=== PATIENT | female | born 1950 | race Caucasian/White ===

== ENCOUNTER 2019-12-17 08:08 | Outpatient (REF) | payer MEDICARE, SELFPAY ==
[2019-12-17 11:26] LABS: Hematocrit 41.6 % (37-47); Hemoglobin 14.3 g/dl (12.0-16.0); Mean Corpuscular HGB Conc 34.4 g/dl (31.0-35.0); Mean Corpuscular Hemoglobin 30.9 pg (27.0-33.0); Mean Corpuscular Volume 89.8 fL (80-98); Mean Platelet Volume 11.1 fL (9.4-12.3); Platelet Count 225 X10*3/uL (160-400); Red Blood Count 4.63 X10*6/uL (4.20-5.50); Red Cell Distribution Width 11.7 % (11.0-16.0); White Blood Count 6.9 X10*3/uL (4.8-10.8)
[2019-12-17 11:31] LABS: Estimated Average Glucose 146 mg/dL; Hemoglobin A1c % 6.7 %
[2019-12-17 11:37] LABS: Alanine Aminotransferase 16 U/L (0-31); Albumin Level 4.2 g/dL (3.5-5.0); Alkaline Phosphatase 83 U/L (39-117); Anion Gap 13 (12-20); Aspartate Amino Transferase 19 U/L (5-31); Bilirubin Total 0.6 mg/dL (0.0-1.0); Blood Urea Nitrogen 9 mg/dL (9-16); Carbon Dioxide 31 mmol/L (22-29); Chloride 94 mmol/L (96-108); Cholesterol 140 mg/dL; Estimated Glomerular Filt Rate > 60; Glucose Fasting 155 mg/dL (60-99); HDL Cholesterol 47 mg/dL; LDL Cholesterol Calculated 70 mg/dl; Potassium 4.4 mmol/l (3.3-5.1); Sodium 134 mmol/L (135-145); Total Protein 6.3 g/dL (6.5-8.0); Triglycerides 115 mg/dL
[2019-12-17 12:06] LABS: Creatinine Urine 57.94 mg/dL; Microalbumin Urine < 5.0 mg/L
== END 2019-12-17 08:09 | disposition home or self-care (01) ==
LOC: HO.HMGCLDS 08:08
PROVIDERS: PCP Internal Medicine; Visit Provider Internal Medicine
DX: E11.9 Type 2 diabetes mellitus without complications (principal); I10 Essential (primary) hypertension; E78.5 Hyperlipidemia, unspecified; F32.9 Major depressive disorder, single episode, unspecified
CPT/HCPCS: 36415; 80053; 80061; 82043; 83036; 85027

== ENCOUNTER 2020-03-02 11:45 | Outpatient (REF) | payer MEDICARE, SELFPAY ==
[2020-03-02 14:33] LABS: Anion Gap 21 (12-20); Blood Urea Nitrogen 7 mg/dL (9-16); Calcium 9.9 mg/dL (8.4-10.2); Carbon Dioxide 25 mmol/L (22-29); Chloride 92 mmol/L (96-108); Estimated Glomerular Filt Rate > 60; Glucose Random 145 mg/dL (60-115); Iron 164 mcg/dL (30-160); Percent Iron Saturation 41 % (15-50); Potassium 4.7 mmol/l (3.3-5.1); Sodium 133 mmol/L (135-145); Total Iron Binding Capacity 399 mcg/dL (228-428); Unsaturated Iron Binding 235 ug/dL
[2020-03-02 14:42] LABS: TSH reflex Free T4 1.02 mIU/mL (0.32-4.0)
[2020-03-02 14:57] LABS: Folate 8.5 ng/mL (> or = 4.0); Vitamin B12 270 pg/mL (200-900)
[2020-03-06 12:42] LABS: Vitamin B1 6 nmol/L (8-30)
== END 2020-03-02 11:46 | disposition home or self-care (01) ==
LOC: HO.HMGCLDS 11:45
PROVIDERS: PCP Internal Medicine; Visit Provider Internal Medicine
DX: E11.9 Type 2 diabetes mellitus without complications (principal); L65.9 Nonscarring hair loss, unspecified; F41.9 Anxiety disorder, unspecified; F32.9 Major depressive disorder, single episode, unspecified; I10 Essential (primary) hypertension
CPT/HCPCS: 36415; 80048; 82607; 82746; 83540; 84425; 84443

== ENCOUNTER 2020-07-20 08:06 | Outpatient (REF) | payer MEDICARE, SELFPAY ==
[2020-07-20 11:33] LABS: Hemoglobin 13.8 g/dl (12.0-16.0); Mean Corpuscular HGB Conc 35.4 g/dl (31.0-35.0); Mean Corpuscular Hemoglobin 31.1 pg (27.0-33.0); Mean Corpuscular Volume 87.8 fL (80-98); Mean Platelet Volume 11.3 fL (9.4-12.3); Platelet Count 202 X10*3/uL (160-400); Red Blood Count 4.44 X10*6/uL (4.20-5.50); Red Cell Distribution Width 11.6 % (11.0-16.0); White Blood Count 7.5 X10*3/uL (4.8-10.8)
[2020-07-20 11:56] LABS: Alanine Aminotransferase 21 U/L (0-31); Albumin Level 4.1 g/dL (3.5-5.0); Alkaline Phosphatase 86 U/L (39-117); Anion Gap 15 (12-20); Aspartate Amino Transferase 23 U/L (5-31); Bilirubin Total 0.5 mg/dL (0.0-1.0); Blood Urea Nitrogen 8 mg/dL (9-16); Calcium 8.8 mg/dL (8.4-10.2); Carbon Dioxide 24 mmol/L (22-29); Chloride 95 mmol/L (96-108); Cholesterol 131 mg/dL; Estimated Glomerular Filt Rate > 60; Glucose Fasting 182 mg/dL (60-99); HDL Cholesterol 46 mg/dL; LDL Cholesterol Calculated 41 mg/dl; Potassium 3.5 mmol/L (3.3-5.1); Sodium 130 mmol/L (135-145); Total Protein 6.2 g/dL (6.5-8.0); Triglycerides 222 mg/dL
[2020-07-20 12:01] LABS: Estimated Average Glucose 189 mg/dL; Hemoglobin A1c % 8.2 %
[2020-07-20 12:10] LABS: Creatinine Urine 55.94 mg/dL; Microalbum/Creatinine Ratio Ur 10.7 ug/mg cr
== END 2020-07-20 08:07 | disposition home or self-care (01) ==
LOC: HO.HMGCLDS 08:06
PROVIDERS: PCP Internal Medicine; Visit Provider Internal Medicine
DX: E11.9 Type 2 diabetes mellitus without complications (principal); I10 Essential (primary) hypertension; E78.5 Hyperlipidemia, unspecified; F32.9 Major depressive disorder, single episode, unspecified
CPT/HCPCS: 36415; 80053; 80061; 82043; 83036; 85027

== ENCOUNTER 2020-10-28 07:37 | Outpatient (REF) | payer MEDICARE, SELFPAY ==
[2020-10-28 11:26] LABS: Hemoglobin 13.8 g/dl (12.0-16.0); Mean Corpuscular HGB Conc 35.4 g/dl (31.0-35.0); Mean Corpuscular Hemoglobin 30.5 pg (27.0-33.0); Mean Corpuscular Volume 86.1 fL (80-98); Mean Platelet Volume 10.9 fL (9.4-12.3); Platelet Count 218 X10*3/uL (160-400); Red Blood Count 4.53 X10*6/uL (4.20-5.50); Red Cell Distribution Width 11.3 % (11.0-16.0)
[2020-10-28 11:46] LABS: Alanine Aminotransferase 13 U/L (0-31); Albumin Level 4.2 g/dL (3.5-5.0); Alkaline Phosphatase 76 U/L (39-117); Anion Gap 11 (12-20); Aspartate Amino Transferase 19 U/L (5-31); Bilirubin Total 0.5 mg/dL (0.0-1.0); Blood Urea Nitrogen 7 mg/dL (9-16); Calcium 9.3 mg/dL (8.4-10.2); Carbon Dioxide 30 mmol/L (22-29); Chloride 92 mmol/L (96-108); Estimated Glomerular Filt Rate > 60; Glucose Fasting 154 mg/dL (60-99); Potassium 4.2 mmol/L (3.3-5.1); Sodium 129 mmol/L (135-145)
[2020-10-28 11:53] LABS: Creatinine Urine 46.17 mg/dL; Microalbumin Urine < 5.0 mg/L
[2020-10-28 12:02] LABS: Estimated Average Glucose 171 mg/dL; Hemoglobin A1c % 7.6 %
== END 2020-10-28 07:38 | disposition home or self-care (01) ==
LOC: HO.HMGCLDS 07:37
PROVIDERS: PCP Internal Medicine; Visit Provider Internal Medicine
DX: E11.9 Type 2 diabetes mellitus without complications (principal); F32.9 Major depressive disorder, single episode, unspecified; F41.9 Anxiety disorder, unspecified; I10 Essential (primary) hypertension
CPT/HCPCS: 36415; 80053; 82043; 83036; 85027

== ENCOUNTER 2021-01-27 06:52 | Outpatient (REF) | payer MEDICARE, SELFPAY ==
[2021-01-27 12:01] LABS: Hematocrit 41.1 % (37.0-47.0); Hemoglobin 13.7 g/dl (12.0-16.0); Mean Corpuscular HGB Conc 33.3 g/dl (31.0-35.0); Mean Corpuscular Hemoglobin 30.2 pg (27.0-33.0); Mean Corpuscular Volume 90.5 fL (80.0-98.0); Mean Platelet Volume 11.2 fL (9.4-12.3); Platelet Count 204 X10*3/uL (160-400); Red Blood Count 4.54 X10*6/uL (4.20-5.50); Red Cell Distribution Width 11.9 % (11.0-16.0); White Blood Count 6.5 X10*3/uL (4.8-10.8)
[2021-01-27 12:07] LABS: Estimated Average Glucose 171 mg/dL; Hemoglobin A1c % 7.6 %
[2021-01-27 12:20] LABS: Alanine Aminotransferase 15 U/L (0-31); Albumin Level 4.1 g/dL (3.5-5.0); Alkaline Phosphatase 77 U/L (39-117); Anion Gap 14 (12-20); Aspartate Amino Transferase 18 U/L (5-31); Bilirubin Total 0.6 mg/dL (0.0-1.0); Blood Urea Nitrogen 9 mg/dL (9-16); Calcium 9.4 mg/dL (8.4-10.2); Carbon Dioxide 28 mmol/L (22-29); Chloride 97 mmol/L (96-108); Cholesterol 141 mg/dL; Estimated Glomerular Filt Rate > 60; Glucose Fasting 182 mg/dL (60-99); HDL Cholesterol 49 mg/dL; LDL Cholesterol Calculated 71 mg/dl; Potassium 4.6 mmol/L (3.3-5.1); Sodium 134 mmol/L (135-145); Total Protein 6.1 g/dL (6.5-8.0); Triglycerides 109 mg/dL
[2021-01-27 12:31] LABS: Creatinine Urine 89.37 mg/dL
== END 2021-01-27 06:53 | disposition home or self-care (01) ==
LOC: HO.HMGCLDS 06:52
PROVIDERS: PCP Internal Medicine; Visit Provider Internal Medicine
DX: E11.9 Type 2 diabetes mellitus without complications (principal); E87.1 Hypo-osmolality and hyponatremia; I10 Essential (primary) hypertension; F32.A Depression, unspecified
CPT/HCPCS: 36415; 80048; 80053; 80061; 82043; 83036; 85027

== ENCOUNTER 2021-03-30 12:20 | Outpatient (REF) | payer MEDICARE, SELFPAY ==
[2021-03-30 14:12] LABS: Appearance Urine HAZY; Color Urine YELLOW; Glucose Urine UA NEG (NEG); Leukocyte Esterase Urine NEG (NEG); Nitrite Urine NEG (NEG); PH 7.5 (5.0-8.0); Specific Gravity - Urine 1.015 (1.005-1.025); Urine Blood NEG (NEG); Urine Ketones NEG (NEG); Urine Protein NEG (NEG-TRACE)
== END 2021-03-30 12:21 | disposition home or self-care (01) ==
LOC: HO.HMGCLDS 12:20
PROVIDERS: Visit Provider Internal Medicine
DX: R39.9 Unspecified symptoms and signs involving the genitourinary system (principal)
CPT/HCPCS: 81003

== ENCOUNTER 2021-10-10 07:10 | Outpatient (REF) | payer MEDICARE, SELFPAY ==
[2021-10-10 11:40] LABS: Hematocrit 39.6 % (37.0-47.0); Hemoglobin 13.8 g/dl (12.0-16.0); Mean Corpuscular HGB Conc 34.8 g/dl (31.0-35.0); Mean Platelet Volume 11.3 fL (9.4-12.3); Platelet Count 216 X10*3/uL (160-400); Red Blood Count 4.45 X10*6/uL (4.20-5.50); Red Cell Distribution Width 11.3 % (11.0-16.0); White Blood Count 6.2 X10*3/uL (4.8-10.8)
[2021-10-10 11:52] LABS: Estimated Average Glucose 157 mg/dL; Hemoglobin A1c % 7.1 %
[2021-10-10 11:54] LABS: Creatinine Urine 88.26 mg/dL
[2021-10-10 11:58] LABS: Alanine Aminotransferase 15 U/L (0-31); Albumin Level 4.2 g/dL (3.5-5.0); Alkaline Phosphatase 73 U/L (39-117); Anion Gap 14 (12-20); Aspartate Amino Transferase 20 U/L (5-31); Bilirubin Total 0.6 mg/dL (0.0-1.0); Blood Urea Nitrogen 8 mg/dL (9-16); Calcium 9.7 mg/dL (8.4-10.2); Carbon Dioxide 32 mmol/L (22-29); Chloride 89 mmol/L (96-108); Cholesterol 127 mg/dL; Estimated Glomerular Filt Rate > 60; Glucose Fasting 136 mg/dL (60-99); HDL Cholesterol 55 mg/dL; LDL Cholesterol Calculated 53 mg/dl; Sodium 131 mmol/L (135-145); Total Protein 6.3 g/dL (6.5-8.0); Triglycerides 98 mg/dL
== END 2021-10-10 07:11 | disposition home or self-care (01) ==
LOC: HO.HMGCLDS 07:10
PROVIDERS: PCP Internal Medicine; Visit Provider Internal Medicine
DX: I10 Essential (primary) hypertension (principal); E11.9 Type 2 diabetes mellitus without complications; J44.9 Chronic obstructive pulmonary disease, unspecified
CPT/HCPCS: 36415; 80053; 80061; 82043; 83036; 85027

== ENCOUNTER 2021-11-13 14:40 | Outpatient (REF) | payer MEDICARE, SELFPAY ==
[2021-11-13 16:54] LABS: Anion Gap 15 (12-20); Blood Urea Nitrogen 7 mg/dL (9-16); Calcium 10.4 mg/dL (8.4-10.2); Carbon Dioxide 32 mmol/L (22-29); Chloride 90 mmol/L (96-108); Estimated Glomerular Filt Rate > 60; Glucose Random 174 mg/dL (60-115); Potassium 4.6 mmol/L (3.3-5.1); Sodium 132 mmol/L (135-145)
[2021-11-13 17:15] LABS: TSH reflex Free T4 1.14 uIU/mL (0.32-4.0)
== END 2021-11-13 14:41 | disposition home or self-care (01) ==
LOC: HO.HMGCLDS 14:40
PROVIDERS: PCP Internal Medicine; Visit Provider Internal Medicine
DX: F32.9 Major depressive disorder, single episode, unspecified (principal); F41.9 Anxiety disorder, unspecified; E11.9 Type 2 diabetes mellitus without complications; E87.1 Hypo-osmolality and hyponatremia
CPT/HCPCS: 36415; 80048; 84443

== ENCOUNTER 2022-01-26 07:11 | Outpatient (REF) | payer MEDICARE, SELFPAY ==
[2022-01-26 12:41] LABS: Alanine Aminotransferase 14 U/L (0-31); Albumin Level 4.4 g/dL (3.5-5.0); Alkaline Phosphatase 74 U/L (39-117); Anion Gap 15 (12-20); Aspartate Amino Transferase 19 U/L (5-31); Bilirubin Total 0.7 mg/dL (0.0-1.0); Blood Urea Nitrogen 7 mg/dL (9-16); Carbon Dioxide 32 mmol/L (22-29); Chloride 88 mmol/L (96-108); Cholesterol 120 mg/dL; Estimated Glomerular Filt Rate > 60; Glucose Fasting 134 mg/dL (60-99); HDL Cholesterol 57 mg/dL; LDL Cholesterol Calculated 48 mg/dl; TSH reflex Free T4 1.89 uIU/mL (0.32-4.0); Total Protein 6.4 g/dL (6.5-8.0); Triglycerides 77 mg/dL
[2022-01-26 12:46] LABS: Sodium 131 mmol/L (135-145)
[2022-01-26 13:35] LABS: Estimated Average Glucose 146 mg/dL; Hemoglobin A1c % 6.7 %
== END 2022-01-26 07:12 | disposition home or self-care (01) ==
LOC: HO.HMGCLDS 07:11
PROVIDERS: PCP Internal Medicine; Visit Provider Internal Medicine
DX: F32.9 Major depressive disorder, single episode, unspecified (principal); F41.9 Anxiety disorder, unspecified; I10 Essential (primary) hypertension; E11.9 Type 2 diabetes mellitus without complications
CPT/HCPCS: 36415; 80053; 80061; 83036; 84443

== ENCOUNTER → 2022-02-12 08:18 | Outpatient (REF) | payer MEDICARE, SELFPAY ==
--- NOTE | ~2022-02-12 | CT_ITS ---
EXAMINATION: CT CHEST WITHOUT CONTRAST CLINICAL INFORMATION: Solitary pulmonary nodule COMPARISON: Radiograph 04/30/2017 TECHNIQUE: Multidetector volumetric CT imaging of the chest was done. Axial MIP volume rendering provided. Sagittal and coronal reformatted images were obtained. This CT examination was performed using dose optimization techniques as appropriate, variously including the following: *Automated exposure control *Adjustment of mA and/or kV according to patient size (this includes techniques or standardized protocols for targeted exams where dose is matched to indication/reason for exam; i.e. extremities or head) *Use of iterative reconstruction technique DLP: 107 mGy-cm FINDINGS: LUNGS: There are secretions noted in the trachea. The central airways are otherwise patent. Mild bronchial wall thickening seen. Mild centrilobular emphysema in the upper lungs. Right apical pleural thickening/scarring with areas of calcification. There is additional mild pleural thickening seen anteromedially along the right upper lobe. Multiple pulmonary nodules are seen. 1. 0.3 cm anterior right upper lobe pulmonary nodule on series 5 image 126. 2. Right middle lobe 0.4 cm nodule on series 5 image 203. 3. Anterior left upper lobe 0.4 cm nodule on series 5 image 156. 4. Lateral left upper lobe 0.5 cm nodule on series 5 image 190. 5. 0.4 cm right lower lobe nodule on series 5 image 345. 6. Posterior left lower lobe 0.4 cm nodule on series 5 image 279. There are a few calcified nodules also present. MEDIASTINUM: Normal heart size. No pericardial effusion. No mediastinal lymphadenopathy. Coarse calcifications in the thyroid gland. CORONARY ARTERY CALCIFICATION: Mild. PLEURA: There is no pleural effusion. No pneumothorax. AXILLA: No lymphadenopathy. UPPER ABDOMEN: Cholelithiasis. No acute abnormalities are seen. Dense aortic calcifications. OSSEOUS STRUCTURES: No acute or suspicious osseous abnormality. Chronic appearing compression deformity of the L1 vertebral body. CT/CT chest wo IV con IMPRESSION: 1. Mild emphysema. Multiple pulmonary nodules are seen measuring up to 0.5 cm. Consider 12 month follow-up chest CT. 2. Bronchial wall thickening can be seen with a small airways process such as asthma or atypical/viral infection. This can also be seen with chronic bronchitis. According to the UPDATED 2017 Fleischner Society recommendations, the advised follow-up imaging for solid nodules < 6 mm is: LOW RISK PATIENT: No routine follow-up. HIGH RISK PATIENT: Optional CT at 12 months.
--- NOTE | 2022-02-12 08:21 | CA_ITS ---
Transthoracic Echocardiogram Patient (Last, First, Middle): Lisa Dangelo, Gender: Female Date of : 1950 Age: 71 Procedure Date: 02/12/2022 Procedure Type: Transthoracic Echocardiogram Location: OP Height: 157.48 cm Weight: 44.45 kg BSA: 1.41 m2 Heart Rate: 108 bpm BP: 120 / 74 mmHg [employer]: SB Referring MD: Enriqueta Estrada MD Symptoms: F17.200 - Nicotine dependence, unspecified, uncomplicated Study Quality: TDS/narrow ribs/pt term exam, unable to tolerate ECG Rhythm: Tachycardia Conclusions: - The left ventricular systolic function is hyperdynamic. The visually estimated ejection fraction is >70%. - There is moderate septal and moderate basal asymmetric hypertrophy. - Rheumatic mitral valve stenosis. No more than mild-to moderate. Findings Procedure Information The study quality is limited by the patients inability to tolerate the test. Left Ventricle Normal left ventricular cavity size. The left ventricular systolic function is hyperdynamic. The visually estimated ejection fraction is >70%. There is no evidence of regional wall motion abnormalities. There is moderate septal and moderate basal asymmetric hypertrophy. Gradients noted in LV mid cavity as well as LVOT, but no clear evidence of obstruction. Some increase in LVOT gradient with valsalva. Right Ventricle Normal right ventricular cavity size. Right ventricular systolic function possibly reduced, but not well seen. Atria Both atria are normal in size. Aortic Valve There is a normal trileaflet aortic valve. There is mild calcification of the aortic valve. There is no aortic valve stenosis. There is no aortic valve regurgitation. Mitral Valve There is trace mitral valve regurgitation. There is no mitral valve stenosis. There is annular as well as chordal calcification. Cannot exclude rheumatic etiology. Mean gradient across the mitral valve 6 mm Hg. Could indicate mild to moderate mitral stenosis. Hyperdynamic state can also contribute to increased gradients. Pulmonic Valve The pulmonic valve is likely normal. Tricuspid Valve There is mild tricuspid valve regurgitation. Mild pulmonary hypertension is present. Great Vessels The aorta was not well visualized. The aortic annulus is normal in size. Venous The inferior vena cava is normal in size and collapses greater than 50% with inspiration. Pericardium/Pleural There is no evidence of pericardial effusion. Prior Study Comparison Changes noted compared to prior study dated: 07/04/2002. LV now hyperdynamic. See comments on mitral valve. Measurements 2D Linear Measurements IVSd: 1.21 0.6-0.9/0.6-1.0 cm LVIDd: 3.02 3.9-5.3/4.2-5.9 cm LVIDd Index: 2.14 2.4-3.2/2.2-3.1 cm/m2 LVIDs: 2.05 2.0-3.6 cm LVPWd: 0.88 0.7-1.1 cm LA Diam: 2.60 2.7-3.8/3.0-4.0 cm LAIDs Index: 1.84 1.5-2.3 cm/m2 LV Mass: 110.04 67-162/88-224 g LV Mass Index: 78.04 43-95/49-115 g/m2 LVOT Diam: 1.90 3.0+(-)1.3 cm 2D Systolic Function EF 4C: 73.90 >55% EF 2C: 64.90 >55% EF BiP: 70.00 >55% Mitral Valve MV VTI: 0.25 MV Pk George: 1.89 MV Mn George: 1.15 MV Pk Grad: 14.00 MV Mn Grad: 6.00 MV Pk E: 0.83 MV PK A: 1.46 MV Decel Time: 169.00 E/A: 0.60 E'Lateral: 6.53 E'Medial: 6.09 E/E' Med: 13.60 E/E' Lat: 12.70 PHT: 50.00 MVA PHT: 4.40 MVA Continuity: 4.86 Decel Loíza: 4.91 Aortic Valve AoV Pk George: 2.51 AoV Pk Grad: 25.00 HEYDI: 2.86 LVOT LVOT Pk George: 2.53 LVOT Mn George: 1.62 LVOT VTI: 0.42 LVOT Pk Grad: 26.00 LVOT Mn Grad: 13.00 LVOT Diam: 1.90 LVOT Area: 2.84 Diastolic Function MV Pk E: 0.83 MV Pk A: 1.46 E/A: 0.60 E'Medial: 6.09 E/E' Med: 13.60 E' Laterial: 6.53 E/E' Lat: 12.70 Right Ventricle TAPSE (mm): 12.90 Tricuspid Valve TR Pk George: 3.19 TR Pk Grad: 41.00 RA Press: 8.00 RVSP: 49.00 Great Vessels Aorta Sinus of Valsalva: 2.80 2.0-3.5 cm Pulmonary Valve PV Pk George: 0.94 Peak PV Grad: 4.00 Updated in Other Vendor System with Status of Final Herber Medina MD electronically signed on 02/12/2022 12:35:12 PM with status of Final
== END ==
LOC: HO.CARD 08:18
PROVIDERS: PCP Internal Medicine; Visit Provider Internal Medicine
DX: R91.1 Solitary pulmonary nodule (principal); J44.9 Chronic obstructive pulmonary disease, unspecified; F17.200 Nicotine dependence, unspecified, uncomplicated
CPT/HCPCS: 71250; 93306

== ENCOUNTER 2022-04-09 11:03 | Outpatient (REF) | payer MEDICARE, SELFPAY ==
[2022-04-09 13:52] LABS: MANUAL DIFF FLAG NO
[2022-04-09 14:03] LABS: Hematocrit 35.5 % (37.0-47.0); Imm Gran Abs Auto 0.01 X10*3/uL (0.00-0.03); Imm Gran Pct Auto 0.2 % (0.0-0.4); Lymphocytes Absolute Auto 1.5 X10*3/uL (1.2-4.9); Lymphocytes Percent Auto 27.7 % (20-40); Mean Corpuscular HGB Conc 36.6 g/dl (31.0-35.0); Mean Corpuscular Hemoglobin 31.3 pg (27.0-33.0); Mean Corpuscular Volume 85.5 fL (80.0-98.0); Mean Platelet Volume 10.3 fL (9.4-12.3); Monocytes Absolute Auto 0.5 X10*3/uL (0.1-1.2); Monocytes Percent Auto 9.6 % (2-11); Neutrophils Absolute Auto 3.3 x10*3/uL (2.0-8.3); Neutrophils Percent Auto 62.5 % (45-73); Platelet Count 264 X10*3/uL (160-400); Red Blood Count 4.15 X10*6/uL (4.20-5.50); Red Cell Distribution Width 10.9 % (11.0-16.0); White Blood Count 5.3 X10*3/uL (4.8-10.8)
[2022-04-09 14:40] LABS: Alanine Aminotransferase 20 U/L (0-31); Albumin Level 4.6 g/dL (3.5-5.0); Alkaline Phosphatase 79 U/L (39-117); Anion Gap 19 (12-20); Aspartate Amino Transferase 26 U/L (5-31); Bilirubin Total 0.8 mg/dL (0.0-1.0); Blood Urea Nitrogen 8 mg/dL (9-16); Calcium 9.6 mg/dL (8.4-10.2); Carbon Dioxide 26 mmol/L (22-29); Chloride 89 mmol/L (96-108); Estimated Glomerular Filt Rate > 60; Glucose Random 140 mg/dL (60-115); Potassium 3.8 mmol/L (3.3-5.1); Sodium 130 mmol/L (135-145); Total Protein 6.7 g/dL (6.5-8.0)
[2022-04-09 15:07] LABS: T4 Thyroxine 10.8 ug/dL (4.5-12.0); Thyroid Stimulating Hormone 1.11 uIU/mL (0.32-4.0); Vitamin B12 901 pg/mL (200-900); Vitamin D 25-OH Total 72.8 ng/mL (>30)
[2022-04-09 15:08] LABS: C Reactive Protein 0.13 mg/dL (< or = 0.50)
[2022-04-09 16:30] LABS: Magnesium 1.2 mg/dL (1.6-2.6)
[2022-04-10 07:52] LABS: Triiodothyronine T3 Free 3.9 pg/mL (2.3-4.2); Triiodothyronine T3 Total 117 ng/dL (76-181)
[2022-04-12 05:49] LABS: Zinc 74 mcg/dL (60-130)
== END 2022-04-09 11:04 | disposition home or self-care (01) ==
LOC: HO.HMGCLDS 11:03
PROVIDERS: Absent Provider Nurse Practitioner; PCP Internal Medicine; Visit Provider Internal Medicine
DX: F33.1 Major depressive disorder, recurrent, moderate (principal); F41.1 Generalized anxiety disorder; E56.9 Vitamin deficiency, unspecified; I10 Essential (primary) hypertension
CPT/HCPCS: 36415; 80053; 82306; 82607; 83735; 84436; 84443; 84480; 84481; 84630; 85025; 86140

== ENCOUNTER 2022-04-13 09:20 | Outpatient (REF) | payer MEDICARE, SELFPAY ==
[2022-04-13 12:39] LABS: Magnesium 1.6 mg/dL (1.6-2.6); Phosphorus 1.9 mg/dL (2.7-4.5)
== END 2022-04-13 09:21 | disposition home or self-care (01) ==
LOC: HO.HMGCLDS 09:20
PROVIDERS: PCP Internal Medicine; Visit Provider Internal Medicine
DX: E83.42 Hypomagnesemia (principal)
CPT/HCPCS: 36415; 83735; 84100

== ENCOUNTER 2022-04-20 13:23 | Outpatient (REF) | payer MEDICARE, SELFPAY ==
[2022-04-20 17:46] LABS: Anion Gap 20 (12-20); Blood Urea Nitrogen 6 mg/dL (9-16); Calcium 9.8 mg/dL (8.4-10.2); Carbon Dioxide 24 mmol/L (22-29); Chloride 92 mmol/L (96-108); Estimated Glomerular Filt Rate > 60; Glucose Random 81 mg/dL (60-115); Magnesium 1.4 mg/dL (1.6-2.6); Phosphorus 4.5 mg/dL (2.7-4.5); Sodium 132 mmol/L (135-145)
== END 2022-04-20 13:24 | disposition home or self-care (01) ==
LOC: HO.HMGCLDS 13:23
PROVIDERS: PCP Internal Medicine; Visit Provider Internal Medicine
DX: E83.42 Hypomagnesemia (principal); E87.1 Hypo-osmolality and hyponatremia
CPT/HCPCS: 36415; 80048; 83735; 84100

== ENCOUNTER 2022-04-30 12:20 | Outpatient (REF) | payer MEDICARE, SELFPAY ==
[2022-04-30 14:19] LABS: Magnesium 1.6 mg/dL (1.6-2.6); Phosphorus 3.4 mg/dL (2.7-4.5)
== END 2022-04-30 12:21 | disposition home or self-care (01) ==
LOC: HO.HMGCLDS 12:20
PROVIDERS: PCP Internal Medicine; Visit Provider Internal Medicine
DX: E83.39 Other disorders of phosphorus metabolism (principal); E83.42 Hypomagnesemia
CPT/HCPCS: 36415; 83735; 84100

== ENCOUNTER 2022-05-07 14:22 | Outpatient (REF) | payer MEDICARE, SELFPAY ==
[2022-05-07 16:43] LABS: Appearance Urine Clear; Color Urine Yellow; Glucose Urine UA Negative (Negative); Leukocyte Esterase Urine Negative (Negative); Nitrite Urine Negative (Negative); PH 7.5 (5.0-9.0); Urine Blood Negative (Negative); Urine Ketones Trace mg/dL (Negative); Urine Protein Negative (Neg-Trace)
[2022-05-07 16:51] LABS: Bacteria Urine Trace (None Seen); Hyaline Casts Urine 0-2 /LPF (0-2); RBC Urine 0-2 /HPF (0-2); WBC Urine 0-5 /HPF (0-5)
== END 2022-05-07 14:23 | disposition home or self-care (01) ==
LOC: HO.HMGCLDS 14:22
PROVIDERS: PCP Internal Medicine; Visit Provider Internal Medicine
DX: R30.0 Dysuria (principal)
CPT/HCPCS: 81001; 87086

== ENCOUNTER 2022-05-18 11:18 | Outpatient (REF) | payer MEDICARE, SELFPAY ==
[2022-05-18 14:33] LABS: Anion Gap 15 (12-20); Blood Urea Nitrogen 6 mg/dL (9-16); Calcium 9.7 mg/dL (8.4-10.2); Carbon Dioxide 31 mmol/L (22-29); Chloride 93 mmol/L (96-108); Estimated Glomerular Filt Rate > 60; Glucose Random 286 mg/dL (60-115); Magnesium 1.5 mg/dL (1.6-2.6); Phosphorus 3.2 mg/dL (2.7-4.5); Potassium 4.4 mmol/L (3.3-5.1); Sodium 135 mmol/L (135-145)
[2022-05-18 15:25] LABS: Estimated Average Glucose 146 mg/dL; Hemoglobin A1c % 6.7 %
== END 2022-05-18 11:19 | disposition home or self-care (01) ==
LOC: HO.HMGCLDS 11:18
PROVIDERS: PCP Internal Medicine; Visit Provider Internal Medicine
DX: E83.39 Other disorders of phosphorus metabolism (principal); E83.42 Hypomagnesemia; E11.9 Type 2 diabetes mellitus without complications
CPT/HCPCS: 36415; 80048; 83036; 83735; 84100

== ENCOUNTER 2022-06-08 08:02 | Outpatient (REF) | payer MEDICARE, SELFPAY ==
[2022-06-08 11:32] LABS: MANUAL DIFF FLAG NO
[2022-06-08 11:57] LABS: Basophils Percent Auto 0.4 % (0-2); Hematocrit 42.1 % (37.0-47.0); Imm Gran Abs Auto 0.03 X10*3/uL (0.00-0.03); Imm Gran Pct Auto 0.4 % (0.0-0.4); Lymphocytes Absolute Auto 2.3 X10*3/uL (1.2-4.9); Mean Corpuscular HGB Conc 33.3 g/dl (31.0-35.0); Mean Corpuscular Hemoglobin 30.8 pg (27.0-33.0); Mean Corpuscular Volume 92.5 fL (80.0-98.0); Mean Platelet Volume 11.3 fL (9.4-12.3); Monocytes Absolute Auto 0.5 X10*3/uL (0.1-1.2); Monocytes Percent Auto 6.7 % (2-11); Neutrophils Absolute Auto 4.4 x10*3/uL (2.0-8.3); Neutrophils Percent Auto 60.5 % (45-73); Platelet Count 234 X10*3/uL (160-400); Red Blood Count 4.55 X10*6/uL (4.20-5.50); Red Cell Distribution Width 11.3 % (11.0-16.0); White Blood Count 7.2 X10*3/uL (4.8-10.8)
[2022-06-08 12:24] LABS: Alanine Aminotransferase 14 U/L (0-31); Albumin Level 4.1 g/dL (3.5-5.0); Alkaline Phosphatase 75 U/L (39-117); Anion Gap 16 (12-20); Aspartate Amino Transferase 21 U/L (5-31); Bilirubin Total 0.6 mg/dL (0.0-1.0); Blood Urea Nitrogen 10 mg/dL (9-16); Calcium 9.7 mg/dL (8.4-10.2); Carbon Dioxide 32 mmol/L (22-29); Chloride 96 mmol/L (96-108); Cholesterol 157 mg/dL; Estimated Glomerular Filt Rate > 60; Glucose Fasting 196 mg/dL (60-99); HDL Cholesterol 64 mg/dL; LDL Cholesterol Calculated 76 mg/dl; Magnesium 1.6 mg/dL (1.6-2.6); Phosphorus 3.9 mg/dL (2.7-4.5); Potassium 4.6 mmol/L (3.3-5.1); Sodium 139 mmol/L (135-145); Triglycerides 87 mg/dL
[2022-06-08 12:31] LABS: Estimated Average Glucose 143 mg/dL; Hemoglobin A1c % 6.6 %
[2022-06-08 12:41] LABS: Creatinine Urine 59.64 mg/dL; Microalbum/Creatinine Ratio Ur 11.7 ug/mg cr
== END 2022-06-08 08:03 | disposition home or self-care (01) ==
LOC: HO.HMGCLDS 08:02
PROVIDERS: PCP Internal Medicine; Visit Provider Internal Medicine
DX: E83.42 Hypomagnesemia (principal); E83.39 Other disorders of phosphorus metabolism; J44.9 Chronic obstructive pulmonary disease, unspecified; F41.9 Anxiety disorder, unspecified; F32.9 Major depressive disorder, single episode, unspecified; I10 Essential (primary) hypertension; E11.9 Type 2 diabetes mellitus without complications
CPT/HCPCS: 36415; 80053; 80061; 82043; 83036; 83735; 84100; 85025

== ENCOUNTER 2022-07-20 07:31 | Outpatient (REF) | payer MEDICARE, SELFPAY ==
[2022-07-20 11:45] LABS: Magnesium 1.6 mg/dL (1.6-2.6)
== END 2022-07-20 07:32 | disposition home or self-care (01) ==
LOC: HO.HMGCLDS 07:31
PROVIDERS: PCP Internal Medicine; Visit Provider Internal Medicine
DX: E83.42 Hypomagnesemia (principal)
CPT/HCPCS: 36415; 83735

== ENCOUNTER 2022-08-13 12:46 | Outpatient (REF) | payer MEDICARE, SELFPAY ==
[2022-08-13 15:10] LABS: Magnesium 1.5 mg/dL (1.6-2.6)
== END 2022-08-13 12:47 | disposition home or self-care (01) ==
LOC: HO.HMGCLDS 12:46
PROVIDERS: PCP Internal Medicine; Visit Provider Internal Medicine
DX: E83.42 Hypomagnesemia (principal)
CPT/HCPCS: 36415; 83735

== ENCOUNTER 2022-10-22 16:49 | Emergency (ER) | payer MEDICARE, SELFPAY ==
--- NOTE | ~2022-10-22 | CT_ITS ---
CT head/brain wo IV con CLINICAL INFORMATION: Reason for Exam fall head strike COMPARISON: No prior CT scan available for comparison. TECHNIQUE: Department standard protocol. This CT examination was performed using dose optimization techniques as appropriate, variously including the following: *Automated exposure control *Adjustment of mA and/or kV according to patient size (this includes techniques or standardized protocols for targeted exams where dose is matched to indication/reason for exam; i.e. extremities or head) *Use of iterative reconstruction technique DLP: 571 mGy-cm FINDINGS: CEREBRAL HEMISPHERES: There is no evidence of intra-axial or extra-axial mass, hemorrhage or acute infarct. BRAIN PARENCHYMA: Normal lance-white matter differentiation. SUBDURAL SPACE: No bleed. BASAL GANGLIA AND PINEAL GLAND: Unremarkable VENTRICLES: Symmetric and normal in size. CEREBELLUM AND BRAINSTEM: No space-occupying mass, hemorrhage or acute infarct. CEREBELLOPONTINE ANGLES: No lesion found. ORBITS: No intraorbital mass. VESSELS: Unremarkable SKULL BASE: Unremarkable INCLUDED SINUSES AT SKULL BASE: Clear SKULL AND SKIN: No fracture or bone lesion found. CT/CT head/brain wo IV con IMPRESSION: No CT evidence of intracranial space-occupying mass, bleed or infarct.
--- NOTE | ~2022-10-22 | XR_ITS ---
EXAMINATION: XR ELBOW, LEFT CLINICAL INFORMATION: Fall COMPARISON: None available. TECHNIQUE: AP, lateral, and oblique views of the left elbow. FINDINGS: The bones and soft tissues are normal. No fracture or joint effusion. Alignment is anatomic. Joint spaces are maintained. XR/XR elbow LT min 3V IMPRESSION: No fracture or dislocation.
--- NOTE | ~2022-10-22 | CT_ITS ---
EXAMINATION: CT CERVICAL SPINE CLINICAL INFORMATION: Reason for Exam fall neck pain COMPARISON: No prior CT available, TECHNIQUE: Computed axial sagittal and coronal images acquired using department's standard protocol. This CT examination was performed using dose optimization techniques as appropriate, variously including the following: *Automated exposure control *Adjustment of mA and/or kV according to patient size (this includes techniques or standardized protocols for targeted exams where dose is matched to indication/reason for exam; i.e. extremities or head) *Use of iterative reconstruction technique CONTRAST: None DLP: 211 mGy-cm FINDINGS: SKULL BASE: Visualized structures at skull base are normal, Included facial sinuses are clear, CERVICAL VERTEBRAE: Seven cervical vertebrae identified maintaining proper height and alignment, DISCS: Loss of disc height and developed osteophyte from the edges of endplates suggest degenerative disc disease seen especially at C4-C5 and C5-C6. C1-C2: There is no CT evidence of significant osseous narrowing of the central canal or neural foramen. C2-C3: There is no CT evidence of significant osseous narrowing of the central canal or neural foramen. C3-C4: There is no CT evidence of significant osseous narrowing of the central canal or neural foramen. C4-C5: Developed osteophyte from the edges of endplates encroaching on the right foramen at this level, cannot rule out foraminal stenosis. There is no fracture. C5-C6: Circumferential osteophyte ridge developed from the endplates of the vertebra encroaching especially on the right foramen, cannot rule out right foraminal stenosis. There is mild narrowing of central canal. No fracture. C6-C7: There is no CT evidence of significant osseous narrowing of the central canal or neural foramen. C7-T1: There is no CT evidence of significant osseous narrowing of the central canal or neural foramen. PARAVERTEBRAL SOFT TISSUE: Paravertebral soft tissues unremarkable. CT/CT cervical spine wo IV con IMPRESSION: - No CT evidence of cervical spine fracture. - Loss of disc height and developed osteophyte from the edges of endplates suggest degenerative disc disease especially at C4-C5 and C5-C6. - Developed osteophyte from the edges of endplates encroaching on the right foramen at C4-C5 and C5-C6, cannot rule out foraminal stenosis. MRI could be utilized for further assessment if clinically indicated or patient has neurological symptoms. - Mild narrowing of central canal at C5-C6.
[2022-10-22 16:57] VITALS: BP 193/99; PULSE 108; RESP 16; TEMP 37.1; O2SAT 95; BMI 18.3
--- NOTE | 2022-10-22 16:59 | ED.GENADULT ---
HPI - General Adult General Chief complaint: Extremity Injury, Upper Stated complaint: L elbow pain, fall today Time Seen by Provider: 10/22/22 17:07 Source: patient and family Mode of arrival: ambulatory Limitations: no limitations History of Present Illness HPI narrative: 72 yo female with history of COPD, active smoker, anxiety/depression, DM, HTN who presents to the ER for evaluation of left elbow pain and swelling s/p mechanical fall today at a restaurant. She tripped while going down a stair and fell backward, hitting her head on the wall and her elbow on the ground. No LOC. Not on anticoagulation. No headache or neck pain. Patient developed significant swelling of the left elbow shortly after the fall. she is able to extend and flex the elbow. no numbness or tingling. no shoulder or wrist pain. no abdominal pain or chest pain MD complaint: left elbow pain s/p fall Onset (ago): hour(s) Location: head, left and upper extremity Radiation: non-radiation Severity: moderate Quality: aching Pain Consistency: intermittent Relieving factors: cold therapy, immobilization and rest Exacerbating factors: movement and other (palpation) Associated symptoms: denies other symptoms Treatments prior to arrival: none Related Data Home Medications Medication Instructions Recorded Confirmed buspirone 5 mg tablet 15 mg PO BID 08/01/22 08/01/22 lorazepam 1 mg tablet 1 mg PO DAILY PRN 08/01/22 08/01/22 Previous Rx's Medication Instructions Recorded tiotropium bromide 2.5 2 inh inhalation QAM #4 grams 02/01/21 mcg/actuation mist for inhalation (Spiriva Respimat) metformin 1,000 mg tablet 1,000 mg PO DAILY #90 tabs 01/30/22 trazodone 50 mg tablet 25 - 50 mg PO BEDTIME PRN for 02/06/22 insomnia #30 tabs lisinopril 20 1 tab PO BID #180 tabs 02/09/22 mg-hydrochlorothiazide 12.5 mg tablet albuterol sulfate 90 mcg/actuation 2 puff inhalation Q6H PRN 04/05/22 aerosol inhaler shortness of breath or wheezing #8.5 grams mirtazapine 45 mg tablet 45 mg PO BEDTIME #90 tabs 07/17/22 sodium di- and 1 tab PO DAILY #90 tabs 08/16/22 monophosphate-potassium phos monobasic 250 mg tablet (Phospha Neutral) magnesium oxide 400 mg (241.3 mg 400 mg PO BID #60 tabs 09/28/22 magnesium) tablet atorvastatin 40 mg tablet 40 mg PO DAILY #90 tabs 10/16/22 Allergies Allergy/AdvReac Type Severity Reaction Status Date / Time nortriptyline Allergy Severe hives Verified 08/01/22 08:25 bupropion Allergy Intermediate hives Verified 08/01/22 08:25 nitrofurantoin Allergy Intermediate heartburn; Verified 08/01/22 08:25 N/V buspirone [From BuSpar] Allergy Unknown Diarrhea Verified 08/01/22 08:25 high anxiety penicillin V Allergy Unknown Hives Verified 08/01/22 08:25 Sulfa (Sulfonamide Allergy Unknown Hives Verified 08/01/22 08:25 Antibiotics) cefdinir Allergy diarrhea Verified 08/01/22 08:25 and yeast ingection phenazopyridine AdvReac Mild Diarrhea Verified 08/01/22 08:28 [From Pyridium] Myacin Allergy Mild Hives Uncoded 04/05/22 10:21 Review of Systems Review of Systems: Yes all other systems are reviewed and are negative [facility] Past Medical History Medical History (Updated 10/22/22 @ 18:35 by LANETTE Mccauley) Alopecia Annual physical exam Anxiety and depression CAD (coronary artery disease) Colon polyp COPD (chronic obstructive pulmonary disease) Depression Diabetes Diabetic eye exam Dysuria HTN (hypertension) Hyperlipidemia Hyponatremia Tobacco abuse Surgical History H/O colonoscopy History of appendectomy History of oophorectomy Family History Family History (Updated 08/01/22 @ 08:49 by Staci Puentes Chioma) Father Diabetes mellitus Mother No problems noted. Son Myocardial infarction Social History Social History Housing: House Alcohol intake: current Alcohol intake frequency: does not drink Patient Tobacco Use Status: Current everyday Tobacco user Tobacco use type: Cigarette Cigarettes Per Day: 10 Years Smoked: 45 years e-Cigarette/Vaping Use: Never Used Second Hand Smoke Exposure: No Advance Directives: No Advance Directives Information Provided: Yes service: No Current occupational status: retired Current occupational exposures/hazards: No Cognitive needs: No Hearing needs: No Vision needs: No Physical Exam ED Vital Signs: Vital Signs - 24 hr 10/22/22 16:57 10/22/22 18:25 Temperature 98.7 F Pulse Rate 108 H 105 H Respiratory Rate 16 18 Blood Pressure 193/99 H 205/88 H Pulse Oximetry 95 95 Oxygen Delivery Method Room Air Room Air BMI result Body Mass Index 18.3 Appearance: Alert. Oriented X3. No acute distress. Head: normocephalic, atraumatic. Eyes: Pupils equal, round and reactive to light. ENT: Pharynx normal. No tonsillar swelling or exudate. Neck: Normal inspection. Neck supple. No midline tenderness. normal ROM CVS: Normal heart rate and rhythm. Pulses normal. Respiratory: No respiratory distress. Breath sounds diminished at the bases bilaterally. Abdomen: Soft and nontender. +BS x4 Skin: Skin warm and dry. Normal skin color. Normal skin turgor. No rashes. Extremities: No lower extremity edema. No joint swelling. left elbow with moderate generalized swelling and tenderness, ecchymosis present. no point tenderness of either epicondyle. FROM of the left elbow with discomfort upon full flexion. equal dairy management specialist strength bilaterally. no forearm tenderness, wrist tenderness. Neuro/psych: Oriented X 3. No motor deficit. No sensory deficit. CN II-XII intact. Normal speech and cognition. steady gait Course Course Course Narrative: This is an RME: Additional HPI, ROS, PE not included below will be deferred to primary provider. 72-year-old female presents status post slip and fall at 13:00, patient reports she fell onto her left side, hitting her left shoulder and left side of head, reporting slight head/neck pain, left elbow pain and swelling to left elbow. Neuro appears intact Plan- x-ray and CT scan Medical Decision Making Medical Decision Making MDM Narrative: 72 yo female presenting with COPD, HTN, DM, anxiety/depression presenting with left elbow pain s/p mechanical fall. +headstrike without LOC. no evidence of head trauma on exam. no midline cervical tenderness. her left elbow is c/w traumatic bursitis vs hematoma. XR reviewed - no acute fracture. she has full ROM. placed in ELLIOTT wrap for compression, sling for comfort and elevation. we discussed expected course for recovery along with return precautions. will refer to ortho if no improvement with conservative measures BP noted to be significantly elevated on arrival. no chest pain, headache or vision changes. reports baseline HTN and is on lisinopril, did not take yet today. she admits to anxiety and stress while being in the ER. she wants to leave and have a cigarette. patient will take her BP meds and trend her BP tonight. discussed strict return precautions. son who she is with will ensure compliance and bring her back if issues. comfortable w/ d/c home w/ family. Differential Diagnosis Differential Diagnoses: The differential diagnosis associated with the presentation includes traumatic bursitis, hematoma, elbow fracture, HTN urgency, HTN emergency Admission/Observation Consideration of admission/observation: Escalation of care including admission/observation considered Independent Interpretation I performed an independent interpretation of an: Plain X-Ray and CT Scan Interpretation: xray elbow reviewed - no fx or dislocation CT head without bleed or edema, agree w/ radiology read Radiology Impression Discussion of test interpretation with radiology: I have reviewed the radiologist's reading. Radiologist Impression: EXAMINATION: XR ELBOW, LEFT CLINICAL INFORMATION: Fall? COMPARISON: None available.? TECHNIQUE: AP, lateral, and oblique views of the left elbow. FINDINGS: The bones and soft tissues are normal. No fracture or joint effusion. Alignment is anatomic. Joint spaces are maintained.? XR/XR elbow LT min 3V IMPRESSION: No fracture or dislocation. EXAMINATION: CT CERVICAL SPINE CLINICAL INFORMATION: Reason for Exam fall neck pain COMPARISON: No prior CT available, TECHNIQUE: Computed axial sagittal and coronal images acquired using department's standard protocol. This CT examination was performed using dose optimization techniques as appropriate, variously including the following: *Automated exposure control *Adjustment of mA and/or kV according to patient size (this includes techniques or standardized protocols for targeted exams where dose is matched to indication/reason for exam; i.e. extremities or head) *Use of iterative reconstruction technique CONTRAST: None DLP: 211 mGy-cm FINDINGS:? SKULL BASE: Visualized structures at skull base are normal,? Included facial sinuses are clear,? CERVICAL VERTEBRAE: Seven cervical vertebrae identified maintaining proper height and alignment,? DISCS: Loss of disc height and developed osteophyte from the edges of endplates suggest degenerative disc disease seen especially at C4-C5 and C5-C6. C1-C2: There is no CT evidence of significant osseous narrowing of the central canal or neural foramen. C2-C3: There is no CT evidence of significant osseous narrowing of the central canal or neural foramen. C3-C4: There is no CT evidence of significant osseous narrowing of the central canal or neural foramen. C4-C5: Developed osteophyte from the edges of endplates encroaching on the right foramen at this level, cannot rule out foraminal stenosis. There is no fracture. C5-C6: Circumferential osteophyte ridge developed from the endplates of the vertebra encroaching especially on the right foramen, cannot rule out right foraminal stenosis. There is mild narrowing of central canal. No fracture. C6-C7: There is no CT evidence of significant osseous narrowing of the central canal or neural foramen. C7-T1: There is no CT evidence of significant osseous narrowing of the central canal or neural foramen. PARAVERTEBRAL SOFT TISSUE: Paravertebral soft tissues unremarkable. ? CT/CT cervical spine wo IV con IMPRESSION: ? - No CT evidence of cervical spine fracture. ? - Loss of disc height and developed osteophyte from the edges of endplates suggest degenerative disc disease especially at C4-C5 and C5-C6. ? - Developed osteophyte from the edges of endplates encroaching on the right foramen at C4-C5 and C5-C6, cannot rule out foraminal stenosis. MRI could be utilized for further assessment if clinically indicated or patient has neurological symptoms. ? -Mild narrowing of central canal at C5-C6. CT/CT head/brain wo IV con IMPRESSION: No CT evidence of intracranial space-occupying mass, bleed or infarct. ? Independent Historian Clinical information obtained from an independent historian. History obtained from or confirmed by: Other (adult son) Prescription Management I considered prescription management with: Pain Medication Chronic Conditions Patient?s care impacted by: Diabetes, Hypertension and Other (COPD) Critical Care Time Critical Care Time Critical Care Time: No Discharge Plan Discharge Clinical Impression: Bursitis, traumatic Patient Disposition: Home, Self-Care Instructions: Elbow Bursitis (ED), Swollen Joint (ED) Additional Instructions: Your elbow x-ray was normal. Where the provided Elliott bandage for compression and support. Elevate your elbow when possible. Use ice several times per day. Take anti-inflammatory medications such as Aleve, Motrin, ibuprofen. If you have no improvement in the pain and swelling, recommend following up with orthopedics for further evaluation. Prescriptions: No Action metformin 1,000 mg tablet 1,000 mg PO DAILY Qty: 90 3RF trazodone 50 mg tablet 25 - 50 mg PO BEDTIME PRN (Reason: for insomnia) Qty: 30 5RF lisinopril-hydrochlorothiazide 20-12.5 mg tablet 1 tab PO BID Qty: 180 3RF mirtazapine 45 mg tablet 45 mg PO BEDTIME Qty: 90 2RF Phospha 250 Neutral 250 mg tablet 1 tab PO DAILY Qty: 90 1RF magnesium oxide 400 mg (241.3 mg magnesium) tablet 400 mg PO BID Qty: 60 1RF atorvastatin 40 mg tablet 40 mg PO DAILY Qty: 90 3RF Spiriva Respimat 2.5 mcg/actuation mist 2 inh inhalation QAM Qty: 4 4RF buspirone 5 mg tablet 15 mg PO BID lorazepam 1 mg tablet 1 mg PO DAILY PRN albuterol sulfate 90 mcg/actuation HFA aerosol inhaler 2 puff inhalation Q6H PRN (Reason: shortness of breath or wheezing) Qty: 8.5 2RF Ref[place]: [facility] [place]Provider Group] Enriqueta Estrada MD [Primary Care Provider] - Interventions: ED Discharge Assessment Last Done: 10/22/22 18:45 Discharge Date/Time: 10/22/22 18:45
[2022-10-22 18:25] VITALS: BP 205/88; PULSE 105; RESP 18; O2SAT 95
== END 2022-10-22 18:45 | disposition home or self-care (01) ==
PROVIDERS: Emergency Provider Student in an Organized Health Care Education/Training Program; PCP Internal Medicine
DX: S09.90XA Unspecified injury of head, initial encounter (principal); R51.9 Headache, unspecified; M54.2 Cervicalgia; M70.32 Other bursitis of elbow, left elbow; I10 Essential (primary) hypertension; E11.9 Type 2 diabetes mellitus without complications; F41.9 Anxiety disorder, unspecified; I25.10 Atherosclerotic heart disease of native coronary artery without angina pectoris; W01.10XA Fall on same level from slipping, tripping and stumbling with subsequent striking against unspecified object, initial encounter; Y93.9 Activity, unspecified; Y92.9 Unspecified place or not applicable; Y99.9 Unspecified external cause status; Z79.899 Other long term (current) drug therapy
CPT/HCPCS: 70450; 72125; 73080; 99283; 99284

== ENCOUNTER 2022-10-25 07:27 | Outpatient (REF) | payer MEDICARE, SELFPAY ==
[2022-10-25 12:24] LABS: Anion Gap 12 (12-20); Blood Urea Nitrogen 10 mg/dL (9-16); Calcium 9.6 mg/dL (8.4-10.2); Carbon Dioxide 33 mmol/L (22-29); Chloride 89 mmol/L (96-108); Estimated Glomerular Filt Rate > 60; Glucose Random 212 mg/dL (60-115); Magnesium 1.6 mg/dL (1.6-2.6); Potassium 3.8 mmol/L (3.3-5.1); Sodium 130 mmol/L (135-145)
== END 2022-10-25 07:28 | disposition home or self-care (01) ==
LOC: HO.HMGCLDS 07:27
PROVIDERS: PCP Internal Medicine; Visit Provider Internal Medicine
DX: E83.39 Other disorders of phosphorus metabolism (principal); E83.42 Hypomagnesemia; E87.1 Hypo-osmolality and hyponatremia
CPT/HCPCS: 36415; 80048; 83735

== ENCOUNTER 2022-10-31 10:27 | Outpatient (AMB) | payer MEDICARE, SELFPAY ==
--- NOTE | 2022-10-31 10:52 | MHC.PC.OV ---
Vital Signs 10/31/22 10:53 Height 5 ft 2 in Weight 101 lb BMI 18.5 BP 125/78 Blood Pressure Location Rt brachial Position Sitting Pulse 97 Pulse Source Pulse Oximeter Pulse Oximetry (%) 95 Oxygen Delivery Method Room Air Intake Visit Reasons: annual physical Intake Note: Pt is here today for PE. Pt states that she fell a week and a hlaf ago and her L arm is all bruised and has a huge lump on her elbow. Allergies nortriptyline Allergy (Severe, Verified 10/31/22 10:55) hives bupropion Allergy (Intermediate, Verified 10/31/22 10:55) hives nitrofurantoin Allergy (Intermediate, Verified 10/31/22 10:55) heartburn; N/V buspirone [From BuSpar] Allergy (Unknown, Verified 10/31/22 10:55) Diarrhea high anxiety penicillin V Allergy (Unknown, Verified 10/31/22 10:55) Hives Sulfa (Sulfonamide Antibiotics) Allergy (Unknown, Verified 10/31/22 10:55) Hives cefdinir Allergy (Verified 10/31/22 10:55) diarrhea and yeast ingection phenazopyridine [From Pyridium] Adverse Reaction (Mild, Verified 10/31/22 10:55) Diarrhea Myacin Allergy (Mild, Uncoded 10/31/22 10:55) Hives Medication List - Last Reconciled 10/31/22 by Enriqueta Estrada MD atorvastatin 40 mg PO DAILY buspirone 15 mg PO BID duloxetine (Cymbalta) 30 mg PO BEDTIME lisinopril-hydrochlorothiazide 20-12.5 mg 1 tab PO BID lorazepam 1 mg PO DAILY PRN magnesium oxide 400 mg PO DAILY metformin 1,000 mg PO DAILY mirtazapine 45 mg PO BEDTIME sod phos di, mono-K phos mono 250 mg (Phospha Neutral) 1 tab PO DAILY trazodone 25 - 50 mg (0.5 - 1 x 50 mg) PO BEDTIME PRN Tobacco use date assessed: 10/31/22 Fall risk assessment: 1 Fall in past year Last assessed Fall Risk: 10/31/22 Dental Screening Dental Screen Date: 10/31/22 Did you have a dental visit in the last 12 months?: Yes Did you have a dental problem in the last 6 months where you did not have access to dental care?: No Was dental information given to patient?: Patient has dentist HPI annual physical HPI Details Patient presents for physical. Patient is going to [place] next week to visit her friend. [facility] Medical History Alopecia Annual physical exam Anxiety and depression CAD (coronary artery disease) Colon polyp COPD (chronic obstructive pulmonary disease) Depression Diabetes Diabetic eye exam Dysuria HTN (hypertension) Hyperlipidemia Hyponatremia Tobacco abuse Surgical History H/O colonoscopy History of appendectomy History of oophorectomy Family History Father Diabetes mellitus Mother No problems noted. Son Myocardial infarction Social History Housing: House Alcohol intake: current Alcohol intake frequency: does not drink Patient Tobacco Use Status: Current everyday Tobacco user Tobacco use type: Cigarette Cigarettes Per Day: 10 Years Smoked: 45 years e-Cigarette/Vaping Use: Never Used Second Hand Smoke Exposure: No service: No Current occupational status: retired Current occupational exposures/hazards: No Cognitive needs: No Hearing needs: No Vision needs: No Questionnaire Thrive Questionnaire Date Thrive assessed: 03/02/22 AUDIT C Alcohol Use Questionnaire (AUDIT-C) 1. How often do you have a drink containing alcohol?: Monthly or less 2. How many drinks containing alcohol do you have on a typical day when you are drinking?: 1 or 2 3. How often do you have six or more drinks on one occasion?: Never Total Score: 1 AMERICA-7 AMB Questionnaire AMERICA-7 Date AMERICA - 7 assessed: 03/02/22 Source: Developed by Drs. Kendell Chaney, Mary Curtis, Jordan Brandt and colleagues, with an educational collin from [employer]. Review of Systems Const All systems reviewed & are unremarkable except as noted in HPI and below Reports no additional complaints Eyes Reports no additional complaints ENT Reports no additional complaints Card Reports no additional complaints Resp Reports no additional complaints GI Reports no additional complaints Reports no additional complaints Physical exam (Primary Care) Vital Signs: Last Vital Signs Pulse 97 10/31/22 10:53 BP 138/78 10/31/22 10:53 Pulse Ox 95 09/06/23 10:53 Oxygen Delivery Method Room Air 10/31/22 10:53 BMI result Body Mass Index 18.5 Tobacco/Smoking Status: Tobacco use Status Tobacco use date assessed 10/31/22 10/31/22 11:03 Patient Tobacco Use Status Current everyday Tobacco 10/31/22 11:03 Tobacco use type Cigarette 10/31/22 11:03 e-Cigarette/Vaping Use Never Used 10/31/22 11:03 Thrive Assessment: Date of Thrive Assessment Date Thrive assessed 03/02/22 10/31/22 11:03 Const General: no acute distress HENMT Head: Yes normal to inspection Ears: hearing grossly normal bilaterally Face and sinus: Yes normal facial exam Throat: Yes posterior oropharynx normal Neck Neck: Yes supple Resp Effort & Inspection: normal respiratory effort Auscultation: wheezes and diminished lung sounds Cardio Rhythm: regular rhythm Heart sounds: S1 normal heart sound present and S2 normal heart sound present GI Inspection: Yes normal to inspection Palpation (GI): Soft to palpation Percussion: Yes normal to percussion Auscultation: normal bowel sounds Results AMB Hemoglobin A1c AMB Hemoglobin A1c 7.3 % Last Edit by EBER Chang on 10/31/22 11:27 Assessment and Plan Assessment & Plan (1) Hyponatremia: Code(s): E87.1 - Hypo-osmolality and hyponatremia Plan: Follow fluid restriction and repeat sodium level in 2 weeks. If sodium level is still low lisinopril with hydrochlorothiazide will be changed to Lotrel (2) COPD (chronic obstructive pulmonary disease): Comment: Tobacco quitting discussed with the patient. Due for CT scan in February 16 Code(s): J44.9 - Chronic obstructive pulmonary disease, unspecified Plan: Start Anoro Ellipta and tobacco quitting discussed with the patient (3) HTN (hypertension): Code(s): I10 - Essential (primary) hypertension Plan: Continue medications (4) Anxiety and depression: Comment: PTSD , f/u with therapist and psychiatrist EP[employer] PROFESSIONAL Code(s): F41.9 - Anxiety disorder, unspecified; F32.9 - Major depressive disorder, single episode, unspecified Plan: Continue medications follow-up with Psychiatry (5) Diabetes: Code(s): E11.9 - Type 2 diabetes mellitus without complications Plan: A1c is 7.3 continue ADA diet regular physical activity and current medications. Return in 4 months with a fasting labs before (6) Hypomagnesemia: Code(s): E83.42 - Hypomagnesemia (7) Annual physical exam: Code(s): Z00.00 - Encounter for general adult medical examination without abnormal findings Orders: Orders Basic Metabolic Panel 11/19/22 E87.1 - Hypo-osmolality and hyponatremia Magnesium 11/19/22 E83.42 - Hypomagnesemia Comprehensive [place]. Panel Fast 4 Months E11.9 - Type 2 diabetes mellitus without complications, I10 - Essential (primary) hypertension, Z00.00 - Encounter for general adult medical examination without abnormal findings Lipid Panel 4 Months E11.9 - Type 2 diabetes mellitus without complications, I10 - Essential (primary) hypertension, Z00.00 - Encounter for general adult medical examination without abnormal findings Hemoglobin A1c 4 Months E11.9 - Type 2 diabetes mellitus without complications, I10 - Essential (primary) hypertension, Z00.00 - Encounter for general adult medical examination without abnormal findings Complete Blood Count Auto Diff 4 Months E11.9 - Type 2 diabetes mellitus without complications, I10 - Essential (primary) hypertension, Z00.00 - Encounter for general adult medical examination without abnormal findings Microalbumin, Random (w Creat) 4 Months E11.9 - Type 2 diabetes mellitus without complications, I10 - Essential (primary) hypertension, Z00.00 - Encounter for general adult medical examination without abnormal findings TSH reflex Free T4 4 Months E11.9 - Type 2 diabetes mellitus without complications, I10 - Essential (primary) hypertension, Z00.00 - Encounter for general adult medical examination without abnormal findings AMB Hemoglobin A1c Today Z13.9 - Encounter for screening, unspecified Medications: New Anoro Ellipta 62.5-25 mcg/actuation (umeclidinium-vilanterol) 1 inh inhalation DAILY 60 ea 4RF NS Changed From magnesium oxide 400 mg PO BID 60 tabs 1RF To magnesium oxide 400 mg PO DAILY Coding Level of Care Code Est Pt Prev Care >65y(57195) Diagnoses Hyponatremia E87.1 COPD (chronic obstructive pulmonary disease) J44.9 HTN (hypertension) I10 Anxiety and depression F41.9; F32.9 Diabetes E11.9 Hypomagnesemia E83.42 Annual physical exam Z00.00
[2022-10-31 10:53] VITALS: BP 125/78; PULSE 97; O2SAT 95; BMI 18.5
== END 2022-10-31 11:38 | disposition home or self-care (01) ==
PROVIDERS: Visit Provider Internal Medicine
DX: Z00.00 Encounter for general adult medical examination without abnormal findings (principal); J44.9 Chronic obstructive pulmonary disease, unspecified; E11.9 Type 2 diabetes mellitus without complications; I10 Essential (primary) hypertension; F41.9 Anxiety disorder, unspecified; F32.9 Major depressive disorder, single episode, unspecified; E87.1 Hypo-osmolality and hyponatremia; E83.42 Hypomagnesemia
CPT/HCPCS: 83036; 99397

== ENCOUNTER 2023-05-17 07:05 | Outpatient (REF) | payer MEDICARE, SELFPAY ==
[2023-05-17 10:30] LABS: MANUAL DIFF FLAG NO
[2023-05-17 10:35] LABS: Basophils Percent Auto 0.6 % (0-2); Eosinophils Absolute Auto 0.1 X10*3/uL (0.0-0.4); Eosinophils Percent Auto 1.4 % (0-4); Hematocrit 41.4 % (37.0-47.0); Hemoglobin 14.6 g/dl (12.0-16.0); Imm Gran Abs Auto 0.02 X10*3/uL (0.00-0.03); Imm Gran Pct Auto 0.3 % (0.0-0.4); Lymphocytes Absolute Auto 2.6 X10*3/uL (1.2-4.9); Lymphocytes Percent Auto 40.6 % (20-40); Mean Corpuscular HGB Conc 35.3 g/dl (31.0-35.0); Mean Corpuscular Hemoglobin 32.6 pg (27.0-33.0); Mean Corpuscular Volume 92.4 fL (80.0-98.0); Mean Platelet Volume 10.5 fL (9.4-12.3); Monocytes Absolute Auto 0.6 X10*3/uL (0.1-1.2); Monocytes Percent Auto 8.7 % (2-11); Neutrophils Absolute Auto 3.1 x10*3/uL (2.0-8.3); Neutrophils Percent Auto 48.4 % (45-73); Platelet Count 251 X10*3/uL (160-400); Red Blood Count 4.48 X10*6/uL (4.20-5.50); Red Cell Distribution Width 11.4 % (11.0-16.0); White Blood Count 6.3 X10*3/uL (4.8-10.8)
[2023-05-17 10:53] LABS: Estimated Average Glucose 166 mg/dL; Hemoglobin A1c % 7.4 % (<6.0)
[2023-05-17 11:07] LABS: Creatinine Urine 54.65 mg/dL; Microalbum/Creatinine Ratio Ur 18.2 ug/mg cr (<30)
[2023-05-17 11:15] LABS: Alanine Aminotransferase 20 U/L (0-31); Albumin Level 4.5 g/dL (3.5-5.0); Alkaline Phosphatase 97 U/L (39-117); Anion Gap 14 (12-20); Aspartate Amino Transferase 24 U/L (5-31); Bilirubin Total 0.6 mg/dL (0.0-1.0); Blood Urea Nitrogen 11 mg/dL (9-16); Calcium 10.4 mg/dL (8.4-10.2); Carbon Dioxide 34 mmol/L (22-29); Chloride 89 mmol/L (96-108); Cholesterol 174 mg/dL (<200); Estimated Glomerular Filt Rate > 60; Glucose Fasting 240 mg/dL (60-99); Glucose Random 242 mg/dL (60-115); HDL Cholesterol 79 mg/dL (>40); LDL Cholesterol Calculated 71 mg/dL (<100); Magnesium 1.4 mg/dL (1.6-2.6); Potassium 4.8 mmol/L (3.3-5.1); Sodium 132 mmol/L (135-145); Total Protein 7.1 g/dL (6.5-8.0); Triglycerides 123 mg/dL (<150)
[2023-05-17 11:21] LABS: TSH reflex Free T4 1.31 uIU/mL (0.32-4.0)
== END 2023-05-17 07:06 | disposition home or self-care (01) ==
LOC: HO.HMGCLDS 07:05
PROVIDERS: PCP Internal Medicine; Visit Provider Internal Medicine
DX: Z00.00 Encounter for general adult medical examination without abnormal findings (principal); E87.1 Hypo-osmolality and hyponatremia; I10 Essential (primary) hypertension; E11.9 Type 2 diabetes mellitus without complications; E83.42 Hypomagnesemia
CPT/HCPCS: 36415; 80048; 80053; 80061; 82043; 82570; 83036; 83735; 84443; 85025

== ENCOUNTER 2023-05-22 11:06 | Outpatient (AMB) | payer MEDICARE, SELFPAY ==
[2023-05-22 11:19] VITALS: BP 124/76; PULSE 103; O2SAT 95; BMI 19.9
--- NOTE | 2023-05-22 11:19 | A.OFFPC_ITS ---
Vital Signs 05/22/23 11:19 Height 5 ft 2 in Weight 109 lb BMI 19.9 BP 124/76 Blood Pressure Location Lt brachial Position Sitting Pulse 103 H Pulse Source Pulse Oximeter Pulse Oximetry (%) 95 Oxygen Delivery Method Room Air Intake Visit Reasons: 4 month follow up DM Intake Note: Pt is here today for 4 months follow up visit on DM and labs. Allergies nortriptyline Allergy (Severe, Verified 05/22/23 11:21) hives bupropion Allergy (Intermediate, Verified 05/22/23 11:21) hives nitrofurantoin Allergy (Intermediate, Verified 05/22/23 11:21) heartburn; N/V buspirone [From BuSpar] Allergy (Unknown, Verified 05/22/23 11:21) Diarrhea high anxiety penicillin V Allergy (Unknown, Verified 05/22/23 11:21) Hives Sulfa (Sulfonamide Antibiotics) Allergy (Unknown, Verified 05/22/23 11:21) Hives cefdinir Allergy (Verified 05/22/23 11:21) diarrhea and yeast ingection phenazopyridine [From Pyridium] Adverse Reaction (Mild, Verified 05/22/23 11:21) Diarrhea Myacin Allergy (Mild, Uncoded 05/22/23 11:21) Hives Tobacco use date assessed: 05/22/23 Fall risk assessment: No Falls in past year Last assessed Fall Risk: 05/22/23 Dental Screening Dental Screen Date: 05/22/23 Did you have a dental visit in the last 12 months?: Yes Did you have a dental problem in the last 6 months where you did not have access to dental care?: No Was dental information given to patient?: Patient has dentist HPI 4 month follow up DM HPI Details Pt presents for f/u HTN, hypercholest, DM 2, stable on meds. Patient reports having more episodes of depression and insomnia the last few weeks. She follows up with a psychiatrist and denies suicidal ideation. COUNTS INCLUDE 234 BEDS AT THE [facility] Medical History Dysuria Hyponatremia Annual physical exam COPD (chronic obstructive pulmonary disease) Depression Diabetes Alopecia Tobacco abuse CAD (coronary artery disease) Colon polyp Hyperlipidemia HTN (hypertension) Diabetic eye exam Anxiety and depression Surgical History H/O colonoscopy History of appendectomy History of oophorectomy Family History Father Diabetes mellitus Mother No problems noted. Son Myocardial infarction Social History Housing: House Alcohol intake: current Alcohol intake frequency: does not drink Patient Tobacco Use Status: Current everyday Tobacco user Tobacco use type: Cigarette Cigarettes Per Day: 10 Years Smoked: 45 years e-Cigarette/Vaping Use: Never Used Second Hand Smoke Exposure: No service: No Current occupational status: retired Current occupational exposures/hazards: No Cognitive needs: No Hearing needs: No Vision needs: No Questionnaire PHQ-9 Over the last 2 weeks, how often have you been bothered by any of the following problems? 81511 - PHQ-9 Billing: Patient declined-do not bill Source: Developed by Drs. eKndell Chaney, Mary Curtis, Jordan Brandt and colleagues, with an educational collin from [employer]. Thrive Questionnaire Date Thrive assessed: 05/22/23 What is your living situation today?: I choose not to answer this question Within the past 12 months, did the food you bought not last and you didn't have the money to get more?: I choose not to answer this question Within the past 12 months, did you worry whether your food would run out before you got money to buy more?: I choose not to answer this question Do you have trouble paying for medicines?: I choose not to answer this question Do you have trouble getting transportation to medical appointments?: I choose not to answer this question Do you have trouble paying your heating and electricity bill?: I choose not to answer this question Do you have trouble taking care of your child, family member or friend?: I choose not to answer this question Do you have trouble with day-to-day activities such as bathing, preparing meals, shopping, managing finances, etc.?: I choose not to answer this question Are you currently unemployed and looking for a job?: I choose not to answer this question Are you interested in more education?: I choose not to answer this question Currently or been in a relationship where the following occur: I choose not to answer this question THRIVE Score: 0 AUDIT C Alcohol Use Questionnaire (AUDIT-C) 1. How often do you have a drink containing alcohol?: Monthly or less 2. How many drinks containing alcohol do you have on a typical day when you are drinking?: 1 or 2 3. How often do you have six or more drinks on one occasion?: Never Total Score: 1 AMERICA-7 AMB Questionnaire AMERICA-7 Date AMERICA - 7 assessed: 05/22/23 Source: Developed by Drs. Kendell Chaney, Mary Curtis, Jordan Brandt and colleagues, with an educational collin from [employer]. AMERICA-7 Assessment Billing AMERICA-7 Assessment Tool: pt declined-do not bill Review of Systems Const All systems reviewed & are unremarkable except as noted in HPI and below Reports no additional complaints Eyes Reports no additional complaints ENT Reports no additional complaints Card Reports no additional complaints Resp Reports no additional complaints GI Reports no additional complaints Reports no additional complaints Physical exam (Primary Care) Vital Signs: Last Vital Signs Pulse 103 H 05/22/23 11:19 BP 124/76 05/22/23 11:19 Pulse Ox 95 05/22/23 11:19 Oxygen Delivery Method Room Air 05/22/23 11:19 BMI result Body Mass Index 19.9 Tobacco/Smoking Status: Tobacco use Status Tobacco use date assessed 05/22/23 05/22/23 11:26 Patient Tobacco Use Status Current everyday Tobacco 05/22/23 11:21 Tobacco use type Cigarette 05/22/23 11:21 e-Cigarette/Vaping Use Never Used 05/22/23 11:21 Thrive Assessment: Date of Thrive Assessment Date Thrive assessed 05/22/23 05/22/23 11:27 Currently or been in a relationship where the following occur: I choose not to answer this question Const General: no acute distress HENMT Throat: Yes posterior oropharynx normal Eyes General: appearance normal, both eyes and all related structures Neck Neck: Yes no lymphadenopathy and Yes supple Resp Effort & Inspection: normal respiratory effort Auscultation: clear to auscultation bilaterally Cardio Rhythm: regular rhythm Heart sounds: S1 normal heart sound present and S2 normal heart sound present GI Inspection: Yes normal to inspection Palpation (GI): Soft to palpation Percussion: Yes normal to percussion Auscultation: normal bowel sounds Extrem General: Yes no clubbing, cyanosis or edema Assessment and Plan Assessment & Plan (1) COPD (chronic obstructive pulmonary disease): Comment: Tobacco quitting discussed with the patient. Due for CT scan in February 16 Code(s): J44.9 - Chronic obstructive pulmonary disease, unspecified Plan: Continue inhalers as needed (2) HTN (hypertension): Code(s): I10 - Essential (primary) hypertension Plan: Continue current medications (3) Anxiety and depression: Comment: PTSD , f/u with therapist and psychiatrist [facility] Code(s): F41.9 - Anxiety disorder, unspecified; F32.9 - Major depressive disorder, single episode, unspecified Plan: Continue current medications and follow-up with therapist and prescriber (4) Diabetes: Code(s): E11.9 - Type 2 diabetes mellitus without complications Plan: A1c is 7.4, ADA diet increase physical activity discussed with the patient. She refused to add 2nd medication, patient will follow-up in 3 months Coding Level of Care Code Est Pt Level 4 (08212) Diagnoses COPD (chronic obstructive pulmonary disease) J44.9 HTN (hypertension) I10 Anxiety and depression F41.9; F32.9 Diabetes E11.9
== END 2023-05-22 15:53 | disposition home or self-care (01) ==
PROVIDERS: PCP Internal Medicine; Visit Provider Internal Medicine
DX: J44.9 Chronic obstructive pulmonary disease, unspecified (principal); E11.9 Type 2 diabetes mellitus without complications; I10 Essential (primary) hypertension; F41.9 Anxiety disorder, unspecified; F32.9 Major depressive disorder, single episode, unspecified
CPT/HCPCS: 99214

== ENCOUNTER 2023-07-24 08:07 | Outpatient (AMB) | payer MEDICARE, SELFPAY ==
[2023-07-24 08:18] VITALS: BP 130/80; PULSE 121; O2SAT 95; BMI 20.1
--- NOTE | 2023-07-24 08:18 | MHC.PC.OV ---
Vital Signs 07/24/23 08:18 Height 5 ft 2 in Weight 110 lb BMI 20.1 BP 130/80 Blood Pressure Location Rt brachial Position Sitting Pulse 121 H Pulse Source Pulse Oximeter Pulse Oximetry (%) 95 Oxygen Delivery Method Room Air Intake Visit Reasons: Chest/rib pain x 5 days Intake Note: Pt is here today for a sick visit. Pt c/o lung pain since Saturday. Allergies nortriptyline Allergy (Severe, Verified 05/22/23 11:21) hives bupropion Allergy (Intermediate, Verified 05/22/23 11:21) hives nitrofurantoin Allergy (Intermediate, Verified 05/22/23 11:21) heartburn; N/V buspirone [From BuSpar] Allergy (Unknown, Verified 05/22/23 11:21) Diarrhea high anxiety penicillin V Allergy (Unknown, Verified 05/22/23 11:21) Hives Sulfa (Sulfonamide Antibiotics) Allergy (Unknown, Verified 05/22/23 11:21) Hives cefdinir Allergy (Verified 05/22/23 11:21) diarrhea and yeast ingection phenazopyridine [From Pyridium] Adverse Reaction (Mild, Verified 05/22/23 11:21) Diarrhea Myacin Allergy (Mild, Uncoded 05/22/23 11:21) Hives Medication List - Last Reconciled 07/24/23 by Enriqueta Estrada MD atorvastatin 40 mg PO DAILY buspirone 15 mg PO BID duloxetine (Cymbalta) 30 mg PO BEDTIME lisinopril-hydrochlorothiazide 20-12.5 mg 1 tab PO BID lorazepam 1 mg PO DAILY PRN metformin 1,000 mg PO DAILY mirtazapine 45 mg PO BEDTIME trazodone 50 mg PO BEDTIME Tobacco use date assessed: 07/24/23 Dental Screening Dental Screen Date: 05/22/23 HPI Chest/rib pain x 5 days HPI Details Pt c/o mid chest pain, pleuritic, positional, worse with deep breathing and shortness of breath for 4 days. Patient denies cough fever chills PND orthopnea. Hypertension chronic depression are stable on current medications. [facility] Medical History Dysuria Hyponatremia Annual physical exam COPD (chronic obstructive pulmonary disease) Depression Diabetes Alopecia Tobacco abuse CAD (coronary artery disease) Colon polyp Hyperlipidemia HTN (hypertension) Diabetic eye exam Anxiety and depression Surgical History H/O colonoscopy History of appendectomy History of oophorectomy Family History Father Diabetes mellitus Mother No problems noted. Son Myocardial infarction Social History Housing: House Alcohol intake: current Alcohol intake frequency: does not drink Patient Tobacco Use Status: Current everyday Tobacco user Tobacco use type: Cigarette Cigarettes Per Day: 10 Years Smoked: 45 years e-Cigarette/Vaping Use: Never Used Second Hand Smoke Exposure: No service: No Current occupational status: retired Current occupational exposures/hazards: No Cognitive needs: No Hearing needs: No Vision needs: No Questionnaire PHQ-9 Over the last 2 weeks, how often have you been bothered by any of the following problems? 1. Little interest or pleasure in doing things: more than half the days 2. Feeling down, depressed, or hopeless: more than half the days 3. Trouble falling or staying asleep, or sleeping too much: more than half the days 4. Feeling tired or having little energy: more than half the days 5. Poor appetite or overeating: nearly every day 6. Feeling bad about yourself - or that you are a failure or have let yourself or your family down: several days 7. Trouble concentrating on things, such as reading the newspaper or watching television: several days 8. Moving or speaking so slowly that other people could have noticed. Or the opposite - being so fidgety or restless that you have been moving around a lot more than usual: several days 9. Thoughts that you would be better off or of hurting yourself in some way: not at all Total score: 14 Depression Screening Interpretation: Positive (Patient is established with a psychiatrist and a therapist) Depression Screening Follow-up: Existing condition and In treatment Depression Screening Done: Yes Source: Developed by Drs. Kendell Chaney, Mary Curtis, Jordan Brandt and colleagues, with an educational collin from [employer]. Thrive Questionnaire Date Thrive assessed: 05/29/24 I am a: Patient What is your living situation today?: I have a steady place to live Within the past 12 months, did the food you bought not last and you didn't have the money to get more?: Never true Within the past 12 months, did you worry whether your food would run out before you got money to buy more?: Never true Do you have trouble paying for medicines?: No Do you have trouble getting transportation to medical appointments?: No Do you have trouble paying your heating and electricity bill?: No Do you have trouble taking care of your child, family member or friend?: No Do you have trouble with day-to-day activities such as bathing, preparing meals, shopping, managing finances, etc.?: No Are you currently unemployed and looking for a job?: No Are you interested in more education?: No Please select the resources that you would like help with: None THRIVE Score: 0 AMERICA-7 AMB Questionnaire AMERICA-7 Date AMERICA - 7 assessed: 07/24/23 Feeling nervous, anxious, or on edge: 2 = More than half the days Not being able to stop or control worryin = Several days Worrying too much about different things: 2 = More than half the days Trouble relaxin = More than half the days Being so restless that it is hard to sit still: 2 = More than half the days Becoming easily annoyed or irritable: 2 = More than half the days Feeling afraid as if something awful might happen: 1 = Several days Total AMERICA-7 score (0-4 normal; 5-9 mild; 10-14 moderate; 15-21 severe): 12 Source: Developed by Drs. Kendell Chaney, Mary Curtis, Jordan Brandt and colleagues, with an educational collin from [employer]. Review of Systems Const All systems reviewed & are unremarkable except as noted in HPI and below Eyes Reports no additional complaints ENT Reports no additional complaints Card Reports no additional complaints Resp Reports no additional complaints GI Reports no additional complaints Reports no additional complaints Physical exam (Primary Care) Vital Signs: Last Vital Signs Pulse 121 H 07/24/23 08:18 Pulse Ox 95 07/24/23 08:18 Oxygen Delivery Method Room Air 07/24/23 08:18 BMI result Body Mass Index 20.1 Tobacco/Smoking Status: Tobacco use Status Tobacco use date assessed 07/24/23 07/24/23 08:28 Patient Tobacco Use Status Current everyday Tobacco 07/24/23 08:18 Tobacco use type Cigarette 07/24/23 08:18 e-Cigarette/Vaping Use Never Used 07/24/23 08:18 PHQ-9: PHQ-9 Score PHQ-9: Total score 14 07/24/23 08:47 Depression Screening Interpretation: Positive (Patient is established with a psychiatrist and a therapist) Depression Screening Follow-up: Existing condition and In treatment Thrive Assessment: Date of Thrive Assessment Date Thrive assessed 07/24/23 07/24/23 08:47 Const General: anxious HENMT Head: Yes normal to inspection Neck Neck: Yes supple Chest Chest palpation & inspection: no localized rib tenderness Resp Effort & Inspection: normal respiratory effort Auscultation: diminished lung sounds Cardio Rate: tachycardic Heart sounds: S1 normal heart sound present and S2 normal heart sound present GI Inspection: Yes normal to inspection Percussion: Yes normal to percussion Auscultation: normal bowel sounds Assessment and Plan Assessment & Plan (1) Anxiety and depression: Comment: PTSD , f/u with therapist and psychiatrist [employer] Code(s): F41.9 - Anxiety disorder, unspecified; F32.9 - Major depressive disorder, single episode, unspecified Plan: Continue current medications follow-up with a psychiatrist and a counselor (2) HTN (hypertension): Code(s): I10 - Essential (primary) hypertension Plan: Continue current medications (3) Diabetes: Code(s): E11.9 - Type 2 diabetes mellitus without complications Plan: Check A1c continue metformin (4) COPD (chronic obstructive pulmonary disease): Comment: Tobacco quitting discussed with the patient. Due for CT scan in February 16 Code(s): J44.9 - Chronic obstructive pulmonary disease, unspecified (5) Chest pain at rest: Code(s): R07.9 - Chest pain, unspecified Plan: EKG shows sinus tachycardia tall P waves in 2 3 AVF, and no significant ST-T changes, obtain CT angiogram to rule out PE Orders: Orders Comprehensive Met. Panel Today E11.9 - Type 2 diabetes mellitus without complications, F32.9 - Major depressive disorder, single episode, unspecified, F41.9 - Anxiety disorder, unspecified, I10 - Essential (primary) hypertension, J44.9 - Chronic obstructive pulmonary disease, unspecified Hemoglobin A1c Today E11.9 - Type 2 diabetes mellitus without complications, F32.9 - Major depressive disorder, single episode, unspecified, F41.9 - Anxiety disorder, unspecified, I10 - Essential (primary) hypertension, J44.9 - Chronic obstructive pulmonary disease, unspecified Magnesium Today E11.9 - Type 2 diabetes mellitus without complications, F32.9 - Major depressive disorder, single episode, unspecified, F41.9 - Anxiety disorder, unspecified, I10 - Essential (primary) hypertension, J44.9 - Chronic obstructive pulmonary disease, unspecified D Dimer High Sensitivity Today E11.9 - Type 2 diabetes mellitus without complications, F32.9 - Major depressive disorder, single episode, unspecified, F41.9 - Anxiety disorder, unspecified, I10 - Essential (primary) hypertension, J44.9 - Chronic obstructive pulmonary disease, unspecified Complete Blood Count Auto Diff Today E11.9 - Type 2 diabetes mellitus without complications, F32.9 - Major depressive disorder, single episode, unspecified, F41.9 - Anxiety disorder, unspecified, I10 - Essential (primary) hypertension, J44.9 - Chronic obstructive pulmonary disease, unspecified TSH reflex Free T4 Today E11.9 - Type 2 diabetes mellitus without complications, F32.9 - Major depressive disorder, single episode, unspecified, F41.9 - Anxiety disorder, unspecified, I10 - Essential (primary) hypertension, J44.9 - Chronic obstructive pulmonary disease, unspecified AMB EKG-In Office Today I10 - Essential (primary) hypertension, R01.1 - Cardiac murmur, unspecified CT angio chest PE protocol Today R07.9 - Chest pain, unspecified Coding Level of Care Code Est Pt Level 4 (15516) Diagnoses Anxiety and depression F41.9; F32.9 HTN (hypertension) I10 Diabetes E11.9 COPD (chronic obstructive pulmonary disease) J44.9 Chest pain at rest R07.9
== END 2023-07-24 09:30 | disposition home or self-care (01) ==
PROVIDERS: PCP Internal Medicine; Visit Provider Internal Medicine
DX: E11.9 Type 2 diabetes mellitus without complications (principal); J44.9 Chronic obstructive pulmonary disease, unspecified; F41.9 Anxiety disorder, unspecified; F32.9 Major depressive disorder, single episode, unspecified; I10 Essential (primary) hypertension; R07.9 Chest pain, unspecified
CPT/HCPCS: 99214

== ENCOUNTER 2023-07-24 09:18 | Outpatient (REF) | payer MEDICARE, SELFPAY ==
[2023-07-24 10:47] LABS: MANUAL DIFF FLAG NO
[2023-07-24 10:57] LABS: Basophils Percent Auto 0.4 % (0-2); Hematocrit 39.2 % (37.0-47.0); Imm Gran Abs Auto 0.02 X10*3/uL (0.00-0.03); Imm Gran Pct Auto 0.3 % (0.0-0.4); Lymphocytes Absolute Auto 1.2 X10*3/uL (1.2-4.9); Lymphocytes Percent Auto 17.4 % (20-40); Mean Corpuscular HGB Conc 35.7 g/dl (31.0-35.0); Mean Corpuscular Hemoglobin 32.5 pg (27.0-33.0); Mean Platelet Volume 10.3 fL (9.4-12.3); Monocytes Absolute Auto 0.5 X10*3/uL (0.1-1.2); Monocytes Percent Auto 7.2 % (2-11); Neutrophils Absolute Auto 5.2 x10*3/uL (2.0-8.3); Neutrophils Percent Auto 74.7 % (45-73); Platelet Count 226 X10*3/uL (160-400); Red Blood Count 4.31 X10*6/uL (4.20-5.50); Red Cell Distribution Width 11.1 % (11.0-16.0)
[2023-07-24 11:12] LABS: D Dimer High Sensitivity < 150 NG/ML
[2023-07-24 11:14] LABS: Estimated Average Glucose 177 mg/dL; Hemoglobin A1C 223.1817 umol/L; Hemoglobin A1c % 7.8 % (<6.0)
[2023-07-24 11:18] LABS: Alanine Aminotransferase 21 U/L (0-31); Albumin Level 4.4 g/dL (3.5-5.0); Alkaline Phosphatase 105 U/L (39-117); Anion Gap 15 (12-20); Aspartate Amino Transferase 26 U/L (5-31); Bilirubin Total 0.4 mg/dL (0.0-1.0); Blood Urea Nitrogen 6 mg/dL (9-16); Calcium 9.8 mg/dL (8.4-10.2); Carbon Dioxide 31 mmol/L (22-29); Chloride 84 mmol/L (96-108); Estimated Glomerular Filt Rate > 60; Glucose Random 263 mg/dL (60-115); Sodium 126 mmol/L (135-145); Total Protein 6.9 g/dL (6.5-8.0)
[2023-07-24 11:33] LABS: TSH reflex Free T4 0.82 uIU/mL (0.32-4.0)
[2023-07-24 11:40] LABS: Magnesium 1.4 mg/dL (1.6-2.6)
== END 2023-07-24 09:19 | disposition home or self-care (01) ==
LOC: HO.HMGCLDS 09:18
PROVIDERS: PCP Internal Medicine; Visit Provider Internal Medicine
DX: Z13.89 Encounter for screening for other disorder (principal)
CPT/HCPCS: 36415; 80053; 83036; 83735; 84443; 85025; 85379

== ENCOUNTER 2023-07-24 14:45 | Outpatient (REF) | payer MEDICARE, SELFPAY ==
--- NOTE | ~2023-07-24 | CT_ITS ---
EXAMINATION: CT ANGIOGRAM OF THE CHEST WITH AND WITHOUT CONTRAST (CT PULMONARY ANGIOGRAM FOR PE) CLINICAL INFORMATION: Reason for Exam R07.9 - Chest pain, unspecified COMPARISON: Previous chest CT January 2022 TECHNIQUE: Prior to contrast administration, noncontrast localization images were obtained. Subsequently, multidetector volumetric imaging was performed from the thoracic inlet to below the diaphragms following the administration of 65 mL Omnipaque 350 intravenous contrast. No contrast reaction reported Sagittal, coronal, and MIP oblique sagittal reformatted images were obtained on the CT workstation, uploaded to PACS, and reviewed. This CT examination was performed using dose optimization techniques as appropriate, variously including the following: *Automated exposure control *Adjustment of mA and/or kV according to patient size (this includes techniques or standardized protocols for targeted exams where dose is matched to indication/reason for exam; i.e. extremities or head) *Use of iterative reconstruction technique Total exam dose-length product 170 mGy-cm FINDINGS: QUALITY OF STUDY/CONTRAST BOLUS: Satisfactory. PULMONARY ARTERIES: No pulmonary emboli. THORACIC AORTA: No aneurysm. Atherosclerotic disease. LUNG: Biapical pleural and parenchymal scarring. Mild emphysema. Small 2 mm pulmonary nodule in the peripheral or subpleural left upper lobe axial image 57 series 7, 4 mm left upper lobe nodule axial image 162 series 7 3 mm peripheral or subpleural left upper lobe nodule axial image 208 series 7 and 2 mm calcified left lower lobe nodule axial image 385 series 7. Small nodules along the left pleural fissure probably representing subpleural lymph nodes. These findings are similar to January 2022 exam. PLEURA: No pleural effusion or pneumothorax. MEDIASTINUM: Normal heart size. No pericardial effusion. No hilar or mediastinal lymphadenopathy. No evidence of septal bowing or right heart strain. CORONARY ARTERY CALCIFICATION: Mild CHEST WALL/AXILLA: No axillary or internal mammary lymphadenopathy. OSSEOUS STRUCTURES: No acute or suspicious osseous abnormality. Mild L1 vertebral body compression fracture similar to previous exam. UPPER ABDOMEN: Unremarkable. No reflux of contrast into the hepatic veins to suggest elevated right heart pressures. CT/CT angio chest PE protocol IMPRESSION: No evidence of pulmonary embolism. Stable small pulmonary nodules and biapical pleural and parenchymal scarring from January [address] No imaging follow-up recommended. Mild emphysema. VTE: negative
[2023-07-24] MEDS: iohexoL 350 MG/ML 100 ML INFUS..BTL 65 ML IV (15:21)
== END 2023-07-24 14:46 | disposition home or self-care (01) ==
LOC: HO.CT 14:45
PROVIDERS: PCP Internal Medicine; Visit Provider Internal Medicine
DX: R07.9 Chest pain, unspecified (principal); I10 Essential (primary) hypertension; F41.9 Anxiety disorder, unspecified; F32.9 Major depressive disorder, single episode, unspecified; E11.9 Type 2 diabetes mellitus without complications; J44.9 Chronic obstructive pulmonary disease, unspecified
CPT/HCPCS: 36415; 71275; 80053; 83036; 83735; 84443; 85025; 85379; Q9967

== ENCOUNTER 2023-07-29 13:49 | Inpatient (IN) | payer MEDICARE, SELFPAY ==
--- NOTE | ~2023-07-29 | XR_ITS ---
EXAMINATION: XR CHEST CLINICAL INFORMATION: Fall COMPARISON: 04/30/2017 TECHNIQUE: Frontal view of the chest was obtained. FINDINGS: No significant abnormality is noted involving the heart, lungs, mediastinum, bony thorax or soft tissues. XR/XR chest 1V IMPRESSION: Unremarkable examination.
--- NOTE | ~2023-07-29 | FL_ITS ---
EXAMINATION: XR FLUOROSCOPY WITH IMAGES CLINICAL INFORMATION: Right IM nail procedure under fluoroscopic guidance COMPARISON: None available. TECHNIQUE: Fluoroscopy Supervised By: Dr. Vera. Fluoroscopy Time: 0.8 minutes. Cumulative Dose: 16.1 mGy. DAP: 0.277 Gycm2. Images: 6. FINDINGS: Fluoroscopic guidance provided for procedure. Orthopedic hardware in the femur with 2 distal femoral transverse screws. Please refer to operative report for more detailed evaluation. FL/FL guidance in OR IMPRESSION: Fluoroscopic guidance provided for procedure. Please refer to operative report for more detailed evaluation.
--- NOTE | ~2023-07-29 | XR_ITS ---
EXAMINATION: XR ELBOW, RIGHT CLINICAL INFORMATION: Trauma COMPARISON: None available. TECHNIQUE: AP, lateral, and oblique views of the right elbow. FINDINGS: The bones and soft tissues are normal. No fracture or joint effusion. Alignment is anatomic. Joint spaces are maintained. XR/XR elbow RT min 3V IMPRESSION: Normal right elbow.
--- NOTE | ~2023-07-29 | CT_ITS ---
EXAMINATION: CT scan of the pelvis without contrast. CT scan of the right femur without contrast axial pain. CLINICAL INFORMATION: Pain. COMPARISON: None. TECHNIQUE: CT scan of the pelvis and right femur is performed without contrast with reconstruction imaging performed at the acquisition workstation. FINDINGS: RIGHT FEMUR: There is a nondisplaced/minimally displaced basicervical/intertrochanteric fracture of the right femur. The fracture extends through the base of the femoral neck but also extends into the lesser and greater trochanters. There is minimal stranding in the surrounding soft tissues. Femurs otherwise unremarkable. Arterial calcification noted. Muscles and tendons otherwise normal. PELVIS: Osseous structures: Proximal right femur fracture as above. No additional fractures. Remaining bone and joints normal. Slight depression of the superior endplate of L5 compatible with old compression fracture. Muscles/tendons: Unremarkable. Neurovascular structures normal. Subcutaneous soft tissues: Minimal stranding lateral to the greater trochanter bilaterally compatible with minimal edema and/or minimal contusion GI tract: Diverticulosis of sigmoid colon without diverticulitis. Prominent arterial calcification throughout compatible with calcific atherosclerotic disease.. Lymph nodes: Normal. Distal ureters and bladder: Normal. Pelvic viscera: No masses. CT/CT pelvis wo IV con Impression: IMPRESSION: Right femur and pelvis: Nondisplaced/minimally displaced basicervical/intertrochanteric fracture of the right femur. Additional nonacute incidental findings as detailed above
--- NOTE | ~2023-07-29 | CT_ITS ---
EXAMINATION: CT scan of the pelvis without contrast. CT scan of the right femur without contrast axial pain. CLINICAL INFORMATION: Pain. COMPARISON: None. TECHNIQUE: CT scan of the pelvis and right femur is performed without contrast with reconstruction imaging performed at the acquisition workstation. FINDINGS: RIGHT FEMUR: There is a nondisplaced/minimally displaced basicervical/intertrochanteric fracture of the right femur. The fracture extends through the base of the femoral neck but also extends into the lesser and greater trochanters. There is minimal stranding in the surrounding soft tissues. Femurs otherwise unremarkable. Arterial calcification noted. Muscles and tendons otherwise normal. PELVIS: Osseous structures: Proximal right femur fracture as above. No additional fractures. Remaining bone and joints normal. Slight depression of the superior endplate of L5 compatible with old compression fracture. Muscles/tendons: Unremarkable. Neurovascular structures normal. Subcutaneous soft tissues: Minimal stranding lateral to the greater trochanter bilaterally compatible with minimal edema and/or minimal contusion GI tract: Diverticulosis of sigmoid colon without diverticulitis. Prominent arterial calcification throughout compatible with calcific atherosclerotic disease.. Lymph nodes: Normal. Distal ureters and bladder: Normal. Pelvic viscera: No masses. CT/CT femur RT wo IV con Impression: IMPRESSION: Right femur and pelvis: Nondisplaced/minimally displaced basicervical/intertrochanteric fracture of the right femur. Additional nonacute incidental findings as detailed above
--- NOTE | ~2023-07-29 | CT_ITS ---
EXAMINATION: CT HEAD WITHOUT CONTRAST CLINICAL INFORMATION: Posterior head strike. COMPARISON: 10/22/2022 TECHNIQUE: Contiguous axial imaging was performed from the skull base to vertex without intravenous administration of contrast. This CT examination was performed using dose optimization techniques as appropriate, variously including the following: *Automated exposure control *Adjustment of mA and/or kV according to patient size (this includes techniques or standardized protocols for targeted exams where dose is matched to indication/reason for exam; i.e. extremities or head) *Use of iterative reconstruction technique DLP: 604 mGy-cm FINDINGS: There is no evidence of acute intracranial hemorrhage or territorial infarction. No mass effect or midline shift is seen. [place] to white matter differentiation is preserved. No extra-axial fluid collections are identified. No hydrocephalus. The calvarium is intact. The mastoid air cells and visualized portions of the paranasal sinuses are well aerated. Right scalp laceration with hematoma measuring 4.1 x 1.[address]/CT head/brain wo IV con IMPRESSION: Right scalp laceration and hematoma measuring 4.1 x 1.1 x 3.9 cm.
--- NOTE | ~2023-07-29 | XR_ITS ---
EXAMINATION: XR HIP, RIGHT CLINICAL INFORMATION: Fracture. Pain. COMPARISON: None available. TECHNIQUE: Two views of the right hip. FINDINGS: There is normal alignment of right hip joint. There is no visible acute fracture, dislocation or subluxation. There is mild osteopenia. Visualized left hip and rest the pelvis is normal. XR/XR hip RT w PEL1V IMPRESSION: Mild osteopenia. No visible acute fracture, dislocation or subluxation seen.
--- NOTE | 2023-07-29 14:18 | ED.GENADULT ---
HPI - General Adult General Chief complaint: Fall Stated complaint: TRIP AND FALL,+HS,RT HIP FX,-THINNERS,LAC TO HEAD Time Seen by Provider: 07/29/23 14:18 History of Present Illness HPI narrative: This is a 73-year-old woman with a past medical history of COPD, anxiety/depression, diabetes, hypertension, hyperlipidemia, CAD who presents by EMS for evaluation of fall and right hip pain. Patient reports that she was running errands this morning and ?got a lot done ?. She states that she was unloading her trunk he reports that she is wearing flip-flops at that time. She reports that her heel went [address] and the flip-flop went the other way causing her to trip and fall. She states that she fell backwards. She reports hitting the back of her head. She states no loss of consciousness, nausea or vomiting. She states no prodrome of headache, vision changes, dizziness, palpitations, chest pain or dyspnea. She states that she does not take any blood thinning medications. She states that the majority of her pain is in her right hip and she wonders whether or not it is broken. She states that she has some mild pain in the back of her head and some pain on her right elbow as well. She states no neck pain, back pain or paresthesias. She states no chest pain or dyspnea. She states no abdominal pain. She states no pain in her feet, ankle, knees or thighs. Patient states that she is unsure of her last tetanus immunization. Related Data Home Medications ?Medication ?Instructions ?Recorded ?Confirmed buspirone 5 mg tablet 15 mg PO BID 08/01/22 07/24/23 lorazepam 1 mg tablet 1 mg PO DAILY PRN 08/01/22 07/24/23 duloxetine 30 mg capsule,delayed 30 mg PO BEDTIME 10/31/22 07/24/23 release (Cymbalta) trazodone 50 mg tablet 50 mg PO BEDTIME for insomnia 05/22/23 07/24/23 Previous Rx's ?Medication ?Instructions ?Recorded mirtazapine 45 mg tablet 45 mg PO BEDTIME #90 tabs 07/17/22 atorvastatin 40 mg tablet 40 mg PO DAILY #90 tabs 10/16/22 lisinopril 20 1 tab PO BID #180 tabs 12/14/22 mg-hydrochlorothiazide 12.5 mg tablet metformin 1,000 mg tablet 1,000 mg PO DAILY #90 tabs 01/12/23 prednisone 20 mg tablet 20 mg PO DAILY #9 tabs 07/24/23 Allergies Allergy/AdvReac Type Severity Reaction Status Date / Time nortriptyline Allergy Severe hives Verified 07/29/23 14:35 bupropion Allergy Intermediate hives Verified 07/29/23 14:35 nitrofurantoin Allergy Intermediate heartburn; Verified 07/29/23 14:35 N/V buspirone [From BuSpar] Allergy Unknown Diarrhea Verified 07/29/23 14:35 high anxiety penicillin V Allergy Unknown Hives Verified 07/29/23 14:35 Sulfa (Sulfonamide Allergy Unknown Hives Verified 07/29/23 14:35 Antibiotics) cefdinir Allergy diarrhea Verified 07/29/23 14:35 and yeast ingection phenazopyridine AdvReac Mild Diarrhea Verified 07/29/23 14:35 [From Pyridium] Myacin Allergy Mild Hives Uncoded 07/29/23 14:35 Review of Systems Review of Systems: ROS as per HPI [facility] Past Medical History Medical History Dysuria Hyponatremia Annual physical exam COPD (chronic obstructive pulmonary disease) Depression Diabetes Alopecia Tobacco abuse CAD (coronary artery disease) Colon polyp Hyperlipidemia HTN (hypertension) Diabetic eye exam Anxiety and depression Surgical History H/O colonoscopy History of appendectomy History of oophorectomy Family History Family History Father Diabetes mellitus Mother No problems noted. Son Myocardial infarction Social History Social History Housing: House Alcohol intake: current Alcohol intake frequency: a few times a week Patient Tobacco Use Status: Current everyday Tobacco user Tobacco use type: Cigarette Cigarettes Per Day: 10 Years Smoked: 45 years Smoked in Last 30 Days: Yes e-Cigarette/Vaping Use: Never Used Second Hand Smoke Exposure: No Use of substances other than those prescribed or required for medical reasons: No Advance Directives: No Advance Directives Information Provided: No Do you have a plan to hurt others: No Plan service: No Current occupational status: retired Current occupational exposures/hazards: No Cognitive needs: No Hearing needs: No Vision needs: No Physical Exam ED Vital Signs: Vital Signs - 24 hr 07/29/23 14:31 Temperature 96.6 F L Pulse Rate 120 H Respiratory Rate 16 Blood Pressure 148/71 H Pulse Oximetry 96 Oxygen Delivery Method Room Air BMI result Body Mass Index 20.1 General: NAD, AOx3 Eyes: PERRL, EOMI, anicteric sclera HEENT: NCAT, moist oral mucosa, trachea midline, + approximate 2 cm circular ecchymotic contusion to posterior scalp, no postauricular or periorbital ecchymosis, CV: RRR, no murmurs appreciated, no JVD, 2+ bilateral radial and DP/PT pulses Respiratory: CTAB, no increased work of breathing Abdominal: Soft, NTND, no focal rebound, guarding or rigidity MSK: Moving all extremities spontaneously, no midline vertebral tenderness to palpation, full range of motion with neck flexion/extension and lateral 45? rotation, no palpable step-offs, no chest wall tenderness to palpation, no pelvic crepitus/tenderness/instability, bilateral upper and lower extremity compartments are soft, full range of motion with right elbow flexion/extension and right shoulder flexion/extension, tenderness to palpation to right lateral hip and pain with axial loading of the right lower extremity Neuro: CN II-XII are grossly intact, no focal neurological deficits, GCS 15 (E4/V5/M6), sensation intact to light touch bilateral upper and lower extremities Skin: Warm, dry, superficial hemostatic abrasion/skin tear to right elbow Psychiatric: Cooperative, appropriate mood and affect Medications Administered Discontinued Medications Generic Name Dose Route Start Last Admin Trade Name Vineetq PRN Reason Stop Dose Admin Acetaminophen 975 mg 07/29/23 14:28 07/29/23 15:47 Acetaminophen 325 Mg Tablet PO 07/29/23 14:29 975 mg ONCE ONE Administration Bacitracin 1 appl 07/29/23 14:44 07/29/23 15:48 Bacitracin Oint 0.9 Gm Packet TOPICAL 07/29/23 14:45 1 appl ONCE ONE Administration Protocol Diphtheria/Tetanus/Acell Pertussis 0.5 ml 07/29/23 15:32 07/29/23 15:48 Diphth,Pertus(Acell),Tet Adult 0.5 Ml Syringe IM 07/29/23 15:33 0.5 ml .ONCE ONE Administration Fentanyl 50 mcg 07/29/23 15:45 07/29/23 16:29 Fentanyl Citrate/Pf 100 Mcg/2 Ml Vial IVPUSH 07/29/23 15:46 50 mcg ONCE ONE Administration Protocol Lorazepam 1 mg 07/29/23 14:28 07/29/23 15:48 Lorazepam 1 Mg Tablet PO 07/29/23 14:29 1 mg ONCE ONE Administration Nicotine 14 mg 07/29/23 15:49 07/29/23 16:30 Nicotine 14 Mg Patch.Td24 TRANSDERMA 07/29/23 15:50 14 mg ONCE ONE Administration Medical Decision Making Medical Decision Making MDM Narrative: Differential diagnosis includes, but is not limited to pelvic fracture, femur fracture, abrasion, skin tear, contusion, intracranial hemorrhage. Patient is afebrile and hemodynamically stable on room air. The right lower extremity is neurovascularly intact. Given evidence of right upper extremity skin tear and unknown last tetanus immunization, tetanus is updated here today. Patient is provided fentanyl and Tylenol for analgesia. I reviewed and interpreted labs, which are noncontributory. Of note, leukocytosis of 14.7 is likely reactive in nature and secondary to pain. Further, patient is hyperglycemic at 391. I do not suspect HHS or DKA. Anion gap of 19 is very reassuring with reference range of 12-20. She is provided 1 L IV LR for hyperglycemia and will certainly benefit from continued POC blood glucose checks while inpatient. There is very mild hyponatremia of 127 (previous 126 July 24, 2023) in setting of hyperglycemia correcting to near low normal. Imaging studies as below notable for CT of the right femur and pelvis demonstrates a nondisplaced/minimally fracture of the right femur. CT of the head questions laceration, but on bedside examination there is no evidence of scalp laceration. Patient and family (son) are updated on CT scan findings and plan for admission for continued management. CT findings are discussed with Orthopedic surgery. Patient is admitted to hospitalist service, Dr. Payne, for further workup and management with Orthopedic surgery consulting. Admission/Observation Consideration of admission/observation: Escalation of care including admission/observation considered Consult Healthcare Provider Management of the patient was discussed with: Hospitalist and [employer] I discussed patient's case and management with on-call Orthopedic surgery (Rocio Law) who requests plain x-rays of the hip and admission to Internal Medicine. I discussed patient's case and management with admitting hospitalist Dr. Payne. Lab Data MDM Lab Attestation statement: I reviewed the patient's lab results. 07/29/23 15:46 07/29/23 15:46 Labs: Lab Results 07/29/23 Range/Units 15:46 WBC 14.7 H (4.8-10.8) X10*3/uL RBC 4.22 (4.20-5.50) X10*6/uL Hgb 13.8 (12.0-16.0) g/dl Hct 38.0 (37.0-47.0) % MCV 90.0 (80.0-98.0) fL MCH 32.7 (27.0-33.0) pg MCHC 36.3 H (31.0-35.0) g/dl RDW 11.4 (11.0-16.0) % Plt Count 266 (160-400) X10*3/uL MPV 9.8 (9.4-12.3) fL Immature Gran % (Auto) 0.6 H (0.0-0.4) % Neut % (Auto) 91.1 H (45-73) % Lymph % (Auto) 4.9 L (20-40) % [place] % (Auto) 3.3 (2-11) % Eos % (Auto) 0.0 (0-4) % Baso % (Auto) 0.1 (0-2) % Lymph # (Auto) 0.7 L (1.2-4.9) X10*3/uL [place] # (Auto) 0.5 (0.1-1.2) X10*3/uL Eos # (Auto) 0.0 (0.0-0.4) X10*3/uL Baso # (Auto) 0.0 (0.0-0.2) X10*3/uL Abs Immat Gran (auto) 0.09 H (0.00-0.03) X10*3/uL Absolute Neuts (auto) 13.4 H (2.0-8.3) x10*3/uL Absolute Nucleated RBC 0.000 (0.0-0.012) X10*3/uL Nucleated RBC % (auto) 0.0 (0.0-0.2) /100WBC Sodium 127 L (135-145) mmol/L Potassium 4.7 (3.3-5.1) mmol/L Chloride 84 L (96-108) mmol/L Carbon Dioxide 29 (22-29) mmol/L Anion Gap 19 (12-20) BUN 25 H (9-16) mg/dL Creatinine 1.17 (0.5-1.4) mg/dL Estim Creat Clear Calc 32.6 Estimated GFR 45 Random Glucose 391 H* (60-115) mg/dL Calcium 10.5 H D (8.4-10.2) mg/dL Radiology Impression Discussion of test interpretation with radiology: I have reviewed the radiologist's reading. Radiologist Impression: IMPRESSION: Right femur and pelvis: Nondisplaced/minimally displaced basicervical/intertrochanteric fracture of the right femur. Additional nonacute incidental findings as detailed above IMPRESSION: Right scalp laceration and hematoma measuring 4.1 x 1.1 x 3.9 cm. Dictated By: Farzana Terrazas MD Signed By: <Electronically signed by Farzana Terrazas MD in [place]> 07/29/23 1535 IMPRESSION: Unremarkable examination. Dictated By: John Farley MD Signed By: <Electronically signed by John Farley MD in [place]> 07/29/23 1611 IMPRESSION: Normal right elbow. Dictated By: John Farley MD Signed By: <Electronically signed by John Farley MD in [place]> 07/29/23 1612 Discharge Plan Discharge Clinical Impression: Closed fracture of right hip, Acute hyperglycemia, Fall, Leukocytosis Patient Disposition: Admitted As Inpatient Prescriptions: No Action mirtazapine 45 mg tablet 45 mg PO BEDTIME Qty: 90 2RF atorvastatin 40 mg tablet 40 mg PO DAILY Qty: 90 3RF lisinopril-hydrochlorothiazide 20-12.5 mg tablet 1 tab PO BID Qty: 180 3RF metformin 1,000 mg tablet 1,000 mg PO DAILY Qty: 90 3RF prednisone 20 mg tablet 20 mg PO DAILY Qty: 9 0RF Rx Instructions: 2 tabl qd x 3 days, then 1 tabl qd x 3 days duloxetine [Cymbalta] 30 mg capsule,delayed release(DR/EC) 30 mg PO BEDTIME buspirone 5 mg tablet 15 mg PO BID lorazepam 1 mg tablet 1 mg PO DAILY PRN trazodone 50 mg tablet 50 mg PO BEDTIME Print Language: [place]
[2023-07-29 14:31] VITALS: BP 148/71; BP 162/87; PULSE 120; PULSE 122; RESP 16; TEMP 35.9; O2SAT 96; O2SAT 98; BMI 20.1
[2023-07-29] MEDS: Acetaminophen 325 MG TABLET 975 MG PO (15:47)
[2023-07-29] MEDS: Bacitracin Oint 0.9 GM PACKET 1 APPL TOPICAL (15:48)
[2023-07-29] MEDS: Diphth,Pertus(ACell),Tet Adult 0.5 ML SYRINGE IM (15:48)
[2023-07-29] MEDS: LORazepam 1 MG TABLET PO (15:48)
[2023-07-29 15:52] LABS: MANUAL DIFF FLAG NO
[2023-07-29 15:55] LABS: Basophils Percent Auto 0.1 % (0-2); Hemoglobin 13.8 g/dl (12.0-16.0); Imm Gran Abs Auto 0.09 X10*3/uL (0.00-0.03); Imm Gran Pct Auto 0.6 % (0.0-0.4); Lymphocytes Absolute Auto 0.7 X10*3/uL (1.2-4.9); Lymphocytes Percent Auto 4.9 % (20-40); Mean Corpuscular HGB Conc 36.3 g/dl (31.0-35.0); Mean Corpuscular Hemoglobin 32.7 pg (27.0-33.0); Mean Platelet Volume 9.8 fL (9.4-12.3); Monocytes Absolute Auto 0.5 X10*3/uL (0.1-1.2); Monocytes Percent Auto 3.3 % (2-11); Neutrophils Absolute Auto 13.4 x10*3/uL (2.0-8.3); Neutrophils Percent Auto 91.1 % (45-73); Platelet Count 266 X10*3/uL (160-400); Red Blood Count 4.22 X10*6/uL (4.20-5.50); Red Cell Distribution Width 11.4 % (11.0-16.0); SCAN SMEAR FLAG 1; White Blood Count 14.7 X10*3/uL (4.8-10.8)
[2023-07-29 16:28] LABS: Anion Gap 19 (12-20); Blood Urea Nitrogen 25 mg/dL (9-16); Calcium 10.5 mg/dL (8.4-10.2); Carbon Dioxide 29 mmol/L (22-29); Chloride 84 mmol/L (96-108); Creatinine Clr Calc Pharmacy 32.6; Estimated Glomerular Filt Rate 45; Glucose Random 391 mg/dL (60-115); Potassium 4.7 mmol/L (3.3-5.1); Sodium 127 mmol/L (135-145)
[2023-07-29] MEDS: fentaNYL citrate/PF 100 MCG/2 ML VIAL 50 MCG IVPUSH (16:29)
[2023-07-29] MEDS: Nicotine 14 MG PATCH.TD24 TRANSDERMA (16:30)
[2023-07-29] MEDS: Lactated Ringers 1,000 ML 999 ML IV (17:37)
--- NOTE | 2023-07-29 18:18 | ECG_ITS ---
Test Reason : PRE OP Blood Pressure : / mmHG Vent. Rate : 110 BPM Atrial Rate : 110 BPM P-R Int : 146 ms QRS Dur : 066 ms QT Int : 344 ms P-R-T Axes : 083 084 077 degrees QTc Int : 465 ms Sinus tachycardia Biatrial enlargement Septal infarct , age undetermined Abnormal ECG When compared with ECG of 06-JUL-2002 07:09, Vent. rate has increased BY 40 BPM Septal infarct is now Present Referred By: Pascual Luong Electronically Signed By:LAURA PAZ MD
--- NOTE | 2023-07-29 18:53 | PM.HPOR ---
History of Present Illness History of Present Illness Date of Service: 07/29/23 Chief complaint: TRIP AND FALL,+HS,RT HIP FX,-THINNERS,LAC TO HEAD Narrative: Lisa Dangelo is a 73 year old female with a past medical history of COPD, anxiety/depression, diabetes, hypertension, hyperlipidemia, CAD who presents by EMS for evaluation after sustaining a mechanical fall and right hip pain. She reports that she was removing items from the trunk of her car when she tripped while wearing flip flops. She twisted her foot one way and the flip flop went the other causing her to fall. She reports that when she fell she felt immediate right hip pain and was unable to ambulate. She called EMS and reports that she was laying on her driveway roughly 45 mins until help arrived. While in the ED a CT scan and x-rays were obtained and revealed a right hip intertrochanteric hip fracture. She was admitted to the medicine service with orthopedic consult for further evaluation and treatment. [facility] Past Medical History Medical History Dysuria Hyponatremia Annual physical exam COPD (chronic obstructive pulmonary disease) Depression Diabetes Alopecia Tobacco abuse CAD (coronary artery disease) Colon polyp Hyperlipidemia HTN (hypertension) Diabetic eye exam Anxiety and depression Family History Family History Father Diabetes mellitus Mother No problems noted. Son Myocardial infarction Surgical History Surgical History H/O colonoscopy History of appendectomy History of oophorectomy Social History Social History Housing: House Alcohol intake: current Alcohol intake frequency: a few times a week Patient Tobacco Use Status: Current everyday Tobacco user Tobacco use type: Cigarette Cigarettes Per Day: 10 Years Smoked: 45 years Smoked in Last 30 Days: Yes e-Cigarette/Vaping Use: Never Used Second Hand Smoke Exposure: No Use of substances other than those prescribed or required for medical reasons: No Advance Directives: No Advance Directives Information Provided: No Do you have a plan to hurt others: No Plan service: No Current occupational status: retired Current occupational exposures/hazards: No Cognitive needs: No Hearing needs: No Vision needs: No Meds Allergies Allergy/AdvReac Type Severity Reaction Status Date / Time nortriptyline Allergy Severe hives Verified 07/29/23 14:35 bupropion Allergy Intermediate hives Verified 07/29/23 14:35 nitrofurantoin Allergy Intermediate heartburn; Verified 07/29/23 14:35 N/V buspirone [From BuSpar] Allergy Unknown Diarrhea Verified 07/29/23 14:35 high anxiety penicillin V Allergy Unknown Hives Verified 07/29/23 14:35 Sulfa (Sulfonamide Allergy Unknown Hives Verified 07/29/23 14:35 Antibiotics) cefdinir Allergy diarrhea Verified 07/29/23 14:35 and yeast ingection phenazopyridine AdvReac Mild Diarrhea Verified 07/29/23 14:35 [From Pyridium] Myacin Allergy Mild Hives Uncoded 07/29/23 14:35 Active Medications: Current Medications Glucose (Glucose Gel 15 Gm Gel..Gram.) 15 gm PO Q15M PRN; Protocol PRN Reason: per Hypoglycemia Standing Ord. Sodium Chloride (Ns) 1,000 mls @ 100 mls/hr IVCONT .Q10H FCO Dextrose (D10) 250 mls @ 750 mls/hr IV Q15M PRN; Protocol PRN Reason: per Hypoglycemia Standing Ord. Insulin Human Lispro (Insulin Lispro 100 Unit/Ml 3 Ml Vial) 0 unit SUBCUT QIDACHS [facility]; Protocol Lorazepam (Lorazepam 1 Mg Tablet) 1 mg PO ONCE PRN PRN Reason: Anxiety Morphine Sulfate (Morphine Sulfate 2 Mg/Ml Cartridge) 2 mg IVPUSH Q4H PRN; Protocol PRN Reason: Pain, Moderate(Pain Scale 4-6) Sodium Chloride (0.9 % Sodium Chloride Flush 3 Ml Syringe) 3 ml IVFLUSH QSHIFT [facility] Home Medications ?Medication ?Instructions ?Recorded ?Confirmed ?Last Taken ?Type buspirone 5 mg tablet 15 mg PO BID 08/01/22 07/24/23 Unknown History lorazepam 1 mg tablet 1 mg PO DAILY PRN 08/01/22 07/24/23 Unknown History duloxetine 30 mg capsule,delayed 30 mg PO BEDTIME 10/31/22 07/24/23 Unknown History release (Cymbalta) trazodone 50 mg tablet 50 mg PO BEDTIME for insomnia 05/22/23 07/24/23 Unknown History Physical Exam Vital Signs: Vital Signs: Last Vital Signs Temp 96.6 F L 07/29/23 14:31 Pulse 120 H 07/29/23 14:31 Resp 16 07/29/23 14:31 BP 148/71 H 07/29/23 14:31 Pulse Ox 96 07/29/23 14:31 O2 Del Method Room Air 07/29/23 14:31 BMI result Body Mass Index 20.1 Const: General: cooperative, healthy appearing and no acute distress Resp: Effort & Inspection: normal respiratory effort and able to speak in complete sentences Cardio: Rate: regular rate Peripheral pulses: Peripheral pulses 2+ throughout GI: Palpation (GI): Soft to palpation Skin: Lesions: no lesions Rashes: no rashes Extrem: Other: RLE is slightly shortened and externally rotated. Pain with log roll. Able to dorsi/plantar flex. Sensation intact. Pedal pulse intact. Results Labs 07/29/23 15:46 07/29/23 15:46 Labs: Abnormal lab results 07/29/23 Range/Units 15:46 WBC 14.7 H (4.8-10.8) X10*3/uL MCHC 36.3 H (31.0-35.0) g/dl Immature Gran % (Auto) 0.6 H (0.0-0.4) % Neut % (Auto) 91.1 H (45-73) % Lymph % (Auto) 4.9 L (20-40) % Lymph # (Auto) 0.7 L (1.2-4.9) X10*3/uL Abs Immat Gran (auto) 0.09 H (0.00-0.03) X10*3/uL Absolute Neuts (auto) 13.4 H (2.0-8.3) x10*3/uL Sodium 127 L (135-145) mmol/L Chloride 84 L (96-108) mmol/L BUN 25 H (9-16) mg/dL Random Glucose 391 H* (60-115) mg/dL Calcium 10.5 H D (8.4-10.2) mg/dL H & H 07/29/23 Range/Units 15:46 Hgb 13.8 (12.0-16.0) g/dl Hct 38.0 (37.0-47.0) % All other labs normal. Assessment and Plan (1) Fall: Status: Acute (2) Closed fracture of right hip: Status: Acute I discussed the case with Dr. Márquez and explained the extent of the injury to the patient and options available which include surgical intervention. I explained the procedure in detail along with the length of recovery and rehab course. I explained the risk, benefits and alternatives. Risk including, but not limited to infection, blood clots, bleeding, non union or malunion and nerve/tissue damage to surrounding areas. I answered all their questions and with their understanding they have consented to move forward with Operative Fixation of the right hip. The patient will be T&S, med clearance obtained and NPO after midnight. (3) Tobacco dependence: Status: Acute (4) Diabetes: Status: Acute Quality Stroke Does the patient have a stroke diagnosis?: No VTE Prior VTE?: No VTE Risk Level:: Medical - moderate - high VTE Device Contraindication: N/A - Device Ordered VTE Drug Contraindication: N/A - Med Ordered Procedures Date of Service Date of Service: 07/29/23
[2023-07-29 19:02] LABS: Magnesium 1.3 mg/dL (1.6-2.6)
--- NOTE | 2023-07-29 19:08 | P.HPHOSP_ITS ---
History of Present Illness Date of Service: 07/29/23 Chief Complaint: Hip fracture This a 73-year-old female with pertinent history of crs-nftftio-fwaeccbmc diabetes mellitus, mood disorder, hypertension, mixed hyperlipidemia who presents to the emergency department for evaluation after a fall. Patient states she slipped while she was taking out stuff from a truck when she slipped and fell. Patient states that she fell on her right side and has difficulty moving her right lower extremity since the fall. No loss of consciousness prior to the fall. No chest pain or palpitations prior to the fall. No rhythmic jerking movement of extremities. Also hit her head. No fever, chills, chest discomfort, palpitations, shortness of breath, abdominal pain, changes in urinary or bowel habits. Patient does not on any blood thinners In the emergency department, imaging with minimally displaced intertrochanteric fracture of right femur. Review of Systems 2 Constitutional: Constitutional: Reports no additional constitutional complaints Cardiovascular: Cardiovascular: Reports no additional cardiovascular complaints Respiratory: Respiratory: Reports no additional respiratory complaints Gastrointestinal: Gastrointestinal: Reports no additional gastrointestinal complaints Genitourinary: Genitourinary: Reports no additional female genitourinary complaints Musculoskeletal: Musculoskeletal: Reports arthralgias and Reports joint swelling [facility] Medical History Dysuria Hyponatremia Annual physical exam COPD (chronic obstructive pulmonary disease) Depression Diabetes Alopecia Tobacco abuse CAD (coronary artery disease) Colon polyp Hyperlipidemia HTN (hypertension) Diabetic eye exam Anxiety and depression Family History Father Diabetes mellitus Mother No problems noted. Son Myocardial infarction Surgical History H/O colonoscopy History of appendectomy History of oophorectomy Social History Housing: House Alcohol intake: current Alcohol intake frequency: a few times a week Patient Tobacco Use Status: Current everyday Tobacco user Tobacco use type: Cigarette Cigarettes Per Day: 10 Years Smoked: 45 years Smoked in Last 30 Days: Yes e-Cigarette/Vaping Use: Never Used Second Hand Smoke Exposure: No Use of substances other than those prescribed or required for medical reasons: No Advance Directives: No Advance Directives Information Provided: No Do you have a plan to hurt others: No Plan service: No Current occupational status: retired Current occupational exposures/hazards: No Cognitive needs: No Hearing needs: No Vision needs: No Meds Allergies Allergy/AdvReac Type Severity Reaction Status Date / Time nortriptyline Allergy Severe hives Verified 07/29/23 14:35 bupropion Allergy Intermediate hives Verified 07/29/23 14:35 nitrofurantoin Allergy Intermediate heartburn; Verified 07/29/23 14:35 N/V buspirone [From BuSpar] Allergy Unknown Diarrhea Verified 07/29/23 14:35 high anxiety penicillin V Allergy Unknown Hives Verified 07/29/23 14:35 Sulfa (Sulfonamide Allergy Unknown Hives Verified 07/29/23 14:35 Antibiotics) cefdinir Allergy diarrhea Verified 07/29/23 14:35 and yeast ingection phenazopyridine AdvReac Mild Diarrhea Verified 07/29/23 14:35 [From Pyridium] Myacin Allergy Mild Hives Uncoded 07/29/23 14:35 Active Medications: Current Medications Glucose (Glucose Gel 15 Gm Gel..Gram.) 15 gm PO Q15M PRN; Protocol PRN Reason: per Hypoglycemia Standing Ord. Sodium Chloride (Ns) 1,000 mls @ 100 mls/hr IVCONT .Q10H FCO Dextrose (D10) 250 mls @ 750 mls/hr IV Q15M PRN; Protocol PRN Reason: per Hypoglycemia Standing Ord. Clindamycin Phosphate (Cleocin) 900 mg in 50 mls @ 50 mls/hr IV PREOP ONE Stop: 07/29/23 19:58 Insulin Human Lispro (Insulin Lispro 100 Unit/Ml 3 Ml Vial) 0 unit SUBCUT QIDACHS [facility]; Protocol Lorazepam (Lorazepam 1 Mg Tablet) 1 mg PO ONCE PRN PRN Reason: Anxiety Morphine Sulfate (Morphine Sulfate 2 Mg/Ml Cartridge) 2 mg IVPUSH Q4H PRN; Protocol PRN Reason: Pain, Moderate(Pain Scale 4-6) Sodium Chloride (0.9 % Sodium Chloride Flush 3 Ml Syringe) 3 ml IVFLUSH [facility] Home Medications ?Medication ?Instructions ?Recorded ?Confirmed ?Last Taken ?Type buspirone 5 mg tablet 15 mg PO BID 08/01/22 07/24/23 Unknown History lorazepam 1 mg tablet 1 mg PO DAILY PRN 08/01/22 07/24/23 Unknown History duloxetine 30 mg capsule,delayed 30 mg PO BEDTIME 10/31/22 07/24/23 Unknown History release (Cymbalta) trazodone 50 mg tablet 50 mg PO BEDTIME for insomnia 05/22/23 07/24/23 Unknown History Physical Exam 2 Vital Signs and Narrative: Vital Signs: Last Vital Signs Temp 96.6 F L 07/29/23 14:31 Pulse 120 H 07/29/23 14:31 Resp 16 07/29/23 14:31 BP 148/71 H 07/29/23 14:31 Pulse Ox 96 07/29/23 14:31 O2 Del Method Room Air 07/29/23 14:31 BMI result Body Mass Index 20.1 Elderly female lying in bed in no distress Neck supple, no JVD Regular rate and rhythm, S1-S2 heard Regular breath sounds bilaterally, no wheezing or crackles appreciated Abdomen soft nontender, no guarding, no rigidity Patient is awake, alert and oriented to self, place, time and person ; no focal motor deficit Psych: Normal mood Musculoskeletal: Limited motion of right lower extremity due to pain Results Labs 07/29/23 15:46 07/29/23 15:46 Labs: Laboratory Results - last 24 hr 07/29/23 15:46 MCV 90.0 MCH 32.7 MCHC 36.3 H RDW 11.4 Plt Count 266 MPV 9.8 Immature Gran % (Auto) 0.6 H Neut % (Auto) 91.1 H Lymph % (Auto) 4.9 L [place] % (Auto) 3.3 Eos % (Auto) 0.0 Baso % (Auto) 0.1 Lymph # (Auto) 0.7 L [place] # (Auto) 0.5 Eos # (Auto) 0.0 Baso # (Auto) 0.0 Abs Immat Gran (auto) 0.09 H Absolute Neuts (auto) 13.4 H Absolute Nucleated RBC 0.000 Nucleated RBC % (auto) 0.0 Anion Gap 19 Estim Creat Clear Calc 32.6 Estimated GFR 45 Random Glucose 391 H* Calcium 10.5 H D Magnesium 1.3 L* Blood Type A Positive Antibody Screen NEGATIVE Imaging Radiologist's Impressions: Impressions Head CT 07/29/23 14:52 IMPRESSION: Right scalp laceration and hematoma measuring 4.1 x 1.1 x [address] 07/29/23 15:04 Impression: IMPRESSION: Right femur and pelvis: Nondisplaced/minimally displaced basicervical/intertrochanteric fracture of the right femur. Additional nonacute incidental findings as detailed above Pelvis CT 07/29/23 15:04 Impression: IMPRESSION: Right femur and pelvis: Nondisplaced/minimally displaced basicervical/intertrochanteric fracture of the right femur. Additional nonacute incidental findings as detailed above Chest X-Ray 07/29/23 15:10 IMPRESSION: Unremarkable examination. Elbow X-Ray 07/29/23 15:10 IMPRESSION: Normal right elbow. Assessment and Plan (1) Closed fracture of right hip: Status: Acute Plan This a 73-year-old female with pertinent history of tqy-kwgquhg-fhkutxhxo diabetes mellitus, mood disorder, hypertension, mixed hyperlipidemia who presents to the emergency department for evaluation after a fall. #. Right femur fracture due to mechanical fall: Will admit patient and initiate IV opioids p.r.n. for analgesia. Orthopedic surgery consulted. Will keep patient NPO after midnight #. Preoperative risk- RCRI: Score 0 #. Hyponatremia: Appears chronic. Will hold hydrochlorothiazide. Serum and urine studies pending. Patient received 1 L crystalloid in the ER #. Hrq-ogmvsnh-vajucieep diabetes mellitus with hyperglycemia: Hold metformin. Initiating Accu-Cheks with sliding scale insulin #. Hypomagnesemia: Repleted #. Hypertension: Hold hydrochlorothiazide as above. Hold QUYEN-inhibitor preoperatively #. Mood disorder: Continue home mood stabilizers #. Leukocytosis, reactive #. Sinus tachycardia in the setting of pain: No sepsis Med rec pending DVT prophylaxis: Mechanical DNR/DNI. Discussed with patient at bedside Admit as inpatient and will require two night minimum hospital stay for evaluation of right femur fracture (as above), which is not possible in a lesser acute setting. Specialist consult pending Quality Stroke Does the patient have a stroke diagnosis?: No VTE Prior VTE?: No VTE Risk Level:: Medical - moderate - high VTE Device Contraindication: N/A - Device Ordered VTE Drug Contraindication: Treatment Not Indicated
[2023-07-29] MEDS: Magnesium Sulfate/H2O 2 GM/50 ML PIGGYBACK IV (20:18)
--- NOTE | 2023-07-29 20:31 | PC.NURSE ---
pt refused insulin. POC was 341. pt said she takes metformin, not insulin, she will not take it now
[2023-07-29 20:34] VITALS: BP 157/81; PULSE 102; RESP 15; TEMP 36.6; O2SAT 94
[2023-07-29 20:44] LABS: Glucose, Whole Blood 461 mg/dL (60-115)
[2023-07-29 20:56] LABS: Osmolality, Serum 292 mosm/kg (281-305)
--- NOTE | 2023-07-29 20:56 | PC.NURSE ---
POC 461. aware. will take insulin now
[2023-07-29] MEDS: Insulin Lispro 100 UNIT/ML 3 ML VIAL SUBCUT (21:00)
[2023-07-29] MEDS: Insulin Regular, Human 100 UNIT/ML 10 ML VIAL IVPUSH (21:01)
--- NOTE | 2023-07-29 21:26 | PHA.MEDREC ---
Pharmacy Consult ? Medication Reconciliation Pharmacy has completed the medication reconciliation. Confirmed medications with list provided by son.
[2023-07-29] MEDS: Famotidine 20 MG TABLET PO (21:29)
[2023-07-29 22:21] VITALS: BMI 20.8
[2023-07-29 22:36] LABS: Glucose, Whole Blood 340 mg/dL (60-115)
[2023-07-29] MEDS: Labetalol HCL 100 MG/20 ML VIAL 20 MG IVPUSH (22:36)
[2023-07-29] MEDS: Morphine Sulfate 2 MG/ML CARTRIDGE IVPUSH (22:37)
[2023-07-29] MEDS: 0.9 % Sodium Chloride Flush 3 ML SYRINGE IVFLUSH (22:37)
[2023-07-29 22:40] VITALS: BP 186/81; PULSE 95; RESP 18; TEMP 36.2; O2SAT 96
[2023-07-30] VITALS (14 sets, daily range): BP systolic 105–150; BP diastolic 49–93; PULSE 68–94; RESP 14–20; TEMP 36.1–37.1; O2SAT 89–100
[2023-07-30] MEDS: Morphine Sulfate 2 MG/ML CARTRIDGE IVPUSH ×3 (02:14→14:36)
[2023-07-30 03:00] LABS: Osmolality Urine 556 mosm/kg (373-1093)
[2023-07-30 05:16] LABS: Estimated Average Glucose 186 mg/dL; Hemoglobin A1c % 8.1 % (<6.0)
[2023-07-30 06:47] LABS: Magnesium 1.5 mg/dL (1.6-2.6)
[2023-07-30 07:11] LABS: Glucose, Whole Blood 203 mg/dL (60-115)
[2023-07-30] MEDS: 0.9 % Sodium Chloride Flush 3 ML SYRINGE IVFLUSH (09:29)
--- NOTE | 2023-07-30 09:39 | MHC.CM.PN ---
IMM 07/29. Pt self-care, lives alone. New HCP completed with pt, now on file. Pt will likely need rehab once medically cleared via BLS transport. PCP: Dr. Enriqueta Estrada
[2023-07-30] MEDS: Nicotine 14 MG PATCH.TD24 TRANSDERMA (10:44)
[2023-07-30 11:15] LABS: Glucose, Whole Blood 197 mg/dL (60-115)
--- NOTE | 2023-07-30 12:19 | P.PNIM_ITS ---
Subjective Subjective Date of Service: 07/30/23 Interval History: seen and evaluated complains of pain plan for surgery today no other events Review of Systems Review of Systems: Yes all other systems are reviewed and are negative Physical Exam 2 Vital Signs: Vital Signs: Last Vital Signs Temp 97.6 F 07/30/23 11:16 Pulse 87 07/30/23 11:16 Resp 20 07/30/23 11:16 BP 147/66 H 07/30/23 11:16 Pulse Ox 94 07/30/23 11:16 O2 Del Method Room Air 07/30/23 11:16 BMI result Body Mass Index 20.8 Const: Other: Constitutional : Awake, interactive, not in distress Cardiovascular : RRR, no JVP, no lower extremity edema Respiratory : good bilateral air entry, no crackles, wheezes Gastrointestinal: soft, lax, Normal bowel sounds, Non tender Skin : Warm, Dry Extremities: Right leg shorter and externally rotated Neurological : Alert & oriented x3, No focal deficit Objective Data Active Medications Atorvastatin Calcium (Atorvastatin Calcium 40 Mg Tablet) 40 mg PO DAILY [facility] Last Admin: 07/30/23 09:23 Dose: Not Given Documented By: ANGEL Non-Admin Reason: Physician Approved Buspirone HCl (Buspirone Hcl 5 Mg Tablet) 15 mg PO BID [facility] Last Admin: 07/30/23 09:23 Dose: Not Given Documented By: ANGEL Non-Admin Reason: Physician Held Med Duloxetine HCl (Duloxetine Hcl 30 Mg Capsule.Dr) 30 mg PO BEDTIME [facility] Glucose (Glucose Gel 15 Gm Gel..Gram.) 15 gm PO Q15M PRN; Protocol PRN Reason: per Hypoglycemia Standing Ord. Dextrose (D10) 250 mls @ 750 mls/hr IV Q15M PRN; Protocol PRN Reason: per Hypoglycemia Standing Ord. Cefazolin Sodium/Dextrose (Ancef) 2 gm in 50 mls @ 100 mls/hr IV PREOP ONE Stop: 07/30/23 08:13 Insulin Human Lispro (Insulin Lispro 100 Unit/Ml 3 Ml Vial) 0 unit SUBCUT QIDACHS [facility]; Protocol Last Admin: 07/30/23 11:14 Dose: Not Given Documented By: ANGEL Non-Admin Reason: No Insulin Coverage Lorazepam (Lorazepam 1 Mg Tablet) 1 mg PO ONCE PRN PRN Reason: Anxiety Mirtazapine (Mirtazapine 15 Mg Tablet) 45 mg PO BEDTIME [facility] Morphine Sulfate (Morphine Sulfate 2 Mg/Ml Cartridge) 2 mg IVPUSH Q4H PRN; Protocol PRN Reason: Pain, Moderate(Pain Scale 4-6) Last Admin: 07/30/23 09:24 Dose: 2 mg Documented By: ANGEL Nicotine (Nicotine 14 Mg Patch.Td24) 14 mg TRANSDERMA DAILY [facility] Last Admin: 07/30/23 10:44 Dose: 14 mg Documented By: ANGEL Sodium Chloride (0.9 % Sodium Chloride Flush 3 Ml Syringe) 3 ml IVFLUSH QSHIFT [facility] Last Admin: 07/30/23 09:29 Dose: 3 ml Documented By: ANGEL Labs 07/29/23 15:46 07/29/23 15:46 Labs: Laboratory Results - last 24 hr 07/29/23 07/29/23 07/29/23 15:46 20:25 20:41 MCV 90.0 MCH 32.7 MCHC 36.3 H RDW 11.4 Plt Count 266 MPV 9.8 Immature Gran % (Auto) 0.6 H Neut % (Auto) 91.1 H Lymph % (Auto) 4.9 L [place] % (Auto) 3.3 Eos % (Auto) 0.0 Baso % (Auto) 0.1 Lymph # (Auto) 0.7 L [place] # (Auto) 0.5 Eos # (Auto) 0.0 Baso # (Auto) 0.0 Abs Immat Gran (auto) 0.09 H Absolute Neuts (auto) 13.4 H Absolute Nucleated RBC 0.000 Nucleated RBC % (auto) 0.0 Hold Purple Top Anion Gap 19 Estim Creat Clear Calc 32.6 Estimated GFR 45 POC Glucose 461 H* Random Glucose 391 H* Estimat Average Glucose 186 Hemoglobin A1c % 8.1 H Osmolality 292 Calcium 10.5 H D Magnesium 1.3 L* Urine Osmolality Ur Random Sodium Blood Type A Positive Antibody Screen NEGATIVE 07/29/23 07/30/23 07/30/23 22:32 02:30 06:13 MCV MCH MCHC RDW Plt Count MPV Immature Gran % (Auto) Neut % (Auto) Lymph % (Auto) [place] % (Auto) Eos % (Auto) Baso % (Auto) Lymph # (Auto) [place] # (Auto) Eos # (Auto) Baso # (Auto) Abs Immat Gran (auto) Absolute Neuts (auto) Absolute Nucleated RBC Nucleated RBC % (auto) Hold Purple Top SEE NOTE Anion Gap Estim Creat Clear Calc Estimated GFR POC Glucose 340 H Random Glucose Estimat Average Glucose Hemoglobin A1c % Osmolality Calcium Magnesium 1.5 L Urine Osmolality 556 Ur Random Sodium 52.0 Blood Type Antibody Screen 07/30/23 07/30/23 07:06 11:12 MCV MCH MCHC RDW Plt Count MPV Immature Gran % (Auto) Neut % (Auto) Lymph % (Auto) [place] % (Auto) Eos % (Auto) Baso % (Auto) Lymph # (Auto) [place] # (Auto) Eos # (Auto) Baso # (Auto) Abs Immat Gran (auto) Absolute Neuts (auto) Absolute Nucleated RBC Nucleated RBC % (auto) Hold Purple Top Anion Gap Estim Creat Clear Calc Estimated GFR POC Glucose 203 H 197 H Random Glucose Estimat Average Glucose Hemoglobin A1c % Osmolality Calcium Magnesium Urine Osmolality Ur Random Sodium Blood Type Antibody Screen Assessment and Plan (1) Fall: Status: Acute (2) Acute hyperglycemia: Status: Acute (3) Hypophosphatemia: Status: Acute (4) Hypomagnesemia: Status: Acute (5) Closed fracture of right hip: Status: Acute Plan This a 73-year-old female with pertinent history of qsp-iykpuza-ogbbiivdn diabetes mellitus, mood disorder, hypertension, mixed hyperlipidemia who presents to the emergency department for evaluation after a fall. # Right femur fracture due to mechanical fall IV opioids p.r.n. for analgesia Orthopedic surgery to take her for surgery today # Chronic Hyponatremia Partially Pseudo on admission with Glu of 400. Na almost 130 hold hydrochlorothiazide Serum and urine studies pending. Patient received 1 L crystalloid in the ER # Rup-bmdnymk-hjbtfhysz diabetes mellitus with hyperglycemia Hold metformin sliding scale insulin # Hypomagnesemia: to give extra dose IV and restart her PO # Hypertension: Hold hydrochlorothiazide and QUYEN-inhibitor. restart Po Op # Mood disorder: Continue home mood stabilizers # Sinus tachycardia in the setting of pain: No sepsis DVT prophylaxis: Mechanical Admit as inpatient and will require overnight hospital stay for surgical treatment of right femur fracture which is not possible in a lesser acute setting Quality Stroke Does the patient have a stroke diagnosis?: No VTE Prior VTE?: No VTE Risk Level:: Medical - moderate - high VTE Device Contraindication: N/A - Device Ordered VTE Drug Contraindication: Treatment Not Indicated
[2023-07-30 13:01] LABS: Anion Gap 15 (12-20)
[2023-07-30 13:03] LABS: Blood Urea Nitrogen 19 mg/dL (9-16); Carbon Dioxide 31 mmol/L (22-29); Chloride 88 mmol/L (96-108); Creatinine Clr Calc Pharmacy 51.3; Estimated Glomerular Filt Rate > 60; Glucose Random 214 mg/dL (60-115); Potassium 3.9 mmol/L (3.3-5.1); Sodium 130 mmol/L (135-145)
[2023-07-30 14:26] LABS: Glucose, Whole Blood 176 mg/dL (60-115)
--- NOTE | 2023-07-30 15:34 | PC.NURSE ---
Patient arrived to [facility]. #22 in left FA flushed well, site asymptomatic.
--- NOTE | 2023-07-30 15:35 | MHC.SHP ---
Pre-Procedural Eval Section A - 24 Hr Update-Section A only Date of Service: 07/30/23 The patient is an INPATIENT: Yes Changes since office visit: No Cold of Flu in the past 2 weeks, No New Medical Problems, No Changes in Medication and No Patient answered all questions The patient has been examined within 24 hours of the surgical procedure. The History & Physical has been completed within 30 days and I have reviewed it.: Yes Section B - Complete if H&P > 30 days Chief Complaint: hip fx Allergies: Allergies Allergy/AdvReac Type Severity Reaction Status Date / Time nortriptyline Allergy Severe hives Verified 07/29/23 14:35 bupropion Allergy Intermediate hives Verified 07/29/23 14:35 nitrofurantoin Allergy Intermediate heartburn; Verified 07/29/23 14:35 N/V buspirone [From BuSpar] Allergy Unknown Diarrhea Verified 07/29/23 14:35 high anxiety penicillin V Allergy Unknown Hives Verified 07/29/23 14:35 Sulfa (Sulfonamide Allergy Unknown Hives Verified 07/29/23 14:35 Antibiotics) cefdinir Allergy diarrhea Verified 07/29/23 14:35 and yeast ingection phenazopyridine AdvReac Mild Diarrhea Verified 07/29/23 14:35 [From Pyridium] Myacin Allergy Mild Hives Uncoded 07/29/23 14:35 Plan I have reviewed the history and physical and performed a pertinent physical examination on my patient. No changes have occurred unless specified. Time Spent With Patient Time: Total time managing care of this patient today ____ minutes.
--- NOTE | 2023-07-30 16:04 | HO.ANESPROP2 ---
[facility] Active Problems Active Problems: All Active Problems Leukocytosis (Acute) Fall (Acute) Acute hyperglycemia (Acute) Closed fracture of right hip (Acute) Chest pain at rest (Acute) Hypophosphatemia (Acute) Hypomagnesemia (Acute) Weight loss (Acute) Lung nodule (Acute) Tobacco dependence (Acute) Heart murmur (Acute) Insomnia (Acute) Dysuria (Acute) Hyponatremia (Acute) Annual physical exam (Acute) COPD (chronic obstructive pulmonary disease) (Acute) Depression (Acute) HTN (hypertension) (Acute) Anxiety and depression (Acute) Diabetes (Acute) Alopecia (Acute) Past Medical History Medical History Dysuria Hyponatremia Annual physical exam COPD (chronic obstructive pulmonary disease) Depression Diabetes Alopecia Tobacco abuse CAD (coronary artery disease) Colon polyp Hyperlipidemia HTN (hypertension) Diabetic eye exam Anxiety and depression Family History Family History Father Diabetes mellitus Mother No problems noted. Son Myocardial infarction Family history of problems with anesthesia: No Surgical History Surgical History H/O colonoscopy History of appendectomy History of oophorectomy History of Problems with Anesthesia: No Social History Social History Household Members: None Housing: [facility] Do you presently have visiting nurse or other home services: No Alcohol intake: current Alcohol intake frequency: 0-2 drinks per day Patient Tobacco Use Status: Current everyday Tobacco user Tobacco use type: Cigarette Cigarettes Per Day: 10 Years Smoked: 50 e-Cigarette/Vaping Use: Never Used Second Hand Smoke Exposure: No service: No Current occupational status: retired Current occupational exposures/hazards: No Cognitive needs: No Hearing needs: No Vision needs: No Meds Allergies Allergy/AdvReac Type Severity Reaction Status Date / Time nortriptyline Allergy Severe hives Verified 07/30/23 15:37 bupropion Allergy Intermediate hives Verified 07/30/23 15:37 buspirone [From BuSpar] Allergy Intermediate Diarrhea Verified 07/30/23 15:37 high anxiety cefdinir Allergy Intermediate diarrhea Verified 07/30/23 15:37 and yeast ingection nitrofurantoin Allergy Intermediate heartburn; Verified 07/30/23 15:37 N/V penicillin V Allergy Intermediate Hives Verified 07/30/23 15:37 Sulfa (Sulfonamide Allergy Intermediate Hives Verified 07/30/23 15:37 Antibiotics) phenazopyridine AdvReac Mild Diarrhea Verified 07/30/23 15:37 [From Pyridium] Myacin Allergy Mild Hives Uncoded 07/30/23 15:37 Active Medications: Current Medications Atorvastatin Calcium (Atorvastatin Calcium 40 Mg Tablet) 40 mg PO DAILY [facility] Last Admin: 07/30/23 09:23 Dose: Not Given Buspirone HCl (Buspirone Hcl 5 Mg Tablet) 15 mg PO BID [facility] Last Admin: 07/30/23 09:23 Dose: Not Given Duloxetine HCl (Duloxetine Hcl 30 Mg Capsule.Dr) 30 mg PO BEDTIME [facility] Glucose (Glucose Gel 15 Gm Gel..Gram.) 15 gm PO Q15M PRN; Protocol PRN Reason: per Hypoglycemia Standing Ord. Dextrose (D10) 250 mls @ 750 mls/hr IV Q15M PRN; Protocol PRN Reason: per Hypoglycemia Standing Ord. Insulin Human Lispro (Insulin Lispro 100 Unit/Ml 3 Ml Vial) 0 unit SUBCUT QIDACHS [facility]; Protocol Last Admin: 07/30/23 11:14 Dose: Not Given Lorazepam (Lorazepam 1 Mg Tablet) 1 mg PO ONCE PRN PRN Reason: Anxiety Lorazepam (Lorazepam 1 Mg Tablet) 1 mg PO DAILY PRN PRN Reason: severe anxiety Magnesium Oxide (Magnesium Oxide 400 Mg Tablet) 400 mg PO BID [facility] Mirtazapine (Mirtazapine 15 Mg Tablet) 45 mg PO BEDTIME [facility] Morphine Sulfate (Morphine Sulfate 2 Mg/Ml Cartridge) 2 mg IVPUSH Q4H PRN; Protocol PRN Reason: Pain, Moderate(Pain Scale 4-6) Last Admin: 07/30/23 14:36 Dose: 2 mg Nicotine (Nicotine 14 Mg Patch.Td24) 14 mg TRANSDERMA DAILY [facility] Last Admin: 07/30/23 10:44 Dose: 14 mg Sodium Chloride (0.9 % Sodium Chloride Flush 3 Ml Syringe) 3 ml IVFLUSH QSHIFT [facility] Last Admin: 07/30/23 09:29 Dose: 3 ml Trazodone HCl (Trazodone Hcl 50 Mg Tablet) 50 mg PO BEDTIME [facility] Home Medications ?Medication ?Instructions ?Recorded ?Confirmed ?Last Taken ?Type buspirone 5 mg tablet 15 mg PO BID 08/01/22 07/29/23 07/29/23 06:00 History lorazepam 1 mg tablet 1 mg PO DAILY PRN sever anxiety 08/01/22 07/29/23 07/29/23 06:00 History duloxetine 30 mg capsule,delayed 30 mg PO BEDTIME 10/31/22 07/29/23 07/28/23 22:00 History release (Cymbalta) trazodone 50 mg tablet 50 mg PO BEDTIME for insomnia 05/22/23 07/29/23 07/28/23 22:00 History ibuprofen 200 mg tablet 200 mg PO DAILY PRN Pain 07/29/23 07/29/23 Unknown History magnesium oxide 400 mg PO BID 07/29/23 07/29/23 07/29/23 06:00 History sodium di- and 1 tab PO DAILY 07/29/23 07/29/23 07/29/23 06:00 History monophosphate-potassium phos monobasic 250 mg tablet (Phospha Neutral) Exam Height,Weight and Vital Signs: Height 5 ft 2 in Weight 51.6 kg Last Vital Signs Temp 98.4 F 07/30/23 15:27 Pulse 93 07/30/23 15:27 Resp 16 07/30/23 15:27 BP 141/67 H 07/30/23 15:27 Pulse Ox 92 07/30/23 15:35 O2 Del Method Nasal Cannula 07/30/23 15:35 O2 Flow Rate 2 07/30/23 15:35 Pertinent Lab Results Pertinent Lab Results: Laboratory Tests 07/29/23 07/29/23 07/29/23 15:46 20:25 20:41 WBC 14.7 H RBC 4.22 Hgb 13.8 Hct 38.0 MCV 90.0 MCH 32.7 MCHC 36.3 H RDW 11.4 Plt Count 266 MPV 9.8 Immature Gran % (Auto) 0.6 H Neut % (Auto) 91.1 H Lymph % (Auto) 4.9 L Larue % (Auto) 3.3 Eos % (Auto) 0.0 Baso % (Auto) 0.1 Lymph # (Auto) 0.7 L Larue # (Auto) 0.5 Eos # (Auto) 0.0 Baso # (Auto) 0.0 Abs Immat Gran (auto) 0.09 H Absolute Neuts (auto) 13.4 H Absolute Nucleated RBC 0.000 Nucleated RBC % (auto) 0.0 Hold Purple Top Sodium 127 L Potassium 4.7 Chloride 84 L Carbon Dioxide 29 Anion Gap 19 BUN 25 H Creatinine 1.17 Estim Creat Clear Calc 32.6 Estimated GFR 45 POC Glucose 461 H* Random Glucose 391 H* Estimat Average Glucose 186 Hemoglobin A1c % 8.1 H Osmolality 292 Calcium 10.5 H D Magnesium 1.3 L* Urine Osmolality Ur Random Sodium Blood Type A Positive Antibody Screen NEGATIVE 07/29/23 07/30/23 07/30/23 22:32 02:30 06:13 WBC RBC Hgb Hct MCV MCH MCHC RDW Plt Count MPV Immature Gran % (Auto) Neut % (Auto) Lymph % (Auto) Larue % (Auto) Eos % (Auto) Baso % (Auto) Lymph # (Auto) Larue # (Auto) Eos # (Auto) Baso # (Auto) Abs Immat Gran (auto) Absolute Neuts (auto) Absolute Nucleated RBC Nucleated RBC % (auto) Hold Purple Top SEE NOTE Sodium 130 L Potassium 3.9 Chloride 88 L Carbon Dioxide 31 H Anion Gap 15 BUN 19 H Creatinine 0.75 Estim Creat Clear Calc 51.3 Estimated GFR > 60 POC Glucose 340 H Random Glucose 214 H Estimat Average Glucose Hemoglobin A1c % Osmolality Calcium 9.0 D Magnesium 1.5 L Urine Osmolality 556 Ur Random Sodium 52.0 Blood Type Antibody Screen 07/30/23 07/30/23 07/30/23 07:06 11:12 14:20 WBC RBC Hgb Hct MCV MCH MCHC RDW Plt Count MPV Immature Gran % (Auto) Neut % (Auto) Lymph % (Auto) Larue % (Auto) Eos % (Auto) Baso % (Auto) Lymph # (Auto) Larue # (Auto) Eos # (Auto) Baso # (Auto) Abs Immat Gran (auto) Absolute Neuts (auto) Absolute Nucleated RBC Nucleated RBC % (auto) Hold Purple Top Sodium Potassium Chloride Carbon Dioxide Anion Gap BUN Creatinine Estim Creat Clear Calc Estimated GFR POC Glucose 203 H 197 H 176 H Random Glucose Estimat Average Glucose Hemoglobin A1c % Osmolality Calcium Magnesium Urine Osmolality Ur Random Sodium Blood Type Antibody Screen Airway Mallampati Class: III TM Dist: >3cm Neck ROM: Full Denture: Upper Loose/Missing/Broken Teeth: No Heart: rrr Lungs: cta Assessment and Plan Assessment Anesthesia Assessment: Anesthesia Plan Discussed, Smoking Cess. Discussed and Chart Reviewed Final Anesthetic Review Family History of Problems with Anesthesia: No History of Problems with Anesthesia: No NPO: Yes ASA Class: III Final Preanesthetic Review: No Changes in Pt Med Stat, Meds/Allgs Chart Reviewed, Consent Obtained/Reviewed, Anes Risks/Benef Reviewed and DNR Form (If Appl.) Patient Risk: Intermediate Procedure Risk: Intermediate Anesthetic Plan Anesthetic Plan: GA Disposition: Standard PACU
--- NOTE | 2023-07-30 17:54 | P.BOP_ITS ---
Brief Operative Note Date of Service: 07/30/23 Pre-op diagnosis: right hip fracture Post-op diagnosis: same Procedure: Right hip IMN Implants: Valeriy [id number] 125 deg imn with 90 mm hip screw and a 40 and 42.5 distal interlock Surgeon: Kael Vera MD Anesthesia: GETA and local Was an Audio Visual Arts Director used for this Procedure?: No Estimated blood loss (mL): 100 IV fluids (mL): 800 Pathology: none sent Condition: stable Disposition: PACU
[2023-07-30 19:36] LABS: Glucose, Whole Blood 307 mg/dL (60-115)
[2023-07-31] VITALS (9 sets, daily range): BP systolic 139–156; BP diastolic 64–78; PULSE 92–122; RESP 15–18; TEMP 36.1–37.1; O2SAT 94–97
[2023-07-31] MEDS: Insulin Lispro 100 UNIT/ML 3 ML VIAL SUBCUT ×7 (00:50→21:59)
[2023-07-31] MEDS: Morphine Sulfate 2 MG/ML CARTRIDGE IVPUSH ×4 (00:50→20:32)
[2023-07-31] MEDS: Clindamycin Phosphate/D5W 900 MG/50 ML PIGGYBACK 50 MG IV (04:23)
[2023-07-31] MEDS: LORazepam 1 MG TABLET PO (04:23)
[2023-07-31 06:15] LABS: Hematocrit 28.2 % (37.0-47.0); Mean Corpuscular HGB Conc 35.5 g/dl (31.0-35.0); Mean Corpuscular Volume 93.1 fL (80.0-98.0); Mean Platelet Volume 10.2 fL (9.4-12.3); Platelet Count 230 X10*3/uL (160-400); Red Blood Count 3.03 X10*6/uL (4.20-5.50); Red Cell Distribution Width 11.4 % (11.0-16.0); White Blood Count 15.1 X10*3/uL (4.8-10.8)
[2023-07-31 06:29] LABS: Anion Gap 17 (12-20); Blood Urea Nitrogen 17 mg/dL (9-16); Calcium 8.3 mg/dL (8.4-10.2); Carbon Dioxide 27 mmol/L (22-29); Chloride 89 mmol/L (96-108); Creatinine Clr Calc Pharmacy 46.2; Estimated Glomerular Filt Rate > 60; Glucose Random 367 mg/dL (60-115); Magnesium 1.4 mg/dL (1.6-2.6); Potassium 4.4 mmol/L (3.3-5.1); Sodium 129 mmol/L (135-145)
[2023-07-31 06:58] LABS: Glucose, Whole Blood 357 mg/dL (60-115)
--- NOTE | 2023-07-31 07:58 | PM.PNORT ---
Subjective Subjective Date of Service: 07/31/23 Interval history: POD1 s/p rt hip IM Nail Patient is resting in bed comfortably No overnight events Pain is managed No additional complaints Physical Exam Vital Signs: Vital Signs: Last Vital Signs Temp 98.7 F 07/31/23 07:19 Pulse 94 07/31/23 07:19 Resp 18 07/31/23 07:19 BP 139/66 07/31/23 07:19 Pulse Ox 95 07/31/23 07:19 O2 Del Method Room Air 07/31/23 07:19 O2 Flow Rate 2 07/30/23 18:37 BMI result Body Mass Index 20.8 Const: General: cooperative, healthy appearing and no acute distress Resp: Effort & Inspection: normal respiratory effort and able to speak in complete sentences Cardio: Rate: regular rate Peripheral pulses: Peripheral pulses 2+ throughout GI: Palpation (GI): Soft to palpation Skin: Lesions: no lesions Rashes: no rashes Extrem: Other: rt hip dressing is c/d/i. Able to dorsi/plantar flex. Calf is supple and nontender. Sensation intact. Pedal pulse intact. Procedures Date of Service Date of Service: 07/31/23 Progress Note: A&P Assessment and plan (1) Closed fracture of right hip: Status: Acute Plan Continue pain mgmnt Begin Lovenox for dvt ppx begin PT/OT for rt hip IM Nail - WBAT Dispo planning-Pending PT eval, pain mgmnt, rehab placement once medically cleared Time Spent With Patient Time: Total time managing care of this patient today ____ minutes. Quality Stroke Does the patient have a stroke diagnosis?: No VTE Prior VTE?: No VTE Risk Level:: Medical - moderate - high VTE Device Contraindication: N/A - Device Ordered VTE Drug Contraindication: Treatment Not Indicated
[2023-07-31] MEDS: Nicotine 14 MG PATCH.TD24 TRANSDERMA (09:10)
[2023-07-31] MEDS: busPIRone HCl 5 MG TABLET 15 MG PO ×2 (09:10→20:31)
[2023-07-31] MEDS: Atorvastatin Calcium 40 MG TABLET PO (09:11)
[2023-07-31] MEDS: 0.9 % Sodium Chloride 1,000 ML 100 ML IVCONT (09:11)
[2023-07-31] MEDS: Magnesium Sulfate/H2O 2 GM/50 ML PIGGYBACK IV (09:11)
[2023-07-31] MEDS: 0.9 % Sodium Chloride Flush 3 ML SYRINGE IVFLUSH ×3 (09:11→22:00)
[2023-07-31 10:46] LABS: Glucose, Whole Blood 388 mg/dL (60-115)
--- NOTE | 2023-07-31 11:05 | P.PNIM_ITS ---
Subjective Subjective Date of Service: 07/31/23 Interval History: Trouble sleeping overnight Physical Exam 2 Vital Signs: Vital Signs: Last Vital Signs Temp 98.7 F 07/31/23 07:19 Pulse 94 07/31/23 07:19 Resp 18 07/31/23 07:19 BP 139/66 07/31/23 07:19 Pulse Ox 95 07/31/23 07:19 O2 Del Method Room Air 07/31/23 07:19 O2 Flow Rate 2 07/30/23 18:37 BMI result Body Mass Index 20.8 Const: General: cooperative, healthy appearing and no acute distress Resp: Effort & Inspection: normal respiratory effort and able to speak in complete sentences Cardio: Rate: regular rate Peripheral pulses: Peripheral pulses 2+ throughout GI: Palpation (GI): Soft to palpation Skin: Lesions: no lesions Rashes: no rashes Extrem: Other: rt hip dressing is c/d/i. Able to dorsi/plantar flex. Calf is supple and nontender. Sensation intact. Pedal pulse intact. Objective Data Active Medications Atorvastatin Calcium (Atorvastatin Calcium 40 Mg Tablet) 40 mg PO DAILY [facility] Last Admin: 07/31/23 09:11 Dose: 40 mg Documented By: JOHNATHON Buspirone HCl (Buspirone Hcl 5 Mg Tablet) 15 mg PO BID [facility] Last Admin: 07/31/23 09:10 Dose: 15 mg Documented By: JOHNATHON Duloxetine HCl (Duloxetine Hcl 30 Mg Capsule.Dr) 30 mg PO BEDTIME [facility] Last Admin: 07/31/23 00:17 Dose: Not Given Documented By: ANTONIO Non-Admin Reason: NPO Enoxaparin Sodium (Enoxaparin Sodium 40 Mg/0.4 Ml Syringe) 40 mg SUBCUT Q24H [facility] Glucose (Glucose Gel 15 Gm Gel..Gram.) 15 gm PO Q15M PRN; Protocol PRN Reason: per Hypoglycemia Standing Ord. Dextrose (D10) 250 mls @ 750 mls/hr IV Q15M PRN; Protocol PRN Reason: per Hypoglycemia Standing Ord. Sodium Chloride (Ns) 1,000 mls @ 100 mls/hr IVCONT .Q10H [facility] Stop: 07/31/23 17:59 Last Admin: 07/31/23 09:11 Dose: 100 mls/hr Documented By: JOHNATHON Insulin Human Lispro (Insulin Lispro 100 Unit/Ml 3 Ml Vial) 0 unit SUBCUT QIDACHS [facility]; Protocol Last Admin: 07/31/23 09:10 Dose: 10 unit Documented By: JOHNATHON Insulin Human Lispro (Insulin Lispro 100 Unit/Ml 3 Ml Vial) 5 unit SUBCUT QIDACHS [facility] Lorazepam (Lorazepam 1 Mg Tablet) 1 mg PO ONCE PRN PRN Reason: Anxiety Lorazepam (Lorazepam 1 Mg Tablet) 1 mg PO DAILY PRN PRN Reason: severe anxiety Last Admin: 07/31/23 04:23 Dose: 1 mg Documented By: ANTONIO Mirtazapine (Mirtazapine 15 Mg Tablet) 45 mg PO BEDTIME [facility] Last Admin: 07/31/23 00:57 Dose: Not Given Documented By: ANTONIO Non-Admin Reason: NPO Morphine Sulfate (Morphine Sulfate 2 Mg/Ml Cartridge) 2 mg IVPUSH Q4H PRN; Protocol PRN Reason: Pain, Moderate(Pain Scale 4-6) Last Admin: 07/31/23 09:24 Dose: 2 mg Documented By: JOHNATHON Nicotine (Nicotine 14 Mg Patch.Td24) 14 mg TRANSDERMA DAILY [facility] Last Admin: 07/31/23 09:10 Dose: 14 mg Documented By: JOHNATHON Sodium Chloride (0.9 % Sodium Chloride Flush 3 Ml Syringe) 3 ml IVFLUSH QSHIFT [facility] Last Admin: 07/31/23 09:11 Dose: 3 ml Documented By: JOHNATHON Trazodone HCl (Trazodone Hcl 50 Mg Tablet) 50 mg PO BEDTIME [facility] Last Admin: 07/31/23 00:58 Dose: Not Given Documented By: ANTONIO Non-Admin Reason: NPO Labs 07/31/23 05:40 07/31/23 05:40 Labs: Laboratory Results - last 24 hr 07/30/23 07/30/23 07/30/23 06:13 11:12 14:20 MCV MCH MCHC RDW Plt Count MPV Absolute Nucleated RBC Nucleated RBC % (auto) Anion Gap 15 Estim Creat Clear Calc 51.3 Estimated GFR > 60 POC Glucose 197 H 176 H Random Glucose 214 H Calcium 9.0 D Magnesium 07/30/23 07/31/23 07/31/23 19:33 05:40 06:50 MCV 93.1 MCH 33.0 MCHC 35.5 H RDW 11.4 Plt Count 230 MPV 10.2 Absolute Nucleated RBC 0.000 Nucleated RBC % (auto) 0.0 Anion Gap 17 Estim Creat Clear Calc 46.2 Estimated GFR > 60 POC Glucose 307 H 357 H* Random Glucose 367 H* Calcium 8.3 L D Magnesium 1.4 L* 07/31/23 10:37 MCV MCH MCHC RDW Plt Count MPV Absolute Nucleated RBC Nucleated RBC % (auto) Anion Gap Estim Creat Clear Calc Estimated GFR POC Glucose 388 H* Random Glucose Calcium Magnesium Assessment and Plan (1) Fall: Status: Acute (2) Acute hyperglycemia: Status: Acute (3) Hypophosphatemia: Status: Acute (4) Hypomagnesemia: Status: Acute (5) Closed fracture of right hip: Status: Acute Plan This a 73-year-old female with pertinent history of fgg-[id number] diabetes mellitus, mood disorder, hypertension, mixed hyperlipidemia who presents to the emergency department for evaluation after a fall. Right femur fracture due to mechanical fall pod 1 lovenox acute on Chronic Hyponatremia Partially Pseudo due to hyperglycemia holding hydrochlorothiazide Lli-ujhqxbe-jkpqkuvux diabetes mellitus with hyperglycemia Hold metformin sliding scale insulin Hypomagnesemia iv magn, monitor Hypertension Lisinopril Mood disorder Continue Cymbalta DVT prophylaxis with Lovenox DNR/DNI reason for continued hospitalization: Hypomagnesemia Quality Stroke Does the patient have a stroke diagnosis?: No VTE Prior VTE?: No VTE Risk Level:: Medical - moderate - high VTE Device Contraindication: N/A - Device Ordered VTE Drug Contraindication: Treatment Not Indicated
[2023-07-31] MEDS: oxyCODONE HCl Immed Release 5 MG TABLET PO (13:34)
--- NOTE | 2023-07-31 14:58 | HO.POSTANES ---
Post Anesthesia Evaluation Post Anesthesia Evaluation Date of Service: 07/31/23 Vital Signs: Vital Signs Temp Pulse Resp BP Pulse Ox O2 Del Method 07/31/23 11:19 97.3 F 103 H 18 156/70 H 94 Room Air 07/31/23 07:19 98.7 F 94 18 139/66 95 Room Air 07/31/23 05:23 16 07/31/23 03:34 97.0 F 92 15 150/78 H 95 Room Air Anesthesia: General LMA Mental Status: Awake Pain Control: Satisfactory Nausea/Vomiting: None Hydration: Adequate Anesthesia-Related Issues: No Anes. Related Issues
--- NOTE | 2023-07-31 15:05 | MHC.CM.PN ---
PT/OT recommending acute rehab. Referrals placed to the 3 local acute rehabs in [facility].
[2023-07-31] MEDS: Enoxaparin Sodium 40 MG/0.4 ML SYRINGE SUBCUT (16:19)
[2023-07-31 16:26] LABS: Glucose, Whole Blood 164 mg/dL (60-115)
[2023-07-31] MEDS: DULoxetine HCl 30 MG CAPSULE.DR PO (20:31)
[2023-07-31] MEDS: traZODone HCL 50 MG TABLET PO (20:31)
[2023-07-31] MEDS: Mirtazapine 15 MG TABLET 45 MG PO (20:31)
[2023-07-31 21:41] LABS: Glucose, Whole Blood 276 mg/dL (60-115)
[2023-08-01] VITALS (7 sets, daily range): BP systolic 118–168; BP diastolic 57–75; PULSE 100–117; RESP 18–20; TEMP 36.2–37.5; O2SAT 92–96
[2023-08-01 06:22] LABS: Hematocrit 25.7 % (37.0-47.0); Hemoglobin 9.3 g/dl (12.0-16.0); Mean Corpuscular HGB Conc 36.2 g/dl (31.0-35.0); Mean Corpuscular Hemoglobin 33.9 pg (27.0-33.0); Mean Corpuscular Volume 93.8 fL (80.0-98.0); Mean Platelet Volume 10.2 fL (9.4-12.3); Platelet Count 197 X10*3/uL (160-400); Red Blood Count 2.74 X10*6/uL (4.20-5.50); Red Cell Distribution Width 11.8 % (11.0-16.0); White Blood Count 9.6 X10*3/uL (4.8-10.8)
[2023-08-01 06:37] LABS: Anion Gap 12 (12-20); Blood Urea Nitrogen 13 mg/dL (9-16); Calcium 8.6 mg/dL (8.4-10.2); Carbon Dioxide 30 mmol/L (22-29); Chloride 97 mmol/L (96-108); Estimated Glomerular Filt Rate > 60; Glucose Fasting 175 mg/dL (60-99); Magnesium 1.6 mg/dL (1.6-2.6); Potassium 3.8 mmol/L (3.3-5.1); Sodium 135 mmol/L (135-145)
[2023-08-01] MEDS: Morphine Sulfate 2 MG/ML CARTRIDGE IVPUSH ×4 (06:42→20:37)
[2023-08-01 07:16] LABS: Glucose, Whole Blood 157 mg/dL (60-115)
[2023-08-01] MEDS: Insulin Lispro 100 UNIT/ML 3 ML VIAL SUBCUT ×5 (07:55→23:21)
[2023-08-01] MEDS: lisinopriL 20 MG TABLET PO (07:56)
[2023-08-01] MEDS: oxyCODONE HCl Immed Release 5 MG TABLET PO ×3 (07:56→17:57)
[2023-08-01] MEDS: Atorvastatin Calcium 40 MG TABLET PO (07:56)
[2023-08-01] MEDS: 0.9 % Sodium Chloride Flush 3 ML SYRINGE IVFLUSH ×3 (07:57→23:21)
[2023-08-01] MEDS: Nicotine 14 MG PATCH.TD24 TRANSDERMA (07:57)
[2023-08-01] MEDS: busPIRone HCl 5 MG TABLET 15 MG PO ×2 (07:57→20:37)
--- NOTE | 2023-08-01 09:38 | PM.DS ---
DS: Providers Provider Date of Service: 08/02/23 Date of admission: 07/29/23 18:49 Primary care physician: Enriqueta Estrada MD Consults: 07/29/23 15:36 Consult to Orthopedics Stat Consulting Provider: [facility] Reason for consultation: right pelvic fx DS: Diagnosis Discharge Diagnosis (1) Fall: Status: Acute (2) Acute hyperglycemia: Status: Acute (3) Hypophosphatemia: Status: Acute (4) Hypomagnesemia: Status: Acute (5) Closed fracture of right hip: Status: Acute DS: Summary Hospital Course Hospital Course: from initial hpi: 73-year-old female with pertinent history of noo-ivfnoss-dqrnsqgzy diabetes mellitus, mood disorder, hypertension, mixed hyperlipidemia who presents to the emergency department for evaluation after a fall. Patient states she slipped while she was taking out stuff from a truck when she slipped and fell. Patient states that she fell on her right side and has difficulty moving her right lower extremity since the fall. No loss of consciousness prior to the fall. No chest pain or palpitations prior to the fall. No rhythmic jerking movement of extremities. Also hit her head. No fever, chills, chest discomfort, palpitations, shortness of breath, abdominal pain, changes in urinary or bowel habits. Patient does not on any blood thinners In the emergency department, imaging with minimally displaced intertrochanteric fracture of right femur. hospital course: Patient was admitted for right femur fracture due to mechanical fall. Underwent successful right IMN. Course complicated by acute on chronic hyponatremia, partially pseudohyponatremia due to hyperglycemia, hydrochlorothiazide was held. Sodium returned to normal. For diabetes with hyperglycemia was treated with sliding scale insulin. For hypomagnesemia received replacement and improved. For hypertension was continued on lisinopril. For mood disorder was continued on Cymbalta. [facility] Time Attestation Discharge Coordination Time (in mins): 34 Quality: Safe Use of Opioids Does Pt have an Active Cancer Diagnosis on the Problem List?: No Quality: Stroke Does the patient have a stroke diagnosis?: No Physical Exam Vital Signs: Vital Signs: Last Vital Signs Temp 99.5 F 08/01/23 07:44 Pulse 106 H 08/01/23 07:44 Resp 18 08/01/23 07:44 BP 147/70 H 08/01/23 07:44 Pulse Ox 93 08/01/23 07:44 O2 Del Method Room Air 08/01/23 07:44 O2 Flow Rate 2 07/30/23 18:37 BMI result Body Mass Index 20.8 Const: General: cooperative, healthy appearing and no acute distress Resp: Effort & Inspection: normal respiratory effort and able to speak in complete sentences Cardio: Rate: regular rate Peripheral pulses: Peripheral pulses 2+ throughout GI: Palpation (GI): Soft to palpation Skin: Lesions: no lesions Rashes: no rashes Extrem: Other: rt hip dressing is c/d/i. Able to dorsi/plantar flex. Calf is supple and nontender. Sensation intact. Pedal pulse intact. DS: Data Data Completed and Pending Labs on day of discharge: Laboratory Results - last 24 hr 07/31/23 07/31/23 07/31/23 10:37 16:21 21:24 WBC RBC Hgb Hct MCV MCH MCHC RDW Plt Count MPV Absolute Nucleated RBC Nucleated RBC % (auto) Sodium Potassium Chloride Carbon Dioxide Anion Gap BUN Creatinine Estim Creat Clear Calc Estimated GFR POC Glucose 388 H* 164 H 276 H Fasting Glucose Calcium Magnesium 08/01/23 08/01/23 05:55 07:00 WBC 9.6 RBC 2.74 L Hgb 9.3 L Hct 25.7 L MCV 93.8 MCH 33.9 H MCHC 36.2 H RDW 11.8 Plt Count 197 MPV 10.2 Absolute Nucleated RBC 0.000 Nucleated RBC % (auto) 0.0 Sodium 135 Potassium 3.8 Chloride 97 Carbon Dioxide 30 H Anion Gap 12 BUN 13 Creatinine 0.60 Estim Creat Clear Calc 64.0 Estimated GFR > 60 POC Glucose 157 H Fasting Glucose 175 H Calcium 8.6 Magnesium 1.6 Discharge Plan Discharge Anticipated Discharge Date/Time: 08/01/23 09:28 Patient Disposition: Xfer SNF Discharge Diagnosis: fall, hip fracture Referrals: [facility] [Other] - 1 Week Enriqueta Estrada MD [Primary Care Provider] - 1 Week Discharge Medications: New lisinopril 20 mg Tablet 20 mg PO DAILY Qty: 0 0RF Protocol: Hold for SBP< HOLD for SBP < : 90 enoxaparin 40 mg/0.4 mL Syringe 40 mg subcut Q24H Qty: 0 0RF Continued mirtazapine 45 mg tablet 45 mg PO BEDTIME Qty: 90 2RF atorvastatin 40 mg tablet 40 mg PO DAILY Qty: 90 3RF metformin 1,000 mg tablet 1,000 mg PO DAILY Qty: 90 3RF Phospha 250 Neutral 250 mg Tablet 1 tab PO DAILY magnesium oxide 400 mg magnesium Capsule 400 mg PO BID ibuprofen 200 mg Tablet 200 mg PO DAILY PRN (Reason: Pain) duloxetine [Cymbalta] 30 mg capsule,delayed release(DR/EC) 30 mg PO BEDTIME buspirone 5 mg tablet 15 mg PO BID lorazepam 1 mg tablet 1 mg PO DAILY PRN (Reason: sever anxiety) trazodone 50 mg tablet 50 mg PO BEDTIME Discontinued lisinopril-hydrochlorothiazide 20-12.5 mg tablet 1 tab PO BID Qty: 180 3RF Discharge Orders: Discharge Order (Routine); Ordered 08/01/23 Ordered By: Julio Cesar Luis Diet: Advance to usual diet Activity on Discharge: As tolerated Stand Alone Forms: Patient Portal Discharge page Print Language: Martiniquais Care Plan Goals: rehab Health Concerns: hip fracture Plan of Treatment: Gait training, strengthening, ADLs Continue lovenox for dvt ppx x4 weeks Keep dressing clean,dry and intact-no showering or tub baths Follow up with Orthopedics in 2 weeks Assessment: see above
[2023-08-01 10:59] LABS: Glucose, Whole Blood 259 mg/dL (60-115)
--- NOTE | 2023-08-01 14:39 | P.PNIM_ITS ---
Subjective Subjective Date of Service: 08/01/23 Interval History: no new complaints Physical Exam 2 Vital Signs: Vital Signs: Last Vital Signs Temp 97.5 F 08/01/23 11:27 Pulse 117 H 08/01/23 11:27 Resp 18 08/01/23 11:27 BP 118/57 L 08/01/23 11:27 Pulse Ox 93 08/01/23 11:27 O2 Del Method Room Air 08/01/23 11:27 O2 Flow Rate 2 07/30/23 18:37 BMI result Body Mass Index 20.8 Const: General: cooperative, healthy appearing and no acute distress Resp: Effort & Inspection: normal respiratory effort and able to speak in complete sentences Cardio: Rate: regular rate Peripheral pulses: Peripheral pulses 2+ throughout GI: Palpation (GI): Soft to palpation Skin: Lesions: no lesions Rashes: no rashes Extrem: Other: rt hip dressing is c/d/i. Able to dorsi/plantar flex. Calf is supple and nontender. Sensation intact. Pedal pulse intact. Objective Data Active Medications Atorvastatin Calcium (Atorvastatin Calcium 40 Mg Tablet) 40 mg PO DAILY [facility] Last Admin: 08/01/23 07:56 Dose: 40 mg Documented By: JOHNATHON Buspirone HCl (Buspirone Hcl 5 Mg Tablet) 15 mg PO BID [facility] Last Admin: 08/01/23 07:57 Dose: 15 mg Documented By: JOHNATHON Duloxetine HCl (Duloxetine Hcl 30 Mg Capsule.Dr) 30 mg PO BEDTIME [facility] Last Admin: 07/31/23 20:31 Dose: 30 mg Documented By: DORENE Enoxaparin Sodium (Enoxaparin Sodium 40 Mg/0.4 Ml Syringe) 40 mg SUBCUT Q24H [facility] Last Admin: 07/31/23 16:19 Dose: 40 mg Documented By: JOHNATHON Glucose (Glucose Gel 15 Gm Gel..Gram.) 15 gm PO Q15M PRN; Protocol PRN Reason: per Hypoglycemia Standing Ord. Dextrose (D10) 250 mls @ 750 mls/hr IV Q15M PRN; Protocol PRN Reason: per Hypoglycemia Standing Ord. Insulin Human Lispro (Insulin Lispro 100 Unit/Ml 3 Ml Vial) 0 unit SUBCUT QIDACHS [facility]; Protocol Last Admin: 08/01/23 12:10 Dose: 6 unit Documented By: JOHNATHON Insulin Human Lispro (Insulin Lispro 100 Unit/Ml 3 Ml Vial) 5 unit SUBCUT QIDACHS [facility] Last Admin: 08/01/23 12:12 Dose: Not Given Documented By: JOHNATHON Non-Admin Reason: Covered by sliding scale Lisinopril (Lisinopril 20 Mg Tablet) 20 mg PO DAILY [facility]; Protocol Last Admin: 08/01/23 07:56 Dose: 20 mg Documented By: JOHNATHON Lorazepam (Lorazepam 1 Mg Tablet) 1 mg PO ONCE PRN PRN Reason: Anxiety Lorazepam (Lorazepam 1 Mg Tablet) 1 mg PO DAILY PRN PRN Reason: severe anxiety Last Admin: 07/31/23 04:23 Dose: 1 mg Documented By: JAUNLAMEnder Melatonin (Melatonin 3 Mg Tablet) 6 mg PO BEDTIME PRN PRN Reason: Insomnia Mirtazapine (Mirtazapine 15 Mg Tablet) 45 mg PO BEDTIME [facility] Last Admin: 07/31/23 20:31 Dose: 45 mg Documented By: DORENE Morphine Sulfate (Morphine Sulfate 2 Mg/Ml Cartridge) 2 mg IVPUSH Q4H PRN; Protocol PRN Reason: Pain, Moderate(Pain Scale 4-6) Last Admin: 08/01/23 12:10 Dose: 2 mg Documented By: JOHNATHON Nicotine (Nicotine 14 Mg Patch.Td24) 14 mg TRANSDERMA DAILY [facility] Last Admin: 08/01/23 07:57 Dose: 14 mg Documented By: JOHNATHON Oxycodone HCl (Oxycodone Hcl Immed Release 5 Mg Tablet) 5 mg PO Q4H PRN PRN Reason: moderate pain Last Admin: 08/01/23 12:48 Dose: 5 mg Documented By: JOHNATHON Sodium Chloride (0.9 % Sodium Chloride Flush 3 Ml Syringe) 3 ml IVFLUSH QSHIFT [facility] Last Admin: 08/01/23 07:57 Dose: 3 ml Documented By: JOHNATHON Trazodone HCl (Trazodone Hcl 50 Mg Tablet) 50 mg PO BEDTIME [facility] Last Admin: 07/31/23 20:31 Dose: 50 mg Documented By: DORENE Labs 08/01/23 05:55 08/01/23 05:55 Labs: Laboratory Results - last 24 hr 07/31/23 07/31/23 08/01/23 16:21 21:24 05:55 MCV 93.8 MCH 33.9 H MCHC 36.2 H RDW 11.8 Plt Count 197 MPV 10.2 Absolute Nucleated RBC 0.000 Nucleated RBC % (auto) 0.0 Anion Gap 12 Estim Creat Clear Calc 64.0 Estimated GFR > 60 POC Glucose 164 H 276 H Fasting Glucose 175 H Calcium 8.6 Magnesium 1.6 08/01/23 08/01/23 07:00 10:53 MCV MCH MCHC RDW Plt Count MPV Absolute Nucleated RBC Nucleated RBC % (auto) Anion Gap Estim Creat Clear Calc Estimated GFR POC Glucose 157 H 259 H Fasting Glucose Calcium Magnesium Assessment and Plan (1) Fall: Status: Acute (2) Acute hyperglycemia: Status: Acute (3) Hypophosphatemia: Status: Acute (4) Hypomagnesemia: Status: Acute (5) Closed fracture of right hip: Status: Acute Plan This a 73-year-old female with pertinent history of wbm-jvfygvs-ywrbwlcqk diabetes mellitus, mood disorder, hypertension, mixed hyperlipidemia who presents to the emergency department for evaluation after a fall. Right femur fracture due to mechanical fall pod 2 lovenox acute on Chronic Hyponatremia Partially Pseudo due to hyperglycemia holding hydrochlorothiazide Naz-cukggvl-ivapssyrb diabetes mellitus with hyperglycemia Hold metformin sliding scale insulin Hypomagnesemia resolved Hypertension Lisinopril Mood disorder Continue Cymbalta DVT prophylaxis with Lovenox DNR/DNI reason for continued hospitalization: auth Quality Stroke Does the patient have a stroke diagnosis?: No VTE Prior VTE?: No VTE Risk Level:: Medical - moderate - high VTE Device Contraindication: N/A - Device Ordered VTE Drug Contraindication: Treatment Not Indicated
--- NOTE | 2023-08-01 15:14 | MHC.CM.PN ---
IMM 08/01/23 Patients 1st choice [facility] accepted the patient; but retracted the offer. [facility] declined because they do not have a contract with [facility]. The patient was very disappointed and angry. Emotional support and encouragement were provided. A second bed offer was received from [facility]. The Pt accepts the bed. The facility is seeking insurance authorization. [facility] via BLS. CM will follow for auth.
[2023-08-01 15:20] LABS: Glucose, Whole Blood 168 mg/dL (60-115)
[2023-08-01] MEDS: Enoxaparin Sodium 40 MG/0.4 ML SYRINGE SUBCUT (16:34)
--- NOTE | 2023-08-01 17:23 | PM.PNORT ---
Subjective Subjective Date of Service: 08/01/23 Interval history: POD2 s/p rt hip IM Nail Patient is resting in bed comfortably No overnight events Pain is managed No additional complaints Physical Exam Vital Signs: Vital Signs: Last Vital Signs Temp 97.1 F 08/01/23 15:30 Pulse 104 H 08/01/23 15:30 Resp 18 08/01/23 15:30 BP 146/69 H 08/01/23 15:30 Pulse Ox 93 08/01/23 15:30 O2 Del Method Room Air 08/01/23 15:30 O2 Flow Rate 2 07/30/23 18:37 BMI result Body Mass Index 20.8 Const: General: cooperative, healthy appearing and no acute distress Resp: Effort & Inspection: normal respiratory effort and able to speak in complete sentences Cardio: Rate: regular rate Peripheral pulses: Peripheral pulses 2+ throughout GI: Palpation (GI): Soft to palpation Skin: Lesions: no lesions Rashes: no rashes Extrem: Other: rt hip dressing is c/d/i. Able to dorsi/plantar flex. Calf is supple and nontender. Sensation intact. Pedal pulse intact. Procedures Date of Service Date of Service: 08/01/23 Progress Note: A&P Assessment and plan (1) Closed fracture of right hip: Status: Acute Plan Continue pain mgmnt Lovenox for dvt ppx PT/OT for rt hip IM Nail - WBAT Dispo planning-Pending PT eval, pain mgmnt, rehab placement once medically cleared Time Spent With Patient Time: Total time managing care of this patient today ____ minutes. Quality Stroke Does the patient have a stroke diagnosis?: No VTE Prior VTE?: No VTE Risk Level:: Medical - moderate - high VTE Device Contraindication: N/A - Device Ordered VTE Drug Contraindication: Treatment Not Indicated
[2023-08-01] MEDS: DULoxetine HCl 30 MG CAPSULE.DR PO (20:37)
[2023-08-01] MEDS: Mirtazapine 15 MG TABLET 45 MG PO (20:37)
[2023-08-01] MEDS: traZODone HCL 50 MG TABLET PO (20:37)
[2023-08-01] MEDS: LORazepam 1 MG TABLET PO (20:39)
[2023-08-01 21:48] LABS: Glucose, Whole Blood 321 mg/dL (60-115)
[2023-08-02] VITALS: BP 153/69; PULSE 112; RESP 20; TEMP 36.4; O2SAT 92
[2023-08-02 04:00] VITALS: PULSE 113; RESP 18; TEMP 36.4; O2SAT 92
[2023-08-02] MEDS: Morphine Sulfate 2 MG/ML CARTRIDGE IVPUSH ×3 (06:46→16:23)
[2023-08-02 07:23] LABS: Glucose, Whole Blood 189 mg/dL (60-115)
[2023-08-02 07:28] VITALS: BP 130/69; PULSE 106; RESP 18; TEMP 36.3; O2SAT 94
[2023-08-02] MEDS: Atorvastatin Calcium 40 MG TABLET PO (08:17)
[2023-08-02] MEDS: Nicotine 14 MG PATCH.TD24 TRANSDERMA (08:17)
[2023-08-02] MEDS: lisinopriL 20 MG TABLET PO (08:17)
[2023-08-02] MEDS: busPIRone HCl 5 MG TABLET 15 MG PO (08:17)
[2023-08-02] MEDS: oxyCODONE HCl Immed Release 5 MG TABLET PO ×2 (08:17→14:42)
[2023-08-02] MEDS: Insulin Lispro 100 UNIT/ML 3 ML VIAL SUBCUT ×3 (08:19→16:28)
--- NOTE | 2023-08-02 10:11 | P.PNIM_ITS ---
Subjective Subjective Date of Service: 08/02/23 Interval History: no new complaints Physical Exam 2 Vital Signs: Vital Signs: Last Vital Signs Temp 97.3 F 08/02/23 07:28 Pulse 106 H 08/02/23 07:28 Resp 18 08/02/23 07:28 BP 130/69 08/02/23 07:28 Pulse Ox 94 08/02/23 07:28 O2 Del Method Room Air 08/02/23 07:28 O2 Flow Rate 2 07/30/23 18:37 BMI result Body Mass Index 20.8 Const: General: cooperative, healthy appearing and no acute distress Resp: Effort & Inspection: normal respiratory effort and able to speak in complete sentences Cardio: Rate: regular rate Peripheral pulses: Peripheral pulses 2+ throughout GI: Palpation (GI): Soft to palpation Skin: Lesions: no lesions Rashes: no rashes Extrem: Other: rt hip dressing is c/d/i. Able to dorsi/plantar flex. Calf is supple and nontender. Sensation intact. Pedal pulse intact. Objective Data Active Medications Atorvastatin Calcium (Atorvastatin Calcium 40 Mg Tablet) 40 mg PO DAILY [facility] Last Admin: 08/02/23 08:17 Dose: 40 mg Documented By: JOHNATHON Buspirone HCl (Buspirone Hcl 5 Mg Tablet) 15 mg PO BID [facility] Last Admin: 08/02/23 08:17 Dose: 15 mg Documented By: JOHNATHON Duloxetine HCl (Duloxetine Hcl 30 Mg Capsule.Dr) 30 mg PO BEDTIME [facility] Last Admin: 08/01/23 20:37 Dose: 30 mg Documented By: DORENE Enoxaparin Sodium (Enoxaparin Sodium 40 Mg/0.4 Ml Syringe) 40 mg SUBCUT Q24H [facility] Last Admin: 08/01/23 16:34 Dose: 40 mg Documented By: JOHNATHON Glucose (Glucose Gel 15 Gm Gel..Gram.) 15 gm PO Q15M PRN; Protocol PRN Reason: per Hypoglycemia Standing Ord. Dextrose (D10) 250 mls @ 750 mls/hr IV Q15M PRN; Protocol PRN Reason: per Hypoglycemia Standing Ord. Insulin Human Lispro (Insulin Lispro 100 Unit/Ml 3 Ml Vial) 0 unit SUBCUT QIDACHS [facility]; Protocol Last Admin: 08/02/23 08:19 Dose: 2 unit Documented By: JOHNATHON Insulin Human Lispro (Insulin Lispro 100 Unit/Ml 3 Ml Vial) 5 unit SUBCUT QIDACHS [facility] Last Admin: 08/02/23 08:19 Dose: Not Given Documented By: JOHNATHON Non-Admin Reason: Covered by sliding scale Lisinopril (Lisinopril 20 Mg Tablet) 20 mg PO DAILY [facility]; Protocol Last Admin: 08/02/23 08:17 Dose: 20 mg Documented By: JOHNATHON Lorazepam (Lorazepam 1 Mg Tablet) 1 mg PO ONCE PRN PRN Reason: Anxiety Last Admin: 08/01/23 20:39 Dose: 1 mg Documented By: DORENE Lorazepam (Lorazepam 1 Mg Tablet) 1 mg PO DAILY PRN PRN Reason: severe anxiety Last Admin: 07/31/23 04:23 Dose: 1 mg Documented By: ANTONIO Melatonin (Melatonin 3 Mg Tablet) 6 mg PO BEDTIME PRN PRN Reason: Insomnia Mirtazapine (Mirtazapine 15 Mg Tablet) 45 mg PO BEDTIME [facility] Last Admin: 08/01/23 20:37 Dose: 45 mg Documented By: DORENE Morphine Sulfate (Morphine Sulfate 2 Mg/Ml Cartridge) 2 mg IVPUSH Q4H PRN; Protocol PRN Reason: Pain, Moderate(Pain Scale 4-6) Last Admin: 08/02/23 06:46 Dose: 2 mg Documented By: DORENE Nicotine (Nicotine 14 Mg Patch.Td24) 14 mg TRANSDERMA DAILY [facility] Last Admin: 08/02/23 08:17 Dose: 14 mg Documented By: JOHNATHON Oxycodone HCl (Oxycodone Hcl Immed Release 5 Mg Tablet) 5 mg PO Q4H PRN PRN Reason: moderate pain Last Admin: 08/02/23 08:17 Dose: 5 mg Documented By: JOHNATHON Sodium Chloride (0.9 % Sodium Chloride Flush 3 Ml Syringe) 3 ml IVFLUSH QSHI Last Admin: 08/01/23 23:21 Dose: 3 ml Documented By: DORENE Trazodone HCl (Trazodone Hcl 50 Mg Tablet) 50 mg PO BEDTIME [facility] Last Admin: 08/01/23 20:37 Dose: 50 mg Documented By: DORENE Labs 08/01/23 05:55 08/01/23 05:55 Labs: Laboratory Results - last 24 hr 08/01/23 08/01/23 08/01/23 10:53 15:13 21:31 POC Glucose 259 H 168 H 321 H 08/02/23 07:20 POC Glucose 189 H Assessment and Plan (1) Fall: Status: Acute (2) Acute hyperglycemia: Status: Acute (3) Hypophosphatemia: Status: Acute (4) Hypomagnesemia: Status: Acute (5) Closed fracture of right hip: Status: Acute Plan This a 73-year-old female with pertinent history of krl-zgqtmuc-zgjlytcrr diabetes mellitus, mood disorder, hypertension, mixed hyperlipidemia who presents to the emergency department for evaluation after a fall. Right femur fracture due to mechanical fall pod 3 lovenox acute on Chronic Hyponatremia Partially Pseudo due to hyperglycemia holding hydrochlorothiazide resolved Cee-sgirxtl-qayiatklb diabetes mellitus with hyperglycemia Hold metformin sliding scale insulin, monitoring closely Hypomagnesemia resolved Hypertension Lisinopril Mood disorder Continue Cymbalta DVT prophylaxis with Lovenox DNR/DNI reason for continued hospitalization: PT recommending acute rehab, pending auth Quality Stroke Does the patient have a stroke diagnosis?: No VTE Prior VTE?: No VTE Risk Level:: Medical - moderate - high VTE Device Contraindication: N/A - Device Ordered VTE Drug Contraindication: Treatment Not Indicated
[2023-08-02 10:59] VITALS: BP 130/69; PULSE 106; O2SAT 94
[2023-08-02 11:06] LABS: Glucose, Whole Blood 181 mg/dL (60-115)
[2023-08-02] MEDS: 0.9 % Sodium Chloride Flush 3 ML SYRINGE IVFLUSH ×2 (11:08→16:29)
[2023-08-02 11:14] VITALS: BP 164/68; PULSE 105; RESP 18; TEMP 35.9; O2SAT 94
[2023-08-02 15:54] VITALS: BP 153/67; PULSE 110; RESP 18; TEMP 36.3; O2SAT 97
[2023-08-02 16:04] LABS: Glucose, Whole Blood 299 mg/dL (60-115)
[2023-08-02] MEDS: Enoxaparin Sodium 40 MG/0.4 ML SYRINGE SUBCUT (16:28)
--- NOTE | 2023-08-09 06:25 | PC.NURSE ---
Patient was in pain 10/10 and requested morphine to manage her pain because of good effect.
--- NOTE | 2023-08-11 08:44 | P.OP_ITS ---
Operative Note Operative Note Date of Service: 07/30/23 Narrative: Date of Service: 07/30/23 Pre-op diagnosis: right hip fracture Post-op diagnosis: same Procedure: Right hip IMN Implants: Valeriy [id number] 125 deg imn with 90 mm hip screw and a 40 and 42.5 distal interlock Surgeon: Kael Vera MD Anesthesia: GETA and local Was an In Class [employer] Education Teacher used for this Procedure?: No Estimated blood loss (mL): 100 IV fluids (mL): 800 Pathology: none sent Condition: stable Disposition: PACU Procedure in detail: Patient was brought to the operating room and prepped and draped in standard sterile fashion. Time-out was called to identify proper site procedure proper surgeon and IV antibiotics per weight were administered. She was positioned on the fracture table and a traction and slight internal rotation were performed and biplanar fluoroscopy confirmed initial fracture reduction. I then made a stab incision proximal to the greater trochanter in using a guidewire made a entry point just lateral to the tip of the greater trochanter and placed a guidewire into the femoral metadiaphysis. I then over-reamed with 15 mm Reamer placed my ball-tip guidewire down distally in the femur. I selected [id number] 125deg nail and then inserted this without difficulty. I then turned my attention to the hip screw where I used a guidewire and a tip apex distance of less than 1.5 measured my 90mmhip screw. I then pre drilled and placed a hip screw using biplanar fluoroscopy. Once I was satisfied with the position of the hip screw I turned my attention to the distal aspect of the nail. Using the static guide hole I placed 1 static distal interlocking screw in standard AO technique. While placing the screw it became evident that there was fracture extension down to the top of the nail. Placement of the screw seemed to propagate this fracture. I therefore removed the hip screws and nail and placed the ball tip and measured a 340mm long nail to fully span the fracture. The shaft was reamed up to a 13 and a long nail was inserted in standard fashion. The same hip screw was reinserted in the same hole and, using perfect [place] technique two distal interlocking screws were placed using standard AO technique. Final biplanar radiographs were taken. I was satisfied with the position of the hardware and the fracture reduction. There was a butterfly fragment at the tip of the previously inserted short nail that was spanned. I copiously irrigated closed with absorbable sutures mynor and injected 30 mL of into the area of the incisions. Traction was let down patient was placed in sterile dressing awakened from anesthesia brought to recovery room stable condition.
--- NOTE | 2023-08-27 06:03 | PC.NURSE ---
07/31/2023 Patient was having pain rated 7/10 and was medicated at 2031 with morphine per patient request.
--- NOTE | 2023-08-27 06:05 | PC.NURSE ---
08/01/2023 Patient was having pain rated 8/10 and was medicated at 2036 with morphine per patient request.
--- NOTE | 2023-08-27 06:06 | PC.NURSE ---
08/01/2023 Patient was having pain rated 8/10 and was medicated at 0642 with morphine per patient request.
--- NOTE | 2023-08-27 06:07 | MHC.PIE ---
08/02/2023 Patient was having pain rated 8/10 and was medicated at 0646 with morphine per patient request.
== END 2023-08-02 19:00 | disposition skilled nursing facility (03) | DRG 481 ==
LOC: HO.ED 16:40 → HO.EDOVER 19:00 → HO.IMC 20:44
PROVIDERS: Orthopaedic Surgery; Student in an Organized Health Care Education/Training Program; Admitting Provider Internal Medicine; Emergency Provider Emergency Medicine; PCP Internal Medicine; Visit Provider Internal Medicine
PROC: 0QS636Z Reposition Right Upper Femur with Intramedullary Internal Fixation Device, Percutaneous Approach (ICD-10-PCS; principal; 2023-07-30 16:20)
DX: S72.101A Unspecified trochanteric fracture of right femur, initial encounter for closed fracture (principal); E87.1 Hypo-osmolality and hyponatremia; W19.XXXA Unspecified fall, initial encounter; I25.10 Atherosclerotic heart disease of native coronary artery without angina pectoris; F17.210 Nicotine dependence, cigarettes, uncomplicated; F32.A Depression, unspecified; Z66 Do not resuscitate; F41.9 Anxiety disorder, unspecified; E83.39 Other disorders of phosphorus metabolism; E83.42 Hypomagnesemia; E11.65 Type 2 diabetes mellitus with hyperglycemia; J44.9 Chronic obstructive pulmonary disease, unspecified; E78.2 Mixed hyperlipidemia; Z71.6 Tobacco abuse counseling; Z79.01 Long term (current) use of anticoagulants; Z79.84 Long term (current) use of oral hypoglycemic drugs; Z79.899 Other long term (current) drug therapy
CPT/HCPCS: 36415; 70450; 71045; 72192; 73080; 73502; 73700; 80048; 82947; 83036; 83735; 83930; 83935; 84300; 85025; 85027; 86850; 86900; 86901; 90715; 93005; 97110; 97116; 97162; 97166; 97530; 99285; C1713; J0736; J1650; J1920; J2250; J2270; J2704; J2795; J3010; J3475; J7120

== ENCOUNTER → 2023-07-29 18:18 | Outpatient (BNV) | payer MEDICARE, SELFPAY | PROVIDERS: Admitting Provider Internal Medicine; Emergency Provider Emergency Medicine; PCP Internal Medicine; Visit Provider Internal Medicine Cardiovascular Disease | DX: R00.0 Tachycardia, unspecified (principal); I51.7 Cardiomegaly | CPT/HCPCS: 93010 ==

== ENCOUNTER → 2023-07-29 18:49 | Outpatient (BNV) | payer MEDICARE, SELFPAY | PROVIDERS: Admitting Provider Internal Medicine; Emergency Provider Emergency Medicine; PCP Internal Medicine; Visit Provider Student in an Organized Health Care Education/Training Program | DX: S72.001A Fracture of unspecified part of neck of right femur, initial encounter for closed fracture (principal); W19.XXXA Unspecified fall, initial encounter; E11.65 Type 2 diabetes mellitus with hyperglycemia; E83.39 Other disorders of phosphorus metabolism; E83.42 Hypomagnesemia | CPT/HCPCS: 99223; 99232; 99233; 99239 ==

== ENCOUNTER → 2023-07-29 18:49 | Outpatient (BNV) | payer MEDICARE, SELFPAY | PROVIDERS: Admitting Provider Internal Medicine; Emergency Provider Emergency Medicine; PCP Internal Medicine; Visit Provider Physician Assistant | DX: S72.001A Fracture of unspecified part of neck of right femur, initial encounter for closed fracture (principal); W19.XXXA Unspecified fall, initial encounter; F17.200 Nicotine dependence, unspecified, uncomplicated; E11.9 Type 2 diabetes mellitus without complications | CPT/HCPCS: 27245; 99024; 99222 ==

== ENCOUNTER 2023-08-15 06:48 | Outpatient (REF) | payer MEDICARE, SELFPAY ==
--- NOTE | ~2023-08-15 | XR_ITS ---
EXAMINATION: XR FEMUR, RIGHT CLINICAL INFORMATION: Displaced intertrochanteric fracture of left femur. COMPARISON: July 30, 2023 fluoroscopic imaging, July 29, [address] scan. TECHNIQUE: 4 views of the right femur were obtained. FINDINGS: Orthopedic hardware with intramedullary tushar and screw fixation as well as 2 screws in the distal femur. Transfixed mildly displaced, oblique, comminuted fracture of the rxnzrhjx-dm-rly femur. Hardware appears intact. Expected postsurgical changes with multiple mynor in the soft tissues with soft tissue swelling, and effusion. XR/XR femur RT 2V IMPRESSION: Status post ORIF of proximal to mid femoral fracture.
== END 2023-08-15 06:49 | disposition home or self-care (01) ==
LOC: HO.HOSX 06:48
PROVIDERS: Visit Provider Physician Assistant
DX: S72.001D Fracture of unspecified part of neck of right femur, subsequent encounter for closed fracture with routine healing (principal); X58.XXXD Exposure to other specified factors, subsequent encounter
CPT/HCPCS: 73552; 99212

== ENCOUNTER 2023-08-15 13:43 | Outpatient (AMB) | payer MEDICARE, SELFPAY ==
--- NOTE | 2023-08-15 14:02 | A.OFFVIS_ITS ---
Intake Visit Reasons: PO-IMN RT 07/30/23 NE Intake Note: Lisa a 73 year old female who presents today for post operative right hip IMN, DOS 07/30/23 NE. Patient reports rehab much workiug doingmych better. 5-7 out of 10. getting better.. Allergies nortriptyline Allergy (Severe, Verified 07/30/23 15:37) hives bupropion Allergy (Intermediate, Verified 07/30/23 15:37) hives buspirone [From BuSpar] Allergy (Intermediate, Verified 07/30/23 15:37) Diarrhea high anxiety cefdinir Allergy (Intermediate, Verified 07/30/23 15:37) diarrhea and yeast ingection nitrofurantoin Allergy (Intermediate, Verified 07/30/23 15:37) heartburn; N/V penicillin V Allergy (Intermediate, Verified 07/30/23 15:37) Hives Sulfa (Sulfonamide Antibiotics) Allergy (Intermediate, Verified 07/30/23 15:37) Hives phenazopyridine [From Pyridium] Adverse Reaction (Mild, Verified 07/30/23 15:37) Diarrhea Myacin Allergy (Mild, Uncoded 07/30/23 15:37) Hives HPI HPI PO-IMN RT 07/30/23 NE: Details: 73-year-old female who returns to the office today for post-op right hip IMN, 07/30/[address] Vera. She states she has improvement in her pain however she does experiences pain and rates the pain as about 6 on the scale of 0-10. She is working with rehab with benefits. She has no other concerns today. [facility] Medical History Dysuria Hyponatremia Annual physical exam COPD (chronic obstructive pulmonary disease) Depression Diabetes Alopecia Tobacco abuse CAD (coronary artery disease) Colon polyp Hyperlipidemia HTN (hypertension) Diabetic eye exam Anxiety and depression Surgical History H/O colonoscopy History of appendectomy History of oophorectomy Family History Father Diabetes mellitus Mother No problems noted. Son Myocardial infarction Social History Household Members: None Housing: Condominium Do you presently have visiting nurse or other home services: No Alcohol intake: current Alcohol intake frequency: 0-2 drinks per day Patient Tobacco Use Status: Current everyday Tobacco user Tobacco use type: Cigarette Cigarettes Per Day: 10 Years Smoked: 50 e-Cigarette/Vaping Use: Never Used Second Hand Smoke Exposure: No service: No Current occupational status: retired Current occupational exposures/hazards: No Cognitive needs: No Hearing needs: No Vision needs: No Review of Systems Const All systems reviewed & are unremarkable except as noted in HPI and below Physical Exam Extrem Other: Right hip: Incision clean, dry and intact. No pain with ROM of hip. She is able to perform hip flexion with mild discomfort. Calf supple, nontender. NVI. Results Reviewed Results Reviewed: Xrays were obtained in the office today and personally reviewed by me of the right hip show intact IMN with stable fracture pattern Assessment & Plan Assessment & Plan (1) Closed fracture of right hip: Code(s): S72.001A - Fracture of unspecified part of neck of right femur, initial encounter for closed fracture Category: Medical Qualifiers: Encounter type: subsequent encounter Fracture healing: with routine healing Qualified Code(s): S72.001D - Fracture of unspecified part of neck of right femur, subsequent encounter for closed fracture with routine healing Plan [place] removed, steri strips applied, she will continue working on Gait training, ROM and strength. She will f/u in 4 weeks, sooner if needed. Orders: Orders XR femur RT 2V Today S72.142A - Displaced intertrochanteric fracture of left femur, initial encounter for closed fracture Patient Instructions: Scribed for Aida Magaña PA-C, by Uriah Canales medical secretary receptionist, on 08/15/2023 at 2:00 PM EST.? I, Aida Magaña PA-C, have personally reviewed and agree with the information entered by the scribe. Coding Level of Care Code Global (58453) Diagnoses Closed fracture of right hip with routine healing, subsequent encounter S72.001D Encounter type: subsequent encounter Fracture healing: with routine healing
== END 2023-08-15 14:51 | disposition home or self-care (01) ==
PROVIDERS: PCP Internal Medicine; Visit Provider Physician Assistant
DX: S72.001D Fracture of unspecified part of neck of right femur, subsequent encounter for closed fracture with routine healing (principal)
CPT/HCPCS: 99024

== ENCOUNTER 2023-09-11 06:34 | Outpatient (REF) | payer MEDICARE, SELFPAY ==
--- NOTE | ~2023-09-11 | XR_ITS ---
EXAMINATION: XR FEMUR, RIGHT CLINICAL INFORMATION: Displaced intertrochanteric fracture of the right femur. COMPARISON: 08/15/2023 TECHNIQUE: AP and lateral views of the right femur were obtained. FINDINGS: Antegrade intramedullary nail, femoral neck screw, and 2 distal interlocking screws remains appropriately positioned. Alignment of the comminuted intertrochanteric and mid femoral diaphyseal fracture appears unchanged. Mild displacement is again noted at the diaphyseal component. No appreciable osseous bridging. Bones are osteopenic. Mild osteoarthritis in the right hip. Osseous pelvis is unremarkable. No acute findings at the knee. XR/XR femur RT 2V IMPRESSION: Unchanged alignment of the comminuted intertrochanteric and mid femoral diaphyseal fracture status post ORIF. No appreciable osseous bridging.
== END 2023-09-11 06:35 | disposition home or self-care (01) ==
LOC: HO.HOSX 06:34
PROVIDERS: Visit Provider Physician Assistant
DX: S72.142D Displaced intertrochanteric fracture of left femur, subsequent encounter for closed fracture with routine healing (principal)
CPT/HCPCS: 73552; 99212

== ENCOUNTER 2023-09-11 13:20 | Outpatient (AMB) | payer MEDICARE, SELFPAY ==
--- NOTE | 2023-09-11 13:52 | A.OFFVIS_ITS ---
Intake Visit Reasons: PO-IMN RT 07/30/23 NE 4 wks f/u Intake Note: Lisa a 73 year old female who presents today for a post operative visit s/p right hip IMN on 07/30/23 NE. Patient reports she is doing well, states her current pain level is 5 out of 10. She continues to attend PT once a week. Allergies nortriptyline Allergy (Severe, Verified 09/11/23 14:11) hives bupropion Allergy (Intermediate, Verified 09/11/23 14:11) hives buspirone [From BuSpar] Allergy (Intermediate, Verified 09/11/23 14:11) Diarrhea high anxiety cefdinir Allergy (Intermediate, Verified 09/11/23 14:11) diarrhea and yeast ingection nitrofurantoin Allergy (Intermediate, Verified 09/11/23 14:11) heartburn; N/V penicillin V Allergy (Intermediate, Verified 09/11/23 14:11) Hives Sulfa (Sulfonamide Antibiotics) Allergy (Intermediate, Verified 09/11/23 14:11) Hives phenazopyridine [From Pyridium] Adverse Reaction (Mild, Verified 09/11/23 14:11) Diarrhea Myacin Allergy (Mild, Uncoded 09/11/23 14:11) Hives HPI HPI PO-IMN RT 07/30/23 NE 4 wks f/u: Details: 73-year-old female who returns to the office today for post-op right hip IMN, 07/30/23. She states she has no pain and is doing well overall. She is working on physical therapy as instructed. She has no concerns today. [facility] Medical History Dysuria Hyponatremia Annual physical exam COPD (chronic obstructive pulmonary disease) Depression Diabetes Alopecia Tobacco abuse CAD (coronary artery disease) Colon polyp Hyperlipidemia HTN (hypertension) Diabetic eye exam Anxiety and depression Surgical History H/O colonoscopy History of appendectomy History of oophorectomy Family History Father Diabetes mellitus Mother No problems noted. Son Myocardial infarction Social History Household Members: None Housing: Condominium Do you presently have visiting nurse or other home services: No Alcohol intake: current Alcohol intake frequency: 0-2 drinks per day Patient Tobacco Use Status: Current everyday Tobacco user Tobacco use type: Cigarette Cigarettes Per Day: 10 Years Smoked: 50 e-Cigarette/Vaping Use: Never Used Second Hand Smoke Exposure: No service: No Current occupational status: retired Current occupational exposures/hazards: No Cognitive needs: No Hearing needs: No Vision needs: No Review of Systems Const All systems reviewed & are unremarkable except as noted in HPI and below Physical Exam Extrem Other: Right hip: Incision well heled. She can perform hip flexion and ROM without pain. Calf supple, nontender. NVI. Results Reviewed Results Reviewed: Xrays were obtained in the office today and personally reviewed by me of the right hip show intact IMN with stable fracture pattern Assessment & Plan Assessment & Plan (1) Closed fracture of right hip: Code(s): S72.001A - Fracture of unspecified part of neck of right femur, initial encounter for closed fracture Category: Medical Qualifiers: Encounter type: subsequent encounter Fracture healing: with routine healing Qualified Code(s): S72.001D - Fracture of unspecified part of neck of right femur, subsequent encounter for closed fracture with routine healing Plan She will continue with physical therapy to work on gait training and stren gthening. She can begin weight bearing as tolerated and resume driving. I would like to see her back in 6 weeks with x-rays, sooner if needed. Orders: Orders XR femur RT 2V Today S72.142A - Displaced intertrochanteric fracture of left femur, initial encounter for closed fracture Patient Instructions: Scribed for Aida Magaña PA-C, by Uriah Canales medical reviewer, on 09/11/2023 at 1:45 PM EST.? I, Aida Magaña PA-C, have personally reviewed and agree with the information entered by the scribe. Coding Level of Care Code Global (46244) Diagnoses Closed fracture of right hip with routine healing, subsequent encounter S72.001D Encounter type: subsequent encounter Fracture healing: with routine healing
== END 2023-09-11 14:07 | disposition home or self-care (01) ==
PROVIDERS: PCP Internal Medicine; Visit Provider Physician Assistant
DX: S72.001D Fracture of unspecified part of neck of right femur, subsequent encounter for closed fracture with routine healing (principal)
CPT/HCPCS: 99024

== ENCOUNTER 2023-09-23 09:12 | Outpatient (REF) | payer MEDICARE, SELFPAY ==
[2023-09-23 11:09] LABS: Anion Gap 18 (12-20); Blood Urea Nitrogen 8 mg/dL (9-16); Calcium 9.7 mg/dL (8.4-10.2); Carbon Dioxide 27 mmol/L (22-29); Chloride 98 mmol/L (96-108); Estimated Glomerular Filt Rate > 60; Glucose Random 171 mg/dL (60-115); Potassium 3.9 mmol/L (3.3-5.1); Sodium 139 mmol/L (135-145)
== END 2023-09-23 09:13 | disposition home or self-care (01) ==
LOC: HO.HMGCLDS 09:12
PROVIDERS: PCP Internal Medicine; Visit Provider Internal Medicine
DX: E87.1 Hypo-osmolality and hyponatremia (principal)
CPT/HCPCS: 36415; 80048

== ENCOUNTER 2023-09-27 09:24 | Outpatient (AMB) | payer MEDICARE, SELFPAY ==
[2023-09-27 09:38] VITALS: BP 138/84; PULSE 107; O2SAT 95; BMI 18.5
--- NOTE | 2023-09-27 09:38 | MHC.PC.OV ---
Vital Signs 09/27/23 09:38 Height 5 ft 2 in Weight 101 lb BMI 18.5 BP 138/84 Blood Pressure Location Rt brachial Position Sitting Pulse 107 H Pulse Source Pulse Oximeter Pulse Oximetry (%) 95 Oxygen Delivery Method Room Air Intake Visit Reasons: Diabetes F/U Intake Note: Pt is here today for a follow up visit on DM. Allergies nortriptyline Allergy (Severe, Verified 09/27/23 09:38) hives bupropion Allergy (Intermediate, Verified 09/27/23 09:38) hives buspirone [From BuSpar] Allergy (Intermediate, Verified 09/27/23 09:38) Diarrhea high anxiety cefdinir Allergy (Intermediate, Verified 09/27/23 09:38) diarrhea and yeast ingection nitrofurantoin Allergy (Intermediate, Verified 09/27/23 09:38) heartburn; N/V penicillin V Allergy (Intermediate, Verified 09/27/23 09:38) Hives Sulfa (Sulfonamide Antibiotics) Allergy (Intermediate, Verified 09/27/23 09:38) Hives phenazopyridine [From Pyridium] Adverse Reaction (Mild, Verified 09/27/23 09:38) Diarrhea Myacin Allergy (Mild, Uncoded 09/27/23 09:38) Hives Medication List - Last Reconciled 09/27/23 by Enriqueta Estrada MD amlodipine 5 mg PO DAILY atorvastatin 40 mg PO DAILY buspirone 15 mg PO BID enoxaparin 40 mg subcut Q24H ibuprofen 200 mg PO DAILY PRN lisinopril 20 mg See Protocol PO DAILY lorazepam 1 mg PO DAILY PRN magnesium oxide 400 mg PO .every other day metformin 1,000 mg PO DAILY mirtazapine 45 mg PO BEDTIME sod phos di, mono-K phos mono 250 mg (Phospha Neutral) 1 tab PO DAILY trazodone 50 mg PO BEDTIME Tobacco use date assessed: 09/27/23 Fall risk assessment: 1 Fall in past year Last assessed Fall Risk: 09/27/23 Dental Screening Dental Screen Date: 09/27/23 Did you have a dental visit in the last 12 months?: Yes Did you have a dental problem in the last 6 months where you did not have access to dental care?: No Was dental information given to patient?: Patient has dentist HPI Diabetes F/U HPI Details Patient presents for the follow-up. She sustain right intertrochanteric femur fracture after tripping and falling and underwent ORIF on 07/29. Patient follow-up with inpatient rehab and is discharged home. She reports persistent right SI joint and lower back pain since the rehabilitation worse when she is walking. She denies any weakness or numbness in extremities. Hypertension type 2 diabetes are stable on current medications and patient follows up with psychiatrist and psychologist for major depression controlled on current medications. [facility] Medical History (Updated 09/27/23 @ 15:55 by Enriqueta Estrada MD) Dysuria Hyponatremia Annual physical exam COPD (chronic obstructive pulmonary disease) Depression Diabetes Alopecia Tobacco abuse CAD (coronary artery disease) Colon polyp Hyperlipidemia HTN (hypertension) Diabetic eye exam Anxiety and depression Surgical History H/O colonoscopy History of appendectomy History of oophorectomy Family History Father Diabetes mellitus Mother No problems noted. Son Myocardial infarction Social History Household Members: None [facility] Do you presently have visiting nurse or other home services: No Alcohol intake: current Alcohol intake frequency: 0-2 drinks per day Patient Tobacco Use Status: Current someday Tobacco user Tobacco use type: Cigarette Cigarettes Per Day: 5 Years Smoked: 50 e-Cigarette/Vaping Use: Never Used Second Hand Smoke Exposure: No service: No Current occupational status: retired Current occupational exposures/hazards: No Cognitive needs: No Hearing needs: No Vision needs: No Questionnaire PHQ-9 Over the last 2 weeks, how often have you been bothered by any of the following problems? 1. Little interest or pleasure in doing things: several days 2. Feeling down, depressed, or hopeless: several days 3. Trouble falling or staying asleep, or sleeping too much: more than half the days 4. Feeling tired or having little energy: more than half the days 5. Poor appetite or overeating: several days 6. Feeling bad about yourself - or that you are a failure or have let yourself or your family down: several days 7. Trouble concentrating on things, such as reading the newspaper or watching television: several days 8. Moving or speaking so slowly that other people could have noticed. Or the opposite - being so fidgety or restless that you have been moving around a lot more than usual: several days 9. Thoughts that you would be better off or of hurting yourself in some way: not at all Total score: 10 Depression Screening Interpretation: Positive Depression Screening Done: Yes Source: Developed by Drs. Kendell Chaney, Mary Curtis, Jordan Brandt and colleagues, with an educational collin from [employer]. Thrive Questionnaire Date Thrive assessed: 09/27/23 I am a: Patient What is your living situation today?: I have a steady place to live Within the past 12 months, did the food you bought not last and you didn't have the money to get more?: Never true Within the past 12 months, did you worry whether your food would run out before you got money to buy more?: Never true Do you have trouble paying for medicines?: No Do you have trouble getting transportation to medical appointments?: No Do you have trouble paying your heating and electricity bill?: No Do you have trouble taking care of your child, family member or friend?: No Do you have trouble with day-to-day activities such as bathing, preparing meals, shopping, managing finances, etc.?: No Are you currently unemployed and looking for a job?: No Are you interested in more education?: No Please select the resources that you would like help with: Housing/Jail Currently or been in a relationship where the following occur: No concerns reported THRIVE Score: 0 AUDIT C Alcohol Use Questionnaire (AUDIT-C) 1. How often do you have a drink containing alcohol?: 2-3 times a week 2. How many drinks containing alcohol do you have on a typical day when you are drinking?: 1 or 2 3. How often do you have six or more drinks on one occasion?: Never Total Score: 3 AMERICA-7 AMB Questionnaire AMERICA-7 Date AMERICA - 7 assessed: 09/27/23 Feeling nervous, anxious, or on edge: 0 = Not at all Not being able to stop or control worryin = Not at all Worrying too much about different things: 0 = Not at all Trouble relaxin = Not at all Being so restless that it is hard to sit still: 0 = Not at all Becoming easily annoyed or irritable: 0 = Not at all Feeling afraid as if something awful might happen: 0 = Not at all Total AMEIRCA-7 score (0-4 normal; 5-9 mild; 10-14 moderate; 15-21 severe): 0 Source: Developed by Drs. Kendell Chaney, Mary Curtis, Jordan Brandt and colleagues, with an educational collin from [employer]. Review of Systems Const All systems reviewed & are unremarkable except as noted in HPI and below ENT Reports no additional complaints Card Reports no additional complaints Resp Reports no additional complaints GI Reports no additional complaints Reports no additional complaints Physical exam (Primary Care) Vital Signs: Last Vital Signs Pulse 107 H 09/27/23 09:38 Pulse Ox 95 09/27/23 09:38 Oxygen Delivery Method Room Air 09/27/23 09:38 BMI result Body Mass Index 18.5 Tobacco/Smoking Status: Tobacco use Status Tobacco use date assessed 09/27/23 09/27/23 09:41 Patient Tobacco Use Status Current someday Tobacco 09/27/23 09:50 Tobacco use type Cigarette 09/27/23 09:41 e-Cigarette/Vaping Use Never Used 09/27/23 09:41 PHQ-9: PHQ-9 Score PHQ-9: Total score 10 09/27/23 09:50 Depression Screening Interpretation: Positive Thrive Assessment: Date of Thrive Assessment Date Thrive assessed 09/27/23 09/27/23 09:49 Currently or been in a relationship where the following occur: No concerns reported Const General: no acute distress HENMT Head: Yes normal to inspection Neck Neck: Yes no lymphadenopathy and Yes supple Resp Effort & Inspection: normal respiratory effort Auscultation: clear to auscultation bilaterally Cardio Rhythm: regular rhythm Heart sounds: S1 normal heart sound present and S2 normal heart sound present GI Inspection: Yes normal to inspection Palpation (GI): Soft to palpation Extrem Other: Reproducible tenderness over right trochanteric joint and right lower paraspinal lumbar region, there is a decreased range of motion right hip, straight leg rising 90 degrees bilaterally Assessment and Plan Assessment & Plan (1) Chronic right SI joint pain: Code(s): M53.3 - Sacrococcygeal disorders, not elsewhere classified; G89.29 - Other chronic pain Plan: Check x-ray of right SI joint and lumbar spine, baclofen is prescribed patient will continue ibuprofen and PT was recommended (2) Closed fracture of right hip: Comment: Intratrochanteric femur fracture, S/P ORIF 07/30/23 Dr. Vera Code(s): S72.001A - Fracture of unspecified part of neck of right femur, initial encounter for closed fracture Qualifiers: Encounter type: subsequent encounter Fracture healing: with routine healing Qualified Code(s): S72.001D - Fracture of unspecified part of neck of right femur, subsequent encounter for closed fracture with routine healing Plan: Follow-up with order (3) Anxiety and depression: Comment: PTSD , f/u with therapist and psychiatrist NURSE CASE MANAGEMENT Code(s): F41.9 - Anxiety disorder, unspecified; F32.9 - Major depressive disorder, single episode, unspecified Plan: Continue current medications follow-up with a psychiatry (4) Diabetes: Code(s): E11.9 - Type 2 diabetes mellitus without complications Plan: ADA diet continue current medications return for fasting blood work including A1c (5) HTN (hypertension): Comment: Hydrochlorothiazide caused hyponatremia Code(s): I10 - Essential (primary) hypertension Plan: Continue lisinopril and amlodipine (6) Hyperlipidemia: Code(s): E78.5 - Hyperlipidemia, unspecified Orders: Orders Hemoglobin A1c 1 Month Enriqueta Estrada MD E11.9 - Type 2 diabetes mellitus without complications, E78.5 - Hyperlipidemia, unspecified, I10 - Essential (primary) hypertension Microalbumin, Random (w Creat) 1 Month Enriqueta Estrada MD E11.9 - Type 2 diabetes mellitus without complications, E78.5 - Hyperlipidemia, unspecified, I10 - Essential (primary) hypertension XR sacroiliac joint 1-2V Today Enriqueta Estrada MD G89.29 - Other chronic pain, M53.3 - Sacrococcygeal disorders, not elsewhere classified XR lumbar spine 2-3V Today Enriqueta Estrada MD G89.29 - Other chronic pain, M53.3 - Sacrococcygeal disorders, not elsewhere classified Comprehensive [place]. Panel Fast 1 Month Enriqueta Estrada MD E11.9 - Type 2 diabetes mellitus without complications, E78.5 - Hyperlipidemia, unspecified, I10 - Essential (primary) hypertension Lipid Panel 1 Month Enriqueta Estrada MD E11.9 - Type 2 diabetes mellitus without complications, E78.5 - Hyperlipidemia, unspecified, I10 - Essential (primary) hypertension Complete Blood Count Auto Diff 1 Month Enriqueta Estrada MD E11.9 - Type 2 diabetes mellitus without complications, E78.5 - Hyperlipidemia, unspecified, I10 - Essential (primary) hypertension Medications: New baclofen 10 mg PO BEDTIME 30 tabs 0RF Enriqueta Estrada MD Changed From enoxaparin 40 mg (0.4 mL) subcut Q24H 0 mL 0RF To enoxaparin 40 mg subcut Q24H Julio Cesar Luis MD Coding Level of Care Code Est Pt Level 4 (12191) Diagnoses Chronic right SI joint pain M53.3; G89.29 Closed fracture of right hip with routine healing, subsequent encounter S72.001D Encounter type: subsequent encounter Fracture healing: with routine healing Anxiety and depression F41.9; F32.9 Diabetes E11.9 HTN (hypertension) I10 Hyperlipidemia E78.5
== END 2023-09-27 10:24 | disposition home or self-care (01) ==
PROVIDERS: PCP Internal Medicine; Visit Provider Internal Medicine
DX: E11.9 Type 2 diabetes mellitus without complications (principal); M53.3 Sacrococcygeal disorders, not elsewhere classified; G89.29 Other chronic pain; S72.001D Fracture of unspecified part of neck of right femur, subsequent encounter for closed fracture with routine healing; F41.9 Anxiety disorder, unspecified; F32.9 Major depressive disorder, single episode, unspecified; I10 Essential (primary) hypertension; E78.5 Hyperlipidemia, unspecified
CPT/HCPCS: 99214

== ENCOUNTER 2023-09-30 08:25 | Outpatient (REF) | payer MEDICARE, SELFPAY ==
--- NOTE | ~2023-09-30 | XR_ITS ---
EXAMINATION: XR FEMUR, RIGHT CLINICAL INFORMATION: Displaced intertrochanteric fracture of the right femur. COMPARISON: 09/11/2023 TECHNIQUE: AP and lateral views of the right femur were obtained. FINDINGS: Antegrade intramedullary nail, femoral neck screw, and 2 distal interlocking screws are unchanged in position with unchanged alignment of the comminuted intertrochanteric and mid femoral diaphyseal fracture. Mild displacement is again noted at the diaphyseal component. Some bone resorption at the fracture margins at the capsular component likely corresponds to early changes of remodeling. No appreciable osseous bridging. Bones are osteopenic. Mild osteoarthritis in the right hip. Osseous pelvis is unremarkable. No acute findings at the knee. XR/XR femur RT 2V IMPRESSION: Unchanged alignment of the comminuted intertrochanteric and mid femoral diaphyseal fracture status post ORIF. No appreciable osseous bridging.
== END 2023-09-30 08:26 | disposition home or self-care (01) ==
LOC: HO.HOSX 08:25
PROVIDERS: Visit Provider Physician Assistant
DX: S72.001D Fracture of unspecified part of neck of right femur, subsequent encounter for closed fracture with routine healing (principal)
CPT/HCPCS: 20610; 73552; 99212; J1010

== ENCOUNTER 2023-10-31 06:27 | Outpatient (REF) | payer MEDICARE, SELFPAY ==
[2023-10-31 10:15] LABS: MANUAL DIFF FLAG NO
[2023-10-31 10:22] LABS: Basophils Percent Auto 0.3 % (0-2); Hematocrit 42.2 % (37.0-47.0); Hemoglobin 14.3 g/dl (12.0-16.0); Imm Gran Abs Auto 0.01 X10*3/uL (0.00-0.03); Imm Gran Pct Auto 0.1 % (0.0-0.4); Lymphocytes Absolute Auto 2.2 X10*3/uL (1.2-4.9); Lymphocytes Percent Auto 33.4 % (20-40); Mean Corpuscular HGB Conc 33.9 g/dl (31.0-35.0); Mean Corpuscular Hemoglobin 30.9 pg (27.0-33.0); Mean Corpuscular Volume 91.1 fL (80.0-98.0); Mean Platelet Volume 11.6 fL (9.4-12.3); Monocytes Absolute Auto 0.5 X10*3/uL (0.1-1.2); Monocytes Percent Auto 6.7 % (2-11); Neutrophils Percent Auto 59.5 % (45-73); Platelet Count 183 X10*3/uL (160-400); Red Blood Count 4.63 X10*6/uL (4.20-5.50); Red Cell Distribution Width 11.8 % (11.0-16.0); White Blood Count 6.7 X10*3/uL (4.8-10.8)
[2023-10-31 10:39] LABS: Estimated Average Glucose 169 mg/dL; Hemoglobin A1c % 7.5 % (<6.0)
[2023-10-31 10:47] LABS: Alanine Aminotransferase 15 U/L (0-31); Albumin Level 4.3 g/dL (3.5-5.0); Alkaline Phosphatase 134 U/L (39-117); Anion Gap 15 (12-20); Aspartate Amino Transferase 17 U/L (5-31); Bilirubin Total 0.5 mg/dL (0.0-1.0); Blood Urea Nitrogen 8 mg/dL (9-16); Calcium 9.8 mg/dL (8.4-10.2); Carbon Dioxide 27 mmol/L (22-29); Chloride 98 mmol/L (96-108); Cholesterol 169 mg/dL (<200); Estimated Glomerular Filt Rate > 60; Glucose Fasting 198 mg/dL (60-99); HDL Cholesterol 81 mg/dL (>40); LDL Cholesterol Calculated 63 mg/dL (<100); Potassium 4.2 mmol/L (3.3-5.1); Sodium 136 mmol/L (135-145); Total Protein 6.6 g/dL (6.5-8.0); Triglycerides 126 mg/dL (<150)
[2023-10-31 11:08] LABS: Creatinine Urine 71.99 mg/dL; Microalbum/Creatinine Ratio Ur 16.6 ug/mg cr (<30)
== END 2023-10-31 06:28 | disposition home or self-care (01) ==
LOC: HO.HMGCLDS 06:27
PROVIDERS: PCP Internal Medicine; Visit Provider Internal Medicine
DX: E11.9 Type 2 diabetes mellitus without complications (principal); I10 Essential (primary) hypertension; E78.5 Hyperlipidemia, unspecified
CPT/HCPCS: 36415; 80053; 80061; 82043; 82570; 83036; 85025

== ENCOUNTER 2023-11-01 12:51 | Outpatient (REF) | payer MEDICARE, SELFPAY ==
--- NOTE | ~2023-11-01 | XR_ITS ---
EXAMINATION: XR SACROILIAC JOINTS CLINICAL INFORMATION: Sacrococcygeal disorders. COMPARISON: CT pelvis dated 07/29/2023. TECHNIQUE: 3 views of the sacroiliac joints FINDINGS: No acute fracture or dislocation. Unremarkable sacroiliac joints. No osseous erosion. Phleboliths within the pelvis. XR/XR sacroiliac joint 1-2V IMPRESSION: Unremarkable examination. Electronically signed by: Francisco Jaffe MD 11/07/2023 01:57 PM EDT
--- NOTE | ~2023-11-01 | XR_ITS ---
EXAMINATION: XR FEMUR, RIGHT CLINICAL INFORMATION: Fracture. COMPARISON: Right femur radiographs dated 09/30/2023. TECHNIQUE: AP and lateral views of the right femur were obtained. FINDINGS: Right femoral intramedullary tushar with proximal dynamic hip screw and distal stabilization screws. Comminuted and mildly displaced right femoral fracture in unchanged anatomic alignment with minimal new bone/callus formation. No new fracture or dislocation. Mild right hip osteoarthritis, unchanged. No concerning lytic or blastic osseous lesion. XR/XR femur RT 2V IMPRESSION: 1. Right femoral ORIF without evidence of complication. 2. Comminuted and mildly displaced right femoral fracture in unchanged anatomic alignment with minimal new bone/callus formation. Electronically signed by: Frnacisco Jaffe MD 11/07/2023 02:15 PM EDT
--- NOTE | ~2023-11-01 | XR_ITS ---
EXAMINATION: XR LUMBOSACRAL SPINE CLINICAL INFORMATION: Sacrococcygeal disorders. COMPARISON: None available. TECHNIQUE: Three views of the lumbosacral spine. FINDINGS: Normal vertebral body alignment. The lumbar lordosis is maintained. Loss of superior endplate vertebral body height at L1 as well as L3 and L4 which are consistent with age-indeterminate compression deformities. Multilevel loss of intervertebral disc height with small endplate osteophytes. Lower lumbar spine facet arthropathy. Atherosclerotic calcifications. Calcifications within the right upper quadrant could represent renal or gallbladder stones. XR/XR lumbar spine 2-3V IMPRESSION: 1. Age-indeterminate compression deformities at L1, L3, and L4. 2. Multilevel degenerative disc disease and lower lumbar spine facet arthropathy. Electronically signed by: Francisco Jaffe MD 11/07/2023 02:16 PM EDT
--- NOTE | ~2023-11-01 | XR_ITS ---
EXAMINATION: XR PELVIS CLINICAL INFORMATION: Femoral fracture. COMPARISON: Hip and pelvic radiographs dating 07/29/2023. TECHNIQUE: AP view of the pelvis. FINDINGS: Proximal right femoral ORIF without evidence of hardware complication. Mild bilateral hip osteoarthritis and chondrocalcinosis, unchanged. No new fracture or dislocation. No concerning lytic or blastic osseous lesion. Phleboliths within the pelvis. XR/XR pelvis 1-2V IMPRESSION: 1. Proximal right femoral ORIF without evidence of hardware complication. 2. Mild bilateral hip osteoarthritis and chondrocalcinosis, unchanged. Electronically signed by: Francisco Jaffe MD 11/07/2023 02:16 PM EDT
== END 2023-11-01 12:52 | disposition home or self-care (01) ==
LOC: HO.XRAY 12:51
PROVIDERS: PCP Internal Medicine; Visit Provider Physician Assistant
DX: M53.3 Sacrococcygeal disorders, not elsewhere classified (principal); G89.29 Other chronic pain; S72.001D Fracture of unspecified part of neck of right femur, subsequent encounter for closed fracture with routine healing
CPT/HCPCS: 72100; 72170; 72200; 73552; 99212

== ENCOUNTER 2023-11-01 13:34 | Outpatient (AMB) | payer MEDICARE, SELFPAY ==
--- NOTE | 2023-11-01 13:38 | A.OFFVIS_ITS ---
Vital Signs 11/01/23 13:41 Height 5 ft 2 in Weight 101 lb BMI 18.5 Intake Visit Reasons: 6wk f/u Rt hip IMN 07/30/23 NE -w xrays Intake Note: Lisa a 73 year old female who presents today for a follow up of right hip IMN on 07/30/23 NE. Xrays updated. Patient reports last injection on 09/30/23 provided her with relief for a couple of day. She continues to have ongoing pa in, her current pain level is 7 out of 10. Allergies nortriptyline Allergy (Severe, Verified 11/01/23 13:49) hives bupropion Allergy (Intermediate, Verified 11/01/23 13:49) hives buspirone [From BuSpar] Allergy (Intermediate, Verified 11/01/23 13:49) Diarrhea high anxiety cefdinir Allergy (Intermediate, Verified 11/01/23 13:49) diarrhea and yeast ingection nitrofurantoin Allergy (Intermediate, Verified 11/01/23 13:49) heartburn; N/V penicillin V Allergy (Intermediate, Verified 11/01/23 13:49) Hives Sulfa (Sulfonamide Antibiotics) Allergy (Intermediate, Verified 11/01/23 13:49) Hives phenazopyridine [From Pyridium] Adverse Reaction (Mild, Verified 11/01/23 13:49) Diarrhea Myacin Allergy (Mild, Uncoded 11/01/23 13:49) Hives Medication List - Last Reconciled 11/01/23 by Aida Magaña PA-C amlodipine 5 mg PO DAILY atorvastatin 40 mg PO DAILY baclofen 10 mg PO BEDTIME buspirone 15 mg PO BID enoxaparin 40 mg subcut Q24H ibuprofen 200 mg PO DAILY PRN ibuprofen 800 mg PO Q8H PRN 30 days lisinopril 20 mg PO DAILY lorazepam 1 mg PO DAILY PRN magnesium oxide 400 mg PO .every other day metformin 1,000 mg PO DAILY mirtazapine 45 mg PO BEDTIME sod phos di, mono-K phos mono 250 mg (Phospha Neutral) 1 tab PO DAILY trazodone 50 mg PO BEDTIME HPI HPI 6wk f/u Rt hip IMN 07/30/23 NE -w xrays: Details: 73-year-old female who returns to the office today for follow-up of right hip IMN, 07/30/[address] Vera. She had her last injection on 09/30/23 which provided her relief for about 2 days. She continues to have ongoing pain in her hip and rates the pain as 7 on the scale of 0-10. She is working on physical therapy at home. She has no other concerns today. [facility] Medical History (Updated 09/30/23 @ 10:23 by Aida Magaña PA-C) Dysuria Hyponatremia Annual physical exam COPD (chronic obstructive pulmonary disease) Depression Diabetes Alopecia Tobacco abuse CAD (coronary artery disease) Colon polyp Hyperlipidemia HTN (hypertension) Diabetic eye exam Anxiety and depression Surgical History H/O colonoscopy History of appendectomy History of oophorectomy Family History Father Diabetes mellitus Mother No problems noted. Son Myocardial infarction Social History Household Members: None Housing: Condominium Do you presently have visiting nurse or other home services: No Alcohol intake: current Alcohol intake frequency: 0-2 drinks per day Patient Tobacco Use Status: Current someday Tobacco user Tobacco use type: Cigarette Cigarettes Per Day: 5 Years Smoked: 50 e-Cigarette/Vaping Use: Never Used Second Hand Smoke Exposure: No service: No Current occupational status: retired Current occupational exposures/hazards: No Cognitive needs: No Hearing needs: No Vision needs: No Review of Systems Const All systems reviewed & are unremarkable except as noted in HPI and below Physical Exam Vital Signs: BMI result Body Mass Index 18.5 Extrem Other: Right hip: Normal to inspection, incision well healed. No pain with ROM of the hip. Pain along the greater trochanter. No pain with hip flexion or abduction. Negative tenderness along the SI joint, Negative SLR. NVI. Results Reviewed Results Reviewed: Xrays were obtained today and personally reviewed by me of the right hip show intact IMN with stable fracture pattern Assessment & Plan Assessment & Plan (1) Closed fracture of right hip: Comment: Intratrochanteric femur fracture, S/P ORIF 07/30/23 Dr. Vera Code(s): S72.001A - Fracture of unspecified part of neck of right femur, initial encounte r for closed fracture Category: Medical Qualifiers: Encounter type: subsequent encounter Fracture healing: with routine healing Qualified Code(s): S72.001D - Fracture of unspecified part of neck of right femur, subsequent encounter for closed fracture with routine healing Plan She is going to continue working on physical therapy at home. I did stress the importance of strength training of her glutes to help with inflammation. She will continue to increase activities as tolerated and see me back as needed. Orders: Orders XR hip RT min 2V Today M25.551 - Pain in right hip XR femur RT 2V Today S72.142A - Displaced intertrochanteric fracture of left femur, initial encounter for closed fracture XR pelvis 1-2V Today M25.559 - Pain in unspecified hip Patient Instructions: Scribed for Aida Magaña PA-C, by Uriah Canales diploma medical assistant, on 11/01/2023 at 2:00 PM EST.? I, Aida Magaña PA-C, have personally reviewed and agree with the information entered by the scribe. Coding Level of Care Code Global (04062) Diagnoses Closed fracture of right hip with routine healing, subsequent encounter S72.001D Encounter type: subsequent encounter Fracture healing: with routine healing
[2023-11-01 13:41] VITALS: BMI 18.5
== END 2023-11-01 14:21 | disposition home or self-care (01) ==
PROVIDERS: PCP Internal Medicine; Visit Provider Physician Assistant
DX: S72.001D Fracture of unspecified part of neck of right femur, subsequent encounter for closed fracture with routine healing (principal)
CPT/HCPCS: 99213

== ENCOUNTER 2023-11-07 11:21 | Outpatient (AMB) | payer MEDICARE, SELFPAY ==
--- NOTE | 2023-11-07 11:41 | MHC.PC.OV ---
Vital Signs 11/07/23 11:43 Height 5 ft 2 in Weight 98 lb BMI 17.9 BP 134/78 Blood Pressure Location Lt brachial Position Sitting Pulse 104 H Pulse Source Pulse Oximeter Pulse Oximetry (%) 96 Oxygen Delivery Method Room Air Intake Visit Reasons: Annual PE - see comments Intake Note: Pt is here today for PE. Allergies nortriptyline Allergy (Severe, Verified 11/07/23 11:44) hives bupropion Allergy (Intermediate, Verified 11/07/23 11:44) hives buspirone [From BuSpar] Allergy (Intermediate, Verified 11/07/23 11:44) Diarrhea high anxiety cefdinir Allergy (Intermediate, Verified 11/07/23 11:44) diarrhea and yeast ingection nitrofurantoin Allergy (Intermediate, Verified 11/07/23 11:44) heartburn; N/V penicillin V Allergy (Intermediate, Verified 11/07/23 11:44) Hives Sulfa (Sulfonamide Antibiotics) Allergy (Intermediate, Verified 11/07/23 11:44) Hives phenazopyridine [From Pyridium] Adverse Reaction (Mild, Verified 11/07/23 11:44) Diarrhea Myacin Allergy (Mild, Uncoded 11/07/23 11:44) Hives Medication List - Last Reconciled 11/07/23 by Enriqueta Estrada MD amlodipine 5 mg PO DAILY atorvastatin 40 mg PO DAILY baclofen 10 mg PO BEDTIME buspirone 15 mg PO BID enoxaparin 40 mg subcut Q24H ibuprofen 200 mg PO DAILY PRN ibuprofen 800 mg PO Q8H PRN 30 days lisinopril 20 mg PO DAILY lorazepam 1 mg PO DAILY PRN magnesium oxide 400 mg PO .every other day metformin 1,000 mg PO DAILY mirtazapine 45 mg PO BEDTIME sod phos di, mono-K phos mono 250 mg (Phospha Neutral) 1 tab PO DAILY trazodone 50 mg PO BEDTIME Tobacco use date assessed: 11/07/23 Dental Screening Dental Screen Date: 09/27/23 HPI Annual PE - see comments HPI Details Pt presents for PE. She complains of worsening anxiety for the last 2 months. Her twin sister has not been talking to her. Patient is established with a counselor and prescribing PA. Patient denies depression but reports insomnia due to PTSD. Patient complains of persistent right hip pain when walking and has been limping. She has been in physical therapy for the last 2 months. Patient is established with ortho. [facility] Medical History (Updated 11/07/23 @ 12:44 by Enriqueta Estrada MD) Dysuria Hyponatremia Annual physical exam COPD (chronic obstructive pulmonary disease) Depression Diabetes Alopecia Tobacco abuse CAD (coronary artery disease) Colon polyp Hyperlipidemia HTN (hypertension) Diabetic eye exam Anxiety and depression Surgical History H/O colonoscopy History of appendectomy History of oophorectomy Family History Father Diabetes mellitus Mother No problems noted. Son Myocardial infarction Social History Household Members: None Housing: Condominium Do you presently have visiting nurse or other home services: No Alcohol intake: current Alcohol intake frequency: 0-2 drinks per day Patient Tobacco Use Status: Current someday Tobacco user Tobacco use type: Cigarette Cigarettes Per Day: 5 Years Smoked: 50 e-Cigarette/Vaping Use: Never Used Second Hand Smoke Exposure: No service: No Current occupational status: retired Current occupational exposures/hazards: No Cognitive needs: No Hearing needs: No Vision needs: No Questionnaire PHQ-9 Over the last 2 weeks, how often have you been bothered by any of the following problems? 1. Little interest or pleasure in doing things: several days 2. Feeling down, depressed, or hopeless: several days 3. Trouble falling or staying asleep, or sleeping too much: more than half the days 4. Feeling tired or having little energy: more than half the days 5. Poor appetite or overeating: several days 6. Feeling bad about yourself - or that you are a failure or have let yourself or your family down: several days 7. Trouble concentrating on things, such as reading the newspaper or watching television: several days 8. Moving or speaking so slowly that other people could have noticed. Or the opposite - being so fidgety or restless that you have been moving around a lot more than usual: several days 9. Thoughts that you would be better off or of hurting yourself in some way: not at all Total score: 10 Depression Screening Interpretation: Positive Depression Screening Follow-up: Existing condition, In treatment and New Medication prescribed Depression Screening Done: Yes 29474 - PHQ-9 Billing: Yes Source: Developed by Drs. Kendell Chaney, Mary Curtis, Jordan Brandt and colleagues, with an educational collin from [employer]. Thrive Questionnaire Date Thrive assessed: 11/07/23 I am a: Patient What is your living situation today?: I have a steady place to live Within the past 12 months, did the food you bought not last and you didn't have the money to get more?: Never true Within the past 12 months, did you worry whether your food would run out before you got money to buy more?: Never true Do you have trouble paying for medicines?: No Do you have trouble getting transportation to medical appointments?: No Do you have trouble paying your heating and electricity bill?: No Do you have trouble taking care of your child, family member or friend?: No Do you have trouble with day-to-day activities such as bathing, preparing meals, shopping, managing finances, etc.?: No Are you currently unemployed and looking for a job?: No Are you interested in more education?: No Please select the resources that you would like help with: None Currently or been in a relationship where the following occur: No concerns reported THRIVE Score: 0 AUDIT C Alcohol Use Questionnaire (AUDIT-C) 1. How often do you have a drink containing alcohol?: 2-3 times a week 2. How many drinks containing alcohol do you have on a typical day when you are drinking?: 1 or 2 3. How often do you have six or more drinks on one occasion?: Never Total Score: 3 AMERICA-7 AMB Questionnaire AMERICA-7 Date AMERICA - 7 assessed: 11/07/23 Feeling nervous, anxious, or on edge: 0 = Not at all Not being able to stop or control worryin = Not at all Worrying too much about different things: 0 = Not at all Trouble relaxin = Not at all Being so restless that it is hard to sit still: 0 = Not at all Becoming easily annoyed or irritable: 0 = Not at all Feeling afraid as if something awful might happen: 0 = Not at all Total AMERICA-7 score (0-4 normal; 5-9 mild; 10-14 moderate; 15-21 severe): 0 Source: Developed by Drs. Kendell Chaney, Mary Curtis, Jordan Brandt and colleagues, with an educational collin from [employer]. AMERICA-7 Assessment Billing AMERICA-7 Assessment Tool: AMERICA-7 Assessment 49023 Review of Systems Const All systems reviewed & are unremarkable except as noted in HPI and below Reports no additional complaints Eyes Reports no additional complaints ENT Reports no additional complaints Card Reports no additional complaints Resp Reports no additional complaints GI Reports no additional complaints Physical exam (Primary Care) Vital Signs: Last Vital Signs Pulse 104 H 11/07/23 11:43 BP 134/78 11/07/23 11:43 Pulse Ox 96 11/07/23 11:43 Oxygen Delivery Method Room Air 11/07/23 11:43 BMI result Body Mass Index 17.9 Tobacco/Smoking Status: Tobacco use Status Tobacco use date assessed 11/07/23 11/07/23 11:46 Patient Tobacco Use Status Current someday Tobacco 11/07/23 11:41 Tobacco use type Cigarette 11/07/23 11:41 e-Cigarette/Vaping Use Never Used 11/07/23 11:41 PHQ-9: PHQ-9 Score PHQ-9: Total score 10 11/07/23 11:54 Depression Screening Interpretation: Positive Depression Screening Follow-up: Existing condition, In treatment and New Medication prescribed Thrive Assessment: Date of Thrive Assessment Date Thrive assessed 11/07/23 11/07/23 11:54 Currently or been in a relationship where the following occur: No concerns reported Const General: no acute distress HENMT Ears: hearing grossly normal bilaterally Throat: Yes posterior oropharynx normal Eyes General: appearance normal, both eyes and all related structures Pupils: Equal, round and reactive pupils present Resp Effort & Inspection: normal respiratory effort Auscultation: clear to auscultation bilaterally Cardio Rhythm: regular rhythm Heart sounds: S1 normal heart sound present and S2 normal heart sound present GI Inspection: Yes normal to inspection Palpation (GI): Soft to palpation Percussion: Yes normal to percussion Auscultation: normal bowel sounds Neuro Cranial nerves: Yes Equal, round and reactive pupils present Assessment and Plan Assessment & Plan (1) Hyperlipidemia: Code(s): E78.5 - Hyperlipidemia, unspecified Plan: Continue statin (2) Closed fracture of right hip: Comment: Intratrochanteric femur fracture, S/P ORIF 07/30/23 Dr. Vera Code(s): S72.001A - Fracture of unspecified part of neck of right femur, initial encounter for closed fracture Qualifiers: Encounter type: subsequent encounter Fracture healing: with routine healing Qualified Code(s): S72.001D - Fracture of unspecified part of neck of right femur, subsequent encounter for closed fracture with routine healing Plan: Follow-up with ortho and PT (3) Tobacco dependence: Code(s): F17.200 - Nicotine dependence, unspecified, uncomplicated Plan: Tobacco quitting discussed but patient is not interested (4) COPD (chronic obstructive pulmonary disease): Comment: Tobacco quitting discussed with the patient. Due for CT scan in February 16 Code(s): J44.9 - Chronic obstructive pulmonary disease, unspecified (5) Anxiety and depression: Comment: PTSD , f/u with therapist and psychiatric PA Code(s): F41.9 - Anxiety disorder, unspecified; F32.9 - Major depressive disorder, single episode, unspecified Plan: Continue therapy at prazosin 1 mg q.h.s. for PTSD insomnia and elevated blood pressure, follow-up in 1 month (6) Diabetes: Code(s): E11.9 - Type 2 diabetes mellitus without complications Plan: A1c is down to 7.5, continue ADA diet regular physical activity and metformin (7) Annual physical exam: Code(s): Z00.00 - Encounter for general adult medical examination without abnormal findings Plan: Well-balanced diet regular physical activity discussed with the patient she declined mammogram and colonoscopy Medications: New prazosin 1 mg PO BEDTIME 30 caps 1RF Coding Level of Care Code Est Pt Prev Care >65y(20800) Diagnoses Hyperlipidemia E78.5 Closed fracture of right hip with routine healing, subsequent encounter S72.001D Encounter type: subsequent encounter Fracture healing: with routine healing Tobacco dependence F17.200 COPD (chronic obstructive pulmonary disease) J44.9 Anxiety and depression F41.9; F32.9 Diabetes E11.9 Annual physical exam Z00.00 Additional Codes AMERICA-7 Assessment Billing - AMERICA-7 Assessment Tool: AMERICA-7 Assessment 92900 ([id number])
[2023-11-07 11:43] VITALS: BP 134/78; PULSE 104; O2SAT 96; BMI 17.9
== END 2023-11-07 12:45 | disposition home or self-care (01) ==
PROVIDERS: PCP Internal Medicine; Visit Provider Internal Medicine
DX: Z00.00 Encounter for general adult medical examination without abnormal findings (principal); J44.9 Chronic obstructive pulmonary disease, unspecified; E11.9 Type 2 diabetes mellitus without complications; F41.9 Anxiety disorder, unspecified; E78.5 Hyperlipidemia, unspecified; S72.001D Fracture of unspecified part of neck of right femur, subsequent encounter for closed fracture with routine healing; F17.200 Nicotine dependence, unspecified, uncomplicated; F32.9 Major depressive disorder, single episode, unspecified
CPT/HCPCS: 96127; 99397

== ENCOUNTER 2023-11-25 10:45 | Outpatient (REF) | payer MEDICARE, SELFPAY ==
--- NOTE | ~2023-11-25 | XR_ITS ---
EXAMINATION: XR FEMUR, RIGHT CLINICAL INFORMATION: S72.142A - Displaced intertrochanteric fracture of left femur, initial e... COMPARISON: 11/01/2023, 06/30/2023, 09/11/2023, and dating back to CT of the right femur 07/29/2023. TECHNIQUE: AP and lateral views of the right femur were obtained. FINDINGS: Diffuse osteopenia redemonstrated. No acute fracture, dislocation, or suspicious bone lesion. Redemonstration of intramedullary tushar and femoral head compression screw in place, with 2 distal traversing the metaphyseal screws present. Hardware is intact, well seated, in anatomic alignment, without complication or evidence of periprosthetic complication. Fracture lines from the intertrochanteric nondisplaced hip fracture remaining extremely difficult to visualize, although there is bony periostitis and callus seen on the crosstable lateral projection. Fracture lines from the mildly comminuted spiral fracture of the mid diaphysis persist, although there is mild blunting and sclerosis of the fracture margins in comparison with the previous, suggesting continued interval healing. There is a mild amount of bony callus bridging the fracture gap. Stable anatomic alignment. Stable degenerative changes of the right hip joint. Right femoral head remains normal in contour. Soft tissues demonstrate vascular calcifications but are otherwise normal. XR/XR femur RT 2V IMPRESSION: 1. Right intertrochanteric hip fracture demonstrates stable alignment and evidence of bony healing. 2. ORIF of right right intertrochanteric fracture and femoral diaphyseal spiral fracture in stable alignment with evidence of continued healing. 3.. No hardware complication. Electronically signed by: Wander Johnson MD 01/31/2024 04:29 PM [facility]
== END 2023-11-25 10:46 | disposition home or self-care (01) ==
LOC: HO.HOSX 10:45
PROVIDERS: PCP Internal Medicine; Visit Provider Physician Assistant
DX: S72.001D Fracture of unspecified part of neck of right femur, subsequent encounter for closed fracture with routine healing (principal); S72.142A Displaced intertrochanteric fracture of left femur, initial encounter for closed fracture
CPT/HCPCS: 73552; 99212

== ENCOUNTER 2023-11-25 10:45 | Outpatient (AMB) | payer MEDICARE, SELFPAY ==
--- NOTE | 2023-11-25 11:03 | A.OFFVIS_ITS ---
Vital Signs 11/25/23 11:06 Height 5 ft 2 in Weight 98 lb BMI 17.9 Intake Visit Reasons: PO-IMN RT 07/30/23 NE last inj-09/29 Intake Note: Lisa a 73 year old female who presents today for a follow up of right hip IMN on 07/30/23 NE. Xrays updated. Patient reports she is doing well however she has a crunching in her hip with walking. States feels like bone on bone in her hip. Denies any recent injury. Allergies nortriptyline Allergy (Severe, Verified 11/25/23 11:11) hives bupropion Allergy (Intermediate, Verified 11/25/23 11:11) hives buspirone [From BuSpar] Allergy (Intermediate, Verified 11/25/23 11:11) Diarrhea high anxiety cefdinir Allergy (Intermediate, Verified 11/25/23 11:11) diarrhea and yeast ingection nitrofurantoin Allergy (Intermediate, Verified 11/25/23 11:11) heartburn; N/V penicillin V Allergy (Intermediate, Verified 11/25/23 11:11) Hives Sulfa (Sulfonamide Antibiotics) Allergy (Intermediate, Verified 11/25/23 11:11) Hives phenazopyridine [From Pyridium] Adverse Reaction (Mild, Verified 11/25/23 11:11) Diarrhea Myacin Allergy (Mild, Uncoded 11/25/23 11:11) Hives Medication List - Last Reconciled 11/25/23 by Aida Magaña PA-C amlodipine 5 mg PO DAILY atorvastatin 40 mg PO DAILY baclofen 10 mg PO BEDTIME buspirone 15 mg PO BID ibuprofen 800 mg PO Q8H PRN 30 days lisinopril 20 mg PO DAILY lorazepam 1 mg PO DAILY PRN magnesium oxide 400 mg PO .every other day metformin 1,000 mg PO DAILY mirtazapine 45 mg PO BEDTIME prazosin 1 mg PO BEDTIME sod phos di, mono-K phos mono 250 mg (Phospha Neutral) 1 tab PO DAILY trazodone 50 mg PO BEDTIME HPI HPI PO-IMN RT 07/30/23 NE last inj-09/29: Details: 73-year-old female who returns to the office today for post-op right hip IMN, 07/30/[address] Vera. She states she has no improvement since her last visit and experiences a crunching sensation with ambulation that feels like bone on bone in her hip. She denies any recent injury. She is doing well otherwise and has no concerns today. [facility] Medical History (Updated 11/07/23 @ 12:44 by Enriqueta Estrada MD) Dysuria Hyponatremia Annual physical exam COPD (chronic obstructive pulmonary disease) Depression Diabetes Alopecia Tobacco abuse CAD (coronary artery disease) Colon polyp Hyperlipidemia HTN (hypertension) Diabetic eye exam Anxiety and depression Surgical History H/O colonoscopy History of appendectomy History of oophorectomy Family History Father Diabetes mellitus Mother No problems noted. Son Myocardial infarction Social History Household Members: None [facility] Do you presently have visiting nurse or other home services: No Alcohol intake: current Alcohol intake frequency: 0-2 drinks per day Patient Tobacco Use Status: Current someday Tobacco user Tobacco use type: Cigarette Cigarettes Per Day: 5 Years Smoked: 50 e-Cigarette/Vaping Use: Never Used Second Hand Smoke Exposure: No service: No Current occupational status: retired Current occupational exposures/hazards: No Cognitive needs: No Hearing needs: No Vision needs: No Review of Systems Const All systems reviewed & are unremarkable except as noted in HPI and below Physical Exam Vital Signs: BMI result Body Mass Index 17.9 Extrem Other: Right hip: Normal to inspection, incision well healed. No pain with ROM of the hip. Pain along the greater trochanter. No pain with hip flexion or abduction. Negative tenderness along the SI joint, Negative SLR. NVI. Results Reviewed Results Reviewed: Xrays were obtained today and personally reviewed by me of the right hip show intact IMN with stable fracture pattern Assessment & Plan Assessment & Plan (1) Closed fracture of right hip: Comment: Intratrochanteric femur fracture, S/P ORIF 07/30/23 Dr. Vera Code(s): S72.001A - Fracture of unspecified part of neck of right femur, initial encounter for closed fracture Category: Medical Qualifiers: Encounter type: subsequent encounter Fracture healing: with routine healing Qualified Code(s): S72.001D - Fracture of unspecified part of neck of right femur, subsequent encounter for closed fracture with routine healing Plan Dr. Vera was available to see the patient with me today. ?I did stress the importance of glute strengthening to help with her gait pattern. She does have a cane at home and we recommend that she continues to use this if she has been walking long distances with a limp to avoid chronic limp pain. I would like to see her back in 3 months with new x-rays and reevaluation, sooner if needed. Orders: Orders XR femur RT 2V Today S72.142A - Displaced intertrochanteric fracture of left femur, initial encounter for closed fracture Patient Instructions: Scribed for Aida Magaña PA-C, by Uriah Canales medical lab scientist, on 11/25/2023 at 11:00 AM EST.? I, Aida Magaña PA-C, have personally reviewed and agree with the information entered by the scribe. Coding Level of Care Code Est Pt Level 3 (27647) Complex EM visit Add On G2211 Diagnoses Closed fracture of right hip with routine healing, subsequent encounter S72.001D Encounter type: subsequent encounter Fracture healing: with routine healing
[2023-11-25 11:06] VITALS: BMI 17.9
== END 2023-11-25 11:35 | disposition home or self-care (01) ==
PROVIDERS: PCP Internal Medicine; Visit Provider Physician Assistant
DX: S72.001D Fracture of unspecified part of neck of right femur, subsequent encounter for closed fracture with routine healing (principal)
CPT/HCPCS: 99213; G2211

== ENCOUNTER → 2023-11-25 11:01 | Outpatient (BNV) | payer MEDICARE, SELFPAY | PROVIDERS: PCP Internal Medicine; Visit Provider Radiology Diagnostic Radiology | DX: S72.142D Displaced intertrochanteric fracture of left femur, subsequent encounter for closed fracture with routine healing (principal) | CPT/HCPCS: 73552 ==

== ENCOUNTER 2023-12-17 10:24 | Outpatient (REF) | payer MEDICARE, SELFPAY ==
--- NOTE | ~2023-12-17 | XR_ITS ---
EXAMINATION: XR CHEST 2 VIEWS CLINICAL INFORMATION: Cough, unspecified R05.9. COMPARISON: XR Chest 07/29/2023 TECHNIQUE: 2 views of the chest were obtained. FINDINGS: There is hyperexpansion of the lung parenchyma consistent with underlying COPD. Apical fibrotic changes are seen. Cardiac silhouette is normal in size. Atherosclerotic wall calcifications in the thoracic aorta. No acute infiltrates or pleural effusions XR/XR chest 2V IMPRESSION: No acute process. Chronic changes as described above. Electronically signed by: Derrick Almendarez MD 02/06/2024 09:22 AM [facility]
== END 2023-12-17 10:25 | disposition home or self-care (01) ==
LOC: HO.HMGCX 10:24
PROVIDERS: PCP Internal Medicine; Visit Provider Internal Medicine
DX: R05.9 Cough, unspecified (principal)
CPT/HCPCS: 71046

== ENCOUNTER 2023-12-27 09:24 | Outpatient (AMB) | payer MEDICARE, SELFPAY ==
--- NOTE | 2023-12-27 09:37 | A.OFFPC_ITS ---
Vital Signs 12/27/23 09:38 Height 5 ft 2 in Weight 100 lb BMI 18.3 BP 134/70 Blood Pressure Location Lt brachial Position Sitting Pulse 110 H Pulse Source Pulse Oximeter Pulse Oximetry (%) 95 Oxygen Delivery Method Room Air Intake Visit Reasons: 1MoBp Intake Note: Pt is here today for 1 month follow up visit on BP. Allergies nortriptyline Allergy (Severe, Verified 12/27/23 09:39) hives bupropion Allergy (Intermediate, Verified 11/25/23 11:11) hives buspirone [From BuSpar] Allergy (Intermediate, Verified 12/27/23 09:39) Diarrhea high anxiety cefdinir Allergy (Intermediate, Verified 12/27/23 09:39) diarrhea and yeast ingection nitrofurantoin Allergy (Intermediate, Verified 12/27/23 09:39) heartburn; N/V penicillin V Allergy (Intermediate, Verified 12/27/23 09:39) Hives Sulfa (Sulfonamide Antibiotics) Allergy (Intermediate, Verified 12/27/23 09:39) Hives duloxetine Adverse Reaction (Intermediate, Verified 12/27/23 10:49) Diarrhea prazosin Adverse Reaction (Intermediate, Verified 12/27/23 10:10) Diarrhea phenazopyridine [From Pyridium] Adverse Reaction (Mild, Verified 12/27/23 09:39) Diarrhea Myacin Allergy (Mild, Uncoded 12/27/23 09:39) Hives prazosin Adverse Reaction (Intermediate, Uncoded 12/27/23 10:49) Diarrhea Medication List - Last Reconciled 12/27/23 by Enriqueta Estrada MD amlodipine 5 mg PO DAILY atorvastatin 40 mg PO DAILY baclofen 10 mg PO BEDTIME buspirone 15 mg PO BID ibuprofen 800 mg PO Q8H PRN 30 days lisinopril 20 mg PO DAILY lorazepam 1 mg PO DAILY PRN magnesium oxide 400 mg PO .every other day metformin 1,000 mg PO DAILY mirtazapine 45 mg PO BEDTIME sod phos di, mono-K phos mono 250 mg (Phospha Neutral) 1 tab PO DAILY trazodone 50 mg PO BEDTIME Tobacco use date assessed: 11/07/23 Dental Screening Dental Screen Date: 09/27/23 HPI 1MoBp HPI Details Pt presents for f/u HTN, hyperlipid, DM 2, stable on meds. Pt reports worsening anxiety after upsetting conversation with her twin sister and has OV with PA next week. Patient is established with a counselor [facility] Medical History Dysuria Hyponatremia Annual physical exam COPD (chronic obstructive pulmonary disease) Depression Diabetes Alopecia Tobacco abuse CAD (coronary artery disease) Colon polyp Hyperlipidemia HTN (hypertension) Diabetic eye exam Anxiety and depression Surgical History H/O colonoscopy History of appendectomy History of oophorectomy Family History Father Diabetes mellitus Mother No problems noted. Son Myocardial infarction Social History Household Members: None Housing: Condominium Do you presently have visiting nurse or other home services: No Alcohol intake: current Alcohol intake frequency: 0-2 drinks per day Patient Tobacco Use Status: Current someday Tobacco user Tobacco use type: Cigarette Cigarettes Per Day: 5 Years Smoked: 50 e-Cigarette/Vaping Use: Never Used Second Hand Smoke Exposure: No service: No Current occupational status: retired Current occupational exposures/hazards: No Cognitive needs: No Hearing needs: No Vision needs: No Questionnaire PHQ-9 Over the last 2 weeks, how often have you been bothered by any of the following problems? 1. Little interest or pleasure in doing things: several days 2. Feeling down, depressed, or hopeless: several days 3. Trouble falling or staying asleep, or sleeping too much: several days 4. Feeling tired or having little energy: several days 5. Poor appetite or overeating: not at all 6. Feeling bad about yourself - or that you are a failure or have let yourself or your family down: not at all 7. Trouble concentrating on things, such as reading the newspaper or watching television: not at all 8. Moving or speaking so slowly that other people could have noticed. Or the opposite - being so fidgety or restless that you have been moving around a lot more than usual: not at all 9. Thoughts that you would be better off or of hurting yourself in some way: not at all Total score: 4 Depression Screening Interpretation: Negative Depression Screening Done: Yes 46511 - PHQ-9 Billing: Yes Source: Developed by Drs. Kendell Chaney, Mary Curtis, Jordan Brandt and colleagues, with an educational collin from [employer]. Thrive Questionnaire Date Thrive assessed: 09/20/23 I am a: Patient What is your living situation today?: I have a steady place to live Within the past 12 months, did the food you bought not last and you didn't have the money to get more?: Never true Within the past 12 months, did you worry whether your food would run out before you got money to buy more?: Never true Do you have trouble paying for medicines?: No Do you have trouble getting transportation to medical appointments?: No Do you have trouble paying your heating and electricity bill?: No Do you have trouble taking care of your child, family member or friend?: No Do you have trouble with day-to-day activities such as bathing, preparing meals, shopping, managing finances, etc.?: No Are you currently unemployed and looking for a job?: No Are you interested in more education?: No Please select the resources that you would like help with: None Currently or been in a relationship where the following occur: No concerns reported THRIVE Score: 0 AMERICA-7 AMB Questionnaire AMERICA-7 Date AMERICA - 7 assessed: 11/07/23 Source: Developed by Drs. Kendell Chaney, Mary Curtis, Jordan Brandt and colleagues, with an educational collin from [employer]. Review of Systems Const All systems reviewed & are unremarkable except as noted in HPI and below Eyes Reports no additional complaints ENT Reports no additional complaints Card Reports no additional complaints Resp Reports no additional complaints GI Reports no additional complaints Physical exam (Primary Care) Vital Signs: Last Vital Signs Pulse 110 H 12/27/23 09:38 BP 134/70 12/27/23 09:38 Pulse Ox 95 12/27/23 09:38 Oxygen Delivery Method Room Air 12/27/23 09:38 BMI result Body Mass Index 18.3 Tobacco/Smoking Status: Tobacco use Status Tobacco use date assessed 11/07/23 12/27/23 09:38 Patient Tobacco Use Status Current someday Tobacco 12/27/23 09:38 Tobacco use type Cigarette 12/27/23 09:38 e-Cigarette/Vaping Use Never Used 12/27/23 09:38 PHQ-9: PHQ-9 Score PHQ-9: Total score 4 12/27/23 09:47 Depression Screening Interpretation: Negative Thrive Assessment: Date of Thrive Assessment Date Thrive assessed 09/20/23 12/27/23 09:38 Currently or been in a relationship where the following occur: No concerns r eported Const General: no acute distress HENMT Head: Yes normal to inspection Neck Neck: Yes supple Resp Effort & Inspection: normal respiratory effort Auscultation: clear to auscultation bilaterally Cardio Rhythm: regular rhythm Heart sounds: S1 normal heart sound present and S2 normal heart sound present GI Inspection: Yes normal to inspection Palpation (GI): Soft to palpation Percussion: Yes normal to percussion Auscultation: normal bowel sounds Coding Level of Care Code Est Pt Level 4 (30475) Complex EM visit Add On G2211 Diagnoses Anxiety and depression F41.9; F32.9 HTN (hypertension) I10 Diabetes E11.9 COPD (chronic obstructive pulmonary disease) J44.9 Assessment & Plan Assessment & Plan (1) Anxiety and depression: Comment: PTSD , f/u with therapist and psychiatric PA Code(s): F41.9 - Anxiety disorder, unspecified; F32.9 - Major depressive disorder, single episode, unspecified Category: Medical Plan: Continue medications and follow-up with psychiatric PA, stress management mindfulness regular physical activity discussed with the patient (2) HTN (hypertension): Comment: Hydrochlorothiazide caused hyponatremia Code(s): I10 - Essential (primary) hypertension Category: Medical Plan: Continue current medications (3) Diabetes: Comment: Patient declined taking medications other than metformin Code(s): E11.9 - Type 2 diabetes mellitus without complications Category: Medical Plan: A1c is 7.5, ADA diet increase exercise discussed with the patient (4) COPD (chronic obstructive pulmonary disease): Comment: Tobacco quitting discussed with the patient. Due for CT scan in February 16 Code(s): J44.9 - Chronic obstructive pulmonary disease, unspecified Category: Medical Plan: Follow-up with lung cancer screening program Orders: Orders Comprehensive Garrett. Panel Fast 3 Months E11.9 - Type 2 diabetes mellitus without complications, F32.9 - Major depressive disorder, single episode, unspecified, F41.9 - Anxiety disorder, unspecified, I10 - Essential (primary) hypertension, J44.9 - Chronic obstructive pulmonary disease, unspecified Complete Blood Count Auto Diff 3 Months E11.9 - Type 2 diabetes mellitus without complications, F32.9 - Major depressive disorder, single episode, unspecified, F41.9 - Anxiety disorder, unspecified, I10 - Essential (primary) hypertension, J44.9 - Chronic obstructive pulmonary disease, unspecified Lipid Panel 3 Months E11.9 - Type 2 diabetes mellitus without complications, F32.9 - Major depressive disorder, single episode, unspecified, F41.9 - Anxiety disorder, unspecified, I10 - Essential (primary) hypertension, J44.9 - Chronic obstructive pulmonary disease, unspecified Hemoglobin A1c 3 Months E11.9 - Type 2 diabetes mellitus without complications, F32.9 - Major depressive disorder, single episode, unspecified, F41.9 - Anxiety disorder, unspecified, I10 - Essential (primary) hypertension, J44.9 - Chronic obstructive pulmonary disease, unspecified Microalbumin, Random (w Creat) 3 Months E11.9 - Type 2 diabetes mellitus without complications, F32.9 - Major depressive disorder, single episode, unspecified, F41.9 - Anxiety disorder, unspecified, I10 - Essential (primary) hypertension, J44.9 - Chronic obstructive pulmonary disease, unspecified TSH reflex Free T4 3 Months E11.9 - Type 2 diabetes mellitus without complications, F32.9 - Major depressive disorder, single episode, unspecified, F41.9 - Anxiety disorder, unspecified, I10 - Essential (primary) hypertension, J44.9 - Chronic obstructive pulmonary disease, unspecified Medications: Refilled atorvastatin 40 mg PO DAILY 90 tabs 3RF lisinopril 20 mg PO DAILY 90 tabs 3RF amlodipine 5 mg PO DAILY 90 tabs 3RF
[2023-12-27 09:38] VITALS: BP 134/70; PULSE 110; O2SAT 95; BMI 18.3
== END 2023-12-27 10:57 | disposition home or self-care (01) ==
PROVIDERS: PCP Internal Medicine; Visit Provider Internal Medicine
DX: E11.9 Type 2 diabetes mellitus without complications (principal); J44.9 Chronic obstructive pulmonary disease, unspecified; F41.9 Anxiety disorder, unspecified; F32.9 Major depressive disorder, single episode, unspecified; I10 Essential (primary) hypertension

== ENCOUNTER → 2023-12-27 09:24 | Outpatient (BNVA) | payer MEDICARE, SELFPAY | PROVIDERS: PCP Internal Medicine; Visit Provider Internal Medicine | DX: F41.9 Anxiety disorder, unspecified (principal); F32.9 Major depressive disorder, single episode, unspecified; I10 Essential (primary) hypertension; E11.9 Type 2 diabetes mellitus without complications; J44.9 Chronic obstructive pulmonary disease, unspecified | CPT/HCPCS: 99212 ==

== ENCOUNTER 2024-02-05 08:02 | Outpatient (AMB) | payer MEDICARE, SELFPAY ==
[2024-02-05 08:48] VITALS: BP 168/100; PULSE 95; TEMP 36.2; O2SAT 97; BMI 18.5
--- NOTE | 2024-02-05 08:48 | MHC.OFFWIV ---
Intake Vital Signs 02/05/24 08:48 Height 5 ft 2 in Weight 101 lb 6 oz BMI 18.5 BP 168/100 H Blood Pressure Location Rt brachial Position Sitting Pulse 95 Pulse Source Pulse Oximeter Temp 97.2 F Temp Source Temporal Artery Scan Pulse Oximetry (%) 97 Oxygen Delivery Method Room Air Intake Visit Reasons: EP Tailbone pain Intake Note: Pt presents to the office today for tailbone pain that started about 2.5 weeks ago after missing a step and falling on a step. Pt states she is very anxious. Patient Tobacco Use Status: Current someday Tobacco user Allergies nortriptyline Allergy (Severe, Verified 02/05/24 08:53) hives bupropion Allergy (Intermediate, Verified 02/05/24 08:53) hives buspirone [From BuSpar] Allergy (Intermediate, Verified 02/05/24 08:53) Diarrhea high anxiety cefdinir Allergy (Intermediate, Verified 02/05/24 08:53) diarrhea and yeast ingection nitrofurantoin Allergy (Intermediate, Verified 02/05/24 08:53) heartburn; N/V penicillin V Allergy (Intermediate, Verified 02/05/24 08:53) Hives Sulfa (Sulfonamide Antibiotics) Allergy (Intermediate, Verified 02/05/24 08:53) Hives duloxetine Adverse Reaction (Intermediate, Verified 02/05/24 08:53) Diarrhea prazosin Adverse Reaction (Intermediate, Verified 02/05/24 08:53) Diarrhea phenazopyridine [From Pyridium] Adverse Reaction (Mild, Verified 02/05/24 08:53) Diarrhea Myacin Allergy (Mild, Uncoded 02/05/24 08:53) Hives prazosin Adverse Reaction (Intermediate, Uncoded 02/05/24 08:53) Diarrhea HPI HPI Comments History of Present Illness Details History of Present Illness The patient is a 73-year-old female presenting with persistent tailbone pain following a fall. Approximately two and a half weeks ago, the patient missed a step, resulting in direct impact on her coccyx. Since the incident, she reports significant pain, which has not improved over time. The pain is severe, leading her to take ibuprofen, 600 mg every four hours, with minimal relief. The patient notes that the pain is so intense it can cause her to cry. She has not sought previous medical evaluation or imaging for this injury. Morning stiffness and warm sensations at the site of injury are noted. The current medication regimen includes ibuprofen, with a medical history of hypertension and hyperlipidemia, currently managed with amlodipine and atorvastatin. Baclofen, intended for muscle spasms, has been ineffective in providing relief. Physical Exam General: Cooperative, healthy appearing, comfortable, no acute distress and well developed Orientation: Patient oriented x3 Limitations: No limitations Head: Normal to inspection Ears: Hearing grossly normal bilaterally Nose: Normal external nose present Face and sinus: Normal facial exam Eyes: Appearance normal, both eyes and all related structures Neck: Normal visual inspection and Yes full ROM Respiratory: Normal respiratory effort and able to speak in complete sentences. Skin: No rashes or lesions noted Neuro: Patient oriented x3 Extremities: Normal to inspection [facility] Medical History Dysuria Hyponatremia Annual physical exam COPD (chronic obstructive pulmonary disease) Depression Diabetes Alopecia Tobacco abuse CAD (coronary artery disease) Colon polyp Hyperlipidemia HTN (hypertension) Diabetic eye exam Anxiety and depression Surgical History H/O colonoscopy History of appendectomy History of oophorectomy Family History Father Diabetes mellitus Mother No problems noted. Son Myocardial infarction Social History Household Members: None Housing: Condominium Do you presently have visiting nurse or other home services: No Alcohol intake: current Alcohol intake frequency: 0-2 drinks per day Patient Tobacco Use Status: Current someday Tobacco user Tobacco use type: Cigarette Cigarettes Per Day: 5 Years Smoked: 50 e-Cigarette/Vaping Use: Never Used Second Hand Smoke Exposure: No service: No Current occupational status: retired Current occupational exposures/hazards: No Cognitive needs: No Hearing needs: No Vision needs: No Review of Systems Const All systems reviewed & are unremarkable except as noted in HPI and below Physical Exam Vital Signs: Last Vital Signs Temp 97.2 F 02/05/24 08:48 Pulse 95 02/05/24 08:48 BP 168/100 H 02/05/24 08:48 Pulse Ox 97 02/05/24 08:48 Oxygen Delivery Method Room Air 02/05/24 08:48 BMI result Body Mass Index 18.5 Assessment & Plan Assessment & Plan (1) Coccygeal pain, acute: Code(s): M53.3 - Sacrococcygeal disorders, not elsewhere classified Plan: Plan - Coccygeal contusion: An X-ray of the coccyx has been ordered to evaluate any potential fractures. The patient was instructed to begin taking meloxicam 15 mg daily for three to four days to manage inflammation and pain, with explicit instructions not to take ibuprofen concomitantly. The patient was advised regarding potential kidney risks with NSAID use. Additionally, application of topical agents such as lidocaine patches, salonpas patches, or natural remedies like [place] balm were suggested for adjunct pain relief. The use of ice packs was also recommended for symptomatic relief. Close monitoring and reevaluation of pain and function after completion of the medication course were discussed. My interpretation of the x-ray is that there is no fracture or other acute issue. If the radiologist read defers, we will call the patient. Reviewed this with the patient Patient was informed and verbally consented to the use of an ambient scribe for clinic note documentation during this visit. Orders: Orders XR sacrum coccyx min 2V Today M53.3 - Sacrococcygeal disorders, not elsewhere classified Medications: New meloxicam 15 mg PO DAILY 10 tabs 0RF Coding Level of Care Code Est Pt Level 4 (99427) Diagnoses Coccygeal pain, acute M53.3
--- OUTSIDE RECORDS SUMMARY | 2024-02-05 22:58 | XMS_ITS | Data Portability ---
Author Organization [facility], [address] Address [address] [place] [address] Care Team Providers Care Assistant Housekeeping Manager Name Role Phone ALEJANDRO GARZA Primary Care Provider [phone] Assessment No assessment recorded. Plan of Treatment Reminders Order Date Submit Date Provider Last Modified By Organization Details Last Modified Time Details Appointments None recorded. Lab urinalysis , dipstick 2022 023 [facility] [address], [address], 17:39:55 culture, urine 2022 023 [email or web address] [facility], [address] [place] [address], [place], [address], 17:48:25 Referral None recorded. Procedures None recorded. Surgeries None recorded. Imaging None recorded. Medication Orders Cipro 500 mg tablet 2022 023 [id number], [address] [place], [place], [phone], 17:44:32 Patient TargetsNo targets recorded. Patient InstructionsNo instructions recorded. Reason for Referral None Reported. Results Created Date Observation Date Name Description Value Unit Range Abnormal Flag Note LastModifiedBy Organization Detail LastModifiedTime 05/04/19 23 05/05/2022 URINE CULTU RE, ROUTI NE urine culture, routine FINAL REPORT Not Available [facility] ([facility]) [address] [facility], [place], [address], 05/05/2022 06:07:23 05/04/19 23 05/05/2022 URINE CULTU RE, ROUTI NE result 1 NO GROWTH Not Available [facility] ([facility]) [address] [facility], [place], [address], 05/05/2022 06:07:23 05/04/19 23 05/03/2022 urina lysis , dipst ick Unknown Analyte Normal = light yellow Not Available [facility], [place], [address], 05/03/2022 16:43:07 05/04/19 23 05/03/2022 urina lysis , dipst ick Unknown Analyte Yellow Not Available [address] [place], [address], 05/03/2022 16:43:07 05/04/19 23 05/03/2022 urina lysis , dipst ick Unknown Analyte Normal = clear Not Available [address], [place], [address], 05/03/2022 16:43:07 05/04/19 23 05/03/2022 urina lysis , dipst ick Unknown Analyte Clear Not Available [address], [place], [address], 05/03/2022 16:43:07 05/04/19 23 05/03/2022 urina lysis , dipst ick Unknown Analyte Normal = negati ve Not Available [address], [place], [address], 05/03/2022 16:43:07 05/04/19 23 05/03/2022 urina lysis , dipst ick Unknown Analyte Negati ve Not Available [address], [place], [address], 05/03/2022 16:43:07 05/04/19 23 05/03/2022 urina lysis , dipst ick Unknown Analyte Normal = Negati ve Not Available 2099aarti bueno [address], [place], [address], 05/03/2022 16:43:07 05/04/19 23 05/03/2022 urina lysis , dipst ick Unknown Analyte Negati ve Not Available [address] [place] [address], [place], [address], 05/03/2022 16:43:07 05/04/19 23 05/03/2022 urina lysis , dipst ick Unknown Analyte Normal = Negati ve Not Available [address] [place] [address], [place], [address], 05/03/2022 16:43:07 05/04/19 23 05/03/2022 urina lysis , dipst ick Unknown Analyte Trace Not Available [address] [place] [address], [place], [address], 05/03/2022 16:43:07 05/04/19 23 05/03/2022 urina lysis , dipst ick Unknown Analyte Normal = 1.010, 1.015, 1.020 Not Available [address] [place] [address], [place], [address], 05/03/2022 16:43:07 05/04/19 23 05/03/2022 urina lysis , dipst ick Unknown Analyte 1.030 Not Available [address] [place] [address], [place], [address], 05/03/2022 16:43:07 05/04/19 23 05/03/2022 urina lysis , dipst ick Unknown Analyte Normal = Negati ve Not Available aarti bueno [address], [place], [address], 05/03/2022 16:43:07 05/04/19 23 05/03/2022 urina lysis , dipst ick Unknown Analyte Negati ve Not Available aarti bueno [address], [place], [address], 05/03/2022 16:43:07 05/04/19 23 05/03/2022 urina lysis , dipst ick Unknown Analyte Normal = 6.5, 7.0, 7.5, 8.0 Not Available aarti bueno [address], [place], [address], 05/03/2022 16:43:07 05/04/19 23 05/03/2022 urina lysis , dipst ick Unknown Analyte 7.0 Not Available [address], [place], [address], 05/03/2022 16:43:07 05/04/19 23 05/03/2022 urina lysis , dipst ick Unknown Analyte Normal = Negati ve Not Available aarti bueno [address], [place], [address], 05/03/2022 16:43:07 05/04/19 23 05/03/2022 urina lysis , dipst ick Unknown Analyte 30 mg/dL Not Available aarti bueno [address], [place], [address], 05/03/2022 16:43:07 05/04/19 23 05/03/2022 urina lysis , dipst ick Unknown Analyte Normal = 0.2, 1.0 Not Available [facility] [address], [place], [address], 05/03/2022 16:43:07 05/04/19 23 05/03/2022 urina lysis , dipst ick Unknown Analyte 0.2 E.U./d L Not Available 2099aarti bueno [address], [place], [address], 05/03/2022 16:43:07 05/04/19 23 05/03/2022 urina lysis , dipst ick Unknown Analyte Normal = Negati ve Not Available [facility] [address], [place], [address], 05/03/2022 16:43:07 05/04/19 23 05/03/2022 urina lysis , dipst ick Unknown Analyte Negati ve Not Available [address] [place] [address], [place], [address], 05/03/2022 16:43:07 05/04/19 23 05/03/2022 urina lysis , dipst ick Unknown Analyte Normal = Negati ve Not Available [address] [place] [address], [place], [address], 05/03/2022 16:43:07 05/04/19 23 05/03/2022 urina lysis , dipst ick Unknown Analyte Negati ve Not Available [address] [place] [address], [place], [address], 05/03/2022 16:43:07 Result Notes None recorded. Problems Name Problem SNOMED Code Status Onset Date Resolution Date Notes Provider Name and Address Organization Details Recorded Time Diabetes mellitus 49176713 Active 2022 JIMChioma santos PA - [facility] 16:53:49 Depressive disorder 19150738 Active 2022 JIMChioma santos, PA - [facility] 16:53:54 Hypertensive disorder 51638493 Active 2022 JIM LEMUSZechariah tom, PA - [facility] 3 16:54:04 Hypercholestero lemia 88038512 Active 2022 JIM santos, PA - [facility] 3 16:54:16 Problem Notes None recorded. Procedures Surgical History Date Name Laterality Status Provider Name and Address Organization Details Recorded Time appendectomy completed JIM LEMUSZechariah PA - [facility] 05/03/2022 16:55:15 Imaging Results None recorded. Procedure Notes None recorded. Medical Equipment None Reported. Allergies Allergen ID Allergen Name Allergen Category Reaction Reaction Severity Criticality Documentation Date Start Date Code Code System Note Provider Name and Address Organization Details Recorded Time 845695 Medicinal product containin g penicilli n and acting as antibacte rial agent (product) medicatio n hives severe Not available 05/03/2022 29013 05 SNOMED any Cilin s JIM LEMUSZechariah tom, PA - [facility] 3 16:51:18 374662 clindamyc in Not available hives severe Not available 05/03/2022 2582 RxNorm any MYACI NS JIM LEMUSO null, PA - [facility] 3 16:51:37 Medications Name Sig Start Date Stop Date Status Note LastModified by Organization Details LastModified Time quetiapine 25 mg tablet TAKE 1 TABLET BY MOUTH AT BEDTIME 05/03 completed Not Available Not Available Not Available atorvastati n 40 mg tablet TAKE 1 TABLET BY MOUTH DAILY active Not Available Not Available No t Available buspirone 5 mg tablet TAKE 1 TABLET BY MOUTH TWICE DAILY active Not Available Not Available No t Available megestrol 400 mg/10 mL (40 mg/mL) oral suspension active Not Available Not Available N ot Available trazodone 50 mg tablet TAKE 1 TABLET BY MOUTH AT BEDTIME NEEDED FOR INSOMNIA active Not Available Not Available No t Available lisinopril 20 mg-hydrochl orothiazide 12.5 mg tablet TAKE 1 TABLET BY MOUTH TWICE DAILY active Not Available Not Available No t Available clonazepam 0.5 mg tablet TAKE 1 TABLET BY MOUTH EVERY NIGHT AT BEDTIME AND 30 MINUTES BEFORE BEDTIME 05/03 completed Not Available Not Available Not Available gabapentin 400 mg capsule TAKE 1 CAPSULE BY MOUTH THREE TIMES DAILY 05/03 completed Not Available Not Available Not Available ciprofloxac in 500 mg tablet TAKE 1 TABLET BY MOUTH EVERY 12 HOURS FOR 7 DAYS active Not Available Not Available No t Available magnesium oxide 400 mg (241.3 mg magnesium) tablet TAKE 1 TABLET BY MOUTH TWICE DAILY active Not Available Not Available No t Available lorazepam 0.5 mg tablet TAKE 1 TABLET BY MOUTH EVERY DAY NEEDED active Not Available Not Available No t Available trazodone 100 mg tablet active Not Available Not Available Not Available mirtazapine 30 mg tablet TAKE 1 TABLET BY MOUTH AT BEDTIME active Not Available Not Available No t Available metformin 1,000 mg tablet TAKE 1 TABLET BY MOUTH DAILY active Not Available Not Available No t Available buspirone 10 mg tablet TAKE 1 TABLET BY MOUTH TWICE DAILY active Not Available Not Available No t Available gabapentin 300 mg capsule TAKE 1 CAPSULE BY MOUTH EVERY DAY AT BEDTIME 05/03 completed Not Available Not Available Not Available mirtazapine 45 mg tablet TAKE 1 TABLET BY MOUTH AT BEDTIME active Not Available Not Available No t Available metoprolol succinate ER 25 mg tablet,exte nded release 24 hr TAKE 1 TABLET BY MOUTH DAILY active Not Available Not Available No t Available lorazepam 1 mg tablet TAKE 1 TABLET BY MOUTH EVERY DAY NEEDED active Not Available Not Available No t Available albuterol sulfate HFA 90 mcg/actuati on aerosol inhaler INHALE 2 PUFFS BY MOUTH EVERY 6 HOURS NEEDED FOR SHORTNESS OF BREATH OR WHEEZING active Not Available Not Available No t Available buspirone 15 mg tablet TAKE 1 TABLET BY MOUTH TWICE DAILY active Not Available Not Available No t Available duloxetine 30 mg capsule,del ayed release TAKE 1 CAPSULE BY MOUTH EVERY NIGHT active Not Available Not Available No t Available duloxetine 60 mg capsule,del ayed release TAKE 1 CAPSULE BY MOUTH EVERY NIGHT active Not Available Not Available No t Available Phosphorous 250 mg tablet TAKE 1 TABLET BY MOUTH EVERY DAY active Not Available Not Available No t Available Vitals Date Recorded Body weight Body mass index (BMI) Body height Oxygen saturation Oxygen saturation in Arterial blood by Pulse oximetry Heart rate Respiratory rate Body temperature Systolic blood pressure Diastolic blood pressure Provider Name and Address Organization Details Last Updated DateTime 3 81254.6 8 g 17.2 kg/m2 157.48 cm 96 % 96 % 61 /min 18 /min 97.6 [degF] 165 mm[Hg] 89 mm[Hg] JIM CAZARESINTO PA - [facility] 16:56:37 Social History Question Answer Notes LastModified by Organizat ion Details LastModified Time Tobacco Smoking Status Current Every Day Smoker JIM DEPINTO null, PA - [facility] 05/03/2022 16:55:04 What Is Your Level Of Alcohol Consumption? Occasional Information not available 05/03/2022 How Many Times Per Week Do You Consume Alcohol? Less Than 1 Time Per Week Information not available 05/03/2022 How Much Tobacco Do You Smoke? 0.5 PPD Information not available 05/03/2022 Do You Use Any Illicit Or Recreational Drugs? No Information not available 05/03/2022 Have You Recently Traveled Abroad? No Information not available 05/03/2022 Do You Or Have You Ever Used Any Other Forms Of Tobacco Or Nicotine? No Information not available 05/03/2022 Sex: Unknown Functional Status None recorded. Mental Status None recorded. Family History Relationship Description Onset Age of this Age Resolved Age Notes LastModified by Organization Details LastModified Time Father No current problems or disability Not available 05/03 16:54:31 Mother No current problems or disability Not available 05/03 16:54:31 Medical History No medical history recorded. Gynecological HistoryNo gynecological history recorded. Obstetrics History GPAL:G 0 P 0 0 0 0 Immunizations Vaccine Type Date Status Note Provider Nam e and Address Organization Details Recorded Time COVID-19, mRNA, LNP-S, PF, 30 mcg/0.3 mL dose 04/28/2020 completed JIM DEPINTO null, PA - [facility] 05/03/2022 16:50:20 COVID-19, mRNA, LNP-S, PF, 30 mcg/0.3 mL dose 05/19/2020 completed JIM DEPINTO null, PA - [facility] 05/03/2022 16:50:20 COVID-19, mRNA, LNP-S, PF, 30 mcg/0.3 mL dose 12/19/2020 completed JIM DEPINTO null, PA - [facility] 05/03/2022 16:50:20 COVID-19, mRNA, LNP-S, PF, 30 mcg/0.3 mL dose, dionicio-sucrose 09/25/2021 completed JIM DEPINTO null, PA - [facility] 05/03/2022 16:50:20 COVID-19, mRNA, LNP-S, bivalent, PF, 30 mcg/0.3 mL dose 11/30/2021 completed JIM DEPINTO null, PA - [facility] 05/03/2022 16:50:20 Influenza, high-dose, trivalent, PF 12/03/2018 completed JIM DEPINTO null, PA - [facility] 05/03/2022 16:50:20 Influenza, high-dose, trivalent, PF 12/17/2017 completed JIM DEPINTO null, PA - [facility] 05/03/2022 16:50:20 Influenza, split virus, quadrivalent, PF 11/23/2020 completed JIM DEPINTO null, PA - [facility] 05/03/2022 16:50:20 Influenza, split virus, quadrivalent, PF 11/26/2019 completed JIM DEPINTO null, PA - [facility] 05/03/2022 16:50:20 Influenza, split virus, quadrivalent, PF 11/30/2021 completed JIM DEPINTO null, PA - [facility] 05/03/2022 16:50:20 Past Encounters Encounter ID Performer Location Encounter Start Date Encounter Closed Date Diagnosis/Indication Diagnosis SNOMED-CT Code Diagnosis ICD10 Code [id number] [address] [address] 03/29/2019 16:22:45 03/29/2019 17:15:55 [id number] [address] [address] 07/08/2020 08:04:25 07/08/2020 08:54:10 [id number] [address] [address] 03/21/2021 08:27:01 03/21/2021 11:18:36 [id number] [address] [facility] [place] [address] 07/30/2020 08:42:17 07/30/2020 09:17:52 [id number] [address] [facility] [place] [address] 03/18/2021 09:06:47 03/18/2021 11:37:54 [id number] [address] [facility] [place] [address] 10/30/2018 19:03:07 10/30/2018 19:47:52 [id number] FABIOLA ALVARADO MD [address] [facility] [place] [address] 05/03/2022 14:44:23 05/03/2022 17:57:13 Increased frequency of urination 459266295 R35.0 Health Concerns Section Related Observation LastModified by Organization Detai ls LastModified Time None Recorded Concern Status LastModified by Organization Details LastModified Time None Recorded Advance Directives Directive None Recorded Payers Encounter Date Sequence Insurance Name Policy Number Policy Herrera Covered Member ID Herrera Member ID Guarantor Name 07/08/2020 1 [facility] (MEDICARE REPLACEMENT/A DVANTAGE - HMO) [id number] Lisa Dangelo [id number] Lisa Dangelo 07/30/2020 1 [facility] (MEDICARE REPLACEMENT/A DVANTAGE - HMO) [id number] Lisa Dangelo [id number] Lisa Dangelo 03/18/2021 1 [facility] (MEDICARE REPLACEMENT/A DVANTAGE - HMO) [id number] Lisa Dangelo [id number] Lisa Dangelo 03/21/2021 1 [facility] (MEDICARE REPLACEMENT/A DVANTAGE - HMO) [id number] Lisa Dangelo [id number] Lisa Dangelo 05/03/2022 1 [facility] (MEDICARE REPLACEMENT/A DVANTAGE - HMO) [id number] Lisa Dangelo [id number] Lisa Dangelo Notes Date Note Type Note Provider Name and Address Organization Details Recorded Time 05/03/2022 text/html Urinary Complain t FemaleReported bypatient.UTI Symptoms:no pain in the flank; no fever/chills; no incontinence;urgency ;urinary frequency;abdominal pain;recurrent UTI Severity:moderate Duration:started today Modifying Factors:Cipro FABIOLA ALVARADO MD [address] [place], [address], PA - [facility] 05/03/2022 17:48:05 OBGyn Episode No OBEpisode recorded.
== END 2024-02-05 09:55 | disposition home or self-care (01) ==
PROVIDERS: PCP Internal Medicine; Visit Provider Physician Assistant
DX: M53.3 Sacrococcygeal disorders, not elsewhere classified (principal)

== ENCOUNTER 2024-03-31 06:26 | Outpatient (REF) | payer MEDICARE, SELFPAY ==
--- OUTSIDE RECORDS SUMMARY | 2024-03-31 06:28 | XMS_ITS | Data Portability ---
Author Organization [facility], [address] Address [address] [place] [address] Care Team Providers Care Power Electronics Engineer Name Role Phone ALEJANDRO GARZA Primary Care Provider [phone] Assessment No assessment recorded. Plan of Treatment Reminders Order Date Submit Date Provider Last Modified By Organization Details Last Modified Time Details Appointments None recorded. Lab [facility]inalysis , dip[facility]22 [facility]23 [facility] [address], [address], 17:39:55 culture, urine 2022 023 [email or web address] [facility] [address] [place] [address], [place], [address], 17:48:25 Referral None recorded. Procedures None recorded. Surgeries None recorded. Imaging None recorded. Medication Orders Cipro 500 mg tablet 2022 023 [id number], [address], [place], [id number], 17:44:32 Patient TargetsNo targets recorded. Patient InstructionsNo instructions recorded. Reason for Referral None Reported. Results Created Date Observation Date Name Description Value Unit Range Abnormal Flag Note LastModifiedBy Organization Detail LastModifiedTime 05/04/19 23 05/05/2022 URINE CULTU RE, ROUTI NE urine culture, routine FINAL REPORT Not Available [facility] ([facility]) [address] [facility], [place], [address], 05/05/2022 06:07:23 05/04/19 23 05/05/2022 URINE CULTU RE, ROUTI NE result 1 NO GROWTH Not Available [facility] ([facility]) [address] [facility], [place], [address], 05/05/2022 06:07:23 05/04/19 23 05/03/2022 urina lysis , dipst ick Unknown Analyte Normal = light yellow Not Available [facility], [place], [address], 05/03/2022 16:43:07 05/04/19 23 05/03/2022 urina lysis , dipst ick Unknown Analyte Yellow Not Available [address] [place], [address], 05/03/2022 16:43:07 05/04/19 23 05/03/2022 urina lysis , dipst ick Unknown Analyte Normal = clear Not Available [address], [place], [address], 05/03/2022 16:43:07 05/04/19 23 05/03/2022 urina lysis , dipst ick Unknown Analyte Clear Not Available [address], [place], [address], 05/03/2022 16:43:07 05/04/19 23 05/03/2022 urina lysis , dipst ick Unknown Analyte Normal = negati ve Not Available [address], [place], [address], 05/03/2022 16:43:07 05/04/19 23 05/03/2022 urina lysis , dipst ick Unknown Analyte Negati ve Not Available [address], [place], [address], 05/03/2022 16:43:07 05/04/19 23 05/03/2022 urina lysis , dipst ick Unknown Analyte Normal = Negati ve Not Available 2099aarti bueno [address], [place], [address], 05/03/2022 16:43:07 05/04/19 23 05/03/2022 urina lysis , dipst ick Unknown Analyte Negati ve Not Available [address] [place] [address], [place], [address], 05/03/2022 16:43:07 05/04/19 23 05/03/2022 urina lysis , dipst ick Unknown Analyte Normal = Negati ve Not Available [address] [place] [address], [place], [address], 05/03/2022 16:43:07 05/04/19 23 05/03/2022 urina lysis , dipst ick Unknown Analyte Trace Not Available [address] [place] [address], [place], [address], 05/03/2022 16:43:07 05/04/19 23 05/03/2022 urina lysis , dipst ick Unknown Analyte Normal = 1.010, 1.015, 1.020 Not Available [address] [place] [address], [place], [address], 05/03/2022 16:43:07 05/04/19 23 05/03/2022 urina lysis , dipst ick Unknown Analyte 1.030 Not Available [address] [place] [address], [place], [address], 05/03/2022 16:43:07 05/04/19 23 05/03/2022 urina lysis , dipst ick Unknown Analyte Normal = Negati ve Not Available aarti bueno [address], [place], [address], 05/03/2022 16:43:07 05/04/19 23 05/03/2022 urina lysis , dipst ick Unknown Analyte Negati ve Not Available aarti bueno [address], [place], [address], 05/03/2022 16:43:07 05/04/19 23 05/03/2022 urina lysis , dipst ick Unknown Analyte Normal = 6.5, 7.0, 7.5, 8.0 Not Available aarti bueno [address], [place], [address], 05/03/2022 16:43:07 05/04/19 23 05/03/2022 urina lysis , dipst ick Unknown Analyte 7.0 Not Available [address], [place], [address], 05/03/2022 16:43:07 05/04/19 23 05/03/2022 urina lysis , dipst ick Unknown Analyte Normal = Negati ve Not Available arati bueno [address], [place], [address], 05/03/2022 16:43:07 05/04/19 23 05/03/2022 urina lysis , dipst ick Unknown Analyte 30 mg/dL Not Available aarti bueno [address], [place], [address], 05/03/2022 16:43:07 05/04/19 23 05/03/2022 urina lysis , dipst ick Unknown Analyte Normal = 0.2, 1.0 Not Available [facility] [address], [place], [address], 05/03/2022 16:43:07 05/04/19 23 05/03/2022 urina lysis , dipst ick Unknown Analyte 0.2 E.U./d L Not Available 2099aarti bueno [address], [place], [address], 05/03/2022 16:43:07 05/04/19 23 05/03/2022 urina lysis , dipst ick Unknown Analyte Normal = Negati ve Not Available [facility] [address], [place], [address], 05/03/2022 16:43:07 05/04/19 23 05/03/2022 urina lysis , dipst ick Unknown Analyte Negati ve Not Available [address] [place] [address], [place], [address], 05/03/2022 16:43:07 05/04/19 23 05/03/2022 urina lysis , dipst ick Unknown Analyte Normal = Negati ve Not Available [address] [place] [address], [place], [address], 05/03/2022 16:43:07 05/04/19 23 05/03/2022 urina lysis , dipst ick Unknown Analyte Negati ve Not Available [address] [place] [address], [place], [address], 05/03/2022 16:43:07 Result Notes None recorded. Problems Name Problem SNOMED Code Status Onset Date Resolution Date Notes Provider Name and Address Organization Details Recorded Time Diabetes mellitus 90352564 Active 2022 JIMChioma santos PA - [facility] 16:53:49 Depressive disorder 63079740 Active 2022 JIMChioma santos, PA - [facility] 16:53:54 Hypertensive disorder 81112453 Active 2022 JIM LEMUSZechariah tom PA - [facility] 3 16:54:04 Hypercholestero lemia 67265210 Active 2022 JIM santos PA - [facility] 3 16:54:16 Problem [...] Name and Address Organization Details Recorded Time 446554 Product containin g penicilli n and antibioti c (product) medicatio n hives severe Not available 05/03/2022 55432 05 SNOMED any Cilin s JIM santos PA - [facility] 3 16:51:18 981539 clindamyc in Not available hives severe Not available 05/03/2022 2582 RxNorm any MYACI NS JIM santos, PA - [facility] 3 16:51:37 Medications [...] weight Body mass index (BMI) Body height Pain severity - 0-10 verbal numeric rating [Score] - Reported Oxygen saturation Oxygen saturation in Arterial blood by Pulse oximetry Heart rate Respiratory rate Body temperature Systolic blood pressure Diastolic blood pressure Provider Name and Address Organization Details Last Updated DateTime 3 02222.6 8 g 17.2 kg/m2 157.48 cm 0 96 % 96 % 61 /min 18 /min 97.6 [degF] 165 mm[Hg] 89 mm[Hg] JIM LEMUSO PA - [facility] 16:56:37 Social History [...] Diagnosis/Indication Diagnosis SNOMED-CT Code Diagnosis ICD10 Code Diagnosis Note [id number] [address] [place] [address] 03/29/2019 16:22:45 03/29/2019 17:15:55 [id number] 20995_Khanh Rosalesmo vadimr [address] [place] [address] 07/08/2020 08:04:25 07/08/2020 08:54:10 [id number] 20995_Khanh Rosalesal vadimr [address] [place] [address] 03/21/2021 08:27:01 03/21/2021 11:18:36 [id number] [facility] [address] [facility] [place] [place] [address] 07/30/2020 08:42:17 07/30/2020 09:17:52 [id number] [address] [facility] [place] [address] 03/18/2021 09:06:47 03/18/2021 11:37:54 [id number] [address] [facility] [place] [address] 10/30/2018 19:03:07 10/30/2018 19:47:52 [id number] FABIOLA ALVARADO MD [address] [facility] [place] [address] 05/03/2022 14:44:23 05/03/2022 17:57:13 Increased frequency of urination [id number] R35.0 Health Concerns Section Related Observation LastModified by Organization Detai ls LastModified Time None Recorded Concern Status LastModified by Organization Details LastModified Time None Recorded Advance Directives Directive None Recorded Payers Encounter Date Sequence Insurance Name Policy Number Policy Herrera Covered Member ID Herrera Member ID Guarantor Name 07/08/2020 1 [facility] (MEDICARE REPLACEMENT/A DVANTAGE - HMO) [id number] Lisa Dangelo [id number] Lisa Dangelo 07/30/2020 1 [facility] (MEDICARE REPLACEMENT/A DVANTAGE - HMO) [id number] Lisa Dangelo [id number] Lisa Dangelo 03/18/2021 1 [facility] (MEDICARE REPLACEMENT/A DVANTAGE - HMO) [id number] Lisa Dangelo [id number] Lisa Dangelo 03/21/2021 1 [facility] (MEDICARE REPLACEMENT/A DVANTAGE - HMO) [id number] Lisa Dangelo [id number] Lisa Dangelo 05/03/2022 1 [facility] (MEDICARE REPLACEMENT/A DVANTAGE - HMO) [id number] Lisa Dangelo [id number] Lisa J Crochiere Notes Date Note Type Note Provider Name and Address Organization Details Recorded Time 05/03/2022 text/html Urinary Complain t FemaleReported bypatient.UTI Symptoms:no pain in the flank; no fever/chills; no incontinence;urgency ;urinary frequency;abdominal pain;recurrent UTI Severity:moderate Duration:started today Modifying Factors:Andrzejro FABIOLA ALVARADO MD [address] [place], [address], PA - [facility] 05/03/2022 17:48:05 OBGyn Episode No OBEpisode recorded.
[2024-03-31 10:57] LABS: Estimated Average Glucose 134 mg/dL; Hemoglobin A1c % 6.3 % (<6.0); Total Hemoglobin (HGBA1C) 3788.3378 umol/L
[2024-03-31 11:03] LABS: Basophils Percent Auto 0.2 % (0-2); Hematocrit 42.3 % (37.0-47.0); Hemoglobin 14.4 g/dl (12.0-16.0); Imm Gran Abs Auto 0.03 X10*3/uL (0.00-0.03); Imm Gran Pct Auto 0.6 % (0.0-0.4); Lymphocytes Absolute Auto 0.5 X10*3/uL (1.2-4.9); Lymphocytes Percent Auto 9.5 % (20-40); MANUAL DIFF FLAG SCAN; Mean Corpuscular Hemoglobin 32.6 pg (27.0-33.0); Mean Corpuscular Volume 95.7 fL (80.0-98.0); Monocytes Absolute Auto 0.7 X10*3/uL (0.1-1.2); Neutrophils Absolute Auto 3.9 x10*3/uL (2.0-8.3); Neutrophils Percent Auto 76.7 % (45-73); PLT CLUMP 1; Red Blood Count 4.42 X10*6/uL (4.20-5.50); Red Cell Distribution Width 12.5 % (11.0-16.0); SCAN SMEAR FLAG 1
[2024-03-31 11:21] LABS: Mean Platelet Volume 11.4 fL (9.4-12.3); Platelet Count 131 X10*3/uL (160-400); White Blood Count 5.1 X10*3/uL (4.8-10.8)
[2024-03-31 11:22] LABS: Alanine Aminotransferase 37 U/L (0-31); Albumin Level 4.1 g/dL (3.5-5.0); Alkaline Phosphatase 97 U/L (39-117); Anion Gap 27 (12-20); Aspartate Amino Transferase 66 U/L (5-31); Bilirubin Total 0.5 mg/dL (0.0-1.0); Blood Urea Nitrogen 9 mg/dL (9-16); Calcium 8.9 mg/dL (8.4-10.2); Carbon Dioxide 26 mmol/L (22-29); Chloride 86 mmol/L (96-108); Cholesterol 152 mg/dL (<200); Estimated Glomerular Filt Rate > 60; Glucose Fasting 109 mg/dL (60-99); HDL Cholesterol 96 mg/dL (>40); LDL Cholesterol Calculated 36 mg/dL (<100); Potassium 3.6 mmol/L (3.3-5.1); Sodium 135 mmol/L (135-145); TSH reflex Free T4 1.66 uIU/mL (0.32-4.0); Total Protein 6.8 g/dL (6.5-8.0); Triglycerides 102 mg/dL (<150)
[2024-03-31 13:59] LABS: SLIDE REVIEW VERIFIED
== END 2024-03-31 06:27 | disposition home or self-care (01) ==
LOC: HO.HMGCLDS 06:26
PROVIDERS: PCP Internal Medicine; Visit Provider Internal Medicine
DX: Z13.89 Encounter for screening for other disorder (principal)
CPT/HCPCS: 36415; 80053; 80061; 83036; 84443; 85025

== ENCOUNTER → 2024-04-03 10:30 | Outpatient (AMB) | payer MEDICARE, SELFPAY ==
--- NOTE | 2024-04-03 10:32 | MHC.PC.OV ---
Vital Signs 04/03/24 10:33 Height 5 ft 2 in Weight 90 lb 4 oz BMI 16.5 Respiration 21 H Pulse 112 H Pulse Source Pulse Oximeter Temp 97.5 F Temp Source Oral Pulse Oximetry (%) 86 L Oxygen Delivery Method Room Air Intake Visit Reasons: 2m follow up Intake Note: Pt is here today for 2 months follow up visit. Allergies nortriptyline Allergy (Severe, Verified 04/03/24 12:30) hives bupropion Allergy (Intermediate, Verified 04/03/24 12:30) hives buspirone [From BuSpar] Allergy (Intermediate, Verified 04/03/24 12:30) Diarrhea high anxiety cefdinir Allergy (Intermediate, Verified 04/03/24 12:30) diarrhea and yeast ingection nitrofurantoin Allergy (Intermediate, Verified 04/03/24 12:30) heartburn; N/V penicillin V Allergy (Intermediate, Verified 04/03/24 12:30) Hives Sulfa (Sulfonamide Antibiotics) Allergy (Intermediate, Verified 04/03/24 12:30) Hives duloxetine Adverse Reaction (Intermediate, Verified 04/03/24 12:30) Diarrhea prazosin Adverse Reaction (Intermediate, Verified 04/03/24 12:30) Diarrhea phenazopyridine [From Pyridium] Adverse Reaction (Mild, Verified 04/03/24 12:30) Diarrhea Myacin Allergy (Mild, Uncoded 04/03/24 12:30) Hives prazosin Adverse Reaction (Intermediate, Uncoded 04/03/24 12:30) Diarrhea Tobacco use date assessed: 04/03/24 Fall risk assessment: 1 Fall in past year Last assessed Fall Risk: 04/03/24 Dental Screening Dental Screen Date: 04/03/24 Did you have a dental visit in the last 12 months?: Yes Did you have a dental problem in the last 6 months where you did not have access to dental care?: No Was dental information given to patient?: Patient has dentist HPI 2m follow up HPI Details Patient presents complaining of increasing shortness or breath, chest tightness worsening insomnia for the last 3 nights. Patient denies fever chills cough chest pain or palpitations. Patient is established with a counselor and the prescriber for depression without significant improvement in her symptoms for over a year but getting progressively worse over last 2 weeks. She denies suicide ideation. Patient reports poor appetite and losing weight. Type 2 diabetes is controlled on metformin, hypertension stable on lisinopril. Patient continues to smoke a half a pack a day. [facility] Medical History (Updated 04/03/24 @ 14:35 by Enriqueta Estrada MD) Dysuria Hyponatremia Annual physical exam COPD (chronic obstructive pulmonary disease) Depression Diabetes Alopecia Tobacco abuse CAD (coronary artery disease) Colon polyp Hyperlipidemia HTN (hypertension) Diabetic eye exam Anxiety and depression Surgical History H/O colonoscopy History of appendectomy History of oophorectomy Family History Father Diabetes mellitus Mother No problems noted. Son Myocardial infarction Social History Household Members: None Housing: [facility] Do you presently have visiting nurse or other home services: No Alcohol intake: current Alcohol intake frequency: 0-2 drinks per day Patient Tobacco Use Status: Current everyday Tobacco user Tobacco use type: Cigarette Cigarettes Per Day: 10 Years Smoked: 50 e-Cigarette/Vaping Use: Never Used Second Hand Smoke Exposure: No Advance Directives: Yes Advance Directives on File: Yes Advance Directives Date on File: 08/05/23 Do you have a plan to hurt others: No Plan service: No Current occupational status: retired Current occupational exposures/hazards: No Cognitive needs: No Hearing needs: No Vision needs: No Questionnaire PHQ-9 Over the last 2 weeks, how often have you been bothered by any of the following problems? 1. Little interest or pleasure in doing things: nearly every day 2. Feeling down, depressed, or hopeless: nearly every day 3. Trouble falling or staying asleep, or sleeping too much: nearly every day 4. Feeling tired or having little energy: nearly every day 5. Poor appetite or overeating: nearly every day 6. Feeling bad about yourself - or that you are a failure or have let yourself or your family down: several days 7. Trouble concentrating on things, such as reading the newspaper or watching television: nearly every day 8. Moving or speaking so slowly that other people could have noticed. Or the opposite - being so fidgety or restless that you have been moving around a lot more than usual: several days 9. Thoughts that you would be better off or of hurting yourself in some way: not at all Total score: 20 Depression Screening Interpretation: Positive (Patient is established with the prescriber and therapist) Depression Screening Follow-up: Existing condition and In treatment Depression Screening Done: Yes 04197 - PHQ-9 Billing: Yes Source: Developed by Drs. Kendell Chaney, Mary Curtis, Jordan Brandt and colleagues, with an educational collin from [employer]. Thrive Questionnaire Date Thrive assessed: 04/03/24 I am a: Patient What is your living situation today?: I have a steady place to live Within the past 12 months, did the food you bought not last and you didn't have the money to get more?: Never true Within the past 12 months, did you worry whether your food would run out before you got money to buy more?: Never true Do you have trouble paying for medicines?: No Do you have trouble getting transportation to medical appointments?: No Do you have trouble paying your heating and electricity bill?: No Do you have trouble taking care of your child, family member or friend?: No Do you have trouble with day-to-day activities such as bathing, preparing meals, shopping, managing finances, etc.?: No Are you currently unemployed and looking for a job?: No Are you interested in more education?: No Please select the resources that you would like help with: None THRIVE Score: 0 AUDIT C Alcohol Use Questionnaire (AUDIT-C) 1. How often do you have a drink containing alcohol?: 2-3 times a week 2. How many drinks containing alcohol do you have on a typical day when you are drinking?: 1 or 2 3. How often do you have six or more drinks on one occasion?: Never Total Score: 3 AMERICA-7 AMB Questionnaire AMERICA-7 Date AMERICA - 7 assessed: 04/03/24 Feeling nervous, anxious, or on edge: 0 = Not at all Not being able to stop or control worryin = Not at all Worrying too much about different things: 0 = Not at all Trouble relaxin = Not at all Being so restless that it is hard to sit still: 0 = Not at all Becoming easily annoyed or irritable: 0 = Not at all Feeling afraid as if something awful might happen: 0 = Not at all Total AMERICA-7 score (0-4 normal; 5-9 mild; 10-14 moderate; 15-21 severe): 0 Source: Developed by Drs. Kendell Chaney, Mary Curtis, Jordan Brandt and colleagues, with an educational collin from [employer]. AMERICA-7 Assessment Billing AMERICA-7 Assessment Tool: AMERICA-7 Assessment 54394 Review of Systems Const All systems reviewed & are unremarkable except as noted in HPI and below Eyes Reports no additional complaints Card Reports no additional complaints Resp Reports no additional complaints GI Reports no additional complaints Reports no additional complaints Physical exam (Primary Care) Vital Signs: Last Vital Signs Temp 97.5 F 04/03/24 10:33 Pulse 112 H 04/03/24 10:33 Resp 21 H 04/03/24 10:33 Pulse Ox 86 L 04/03/24 10:33 Oxygen Delivery Method Room Air 04/03/24 10:33 BMI result Body Mass Index 16.5 Tobacco/Smoking Status: Tobacco use Status Tobacco use date assessed 04/03/24 04/03/24 10:47 Patient Tobacco Use Status Current everyday Tobacco 04/03/24 10:47 Tobacco use type Cigarette 04/03/24 10:32 e-Cigarette/Vaping Use Never Used 04/03/24 10:32 PHQ-9: PHQ-9 Score PHQ-9: Total score 20 04/03/24 11:25 Depression Screening Interpretation: Positive (Patient is established with the prescriber and therapist) Depression Screening Follow-up: Existing condition and In treatment Thrive Assessment: Date of Thrive Assessment Date Thrive assessed 04/03/24 04/03/24 10:32 Const General: in distress and anxious HENMT Head: Yes normal to inspection Face and sinus: Yes normal facial exam Eyes General: appearance normal, both eyes and all related structures Resp Effort & Inspection: grunting, labored, pursed lip breathing and tachypneic Auscultation: wheezes and diminished lung sounds Cardio Rhythm: regular rhythm Heart sounds: S1 normal heart sound present and S2 normal heart sound present GI Inspection: Yes normal to inspection Palpation (GI): Soft to palpation Percussion: Yes normal to percussion Auscultation: normal bowel sounds Office Procedures Nebulizer Treatment Nebulizer Treatment 44714-Skescpizx/MDI RX initial, or Nebulizer Subsequent Treatment Office Meds ipratropium 0.5 mg-albuterol 3 mg (2.5 mg base)/3 mL nebulization soln Performing Provider: Enriqueta Estrada MD Performing Location: [facility] Administered by: Maty Hebert RN on 04/03/24 11:07 Dose Route Admin Location Dispensed Lot Number Expiration Date [facility] Escrow Agent 3 mL inhalation 3 mL [id number] 04/24/25 87124-245-67 [facility] Coding Level of Care Code Est Pt Level 4 (38041) Diagnoses Acute respiratory failure J96.00 COPD (chronic obstructive pulmonary disease) J44.9 Diabetes E11.9 Anxiety and depression F41.9; F32.9 CPT Codes Nebulizer Treatment - Nebulizer Treatment, initial or subsequent: 36885-Fmzoknkhi/MDI RX initial, or Nebulizer Subsequent Treatment ([id number]) Additional Codes AMERICA-7 Assessment Billing - AMERICA-7 Assessment Tool: AMERICA-7 Assessment 97754 ([id number]) PHQ-9 - 12381 - PHQ-9 Billing: Yes ([id number]) Assessment & Plan Assessment & Plan (1) Acute respiratory failure: Code(s): J96.00 - Acute respiratory failure, unspecified whether with hypoxia or hypercapnia Category: Medical Plan: Patient was given DuoNeb treatment without change in her O2 saturation improved after 10 minutes of 2 L nasal cannula. Patient was advised to go to the ER. She declined EMS but her brother will take her to the ER today (2) COPD (chronic obstructive pulmonary disease): Comment: Tobacco quitting discussed with the patient. Chest CT angiogram stable pulmonary nodules no PE 06/2023 Code(s): J44.9 - Chronic obstructive pulmonary disease, unspecified Category: Medical Plan: As above (3) Diabetes: Comment: Patient declined taking medications other than metformin Code(s): E11.9 - Type 2 diabetes mellitus without complications Category: Medical Plan: Controlled on medications (4) Anxiety and depression: Comment: PTSD , f/u with therapist and psychiatric PA Code(s): F41.9 - Anxiety disorder, unspecified; F32.9 - Major depressive disorder, single episode, unspecified Category: Medical Plan: Patient needs re-evaluation of her treatment with a psychiatrist Orders: Orders AMB Nebulizer Treatment Today R05.9 - Cough, unspecified
== END | disposition home or self-care (01) ==
PROVIDERS: PCP Internal Medicine; Visit Provider Internal Medicine

== ENCOUNTER → 2024-04-03 10:30 | Outpatient (BNVA) | payer MEDICARE, SELFPAY | PROVIDERS: PCP Internal Medicine; Visit Provider Internal Medicine ==

== ENCOUNTER 2024-04-03 12:27 | Inpatient (IN) | payer MEDICARE, SELFPAY ==
[2024-04-03] VITALS (9 sets, daily range): BP systolic 135–162; BP diastolic 68–91; PULSE 88–111; RESP 16–37; TEMP 36.4–36.6; O2SAT 85–99; BMI 16.5; BMI 17.1
--- NOTE | ~2024-04-03 | XR_ITS ---
EXAMINATION: XR CHEST CLINICAL INFORMATION: sob COMPARISON: December 17, 2023 TECHNIQUE: Frontal view of the chest was obtained. FINDINGS: Hyperinflated lungs. Pulmonary reticular pattern. No consolidation pleural effusion or pneumothorax. Cardiomediastinal silhouette size is normal with calcified plaque thoracic aorta. Mild S-shaped curvature of the lumbar spine. Osteopenia versus osteoporosis. XR/XR chest 1V IMPRESSION: Chronic interstitial lung disease. An acute inflammatory versus infectious process cannot be entirely excluded. Electronically signed by: Luis Mccloud MD 04/03/2024 02:18 PM [facility]
--- NOTE | 2024-04-03 12:29 | ECG_ITS ---
Test Reason : sob Blood Pressure : */* mmHG Vent. Rate : 103 BPM Atrial Rate : 103 BPM P-R Int : 130 ms QRS Dur : 72 ms QT Int : 386 ms P-R-T Axes : 84 82 88 degrees QTcB Int : 505 ms Sinus tachycardia Right atrial enlargement Nonspecific ST and T wave abnormality Abnormal ECG When compared with ECG of 29-Jul-2023 18:36, No significant change was found Referred By: Merary Casey Electronically Signed By: Ronen Varner
--- NOTE | 2024-04-03 12:31 | ED.SOB ---
HPI - SOB/Dyspnea General Chief Complaint: Upper Respiratory Symptoms Stated Complaint: Diff Breathing Time Seen by Provider: 04/03/24 13:17 Source: patient Mode of arrival: ambulatory Limitations: no limitations History of Present Illness ED Provider: Dr. Jose Mcnamara HPI Narrative: 73-year-old female with a history diabetes mellitus, hypertension, hyperlipidemia, depression, anxiety, COPD continues to smoke cigarettes who presents emergency department for evaluation of shortness of breath times many months but worse over the past 2 days and low O2 saturation of 85% on room air at her scheduled doctor checkup appointment with . The patient states that she was not been feeling well for proximally 5 days. She states she was had a cough which is occasionally productive of yellow sputum with no blood. She states she was feeling extremely weak. She lost her appetite and states that she was lost significant amount of weight over the past year but worse over the last several days. She she states she was had increased shortness of breath and increased dyspnea above her baseline. The patient states that she was having diarrhea but this resolved several days prior. She was had very poor food intake but she has been able to drink small amounts of fluid. Related Data Home Medications ?Medication ?Instructions ?Recorded ?Confirmed buspirone 5 mg tablet 15 mg PO BID 08/01/22 12/27/23 lorazepam 1 mg tablet 1 mg PO DAILY PRN sever anxiety 08/01/22 12/27/23 trazodone 50 mg tablet 50 mg PO BEDTIME for insomnia 05/22/23 12/27/23 sodium di- and 1 tab PO DAILY 07/29/23 12/27/23 monophosphate-potassium phos monobasic 250 mg tablet (Phospha Neutral) magnesium oxide 400 mg PO .every other day 09/27/23 12/27/23 Previous Rx's ?Medication ?Instructions ?Recorded mirtazapine 45 mg tablet 45 mg PO BEDTIME #90 tabs 07/17/22 metformin 1,000 mg tablet 1,000 mg PO DAILY #90 tabs 01/12/23 ibuprofen 800 mg tablet 800 mg PO Q8H PRN pain 30 days #90 09/30/23 tabs amlodipine 5 mg tablet 5 mg PO DAILY #90 tabs 12/27/23 atorvastatin 40 mg tablet 40 mg PO DAILY #90 tabs 12/27/23 lisinopril 20 mg tablet 20 mg PO DAILY #90 tabs 12/27/23 meloxicam 15 mg tablet 15 mg PO DAILY #10 tabs 02/05/24 baclofen 10 mg tablet 10 mg PO BEDTIME #30 tabs 02/28/24 Allergies Allergy/AdvReac Type Severity Reaction Status Date / Time nortriptyline Allergy Severe hives Verified 04/03/24 12:30 bupropion Allergy Intermediate hives Verified 04/03/24 12:30 buspirone [From BuSpar] Allergy Intermediate Diarrhea Verified 04/03/24 12:30 high anxiety cefdinir Allergy Intermediate diarrhea Verified 04/03/24 12:30 and yeast ingection nitrofurantoin Allergy Intermediate heartburn; Verified 04/03/24 12:30 N/V penicillin V Allergy Intermediate Hives Verified 04/03/24 12:30 Sulfa (Sulfonamide Allergy Intermediate Hives Verified 04/03/24 12:30 Antibiotics) duloxetine AdvReac Intermediate Diarrhea Verified 04/03/24 12:30 prazosin AdvReac Intermediate Diarrhea Verified 04/03/24 12:30 phenazopyridine AdvReac Mild Diarrhea Verified 04/03/24 12:30 [From Pyridium] Myacin Allergy Mild Hives Uncoded 04/03/24 12:30 prazosin AdvReac Intermediate Diarrhea Uncoded 04/03/24 12:30 Review of Systems Review of Systems: Yes all other systems are reviewed and are negative [facility] Past Medical History Medical History (Updated 04/03/24 @ 15:47 by Jose Mcnamara MD) Dysuria Hyponatremia Annual physical exam COPD (chronic obstructive pulmonary disease) Depression Diabetes Alopecia Tobacco abuse CAD (coronary artery disease) Colon polyp Hyperlipidemia HTN (hypertension) Diabetic eye exam Anxiety and depression Surgical History H/O colonoscopy History of appendectomy History of oophorectomy Family History Family History Father Diabetes mellitus Mother No problems noted. Son Myocardial infarction Social History Social History Household Members: None Housing: Condominium Do you presently have visiting nurse or other home services: No Alcohol intake: current Alcohol intake frequency: holidays/special occasions only Patient Tobacco Use Status: Current everyday Tobacco user Tobacco use type: Cigarette Cigarettes Per Day: 10 Years Smoked: 50 Smoked in Last 30 Days: Yes e-Cigarette/Vaping Use: Never Used Second Hand Smoke Exposure: No Use of substances other than those prescribed or required for medical reasons: No Advance Directives: Yes Advance Directives on File: Yes Advance Directives Date on File: 08/05/23 Do you have a plan to hurt others: No Plan service: No Current occupational status: retired Current occupational exposures/hazards: No Cognitive needs: No Hearing needs: No Vision needs: No Physical Exam Vital Signs: Vital Signs: Last Vital Signs Temp 98 F 04/03/24 12:28 Pulse 90 04/03/24 13:42 Resp 26 H 04/03/24 13:42 BP 162/91 H 04/03/24 12:28 Pulse Ox 98 04/03/24 15:06 O2 Del Method Nasal Cannula 04/03/24 15:06 Oxygen Flow Rate 2 04/03/24 15:06 BMI result Body Mass Index 16.5 Vital signs revealed an elevated blood pressure of 162/91 and elevated respiratory rate of 26. O2 saturation was 98% on 2 L of oxygen via nasal cannula Exam: General: Awake, alert, thin female, appears dyspneic and tachypneic, breathing through pursed lips, using accessory muscles to breathe Head: Normocephalic, atraumatic EENT: PERRL, Lids normal, sclera normal, conjunctiva normal, nose normal , ears normal, throat without erythema or exudates Neck: Supple, no adenopathy Lung: breath sounds symmetric, diffuse wheezing, diffuse rales, no rhonchi Chest: symmetric movement, nontender Heart: regular rate and rhythm, normal S1, S2 no murmurs or rubs Abdomen: soft, non-tender, nondistended, normal bowel sounds Back: no vertebral tenderness, no CVAT Extremities: no deformities, moves all extremities symmetrically Neuro: Awake, alert, oriented, normal speech, cranial nerves intact, moves all extremities symmetrically Psych: Pleasant, cooperative Course Course Course Narrative: This is a rapid medical exam performed by Merary Casey PA-C. The patient is a 73-year-old female with new diagnosis of COPD not on supplemental oxygen, diabetes, hypertension, heart murmur, anxiety and depression, who presents with shortness of breath x2 days. Denies concurrent cough or cold symptoms, no fevers. Denies chest pain. No nausea vomiting diarrhea. On exam, the patient was tachypneic, she is hypoxic to 85% on room air, she has poor inspiratory effort, with diminished breath sounds. We will be screening basic labs, blood cultures lactic, trop BNP, viral panel, obtaining EKG chest x-ray. We are expediting her care, she will be brought into the ED momentarily. Medications Administered Discontinued Medications Generic Name Dose Route Start Last Admin Trade Name Olayinka PRN Reason Stop Dose Admin Albuterol Sulfate 5 mg/ 0 mg 04/03/24 13:36 04/03/24 13:41 Albuterol/Ipratropium 3 ml INHALE 04/03/24 13:37 1 each ONCE ONE Administration Sodium Chloride 1,000 mls @ 999 mls/hr 04/03/24 13:36 04/03/24 14:19 Ns IV 04/03/24 14:36 999 mls/hr .Q1H1M STA Administration Methylprednisolone Sodium Succinate 125 mg 04/03/24 13:36 04/03/24 14:19 Methylprednisolone Sod Succ 125 Mg/2 Ml Vial IVPUSH 04/03/24 13:37 125 mg ONCE ONE Administration Medical Decision Making Medical Decision Making MDM Narrative: 73-year-old female with a history diabetes mellitus, hypertension, hyperlipidemia, depression, anxiety, COPD continues to smoke cigarettes who presents emergency department for evaluation of shortness of breath times many months but worse over the past 2-5 days, found to have a low O2 saturation of 85% on room air at her scheduled doctor checkup appointment with . Patient had a frequent dry cough which is occasionally productive of yellow sputum but no blood, she had shortness of breath dyspnea on exertion and diarrhea. The diarrhea did resolve. Patient was complaining of severe fatigue and weakness. Vital signs did reveal that she was hypoxic on room air with improvement on 2 L of oxygen via nasal cannula. Physical examination did reveal diffuse wheezing rhonchi and rales. 15:29 Differential diagnosis: ?Includes but is not limited to pneumonia, COVID-19, influenza, RSV, electrolyte abnormalities, anemia, dehydration, volume depletion Course: 15:29 hours My independent interpretation patient's laboratory evaluation is as follows: WBC low 4400. Platelet count low 132,000. Sodium, potassium and chloride were low 134, 3.2 and 85. Magnesium was low 1.3. AST and ALT were elevated at 100 and 55. Lactic acid was elevated at 2.1. Lipase was negative. COVID and RSV were negative. Influenza was positive. Patient was chest x-ray revealed no evidence for pneumonia. Given the patient's positive influenza believe that the patient has a viral URI which is caused exacerbation of her COPD. Patient was treated with normal saline IV x1 L, albuterol 7.5 mg and ipratropium 0.5 mg nebulized and Solu-Medrol 125 mg IV. She was also ordered to get magnesium 2 g IV and potassium chloride 40 mEq orally. Given her hypoxia she will need to be admitted for further treatment of her COPD exacerbation. Admission/Observation Consideration of admission/observation: Escalation of care including admission/observation considered (Yes) Lab Data MDM Lab Attestation statement: I reviewed the patient's lab results. 04/03/24 12:56 04/03/24 12:56 Labs: Lab Results 04/03/24 04/03/24 04/03/24 Range/Units 12:56 14:03 14:10 WBC 4.4 L (4.8-10.8) X10*3/uL RBC 4.55 (4.20-5.50) X10*6/uL Hgb 14.6 (12.0-16.0) g/dl Hct 42.1 (37.0-47.0) % MCV 92.5 (80.0-98.0) fL MCH 32.1 (27.0-33.0) pg MCHC 34.7 (31.0-35.0) g/dl RDW 12.3 (11.0-16.0) % Plt Count 132 L (160-400) X10*3/uL MPV 10.6 (9.4-12.3) fL Immature Gran % (Auto) 0.7 H (0.0-0.4) % Neut % (Auto) 68.3 (45-73) % Lymph % (Auto) 21.1 (20-40) % Day % (Auto) 9.4 (2-11) % Eos % (Auto) 0.0 (0-4) % Baso % (Auto) 0.5 (0-2) % Lymph # (Auto) 0.9 L (1.2-4.9) X10*3/uL Day # (Auto) 0.4 (0.1-1.2) X10*3/uL Eos # (Auto) 0.0 (0.0-0.4) X10*3/uL Baso # (Auto) 0.0 (0.0-0.2) X10*3/uL Abs Immat Gran (auto) 0.03 (0.00-0.03) X10*3/uL Absolute Neuts (auto) 3.0 (2.0-8.3) x10*3/uL Absolute Nucleated RBC 0.000 (0.0-0.012) X10*3/uL Nucleated RBC % (auto) 0.0 (0.0-0.2) /100WBC Smear Tech's Comments VERIFIED VBG pH 7.40 (7.32-7.43) VBG pCO2 53 mmHg VBG pO2 30 mmHg VBG HCO3 33 H (22-26) mmol/L VBG O2 Saturation 39.0 % VBG Base Excess 7.3 mmol/L Sodium 134 L (135-145) mmol/L Potassium 3.2 L (3.3-5.1) mmol/L Chloride 85 L (96-108) mmol/L Carbon Dioxide 26 (22-29) mmol/L Anion Gap 26 H (12-20) BUN 7 L (9-16) mg/dL Creatinine 0.65 (0.5-1.4) mg/dL Estim Creat Clear Calc 48.1 Estimated GFR > 60 Random Glucose 104 (60-115) mg/dL Lactic Acid 2.1 H* 1.2 (0.5-2.0) mmol/L Calcium 9.6 D (8.4-10.2) mg/dL Magnesium 1.3 L* (1.6-2.6) mg/dL Total Bilirubin 0.6 (0.0-1.0) mg/dL Direct Bilirubin 0.3 (0.0-0.5) mg/dL AST 100 H (5-31) U/L ALT 55 H (0-31) U/L Alkaline Phosphatase 106 (39-117) U/L Troponin I High Sens 9.5 (<3.5-17.0) ng/L B-Natriuretic Peptide 29 (<100) pg/mL Total Protein 7.4 (6.5-8.0) g/dL Albumin 4.2 (3.5-5.0) g/dL Lipase 18 (8-78) U/L Influenza Type A (PCR) POSITIVE A (Negative) Influenza Type B (PCR) NEGATIVE (Negative) RSV RNA Qual (PCR) NEGATIVE (Negative) SARS-CoV-2 RNA (RT-PCR) NEGATIVE (Negative) Independent Interpretation I performed an independent interpretation of an: EKG and Plain X-Ray Interpretation: My interpretation patient was 12 EKG done at 12:43 hours is as follows: Sinus tachycardia with a rate of 103, normal MN interval and QRS S duration, prolonged QTC interval of 505 milliseconds, no ST segment elevation, no ST segment depression, no significant T-wave abnormalities My impression of the patient's one-view chest x-ray is as follows: COPD changes no acute infiltrates Radiology Impression Discussion of test interpretation with radiology: I have reviewed the radiologist's reading. Radiologist Impression: XR chest 1V IMPRESSION: Chronic interstitial lung disease. An acute inflammatory versus infectious process cannot be entirely excluded. Electronically signed by: Luis Mccloud MD 04/03/2024 02:18 PM Critical Care Time Critical Care Time Critical Care Time: Yes Total Critical Care Time: 35 Attestation: Critical Care: The patient was critically ill with a high probability of imminent or life threatening deterioration. I spent greater than 30 minutes of discontinuous time evaluating the patient,delivering critical care at the bedside, discussing and evaluating pertinent data with consultants. Critical care time does not include time spent performing separately billable procedures or teaching. Total time spent performing critical care was 35 minutes. Discharge Plan Discharge Prescriptions: No Action mirtazapine 45 mg tablet 45 mg PO BEDTIME Qty: 90 2RF metformin 1,000 mg tablet 1,000 mg PO DAILY Qty: 90 3RF ibuprofen 800 mg tablet 800 mg PO Q8H PRN (Reason: pain) 30 Days Qty: 90 3RF baclofen 10 mg tablet 10 mg PO BEDTIME Qty: 30 1RF Phospha 250 Neutral 250 mg Tablet 1 tab PO DAILY magnesium oxide 400 mg magnesium capsule 400 mg PO .every other day buspirone 5 mg tablet 15 mg PO BID lorazepam 1 mg tablet 1 mg PO DAILY PRN (Reason: sever anxiety) trazodone 50 mg tablet 50 mg PO BEDTIME amlodipine 5 mg tablet 5 mg PO DAILY Qty: 90 3RF atorvastatin 40 mg tablet 40 mg PO DAILY Qty: 90 3RF lisinopril 20 mg tablet 20 mg PO DAILY Qty: 90 3RF meloxicam 15 mg tablet 15 mg PO DAILY Qty: 10 0RF Print Language: Congolese
[2024-04-03 13:14] LABS: Basophils Percent Auto 0.5 % (0-2); Hematocrit 42.1 % (37.0-47.0); Hemoglobin 14.6 g/dl (12.0-16.0); Imm Gran Abs Auto 0.03 X10*3/uL (0.00-0.03); Imm Gran Pct Auto 0.7 % (0.0-0.4); Lymphocytes Absolute Auto 0.9 X10*3/uL (1.2-4.9); Lymphocytes Percent Auto 21.1 % (20-40); MANUAL DIFF FLAG SCAN; Mean Corpuscular Hemoglobin 32.1 pg (27.0-33.0); Mean Corpuscular Volume 92.5 fL (80.0-98.0); Mean Platelet Volume 10.6 fL (9.4-12.3); Monocytes Absolute Auto 0.4 X10*3/uL (0.1-1.2); Monocytes Percent Auto 9.4 % (2-11); Neutrophils Percent Auto 68.3 % (45-73); Platelet Count 132 X10*3/uL (160-400); Red Blood Count 4.55 X10*6/uL (4.20-5.50); Red Cell Distribution Width 12.3 % (11.0-16.0); SCAN SMEAR FLAG 1; White Blood Count 4.4 X10*3/uL (4.8-10.8)
[2024-04-03 13:15] LABS: Mean Corpuscular HGB Conc 34.7 g/dl (31.0-35.0)
[2024-04-03 13:37] LABS: Anion Gap 26 (12-20); Blood Urea Nitrogen 7 mg/dL (9-16); Calcium 9.6 mg/dL (8.4-10.2); Carbon Dioxide 26 mmol/L (22-29); Chloride 85 mmol/L (96-108); Creatinine Clr Calc Pharmacy 48.1; Estimated Glomerular Filt Rate > 60; Glucose Random 104 mg/dL (60-115); Lactic Acid 2.1 mmol/L (0.5-2.0); Magnesium 1.3 mg/dL (1.6-2.6); Potassium 3.2 mmol/L (3.3-5.1); Sodium 134 mmol/L (135-145)
[2024-04-03 13:38] LABS: B Type Natriuretic Peptide 29 pg/mL (<100); SLIDE REVIEW VERIFIED
[2024-04-03 13:39] LABS: Troponin-I High Sensitivity 9.5 ng/L (<3.5-17.0)
[2024-04-03] MEDS: Albuterol Sulfate 5 MG, Albuterol/Iprat 2.5/0.5MG 3 ML 3 ML INHALE ×2 (13:41→16:22)
[2024-04-03 13:52] LABS: Influenza A PCR POSITIVE (Negative); Influenza B PCR NEGATIVE (Negative); Resp Syncy Virus RNA Qual PCR NEGATIVE (Negative); SARS COV2 PCR INHOUSE NEGATIVE (Negative)
[2024-04-03 14:00] LABS: Alanine Aminotransferase 55 U/L (0-31); Albumin Level 4.2 g/dL (3.5-5.0); Alkaline Phosphatase 106 U/L (39-117); Aspartate Amino Transferase 100 U/L (5-31); Bilirubin Direct 0.3 mg/dL (0.0-0.5); Bilirubin Total 0.6 mg/dL (0.0-1.0); Lipase 18 U/L (8-78); Total Protein 7.4 g/dL (6.5-8.0)
[2024-04-03 14:15] LABS: Venous Blood Gas Refer to POC result
[2024-04-03 14:16] LABS: VBG Base Excess 7.3 mmol/L; VBG HCO3 33 mmol/L (22-26); VBG pCO2 53 mmHg; VBG pO2 30 mmHg
[2024-04-03] MEDS: 0.9 % Sodium Chloride 1,000 ML 999 ML IV (14:19)
[2024-04-03] MEDS: methylPREDNISolone Sod Succ 125 MG/2 ML VIAL IVPUSH (14:19)
[2024-04-03 14:29] LABS: Lactic Acid 1.2 mmol/L (0.5-2.0)
[2024-04-03 15:07] LABS: Reflex Lactate? Lactic Acid Added
--- NOTE | 2024-04-03 16:22 | PM.IMHP ---
History of Present Illness Date of Service: 04/03/24 Attending physician on admission: Cj San Chief Complaint: shortness of breath This is a 73-year-old female who was seen in her PCP's office today for routine follow-up. At her visit she was noted to be short of breath, she was noted to be hypoxic with an oxygen saturation of 86% on room air. She was referred to the emergency department for further evaluation. In the emergency department she was also hypoxic. Patient reports 2-3 days of increasing shortness a breath with associated fatigue and dry cough. She denies any associated fever, chills, body aches. Lab work significant for lactic acid of 2.1, potassium 3.2, sodium 134, magnesium 1.3 in mild elevation in LFTs. Chest x-ray showed chronic interstitial lung disease. Patient tested positive for influenza A. She received multiple breathing treatments, systemic steroids as well as replacement for magnesium and potassium. She was initially resistant to admission but is now agreeable to stay for management of acute COPD exacerbation in the setting of influenza a infection. Review of Systems Review of Systems: Yes all other systems are reviewed and are negative Constitutional: Constitutional: Denies chills and Denies fever(s) Cardiovascular: Cardiovascular: Denies chest pain and Reports dyspnea Respiratory: Respiratory: Reports cough and Reports dyspnea Gastrointestinal: Gastrointestinal: Denies abdominal pain, Denies nausea and Denies vomiting [facility] Medical History Dysuria Hyponatremia Annual physical exam COPD (chronic obstructive pulmonary disease) Depression Diabetes Alopecia Tobacco abuse CAD (coronary artery disease) Colon polyp Hyperlipidemia HTN (hypertension) Diabetic eye exam Anxiety and depression Family History Father Diabetes mellitus Mother No problems noted. Son Myocardial infarction Surgical History H/O colonoscopy History of appendectomy History of oophorectomy Social History Household Members: None Housing: Condominium Do you presently have visiting nurse or other home services: No Alcohol intake: current Alcohol intake frequency: holidays/special occasions only Patient Tobacco Use Status: Current everyday Tobacco user Tobacco use type: Cigarette Cigarettes Per Day: 10 Years Smoked: 50 Smoked in Last 30 Days: Yes e-Cigarette/Vaping Use: Never Used Second Hand Smoke Exposure: No Use of substances other than those prescribed or required for medical reasons: No Advance Directives: Yes Advance Directives on File: Yes Advance Directives Date on File: 08/05/23 Do you have a plan to hurt others: No Plan service: No Current occupational status: retired Current occupational exposures/hazards: No Cognitive needs: No Hearing needs: No Vision needs: No Meds Allergies Allergy/AdvReac Type Severity Reaction Status Date / Time nortriptyline Allergy Severe hives Verified 04/03/24 12:30 bupropion Allergy Intermediate hives Verified 04/03/24 12:30 buspirone [From BuSpar] Allergy Intermediate Diarrhea Verified 04/03/24 12:30 high anxiety cefdinir Allergy Intermediate diarrhea Verified 04/03/24 12:30 and yeast ingection nitrofurantoin Allergy Intermediate heartburn; Verified 04/03/24 12:30 N/V penicillin V Allergy Intermediate Hives Verified 04/03/24 12:30 Sulfa (Sulfonamide Allergy Intermediate Hives Verified 04/03/24 12:30 Antibiotics) duloxetine AdvReac Intermediate Diarrhea Verified 04/03/24 12:30 prazosin AdvReac Intermediate Diarrhea Verified 04/03/24 12:30 phenazopyridine AdvReac Mild Diarrhea Verified 04/03/24 12:30 [From Pyridium] Myacin Allergy Mild Hives Uncoded 04/03/24 12:30 prazosin AdvReac Intermediate Diarrhea Uncoded 04/03/24 12:30 Active Medications: Current Medications Acetaminophen (Acetaminophen 325 Mg Tablet) 650 mg PO Q6H PRN PRN Reason: Pain, Mild 1-3,fever,headache Albuterol/Ipratropium (Albuterol/Iprat 2.5/0.5mg 3 Ml Ampul.Neb) 3 ml INHALE Q4H PRN PRN Reason: Shortness of Breath/Wheezing Albuterol/Ipratropium (Albuterol/Iprat 2.5/0.5mg 3 Ml Ampul.Neb) 3 ml INHALE RQ6H WHILE AWAKE [facility]CO Calcium Carbonate (Calcium Carbonate 750 Mg Tab.Chew) 750 mg PO Q4H PRN PRN Reason: Heartburn Enoxaparin Sodium (Enoxaparin Sodium 40 Mg/0.4 Ml Syringe) 40 mg SUBCUT Q24H [facility] Magnesium Sulfate (Magnesium Sulfate/H2o) 2 gm in 50 mls @ 25 mls/hr IV ONCE ONE Stop: 04/03/24 17:30 Melatonin (Melatonin 3 Mg Tablet) 6 mg PO BEDTIME PRN PRN Reason: Insomnia Methylprednisolone Sodium Succinate (Methylprednisolone Sod Succ 40 Mg/Ml Vial) 40 mg IVPUSH Q12H [facility] Nicotine (Nicotine 14 Mg Patch.Td24) 14 mg TRANSDERMA DAILY [facility] Oseltamivir Phosphate (Oseltamivir Phosphate 75 Mg Capsule) 75 mg PO Q12H [facility] Stop: 04/08/24 04:31 Polyethylene Glycol (Polyethylene Glycol 3350 17 Gm Powd.Pack) 17 gm PO DAILY PRN PRN Reason: Constipation Sodium Chloride (0.9 % Sodium Chloride Flush 3 Ml Syringe) 3 ml IVFLUSH QSHIFT [facility] Home Medications ?Medication ?Instructions ?Recorded ?Confirmed ?Last Taken ?Type lorazepam 1 mg tablet 1 mg PO DAILY PRN sever anxiety 08/01/22 04/03/24 07/29/23 06:00 History trazodone 50 mg tablet 50 mg PO BEDTIME for insomnia 05/22/23 04/03/24 04/02/24 History buspirone 15 mg tablet 15 mg PO BID 04/03/24 04/03/24 04/03/24 History Physical Exam Vital Signs and Narrative: Vital Signs: Last Vital Signs Temp 97.9 F 04/03/24 15:51 Pulse 101 H 04/03/24 15:51 Resp 20 04/03/24 15:51 BP 156/73 H 04/03/24 15:51 Pulse Ox 94 04/03/24 15:51 O2 Del Method Nasal Cannula 04/03/24 15:51 O2 Flow Rate 2 04/03/24 15:51 Oxygen Flow Rate 2 04/03/24 15:06 BMI result Body Mass Index 16.5 Const: General: alert and awake Nutritional Appearance: thin Orientation/consciousness: patient oriented x3 Resp: Other: b/l expiratory wheeze Effort & Inspection: normal respiratory effort, able to speak in complete sentences, no respiratory distress and no use of accessory muscles Cardio: Rate: tachycardic GI: Inspection: No distended Palpation (GI): Soft to palpation and nontender Neuro: General: patient oriented x3, moves all extremities and CN's II-XI intact bilaterally Extrem: General: Yes no pedal edema Results Labs 04/03/24 12:56 04/03/24 12:56 Labs: Laboratory Results - last 24 hr 04/03/24 04/03/24 04/03/24 12:56 14:03 14:10 MCV 92.5 MCH 32.1 MCHC 34.7 RDW 12.3 Plt Count 132 L MPV 10.6 Immature Gran % (Auto) 0.7 H Neut % (Auto) 68.3 Lymph % (Auto) 21.1 [place] % (Auto) 9.4 Eos % (Auto) 0.0 Baso % (Auto) 0.5 Lymph # (Auto) 0.9 L [place] # (Auto) 0.4 Eos # (Auto) 0.0 Baso # (Auto) 0.0 Abs Immat Gran (auto) 0.03 Absolute Neuts (auto) 3.0 Absolute Nucleated RBC 0.000 Nucleated RBC % (auto) 0.0 Smear Tech's Comments VERIFIED VBG pH 7.40 VBG pCO2 53 VBG pO2 30 VBG HCO3 33 H VBG O2 Saturation 39.0 VBG Base Excess 7.3 Anion Gap 26 H Estim Creat Clear Calc 48.1 Estimated GFR > 60 Random Glucose 104 Lactic Acid 2.1 H* 1.2 Calcium 9.6 D Magnesium 1.3 L* Total Bilirubin 0.6 Direct Bilirubin 0.3 AST 100 H ALT 55 H Alkaline Phosphatase 106 Troponin I High Sens 9.5 B-Natriuretic Peptide 29 Total Protein 7.4 Albumin 4.2 Lipase 18 Influenza Type A (PCR) POSITIVE A Influenza Type B (PCR) NEGATIVE RSV RNA Qual (PCR) NEGATIVE SARS-CoV-2 RNA (RT-PCR) NEGATIVE Imaging Radiologist's Impressions: Impressions Chest X-Ray 04/03/24 12:55 IMPRESSION: Chronic interstitial lung disease. An acute inflammatory versus infectious process cannot be entirely excluded. Electronically signed by: Luis Mccloud MD 04/03/2024 02:18 PM [facility] Assessment and Plan (1) COPD exacerbation: Status: Acute (2) Influenza A: Status: Acute Plan This is a 73-year-old female with history of COPD not on oxygen at baseline, type 2 diabetes, hypertension, hyperlipidemia, who was sent to the emergency department by her PCP for 3 days of worsening shortness of breath and cough found to have hypoxia and influenza A Acute respiratory failure with hypoxia/acute COPD exacerbation due to influenza a Scheduled and as needed bronchodilator therapy Systemic steroids Tamiflu Continue supplemental oxygen as needed blood cultures pending Acute lactic acidosis Likely due to breathing treatments and metformin versus viral sepsis Type 2 diabetes Hold metformin SSI, POCs Tobacco dependence Smoking cessation advised NRT Hypomagnesemia Replaced in the ED Follow up in a.m. Hypokalemia Given replacement in the ED Repeat in a.m. Thrombocytopenia ? due to viral illness Follow CBC Mild transaminitis ?due to viral illness Trend LFTs Mood Continue baseline medications HTN continue lisinopril DVT prophylaxis-Lovenox Code status-DNR/DNI Patient will likely require 2 midnight stay in the hospital for management of influenza causing acute COPD exacerbation and respiratory failure requiring IV steroids and close monitoring of oxygen saturation Quality Stroke Does the patient have a stroke diagnosis?: No VTE Prior VTE?: No VTE Risk Level:: Medical - moderate - high VTE Device Contraindication: N/A - Device Ordered VTE Drug Contraindication: N/A - Med Ordered
--- NOTE | 2024-04-03 16:37 | PHA.MEDREC ---
Addendum entered by Quoc Jaffe [facility] 04/03/24 18:00: med rec reviewed, pt brought home med list in, verified pt taking lexapro 5 mg, buspar 20 mg, trazodone 100 mg, and remeron 30 mg Addendum entered by Rene Corrigan 04/03/24 17:49: Spoke with patient about Buspirone dosage and to see if she was taking Escitalopram and patient has a list I confirmed everything else. Original Note: Pharmacy Consult ? Medication Reconciliation Pharmacy has completed the medication reconciliation. Spoke with patient and she confirmed her medications. Patient confirmed she is taking Buspirone 15mg tabs twice daily even tho her allergies states she has an allergy to it. Patient confirmed she took her medications this morning.
[2024-04-03] MEDS: Potassium Chloride Packet 20 MEQ PACKET 40 MEQ PO (16:38)
[2024-04-03 16:45] LABS: ~Lactic Acid-LAB USE ONLY 1.4 mmol/L (0.5-2.0)
--- NOTE | 2024-04-03 16:53 | PC.NURSE ---
Pt is tachipnic at rest. skin pwd. ST on monitor. at first refusing mag d/t hx of diarrhea. also refusing to drink PO potassium. LS dim throughout. no cough. no wheeze. is aware of plan of care.
[2024-04-03] MEDS: Enoxaparin Sodium 40 MG/0.4 ML SYRINGE SUBCUT (17:08)
[2024-04-03] MEDS: Oseltamivir Phosphate 75 MG CAPSULE PO (17:08)
[2024-04-03] MEDS: LORazepam 1 MG TABLET PO (17:08)
[2024-04-03] MEDS: Magnesium Sulfate/H2O 2 GM/50 ML PIGGYBACK IV (17:09)
[2024-04-03] MEDS: Nicotine 14 MG PATCH.TD24 TRANSDERMA (17:09)
[2024-04-03 17:45] LABS: Magnesium 1.6 mg/dL (1.6-2.6)
[2024-04-03] MEDS: Albuterol/Iprat 2.5/0.5MG 3 ML AMPUL.NEB INHALE (20:12)
[2024-04-03 20:21] LABS: Glucose, Whole Blood 289 mg/dL (60-115)
[2024-04-03] MEDS: busPIRone HCl 10 MG TABLET 20 MG PO (20:30)
[2024-04-03] MEDS: Baclofen 10 MG TABLET PO (20:30)
[2024-04-03] MEDS: Mirtazapine 15 MG TABLET 30 MG PO (20:30)
[2024-04-03] MEDS: traZODone HCL 100 MG TABLET PO (20:30)
[2024-04-03] MEDS: Insulin Lispro 100 UNIT/ML 3 ML VIAL SUBCUT (20:31)
[2024-04-04] VITALS (8 sets, daily range): BP systolic 132–180; BP diastolic 61–86; PULSE 84–102; RESP 12–20; TEMP 36.1–37; O2SAT 93–99
[2024-04-04] MEDS: methylPREDNISolone Sod Succ 40 MG/ML VIAL IVPUSH (01:39)
[2024-04-04] MEDS: Oseltamivir Phosphate 75 MG CAPSULE PO ×2 (05:54→17:46)
[2024-04-04 07:35] LABS: Glucose, Whole Blood 257 mg/dL (60-115)
[2024-04-04 07:38] LABS: Hematocrit 40.9 % (37.0-47.0); Hemoglobin 14.3 g/dl (12.0-16.0); Mean Corpuscular Hemoglobin 32.5 pg (27.0-33.0); Mean Platelet Volume 10.7 fL (9.4-12.3); Red Cell Distribution Width 12.5 % (11.0-16.0)
[2024-04-04 07:41] LABS: Platelet Count 97 X10*3/uL (160-400); White Blood Count 2.1 X10*3/uL (4.8-10.8)
[2024-04-04] MEDS: Insulin Lispro 100 UNIT/ML 3 ML VIAL SUBCUT ×5 (08:04→20:59)
[2024-04-04] MEDS: Escitalopram Oxalate 5 MG TABLET PO (08:05)
[2024-04-04] MEDS: 0.9 % Sodium Chloride Flush 3 ML SYRINGE IVFLUSH ×4 (08:05→23:44)
[2024-04-04] MEDS: Atorvastatin Calcium 40 MG TABLET PO (08:05)
[2024-04-04] MEDS: lisinopriL 20 MG TABLET PO (08:05)
[2024-04-04] MEDS: Nicotine 14 MG PATCH.TD24 TRANSDERMA (08:05)
[2024-04-04 08:22] LABS: Alanine Aminotransferase 46 U/L (0-31); Albumin Level 3.7 g/dL (3.5-5.0); Anion Gap 20 (12-20); Aspartate Amino Transferase 63 U/L (5-31); Bilirubin Direct 0.2 mg/dL (0.0-0.5); Bilirubin Total 0.4 mg/dL (0.0-1.0); Blood Urea Nitrogen 8 mg/dL (9-16); Calcium 8.9 mg/dL (8.4-10.2); Carbon Dioxide 24 mmol/L (22-29); Chloride 96 mmol/L (96-108); Creatinine Clr Calc Pharmacy 47.3; Estimated Glomerular Filt Rate > 60; Glucose Random 282 mg/dL (60-115); Potassium 3.6 mmol/L (3.3-5.1); Sodium 136 mmol/L (135-145); Total Protein 6.9 g/dL (6.5-8.0)
[2024-04-04] MEDS: Albuterol/Iprat 2.5/0.5MG 3 ML AMPUL.NEB INHALE ×3 (08:27→20:26)
[2024-04-04 08:35] LABS: Alkaline Phosphatase 96 U/L (39-117)
[2024-04-04] MEDS: amLODIPine Besylate 5 MG TABLET PO (10:16)
--- NOTE | 2024-04-04 11:16 | HO.PM.IMPN ---
Subjective Subjective Date of Service: 04/04/24 Interval History: seen and examined this morning Follow-up for COPD exacerbation/influenza Feeling much better, less dyspneic but still with shortness of breath and requiring supplemental oxygen Review of Systems Review of Systems: Yes all other systems are reviewed and are negative Constitutional Constitutional: Denies chills and Denies fever(s) Cardiovascular Cardiovascular: Denies chest pain and Denies palpitations Endocrine Endocrine: Denies palpitations Physical Exam Vital Signs: Vital Signs: Last Vital Signs Temp 98.6 F 04/04/24 08:08 Pulse 102 H 04/04/24 08:28 Resp 15 04/04/24 08:28 BP 180/86 H 04/04/24 08:08 Pulse Ox 94 04/04/24 08:08 O2 Del Method Nasal Cannula 04/04/24 08:08 O2 Flow Rate 2 04/04/24 08:08 Oxygen Flow Rate 2 04/03/24 15:06 BMI result Body Mass Index 17.1 Const: General: alert and awake Nutritional Appearance: thin Orientation/consciousness: patient oriented x3 Resp: Other: improving b/l expiratory wheeze, better air entry; less tachypnea Effort & Inspection: normal respiratory effort, able to speak in complete sentences, no respiratory distress and no use of accessory muscles Cardio: Rate: tachycardic GI: Inspection: No distended Palpation (GI): Soft to palpation and nontender Neuro: General: patient oriented x3, moves all extremities and CN's II-XI intact bilaterally Extrem: General: Yes no pedal edema Objective Data Active Medications Acetaminophen (Acetaminophen 325 Mg Tablet) 650 mg PO Q6H PRN PRN Reason: Pain, Mild 1-3,fever,headache Albuterol/Ipratropium (Albuterol/Iprat 2.5/0.5mg 3 Ml Ampul.Neb) 3 ml INHALE Q4H PRN PRN Reason: Shortness of Breath/Wheezing Albuterol/Ipratropium (Albuterol/Iprat 2.5/0.5mg 3 Ml Ampul.Neb) 3 ml INHALE RQ6H WHILE AWAKE [facility] Last Admin: 04/04/24 08:27 Dose: 3 ml Documented By: LUCIANO Amlodipine Besylate (Amlodipine Besylate 5 Mg Tablet) 5 mg PO DAILY [facility]; Protocol Last Admin: 04/04/24 10:16 Dose: 5 mg Documented By: KHUSHBOO Atorvastatin Calcium (Atorvastatin Calcium 40 Mg Tablet) 40 mg PO DAILY [facility] Last Admin: 04/04/24 08:05 Dose: 40 mg Documented By: KHUSHBOO Baclofen (Baclofen 10 Mg Tablet) 10 mg PO BEDTIME [facility] Last Admin: 04/03/24 20:30 Dose: 10 mg Documented By: JERRI Buspirone HCl (Buspirone Hcl 10 Mg Tablet) 20 mg PO BID [facility] Last Admin: 04/04/24 08:05 Dose: Not Given Documented By: KHUSHBOO Non-Admin Reason: Patient Refused Calcium Carbonate (Calcium Carbonate 750 Mg Tab.Chew) 750 mg PO Q4H PRN PRN Reason: Heartburn Dextrose (Dextrose 50 % 25 Gm/50 Ml Syringe) 25 gm IVPUSH Q15M PRN; Protocol PRN Reason: per Hypoglycemia Standing Ord. Enoxaparin Sodium (Enoxaparin Sodium 40 Mg/0.4 Ml Syringe) 40 mg SUBCUT Q24H [facility] Last Admin: 04/03/24 17:08 Dose: 40 mg Documented By: IRVING Escitalopram Oxalate (Escitalopram Oxalate 5 Mg Tablet) 5 mg PO DAILY [facility] Last Admin: 04/04/24 08:05 Dose: 5 mg Documented By: KHUSHBOO Glucose (Glucose Gel 15 Gm Gel..Gram.) 15 gm PO Q15M PRN; Protocol PRN Reason: per Hypoglycemia Standing Ord. Guaifenesin/Dextromethorphan (Guaifenesin Dm 100/10/5 Ml 5 Ml Syrup) 5 ml PO Q6H PRN PRN Reason: Cough Insulin Human Lispro (Insulin Lispro 100 Unit/Ml 3 Ml Vial) 0 unit SUBCUT QIDACHS [facility]; Protocol Last Admin: 04/04/24 08:04 Dose: 6 unit Documented By: KHUSHBOO Lisinopril (Lisinopril 20 Mg Tablet) 20 mg PO DAILY [facility]; Protocol Last Admin: 04/04/24 08:05 Dose: 20 mg Documented By: KHUSHBOO Lorazepam (Lorazepam 1 Mg Tablet) 1 mg PO DAILY PRN PRN Reason: sever anxiety Last Admin: 04/03/24 17:08 Dose: 1 mg Documented By: HO.DORM Melatonin (Melatonin 3 Mg Tablet) 6 mg PO BEDTIME PRN PRN Reason: Insomnia Methylprednisolone Sodium Succinate (Methylprednisolone Sod Succ 40 Mg/Ml Vial) 40 mg IVPUSH Q12H [facility] Last Admin: 04/04/24 01:39 Dose: 40 mg Documented By: JERRI Mirtazapine (Mirtazapine 15 Mg Tablet) 30 mg PO BEDTIME [facility] Last Admin: 04/03/24 20:30 Dose: 30 mg Documented By: JERRI Nicotine (Nicotine 14 Mg Patch.Td24) 14 mg TRANSDERMA DAILY [facility] Last Admin: 04/04/24 08:05 Dose: 14 mg Documented By: KHUSHBOO Oseltamivir Phosphate (Oseltamivir Phosphate 75 Mg Capsule) 75 mg PO Q12H [facility] Stop: 04/08/24 06:01 Last Admin: 04/04/24 05:54 Dose: 75 mg Documented By: JERRI Polyethylene Glycol (Polyethylene Glycol 3350 17 Gm Powd.Pack) 17 gm PO DAILY PRN PRN Reason: Constipation Sodium Chloride (0.9 % Sodium Chloride Flush 3 Ml Syringe) 3 ml IVFLUSH QSHIFT [facility] Last Admin: 04/04/24 08:05 Dose: 3 ml Documented By: KHUSHBOO Trazodone HCl (Trazodone Hcl 100 Mg Tablet) 100 mg PO BEDTIME [facility] Last Admin: 04/03/24 20:30 Dose: 100 mg Documented By: JERRI Labs 04/04/24 06:32 04/04/24 06:32 Labs: Laboratory Results - last 24 hr 04/03/24 04/03/24 04/03/24 12:56 14:03 14:10 MCV 92.5 MCH 32.1 MCHC 34.7 RDW 12.3 Plt Count 132 L MPV 10.6 Immature Gran % (Auto) 0.7 H Neut % (Auto) 68.3 Lymph % (Auto) 21.1 [place] % (Auto) 9.4 Eos % (Auto) 0.0 Baso % (Auto) 0.5 Lymph # (Auto) 0.9 L [place] # (Auto) 0.4 Eos # (Auto) 0.0 Baso # (Auto) 0.0 Abs Immat Gran (auto) 0.03 Absolute Neuts (auto) 3.0 Absolute Nucleated RBC 0.000 Nucleated RBC % (auto) 0.0 Smear Tech's Comments VERIFIED VBG pH 7.40 VBG pCO2 53 VBG pO2 30 VBG HCO3 33 H VBG O2 Saturation 39.0 VBG Base Excess 7.3 Anion Gap 26 H Estim Creat Clear Calc 48.1 Estimated GFR > 60 POC Glucose Random Glucose 104 Lactic Acid 2.1 H* 1.2 Lactic Acid F/U @ 2Hr Calcium 9.6 D Magnesium 1.3 L* Total Bilirubin 0.6 Direct Bilirubin 0.3 AST 100 H ALT 55 H Alkaline Phosphatase 106 Troponin I High Sens 9.5 B-Natriuretic Peptide 29 Total Protein 7.4 Albumin 4.2 Lipase 18 Influenza Type A (PCR) POSITIVE A Influenza Type B (PCR) NEGATIVE RSV RNA Qual (PCR) NEGATIVE SARS-CoV-2 RNA (RT-PCR) NEGATIVE 04/03/24 04/03/24 04/03/24 16:18 17:26 19:39 MCV MCH MCHC RDW Plt Count MPV Immature Gran % (Auto) Neut % (Auto) Lymph % (Auto) [place] % (Auto) Eos % (Auto) Baso % (Auto) Lymph # (Auto) [place] # (Auto) Eos # (Auto) Baso # (Auto) Abs Immat Gran (auto) Absolute Neuts (auto) Absolute Nucleated RBC Nucleated RBC % (auto) Smear Tech's Comments VBG pH VBG pCO2 VBG pO2 VBG HCO3 VBG O2 Saturation VBG Base Excess Anion Gap Estim Creat Clear Calc Estimated GFR POC Glucose 289 H Random Glucose Lactic Acid Lactic Acid F/U @ 2Hr 1.4 Calcium Magnesium 1.6 Total Bilirubin Direct Bilirubin AST ALT Alkaline Phosphatase Troponin I High Sens B-Natriuretic Peptide Total Protein Albumin Lipase Influenza Type A (PCR) Influenza Type B (PCR) RSV RNA Qual (PCR) SARS-CoV-2 RNA (RT-PCR) 04/04/24 04/04/24 06:32 07:29 MCV 93.0 MCH 32.5 MCHC 35.0 RDW 12.5 Plt Count 97 L D MPV 10.7 Immature Gran % (Auto) Neut % (Auto) Lymph % (Auto) [place] % (Auto) Eos % (Auto) Baso % (Auto) Lymph # (Auto) [place] # (Auto) Eos # (Auto) Baso # (Auto) Abs Immat Gran (auto) Absolute Neuts (auto) Absolute Nucleated RBC 0.000 Nucleated RBC % (auto) 0.0 Smear Tech's Comments VBG pH VBG pCO2 VBG pO2 VBG HCO3 VBG O2 Saturation VBG Base Excess Anion Gap 20 Estim Creat Clear Calc 47.3 Estimated GFR > 60 POC Glucose 257 H Random Glucose 282 H Lactic Acid Lactic Acid F/U @ 2Hr Calcium 8.9 D Magnesium Total Bilirubin 0.4 Direct Bilirubin 0.2 AST 63 H ALT 46 H Alkaline Phosphatase 96 Troponin I High Sens B-Natriuretic Peptide Total Protein 6.9 Albumin 3.7 Lipase Influenza Type A (PCR) Influenza Type B (PCR) RSV RNA Qual (PCR) SARS-CoV-2 RNA (RT-PCR) Assessment and Plan (1) Influenza A: Status: Acute (2) Acute respiratory failure: Status: Acute Plan This is a 73-year-old female with history of COPD not on oxygen at baseline, type 2 diabetes, hypertension, hyperlipidemia, who was sent to the emergency department by her PCP for 3 days of worsening shortness of breath and cough found to have hypoxia and influenza A Acute respiratory failure with hypoxia/acute COPD exacerbation due to influenza a Scheduled and as needed bronchodilator therapy Systemic steroids continue Tamiflu Continue supplemental oxygen as needed blood cultures pending Acute lactic acidosis Likely due to breathing treatments and metformin versus viral sepsis resolved Type 2 diabetes with hyperglycemia due to steroids hba1c 6.3 Hold metformin SSI, POCs Tobacco dependence Smoking cessation advised NRT Hypomagnesemia improved with replacement Hypokalemia resolved with replacement Thrombocytopenia ? due to viral illness platelets trending down follow cbc Mild transaminitis ?due to viral illness LFTs trending down Mood Continue baseline medications buspar on med list and allergy list - pt states she doesn't take it - will d/c HTN continue lisinopril, norvasc DVT prophylaxis-Lovenox Code status-DNR/DNI Patient will likely require 2 midnight stay in the hospital for management of influenza causing acute COPD exacerbation and respiratory failure requiring IV steroids and close monitoring of oxygen saturation Quality Stroke Does the patient have a stroke diagnosis?: No VTE Prior VTE?: No VTE Risk Level:: Medical - moderate - high VTE Device Contraindication: N/A - Device Ordered VTE Drug Contraindication: N/A - Med Ordered
[2024-04-04 11:43] LABS: Glucose, Whole Blood 443 mg/dL (60-115)
[2024-04-04] MEDS: methylPREDNISolone Sod Succ 40 MG/ML VIAL 20 MG IVPUSH ×2 (12:06→23:44)
--- NOTE | 2024-04-04 15:17 | MHC.CM.PN ---
IMM delivered. Patient lives in a home alone. Independent. Denies use of DME or services. PCP Enriqueta Estrada MD HCP on file and verified. DP: Patient's goal is home self care. Is not open to services at this time if recommended. Son to transport. CM will continue to follow.
[2024-04-04] MEDS: guaiFENesin DM 100/10/5 ML 5 ML SYRUP PO (16:03)
[2024-04-04] MEDS: Acetaminophen 325 MG TABLET 650 MG PO (16:03)
[2024-04-04 16:27] LABS: Glucose, Whole Blood 210 mg/dL (60-115)
[2024-04-04 20:39] LABS: Glucose, Whole Blood 252 mg/dL (60-115)
[2024-04-04] MEDS: Mirtazapine 15 MG TABLET 30 MG PO (20:59)
[2024-04-04] MEDS: Baclofen 10 MG TABLET PO (20:59)
[2024-04-04] MEDS: traZODone HCL 100 MG TABLET PO (20:59)
[2024-04-05 03:26] VITALS: BP 170/76; PULSE 82; RESP 20; TEMP 36.3; O2SAT 97
[2024-04-05] MEDS: Oseltamivir Phosphate 75 MG CAPSULE PO (05:36)
[2024-04-05 07:49] LABS: Glucose, Whole Blood 251 mg/dL (60-115)
[2024-04-05] MEDS: Insulin Lispro 100 UNIT/ML 3 ML VIAL SUBCUT ×3 (08:07→11:54)
[2024-04-05 08:17] VITALS: BP 161/91; PULSE 87; RESP 12; TEMP 36.1; O2SAT 92
[2024-04-05 08:23] VITALS: O2SAT 86
[2024-04-05] MEDS: Albuterol/Iprat 2.5/0.5MG 3 ML AMPUL.NEB INHALE (08:26)
[2024-04-05 08:30] VITALS: O2SAT 92
[2024-04-05] MEDS: Nicotine 14 MG PATCH.TD24 TRANSDERMA (09:13)
[2024-04-05] MEDS: Escitalopram Oxalate 5 MG TABLET PO (09:14)
[2024-04-05] MEDS: lisinopriL 20 MG TABLET PO (09:14)
[2024-04-05] MEDS: Atorvastatin Calcium 40 MG TABLET PO (09:14)
[2024-04-05] MEDS: amLODIPine Besylate 5 MG TABLET PO (09:15)
[2024-04-05] MEDS: 0.9 % Sodium Chloride Flush 3 ML SYRINGE IVFLUSH (09:16)
--- NOTE | 2024-04-05 11:00 | PC.NURSE ---
Ambulated pt to window and back to bed on room air. O2 sats dropped to 86%. O2 2L NC pt sats improved to 91-93% Sandra martinez
[2024-04-05 11:40] LABS: Glucose, Whole Blood 382 mg/dL (60-115)
[2024-04-05] MEDS: methylPREDNISolone Sod Succ 40 MG/ML VIAL 20 MG IVPUSH (11:54)
[2024-04-05 13:08] LABS: Hematocrit 39.6 % (37.0-47.0); Hemoglobin 13.4 g/dl (12.0-16.0); Mean Corpuscular HGB Conc 33.8 g/dl (31.0-35.0); Mean Corpuscular Hemoglobin 32.1 pg (27.0-33.0); Mean Platelet Volume 10.5 fL (9.4-12.3); Platelet Count 169 X10*3/uL (160-400); Red Blood Count 4.17 X10*6/uL (4.20-5.50); Red Cell Distribution Width 12.7 % (11.0-16.0)
[2024-04-05 15:32] VITALS: PULSE 116; PULSE 80; PULSE 88; O2SAT 86; O2SAT 90; O2SAT 95
--- NOTE | 2024-04-05 15:32 | PM.DS ---
DS: Providers Provider Date of Service: 04/05/24 Date of admission: 04/03/24 16:16 Date of discharge: 04/05/24 Primary care physician: Enriqueta Estrada MD Attending physician on discharge: Rich Kim Discharging clinician: Sandra Rondon DS: Diagnosis Discharge Diagnosis (1) Influenza A: Status: Acute (2) Acute respiratory failure: Status: Acute DS: Summary Hospital Course Hospital Course: From H&P on the day of admission This is a 73-year-old female who was seen in her PCP's office today for routine follow-up. At her visit she was noted to be short of breath, she was noted to be hypoxic with an oxygen saturation of 86% on room air. She was referred to the emergency department for further evaluation. In the emergency department she was also hypoxic. Patient reports 2-3 days of increasing shortness a breath with associated fatigue and dry cough. She denies any associated fever, chills, body aches. Lab work significant for lactic acid of 2.1, potassium 3.2, sodium 134, magnesium 1.3 in mild elevation in LFTs. Chest x-ray showed chronic interstitial lung disease. Patient tested positive for influenza A. She received multiple breathing treatments, systemic steroids as well as replacement for magnesium and potassium. She was initially resistant to admission but is now agreeable to stay for management of acute COPD exacerbation in the setting of influenza a infection. Acute respiratory failure with hypoxia/acute COPD exacerbation due to influenza a Treated bronchodilator therapy, Systemic steroids and Tamiflu. wheezing improved but patient continued to have oxygen need. Blood cultures remained negative. The plan was for her to stay for an additional day in the hospital however she suddenly decided she wanted to go home and she requested to be discharged. She had a home o2 evaluation and did qualify for oxygen with ambulation however she is declining to use oxygen at home despite explanations as to why it would be important. She was insistant upon leaving and did not agree for another overnight stay. She also does not want prednisone on discharge. She did agree for vna services upon discharge. Noted to have leukopenia, elevated LFTs (mildly) and thrombocytpenia. All likely due to acute viral illness. Thrombocytopenia and leukopenia resolved. Acute lactic acidosis - Likely due to breathing treatments and metformin versus viral sepsis Tobacco dependence - Smoking cessation advised hypokalemia/hypomagnesemia - resolved Time Attestation Discharge Coordination Time (in mins): 36 Quality: Safe Use of Opioids Does Pt have an Active Cancer Diagnosis on the Problem List?: No Quality: Stroke Does the patient have a stroke diagnosis?: No Physical Exam Vital Signs: Vital Signs: Last Vital Signs Temp 97.0 F 04/05/24 08:17 Pulse 87 04/05/24 08:17 Resp 12 04/05/24 08:17 BP 161/91 H 04/05/24 08:17 Pulse Ox 92 04/05/24 08:30 O2 Del Method Nasal Cannula 04/05/24 08:30 O2 Flow Rate 2 04/05/24 08:30 Oxygen Flow Rate 2 04/03/24 15:06 BMI result Body Mass Index 17.1 Const: General: alert, awake and Physically active Nutritional Appearance: thin Orientation/consciousness: patient oriented x3 Resp: Effort & Inspection: able to speak in complete sentences and no respiratory distress Neuro: General: patient oriented x3 DS: Data Data Completed and Pending Completed studies during hospitalization [Text1]: Procedures Reposition Right Upper Femur with Intramedullary Internal Fixation Device, Percutaneous Approach (07/29/23) Labs on day of discharge: Laboratory Results - last 24 hr 04/04/24 04/04/24 04/05/24 16:16 19:35 07:38 WBC RBC Hgb Hct MCV MCH MCHC RDW Plt Count MPV Absolute Nucleated RBC Nucleated RBC % (auto) POC Glucose 210 H 252 H 251 H 04/05/24 04/05/24 11:24 12:44 WBC 8.0 RBC 4.17 L Hgb 13.4 Hct 39.6 MCV 95.0 MCH 32.1 MCHC 33.8 RDW 12.7 Plt Count 169 D MPV 10.5 Absolute Nucleated RBC 0.000 Nucleated RBC % (auto) 0.0 POC Glucose 382 H* Preliminary micro results at discharge 04/03/24 12:56 Blood Culture - Preliminary Blood - Venous No growth after 48 hours. 04/03/24 12:56 Blood Culture - Preliminary Blood - Venous No growth after 48 hours. 04/03/24 16:25 Blood Culture - Preliminary Blood - Venous No growth after 24 hours. 04/03/24 16:18 Blood Culture - Preliminary Blood - Venous No growth after 24 hours. Discharge Plan Discharge Anticipated Discharge Date/Time: 04/05/24 15:54 Patient Disposition: Home Health Service Discharge Diagnosis: influenza a COPD exacerbation low potassium/low magnesium - resolved acute hypoxic respiratory failure Referrals: [facility] [Outside] - 3-5 Days (Kerry [facility]AL will call you to schedule appointments in your home.) Enriqueta Estrada MD [Primary Care Provider] - 1 Week Discharge Medications: New oseltamivir [Tamiflu] 75 mg Capsule 75 mg PO Q12H Qty: 6 0RF nicotine 14 mg/24 hr Patch 24 Hour 14 mg transdermal DAILY Qty: 28 1RF prednisone 20 mg tablet 20 mg PO DAILY 5 Days Qty: 5 0RF albuterol sulfate 90 mcg/actuation HFA aerosol inhaler 2 puff inhalation Q4-6H PRN (Reason: shortness of breath or wheezing) Qty: 6.7 1RF Continued metformin 1,000 mg tablet 1,000 mg PO DAILY Qty: 90 3RF ibuprofen 800 mg tablet 800 mg PO Q8H PRN (Reason: pain) 30 Days Qty: 90 3RF baclofen 10 mg tablet 10 mg PO BEDTIME Qty: 30 1RF buspirone 15 mg tablet 15 mg PO BID buspirone 5 mg tablet 5 mg PO BID mirtazapine 30 mg tablet 30 mg PO BEDTIME escitalopram oxalate 5 mg tablet 5 mg PO DAILY lorazepam 1 mg tablet 1 mg PO DAILY PRN (Reason: sever anxiety) trazodone 50 mg tablet 100 mg PO BEDTIME amlodipine 5 mg tablet 5 mg PO DAILY Qty: 90 3RF atorvastatin 40 mg tablet 40 mg PO DAILY Qty: 90 3RF lisinopril 20 mg tablet 20 mg PO DAILY Qty: 90 3RF Discharge Orders: Discharge Order (Routine); Ordered 04/05/24 Ordered By: Sandra Rondon Activity on Discharge: As tolerated Stand Alone Forms: Patient Portal Discharge page Print Language: [place] Care Plan Goals: see below Health Concerns: acute respiratory failure with hypoxia due to COPD exacerbation from influenza A low potassium and low magnesium levels - resolved low platelets - resolved low white blood cell count - resolved mild elevation of liver enzymes Plan of Treatment: you qualified for home oxygen with ambulation but you have declined home oxygen recommend close follow up with your primary care provider - call to schedule an appointment Take tamiflu as prescribed Take prednisone as prescribed Albuterol as needed for shortness of breath or wheezing Recommend smoking cessation call PCP or return to the ED with new or worsening symptoms you will be discharged home with VNA servies Assessment: see discharge summary
--- NOTE | 2024-04-05 15:37 | MHC.CM.PN ---
Addendum entered by Isabelle Flores RN 04/05/24 15:37: [facility] referral is per patient preference. Original Note: Patient medically cleared for dc home w/ services. Referral to [facility]. Friend will provide transport. RN aware.
[2024-04-05 15:49] VITALS: BP 169/82; PULSE 99; RESP 20; TEMP 36.4; O2SAT 92
--- NOTE | 2024-04-05 16:04 | W.MHC.F2F ---
Service Date Service Date: 04/05/24 Encounter Date of encounter: 04/05/24 Reasons for Services Signs and symptoms assessed: needs custodial for monitoring of oxygen saturation; qualified for home oxygen with ambulation but declined on discharge Reason for custodial: CV/CP assess and/or care MD Overseeing Care: Enriqueta Estrada Homebound: Leaving the home is medically contraindicated at this time without the asist of a device and/or another person due th the listed conditions above and below. Reason homebound: shortness of breath with minimal effort Certification: Based on the above findings, I certify that this patient is confined to the home and needs intermittent custodial care, physical therapy and/or speech therapy, or continues to need occupational therapy. The patient is under my care, and I have initiated the establishment of the plan of care. The patient will be followed by a physician who will periodically review the plan of care. Time Spent With Patient Time: Total time managing care of this patient today ____ minutes.
== END 2024-04-05 16:58 | disposition home health service (06) | DRG 195 ==
LOC: HO.ED 15:47 → HO.EDOVER 16:28 → HO.S3 17:00
PROVIDERS: Physician Assistant Medical; Admitting Provider Physician Assistant Medical; Emergency Provider Emergency Medicine Emergency Medical Services; PCP Internal Medicine; Visit Provider Physician Assistant Medical
DX: J10.1 Influenza due to other identified influenza virus with other respiratory manifestations (principal); F17.210 Nicotine dependence, cigarettes, uncomplicated; Z71.6 Tobacco abuse counseling; Z79.84 Long term (current) use of oral hypoglycemic drugs; Z79.899 Other long term (current) drug therapy
CPT/HCPCS: 0241U; 36415; 71045; 80048; 80053; 80061; 80076; 82803; 82947; 83036; 83605; 83690; 83735; 83880; 84443; 84484; 85025; 85027; 87040; 93005; 94640; 96127; 99212; 99285; J1650; J2919; J3475

== ENCOUNTER → 2024-04-03 12:29 | Outpatient (BNV) | payer MEDICARE, SELFPAY | PROVIDERS: Admitting Provider Physician Assistant Medical; Emergency Provider Emergency Medicine Emergency Medical Services; PCP Internal Medicine; Visit Provider Internal Medicine Cardiovascular Disease | DX: I51.7 Cardiomegaly (principal); R00.0 Tachycardia, unspecified | CPT/HCPCS: 93010 ==

== ENCOUNTER → 2024-04-03 12:29 | Outpatient (BNV) | payer MEDICARE, SELFPAY | PROVIDERS: Emergency Provider Emergency Medicine Emergency Medical Services; PCP Internal Medicine; Visit Provider Radiology Diagnostic Radiology | DX: J84.9 Interstitial pulmonary disease, unspecified (principal) | CPT/HCPCS: 71045 ==

== ENCOUNTER → 2024-04-03 16:16 | Outpatient (BNV) | payer MEDICARE, SELFPAY | PROVIDERS: Admitting Provider Physician Assistant Medical; Emergency Provider Emergency Medicine Emergency Medical Services; PCP Internal Medicine; Visit Provider Physician Assistant Medical | DX: J10.1 Influenza due to other identified influenza virus with other respiratory manifestations (principal); J96.01 Acute respiratory failure with hypoxia; J44.1 Chronic obstructive pulmonary disease with (acute) exacerbation; E11.65 Type 2 diabetes mellitus with hyperglycemia | CPT/HCPCS: 99232 ==

== ENCOUNTER 2024-04-08 09:42 | Outpatient (AMB) | payer MEDICARE, SELFPAY ==
[2024-04-08 09:50] VITALS: BP 130/70; PULSE 112; RESP 20; TEMP 36.3; O2SAT 88; BMI 16.5
--- NOTE | 2024-04-08 09:50 | MHC.PC.OV ---
Vital Signs 04/08/24 09:50 Height 5 ft 2 in Weight 90 lb BMI 16.5 BP 130/70 Blood Pressure Location Lt brachial Position Sitting Respiration 20 Pulse 112 H Pulse Source Pulse Oximeter Temp 97.4 F Temp Source Oral Pulse Oximetry (%) 88 L Oxygen Delivery Method Room Air Intake Visit Reasons: TCM Intake Note: Pt is here today for a TCM visit. Pt states that she is feeling very tired. Allergies nortriptyline Allergy (Severe, Verified 04/08/24 09:51) hives bupropion Allergy (Intermediate, Verified 04/08/24 09:51) hives buspirone [From BuSpar] Allergy (Intermediate, Verified 04/08/24 09:51) Diarrhea high anxiety cefdinir Allergy (Intermediate, Verified 04/08/24 09:51) diarrhea and yeast ingection nitrofurantoin Allergy (Intermediate, Verified 04/08/24 09:51) heartburn; N/V penicillin V Allergy (Intermediate, Verified 04/08/24 09:51) Hives Sulfa (Sulfonamide Antibiotics) Allergy (Intermediate, Verified 04/08/24 09:51) Hives duloxetine Adverse Reaction (Intermediate, Verified 04/08/24 09:51) Diarrhea prazosin Adverse Reaction (Intermediate, Verified 04/08/24 09:51) Diarrhea phenazopyridine [From Pyridium] Adverse Reaction (Mild, Verified 04/08/24 09:51) Diarrhea Myacin Allergy (Mild, Uncoded 04/08/24 09:51) Hives prazosin Adverse Reaction (Intermediate, Uncoded 04/08/24 09:51) Diarrhea Medication List - Last Reconciled 04/08/24 by Enriqueta Estrada MD albuterol sulfate 90 mcg/actuation 2 puffs inhalation Q4-6H PRN amlodipine 5 mg PO DAILY atorvastatin 40 mg PO DAILY baclofen 10 mg PO BEDTIME buspirone 5 mg PO BID buspirone 15 mg PO BID escitalopram oxalate 5 mg PO DAILY escitalopram oxalate 10 mg PO DAILY ibuprofen 800 mg PO Q8H PRN 30 days lisinopril 20 mg PO DAILY lorazepam 1 mg PO DAILY PRN metformin 1,000 mg PO DAILY mirtazapine 30 mg PO BEDTIME nicotine 14 mg transdermal DAILY oseltamivir (Tamiflu) 75 mg PO Q12H prednisone 20 mg PO DAILY 5 days prednisone 4 tabl qd for 3 days, then 3 tabl qd x 3 days, then 2 tabl qd x 3days, then 1 tabl qd x 3 days trazodone 100 mg PO BEDTIME Trelegy Ellipta 200-62.5-25 mcg (xrpbbnglqlp-legwoogqn-cgcjrvqi) 1 inh inhalation DAILY NS Tobacco use date assessed: 04/08/24 Dental Screening Dental Screen Date: 04/03/24 HPI TCM HPI Details Patient presents for the follow-up from hospitalization at [facility]. She was admitted for respiratory failure was found to have influenza started on Tamiflu and prednisone. Patient was treated with supplemental O2 during the hospitalization but he declined supplemental O2 on discharge. Patient reports persistent shortness or breath, chest tightness feeling tired, increase urination and thirst. She denies fever or chills productive cough. TCM TCM Information Date of Discharge 04/05/24 Discharged From [facility] Interactive Contact Date (Reference documentation from this date) 04/07/24 [facility] Medical History Dysuria Hyponatremia Annual physical exam COPD (chronic obstructive pulmonary disease) Depression Diabetes Alopecia Tobacco abuse CAD (coronary artery disease) Colon polyp Hyperlipidemia HTN (hypertension) Diabetic eye exam Anxiety and depression Surgical History H/O colonoscopy History of appendectomy History of oophorectomy Family History Father Diabetes mellitus Mother No problems noted. Son Myocardial infarction Social History Household Members: None Housing: Condominium Do you presently have visiting nurse or other home services: No Alcohol intake: current Alcohol intake frequency: holidays/special occasions only Patient Tobacco Use Status: Current everyday Tobacco user Tobacco use type: Cigarette Cigarettes Per Day: 5 Years Smoked: 50 e-Cigarette/Vaping Use: Never Used Second Hand Smoke Exposure: No Advance Directives Date on File: 08/05/23 service: No Current occupational status: retired Current occupational exposures/hazards: No Cognitive needs: No Hearing needs: No Vision needs: No Questionnaire Thrive Questionnaire Date Thrive assessed: 04/03/24 AMERICA-7 AMB Questionnaire AMERICA-7 Date AMERICA - 7 assessed: 04/03/24 Source: Developed by Drs. Kendell Chaney, Mary Curtis, Jordan Brandt and colleagues, with an educational collin from [employer]. Review of Systems Const All systems reviewed & are unremarkable except as noted in HPI and below Eyes Reports no additional complaints ENT Reports no additional complaints Card Reports no additional complaints Resp Reports no additional complaints GI Reports no additional complaints Physical exam (Primary Care) Vital Signs: Last Vital Signs Temp 97.4 F 04/08/24 09:50 Pulse 112 H 04/08/24 09:50 Resp 20 04/08/24 09:50 BP 130/70 04/08/24 09:50 Pulse Ox 88 L 04/08/24 09:50 Oxygen Delivery Method Room Air 04/08/24 09:50 BMI result Body Mass Index 16.5 Tobacco/Smoking Status: Tobacco use Status Tobacco use date assessed 04/08/24 04/08/24 09:52 Patient Tobacco Use Status Current everyday Tobacco 04/08/24 09:50 Tobacco use type Cigarette 04/08/24 09:50 e-Cigarette/Vaping Use Never Used 04/08/24 09:50 Thrive Assessment: Date of Thrive Assessment Date Thrive assessed 04/03/24 04/08/24 09:50 Const General: ill appearing HENMT Head: Yes normal to inspection Eyes General: appearance normal, both eyes and all related structures Resp Effort & Inspection: abnormal respiratory pattern, grunting and labored Auscultation: wheezes and diminished lung sounds Cardio Rate: tachycardic Rhythm: regular rhythm Heart sounds: S1 normal heart sound present and S2 normal heart sound present Extrem General: Yes no clubbing, cyanosis or edema Results AMB Random Glucose (hemocue) AMB Random Glucose (hemocue) 312 mg/dL Last Edit by EBER Chang on 04/08/24 10:40 Results Reviewed Results Reviewed: Laboratory Last Values Random Glu (Clinic) 312 mg/dL 04/08/24 10:40 Coding Level of Care Code Est Pt Level 4 (48094) Diagnoses Acute respiratory failure J96.00 Hypoxia R09.02 Diabetes E11.9 Assessment & Plan Assessment & Plan (1) Acute respiratory failure: Code(s): J96.00 - Acute respiratory failure, unspecified whether with hypoxia or hypercapnia Category: Medical Plan: O2 sat is 88 % on RA today improved after 1 L nasal cannula to 94%. Patient will start supplemental O2 at 1 L/min through nasal cannula O2 prn for O2 sat less than 90%. Prednisone taper from 40 mg to 10 mg is prescribed. Trelegy 200 mcg will be started. Patient can use albuterol inhaler as needed (2) Hypoxia: Code(s): R09.02 - Hypoxemia Category: Medical Plan: Status supplemental oxygen (3) Diabetes: Comment: Patient declined taking medications other than metformin Code(s): E11.9 - Type 2 diabetes mellitus without complications Category: Medical Plan: Patient glucose reading today is 360. Patient will be started on 15 units of Lantus insulin and was advised to monitor her blood glucose with Lucila 3 since to detect hypo and hyperglycemia. Patient will continue metformin she will follow-up in 1 week Orders: Orders AMB Random Glucose (hemocue) Today Z13.9 - Encounter for screening, unspecified Medications: New Trelegy Ellipta 200-62.5-25 mcg (nsimotarbjx-hisnhwgnx-jkpvuptu) 1 inh inhalation DAILY 60 ea 0RF NS prednisone 4 tabl qd for 3 days, then 3 tabl qd x 3 days, then 2 tabl qd x 3days, then 1 tabl qd x 3 days 30 tabs 0RF Lantus Solostar U-100 Insulin (insulin glargine) 15 units (0.15 mL) subcut QPM 15 mL 3RF NS Oxygen Home Use 1 L/MIN nasal cannula for O2 sat < 90 % 1 ea 0RF J44.1 - Chronic obstructive pulmonary disease with (acute) exacerbation, J96.00 - Acute respiratory failure, unspecified whether with hypoxia or hypercapnia, R09.02 - Hypoxemia pen needle, diabetic (Ultra-Thin II Insulin Pen [place]) As directed 100 ea 1RF Discontinued prednisone Discontinued Reason: Doctor's Order 20 mg PO DAILY 5 days 5 tabs 0RF
--- OUTSIDE RECORDS SUMMARY | 2024-04-08 10:59 | XMS_ITS | Data Portability ---
Author Organization [facility], [address] Address [address] [place] [address] Care Team Providers [employer] Supervisor Name Role Phone ALEJANRDO GARZA Primary Care Provider [phone] Assessment No assessment recorded. Plan of Treatment Reminders Order Date Submit Date Provider Last Modified By Organization Details Last Modified Time Details Appointments None recorded. [facility]inal[facility] , [facility] [address], [address], 17:39:55 culture, urine 2022 023 [email or web address] [facility] [place] [address] [place] [address], [place], [address], 17:48:25 Referral None recorded. Procedures None recorded. Surgeries None recorded. Imaging None recorded. Medication Orders Cipro 500 mg tablet 2022 023 [id number], [address], [place], [phone], 17:44:32 Patient TargetsNo targets recorded. Patient InstructionsNo instructions recorded. Reason for Referral None Reported. Results Created Date Observation Date Name Description Value Unit Range Abnormal Flag Note LastModifiedBy Organization Detail LastModifiedTime 05/04/19 23 05/05/2022 URINE CULTU RE, ROUTI NE urine culture, routine FINAL REPORT Not Available [facility] ([facility]) [address], [place], [address], 05/05/2022 06:07:23 05/04/19 23 05/05/2022 URINE CULTU RE, ROUTI NE result 1 NO GROWTH Not Available [facility] ([facility]) [address], [place], [address], 05/05/2022 06:07:23 05/04/19 23 05/03/2022 urina lysis , dipst ick Unknown Analyte Normal = light yellow Not Available [facility], [place], [address], 05/03/2022 16:43:07 05/04/19 23 05/03/2022 urina lysis , dipst ick Unknown Analyte Yellow Not Available [address] [place], [address], 05/03/2022 16:43:07 05/04/19 23 05/03/2022 urina lysis , dipst ick Unknown Analyte Normal = clear Not Available [address], [place], [address], 05/03/2022 16:43:07 05/04/19 23 05/03/2022 urina lysis , dipst ick Unknown Analyte Clear Not Available [address], [place], [address], 05/03/2022 16:43:07 05/04/19 23 05/03/2022 urina lysis , dipst ick Unknown Analyte Normal = negati ve Not Available [address], [place], [address], 05/03/2022 16:43:07 05/04/19 23 05/03/2022 urina lysis , dipst ick Unknown Analyte Negati ve Not Available [address], [place], [address], 05/03/2022 16:43:07 05/04/19 23 05/03/2022 urina lysis , dipst ick Unknown Analyte Normal = Negati ve Not Available 2099aarti bueno [address], [place], [address], 05/03/2022 16:43:07 05/04/19 23 05/03/2022 urina lysis , dipst ick Unknown Analyte Negati ve Not Available [address] [place] [address], [place], [address], 05/03/2022 16:43:07 05/04/19 23 05/03/2022 urina lysis , dipst ick Unknown Analyte Normal = Negati ve Not Available [address] [place] [address], [place], [address], 05/03/2022 16:43:07 05/04/19 23 05/03/2022 urina lysis , dipst ick Unknown Analyte Trace Not Available [address] [place] [address], [place], [address], 05/03/2022 16:43:07 05/04/19 23 05/03/2022 urina lysis , dipst ick Unknown Analyte Normal = 1.010, 1.015, 1.020 Not Available [address] [place] [address], [place], [address], 05/03/2022 16:43:07 05/04/19 23 05/03/2022 urina lysis , dipst ick Unknown Analyte 1.030 Not Available [address] [place] [address], [place], [address], 05/03/2022 16:43:07 05/04/19 23 05/03/2022 urina lysis , dipst ick Unknown Analyte Normal = Negati ve Not Available aarti bueno [address], [place], [address], 05/03/2022 16:43:07 05/04/19 23 05/03/2022 urina lysis , dipst ick Unknown Analyte Negati ve Not Available aarti bueno [address], [place], [address], 05/03/2022 16:43:07 05/04/19 23 05/03/2022 urina lysis , dipst ick Unknown Analyte Normal = 6.5, 7.0, 7.5, 8.0 Not Available aarti bueno [address], [place], [address], 05/03/2022 16:43:07 05/04/19 23 05/03/2022 urina lysis , dipst ick Unknown Analyte 7.0 Not Available [address], [place], [address], 05/03/2022 16:43:07 05/04/19 23 05/03/2022 urina lysis , dipst ick Unknown Analyte Normal = Negati ve Not Available aarti bueno [address], [place], [address], 05/03/2022 16:43:07 05/04/19 23 05/03/2022 urina lysis , dipst ick Unknown Analyte 30 mg/dL Not Available aarti bueno [address], [place], [address], 05/03/2022 16:43:07 05/04/19 23 05/03/2022 urina lysis , dipst ick Unknown Analyte Normal = 0.2, 1.0 Not Available [facility] [address], [place], [address], 05/03/2022 16:43:07 05/04/19 23 05/03/2022 urina lysis , dipst ick Unknown Analyte 0.2 E.U./d L Not Available 2099aarti bueno [address], [place], [address], 05/03/2022 16:43:07 05/04/19 23 05/03/2022 urina lysis , dipst ick Unknown Analyte Normal = Negati ve Not Available [facility] [address], [place], [address], 05/03/2022 16:43:07 05/04/19 23 05/03/2022 urina lysis , dipst ick Unknown Analyte Negati ve Not Available [address] [place] [address], [place], [address], 05/03/2022 16:43:07 05/04/19 23 05/03/2022 urina lysis , dipst ick Unknown Analyte Normal = Negati ve Not Available [address] [place] [address], [place], [address], 05/03/2022 16:43:07 05/04/19 23 05/03/2022 urina lysis , dipst ick Unknown Analyte Negati ve Not Available [address] [place] [address], [place], [address], 05/03/2022 16:43:07 Result Notes None recorded. Problems Name Problem SNOMED Code Status Onset Date Resolution Date Notes Provider Name and Address Organization Details Recorded Time Diabetes mellitus 11286206 Active 2022 JIMChioma santos PA - [facility] 16:53:49 Depressive disorder 74637923 Active 2022 JIMChioma santos, [place] - [facility] 16:53:54 Hypertensive disorder 79091454 Active 2022 JIM LEMUSZechariah tom PA - [facility] 3 16:54:04 Hypercholestero lemia 61025099 Active 2022 JIM santos PA - [facility] 3 16:54:16 Problem Notes None recorded. Procedures Surgical History Date Name Laterality Status Provider Name and Address Organization Details Recorded Time appendectomy completed JIM LEMUSZcehariah PA - [facility] 05/03/2022 16:55:15 Imaging Results None recorded. Procedure Notes None recorded. Medical Equipment None Reported. Allergies Allergen ID Allergen Name Allergen Category Reaction Reaction Severity Criticality Documentation Date Start Date Code Code System Note Provider Name and Address Organization Details Recorded Time 231077 Product containin g penicilli n and antibioti c (product) medicatio n hives severe Not available 05/03/2022 48490 05 SNOMED any Cilin s JIM santos PA - [facility] 3 16:51:18 476554 clindamyc in Not available hives severe Not [...] Address Organization Details Last Updated DateTime 3 38599.6 8 g 17.2 kg/m2 157.48 cm 0 [...] SNOMED-CT Code Diagnosis ICD10 Code Diagnosis Note [id number] [address] [place] [address] 03/29/2019 16:22:45 03/29/2019 17:15:55 [id number] 20995_K[address] Ros[address] vadimr [address] [place] [address] 07/08/2020 08:04:25 07/08/2020 08:54:10 [id number] 20995_Khanh Rosalesin vadimr [address] [place] [address] 03/21/2021 08:27:01 03/21/2021 11:18:36 [id number] [address] [facility] [place] [address] 07/30/2020 08:42:17 07/30/2020 09:17:52 [id number] [address] [facility] [place] [address] 03/18/2021 09:06:47 03/18/2021 11:37:54 [id number] [address] [facility] [place] [address] 10/30/2018 19:03:07 10/30/2018 19:47:52 [id number] FABIOLA ALVARADO MD [address] [facility] [place] [address] 05/03/2022 14:44:23 05/03/2022 17:57:13 Increased frequency of urination 484657484 R35.0 Health Concerns Section Related Observation LastModified by Organization Detai ls LastModified Time None Recorded Concern Status LastModified by Organization Details LastModified Time None Recorded Advance Directives Directive None Recorded Payers Encounter Date Sequence Insurance Name Policy Number Policy Herrera Covered Member ID Herrera Member ID Guarantor Name 07/08/2020 1 [facility] (MEDICARE REPLACEMENT/A DVANTAGE - HMO) [id number] Lisa Dangelo [id number] Lisa Dangelo 07/30/2020 1 [facility] (MEDICARE REPLACEMENT/A DVANTAGE - HMO) [id number] Lisa Dangelo [id number] Lisa Dangelo 03/18/2021 1 [facility] (MEDICARE REPLACEMENT/A DVANTAGE - HMO) [id number] Lisa Dangelo [id number] Lisa Dangelo 03/21/2021 1 [facility] (MEDICARE REPLACEMENT/A DVANTAGE - HMO) [id number] Lisa Dangelo [id number] Lisa Dangelo 05/03/2022 1 [facility] (MEDICARE REPLACEMENT/A DVANTAGE - HMO) [id number] Lisa Dangelo [id number] Lisa J Crochiere Notes Date Note Type Note Provider Name and Address Organization Details Recorded Time 05/03/2022 text/html Urinary Complain t FemaleReported bypatient.UTI Symptoms:no pain in the flank; no fever/chills; no incontinence;urgency ;urinary frequency;abdominal pain;recurrent UTI Severity:moderate Duration:started today Modifying Factors:Andrzejro FABIOLA ALVARADO MD [address] [place], [address], [place] - [facility] 05/03/2022 17:48:05 OBGyn Episode No OBEpisode recorded.
== END 2024-04-08 12:05 | disposition home or self-care (01) ==
PROVIDERS: PCP Internal Medicine; Visit Provider Internal Medicine
DX: J96.00 Acute respiratory failure, unspecified whether with hypoxia or hypercapnia (principal); E11.9 Type 2 diabetes mellitus without complications

== ENCOUNTER → 2024-04-08 09:42 | Outpatient (BNVA) | payer MEDICARE, SELFPAY | PROVIDERS: PCP Internal Medicine; Visit Provider Internal Medicine | DX: J96.00 Acute respiratory failure, unspecified whether with hypoxia or hypercapnia (principal); E11.9 Type 2 diabetes mellitus without complications | CPT/HCPCS: 82948; 99212 ==

== ENCOUNTER → 2024-04-15 10:21 | Outpatient (BNVA) | payer MEDICARE, SELFPAY | PROVIDERS: PCP Internal Medicine; Visit Provider Internal Medicine ==

== ENCOUNTER 2024-04-28 10:57 | Outpatient (AMB) | payer MEDICARE, SELFPAY ==
[2024-04-28 11:01] VITALS: BP 118/62; PULSE 110; RESP 20; TEMP 36.7; O2SAT 95; BMI 17.6
--- NOTE | 2024-04-28 11:01 | A.OFFPC_ITS ---
Vital Signs 04/28/24 11:01 Height 5 ft 2 in Weight 96 lb BMI 17.6 BP 118/62 Blood Pressure Location Lt brachial Position Sitting Respiration 20 Pulse 110 H Pulse Source Pulse Oximeter Temp 98.1 F Temp Source Oral Pulse Oximetry (%) 95 Oxygen Delivery Method Room Air Intake Visit Reasons: Follow up Intake Note: Pt is here today for a follow up visit. Allergies nortriptyline Allergy (Severe, Verified 04/28/24 11:06) hives bupropion Allergy (Intermediate, Verified 04/28/24 11:06) hives buspirone [From BuSpar] Allergy (Intermediate, Verified 04/28/24 11:06) Diarrhea high anxiety cefdinir Allergy (Intermediate, Verified 04/28/24 11:06) diarrhea and yeast ingection nitrofurantoin Allergy (Intermediate, Verified 04/28/24 11:06) heartburn; N/V penicillin V Allergy (Intermediate, Verified 04/28/24 11:06) Hives Sulfa (Sulfonamide Antibiotics) Allergy (Intermediate, Verified 04/28/24 11:06) Hives duloxetine Adverse Reaction (Intermediate, Verified 04/28/24 11:06) Diarrhea prazosin Adverse Reaction (Intermediate, Verified 04/28/24 11:06) Diarrhea phenazopyridine [From Pyridium] Adverse Reaction (Mild, Verified 04/28/24 11:06) Diarrhea Myacin Allergy (Mild, Uncoded 04/28/24 11:06) Hives prazosin Adverse Reaction (Intermediate, Uncoded 04/28/24 11:06) Diarrhea Medication List - Last Reconciled 04/28/24 by Enriqueta Estrada MD albuterol sulfate 90 mcg/actuation 2 puffs inhalation Q4-6H PRN amlodipine 5 mg PO DAILY atorvastatin 40 mg PO DAILY baclofen 10 mg PO BEDTIME blood sugar diagnostic (FreeStyle Lite Strips) Test blood sugar 3 times per day, on insulin blood-glucose meter (FreeStyle Lite Meter kit) Test blood sugar 3 times per day, on insulin buspirone 5 mg PO BID buspirone 15 mg PO BID escitalopram oxalate 5 mg PO DAILY escitalopram oxalate 10 mg PO DAILY ibuprofen 800 mg PO Q8H PRN 30 days lancets (FreeStyle Lancets) Test blood sugar 3 times per day, on insulin lisinopril 20 mg PO DAILY lorazepam 1 mg PO DAILY PRN metformin 1,000 mg PO DAILY mirtazapine 30 mg PO BEDTIME nicotine 14 mg transdermal DAILY Oxygen Home Use 1 L/MIN nasal cannula to maintain O2 sat > 90%-concentrator, portable oxygen with conserving device pen needle, diabetic (Advocate Pen Needle) Use to inject insulin once a day trazodone 100 mg PO BEDTIME Trelegy Ellipta 200-62.5-25 mcg (nikgsjjourq-uzqjbollp-oweemhbp) 1 inh inhalation DAILY NS Tobacco use date assessed: 04/28/24 Dental Screening Dental Screen Date: 04/03/24 HPI Follow up HPI Details Patient presents for the follow-up of COPD exacerbation. She has been using Trelegy and completed 2 course of prednisone taper and antibiotic. Patient has been cutting down on smoking she complains of feeling weak but reports less wheezing and dyspnea on exertion. Blood glucose improved down to 100-120 in the morning on metformin only. Chronic depression is stable on current medications. hypertension is controlled. [facility] Medical History Dysuria Hyponatremia Annual physical exam COPD (chronic obstructive pulmonary disease) Depression Diabetes Alopecia Tobacco abuse CAD (coronary artery disease) Colon polyp Hyperlipidemia HTN (hypertension) Diabetic eye exam Anxiety and depression Surgical History H/O colonoscopy History of appendectomy History of oophorectomy Family History Father Diabetes mellitus Mother No problems noted. Son Myocardial infarction Social History Household Members: None Housing: Condominium Do you presently have visiting nurse or other home services: No Alcohol intake: current Alcohol intake frequency: holidays/special occasions only Patient Tobacco Use Status: Current everyday Tobacco user Tobacco use type: Cigarette Cigarettes Per Day: 5 Years Smoked: 50 e-Cigarette/Vaping Use: Never Used Second Hand Smoke Exposure: No Advance Directives Date on File: 08/05/23 service: No Current occupational status: retired Current occupational exposures/hazards: No Cognitive needs: No Hearing needs: No Vision needs: No Questionnaire Thrive Questionnaire Date Thrive assessed: 04/03/24 AMERICA-7 AMB Questionnaire AMERICA-7 Date AMERICA - 7 assessed: 04/03/24 Source: Developed by DrsPoly Chaney, Mary Curtis, Jordan Brandt and colleagues, with an educational collin from [employer]. Review of Systems Const All systems reviewed & are unremarkable except as noted in HPI and below Eyes Reports no additional complaints ENT Reports no additional complaints Card Reports no additional complaints Resp Reports no additional complaints GI Reports no additional complaints Reports no additional complaints Physical exam (Primary Care) Vital Signs: Last Vital Signs Temp 98.1 F 04/28/24 11:01 Pulse 110 H 04/28/24 11:01 Resp 20 04/28/24 11:01 BP 118/62 04/28/24 11:01 Pulse Ox 95 04/28/24 11:01 Oxygen Delivery Method Room Air 04/28/24 11:01 BMI result Body Mass Index 17.6 Tobacco/Smoking Status: Tobacco use Status Tobacco use date assessed 04/28/24 04/28/24 11:07 Patient Tobacco Use Status Current everyday Tobacco 04/28/24 11:07 Tobacco use type Cigarette 04/28/24 11:07 e-Cigarette/Vaping Use Never Used 04/28/24 11:07 Thrive Assessment: Date of Thrive Assessment Date Thrive assessed 04/03/24 04/28/24 11:07 Const General: no acute distress HENMT Head: Yes normal to inspection Eyes General: appearance normal, both eyes and all related structures Resp Effort & Inspection: able to speak in complete sentences Auscultation: diminished lung sounds Cardio Rate: tachycardic Rhythm: regular rhythm Heart sounds: S1 normal heart sound present and S2 normal heart sound present GI Inspection: Yes normal to inspection Palpation (GI): Soft to palpation Percussion: Yes normal to percussion Auscultation: normal bowel sounds Coding Level of Care Code Est Pt Level 4 (55931) Complex EM visit Add On G2211 Diagnoses HTN (hypertension) I10 Anxiety and depression F41.9; F32.9 Diabetes E11.9 Assessment & Plan Assessment & Plan (1) HTN (hypertension): Comment: Hydrochlorothiazide caused hyponatremia Code(s): I10 - Essential (primary) hypertension Category: Medical Plan: Continue current medications (2) Anxiety and depression: Comment: PTSD , f/u with therapist and psychiatric PA Code(s): F41.9 - Anxiety disorder, unspecified; F32.9 - Major depressive disorder, single episode, unspecified Category: Medical Plan: Continue current medications follow-up with counselor (3) Diabetes: Comment: Patient declined taking medications other than metformin Code(s): E11.9 - Type 2 diabetes mellitus without complications Category: Medical Plan: Continue metformin ADA diet and follow-up in 2 months with a fasting labs before Orders: Orders Hemoglobin A1c 2 Months E11.9 - Type 2 diabetes mellitus without complications, F32.9 - Major depressive disorder, single episode, unspecified, F41.9 - Anxiety disorder, unspecified, I10 - Essential (primary) hypertension Complete Blood Count Auto Diff 2 Months E11.9 - Type 2 diabetes mellitus withou t complications, F32.9 - Major depressive disorder, single episode, unspecified, F41.9 - Anxiety disorder, unspecified, I10 - Essential (primary) hypertension Lipid Panel 2 Months E11.9 - Type 2 diabetes mellitus without complications, F32.9 - Major depressive disorder, single episode, unspecified, F41.9 - Anxiety disorder, unspecified, I10 - Essential (primary) hypertension TSH reflex Free T4 2 Months E11.9 - Type 2 diabetes mellitus without complications, F32.9 - Major depressive disorder, single episode, unspecified, F41.9 - Anxiety disorder, unspecified, I10 - Essential (primary) hypertension Microalbumin, Random (w Creat) 2 Months E11.9 - Type 2 diabetes mellitus without complications, F32.9 - Major depressive disorder, single episode, unspecified, F41.9 - Anxiety disorder, unspecified, I10 - Essential (primary) hypertension Comprehensive [place]. Panel Fast 2 Months E11.9 - Type 2 diabetes mellitus without complications, F32.9 - Major depressive disorder, single episode, unspecified, F41.9 - Anxiety disorder, unspecified, I10 - Essential (primary) hypertension Medications: Refilled Trelegy Ellipta 200-62.5-25 mcg (lilrbdjxwyw-twifwbggu-okfqxvrr) 1 inh inhalation DAILY 60 ea 4RF NS lisinopril 20 mg PO DAILY 90 tabs 3RF albuterol sulfate 90 mcg/actuation 2 puffs inhalation Q4-6H PRN 6.7 grams 1RF shortness of breath or wheezing atorvastatin 40 mg PO DAILY 90 tabs 3RF metformin 1,000 mg PO DAILY 90 tabs 3RF Discontinued prednisone Discontinued Reason: Doctor's Order 4 tabl qd for 3 days, then 3 tabl qd x 3 days, then 2 tabl qd x 3days, then 1 tabl qd x 3 days 30 tabs 0RF Lantus Solostar U-100 Insulin (insulin glargine) Discontinued Reason: Doctor's Order 15 units (0.15 mL) subcut QPM 15 mL 3RF NS
--- OUTSIDE RECORDS SUMMARY | 2024-04-28 13:36 | XMS_ITS | Data Portability ---
Author Organization [facility] Address [address] [place] [address] Care Team Providers Care Adjutant General Name Role Phone ALEJANDRO GARZA Primary Care Provider Assessment No assessment recorded. Plan of Treatment Reminders Order Date Submit Date Provider Last Modified By Organization Details Last Modified Time Details Appointments None recorded. [facility]inal[facility] , [facility]22 [facility] [address], [address], 17:39:55 culture, urine 2022 023 [email or web address] [facility] [address] [place] [address], [place], [address], 17:48:25 Referral None recorded. Procedures None recorded. Surgeries None recorded. Imaging None recorded. Medication Orders Cipro 500 mg tablet 2022 023 [id number], [address], [place], [id number], 17:44:32 Patient TargetsNo targets recorded. Patient InstructionsNo instructions recorded. Reason for Referral None Reported. Results Created Date Observation Date Name Description Value Unit Range Abnormal Flag Note LastModifiedBy Organization Detail LastModifiedTime 05/04/19 23 05/05/2022 URINE CULTU RE, ROUTI NE urine culture, routine FINAL REPORT Not Available [facility]) [address] [facility], [place], [address], 05/05/2022 06:07:23 05/04/19 23 05/05/2022 URINE CULTU RE, ROUTI NE result 1 NO GROWTH Not Available [facility] ([facility]) [address] [facility], [place], [address], 05/05/2022 06:07:23 05/04/19 23 05/03/2022 urina lysis , dipst ick Unknown Analyte Normal = light yellow Not Available [facility], [place], [address], 05/03/2022 16:43:07 05/04/19 23 05/03/2022 urina lysis , dipst ick Unknown Analyte Yellow Not Available [address] [place], [address], 05/03/2022 16:43:07 05/04/19 23 05/03/2022 urina lysis , dipst ick Unknown Analyte Normal = clear Not Available [address], [place], [address], 05/03/2022 16:43:07 05/04/19 23 05/03/2022 urina lysis , dipst ick Unknown Analyte Clear Not Available [address], [place], [address], 05/03/2022 16:43:07 05/04/19 23 05/03/2022 urina lysis , dipst ick Unknown Analyte Normal = negati ve Not Available [address], [place], [address], 05/03/2022 16:43:07 05/04/19 23 05/03/2022 urina lysis , dipst ick Unknown Analyte Negati ve Not Available [address], [place], [address], 05/03/2022 16:43:07 05/04/19 23 05/03/2022 urina lysis , dipst ick Unknown Analyte Normal = Negati ve Not Available 2099aarti bueno [address], [place], [address], 05/03/2022 16:43:07 05/04/19 23 05/03/2022 urina lysis , dipst ick Unknown Analyte Negati ve Not Available [address] [place] [address], [place], [address], 05/03/2022 16:43:07 05/04/19 23 05/03/2022 urina lysis , dipst ick Unknown Analyte Normal = Negati ve Not Available [address] [place] [address], [place], [address], 05/03/2022 16:43:07 05/04/19 23 05/03/2022 urina lysis , dipst ick Unknown Analyte Trace Not Available [address] [place] [address], [place], [address], 05/03/2022 16:43:07 05/04/19 23 05/03/2022 urina lysis , dipst ick Unknown Analyte Normal = 1.010, 1.015, 1.020 Not Available [address] [place] [address], [place], [address], 05/03/2022 16:43:07 05/04/19 23 05/03/2022 urina lysis , dipst ick Unknown Analyte 1.030 Not Available [address] [place] [address], [place], [address], 05/03/2022 16:43:07 05/04/19 23 05/03/2022 urina lysis , dipst ick Unknown Analyte Normal = Negati ve Not Available aarti bueno [address], [place], [address], 05/03/2022 16:43:07 05/04/19 23 05/03/2022 urina lysis , dipst ick Unknown Analyte Negati ve Not Available aarti bueno [address], [place], [address], 05/03/2022 16:43:07 05/04/19 23 05/03/2022 urina lysis , dipst ick Unknown Analyte Normal = 6.5, 7.0, 7.5, 8.0 Not Available aarti bueno [address], [place], [address], 05/03/2022 16:43:07 05/04/19 23 05/03/2022 urina lysis , dipst ick Unknown Analyte 7.0 Not Available [address], [place], [address], 05/03/2022 16:43:07 05/04/19 23 05/03/2022 urina lysis , dipst ick Unknown Analyte Normal = Negati ve Not Available aarti bueno [address], [place], [address], 05/03/2022 16:43:07 05/04/19 23 05/03/2022 urina lysis , dipst ick Unknown Analyte 30 mg/dL Not Available aarti bueno [address], [place], [address], 05/03/2022 16:43:07 05/04/19 23 05/03/2022 urina lysis , dipst ick Unknown Analyte Normal = 0.2, 1.0 Not Available [facility] [address], [place], [address], 05/03/2022 16:43:07 05/04/19 23 05/03/2022 urina lysis , dipst ick Unknown Analyte 0.2 E.U./d L Not Available 2099aarti bueno [address], [place], [address], 05/03/2022 16:43:07 05/04/19 23 05/03/2022 urina lysis , dipst ick Unknown Analyte Normal = Negati ve Not Available [facility] [address], [place], [address], 05/03/2022 16:43:07 05/04/19 23 05/03/2022 urina lysis , dipst ick Unknown Analyte Negati ve Not Available [address] [place] [address], [place], [address], 05/03/2022 16:43:07 05/04/19 23 05/03/2022 urina lysis , dipst ick Unknown Analyte Normal = Negati ve Not Available [address] [place] [address], [place], [address], 05/03/2022 16:43:07 05/04/19 23 05/03/2022 urina lysis , dipst ick Unknown Analyte Negati ve Not Available [address] [place] [address], [place], [address], 05/03/2022 16:43:07 Result Notes None recorded. Problems Name Problem SNOMED Code Status Onset Date Resolution Date Notes Provider Name and Address Organization Details Recorded Time Diabetes mellitus 11444908 Active 2022 JIMChioma santos PA - [facility] 16:53:49 Depressive disorder 25937350 Active 2022 JIMChioma santos, PA - [facility] 16:53:54 Hypertensive disorder 35342219 Active 2022 JIM santos PA - [facility] 3 16:54:04 Hypercholestero lemia 60669647 Active 2022 JIM santos, PA - [facility] 3 16:54:16 Problem Notes None recorded. Procedures Surgical History Date Name Laterality Status Provider Name and Address Organization Details Recorded Time appendectomy completed JIM MONDRAGON PA - [facility] 05/03/2022 16:55:15 Imaging Results None recorded. Procedure Notes None recorded. Medical Equipment None Reported. Allergies Allergen ID Allergen Name Allergen Category Reaction Reaction Severity Criticality Documentation Date Start Date Code Code System Note Provider Name and Address Organization Details Recorded Time 193433 Product containin g penicilli n (product) medicatio n hives severe Not available 05/03/2022 19499 8001 SNOMED any Cilin s JIM santos, PA - [facility] 3 16:51:18 716758 clindamyc in Not available hives severe Not available 05/03/2022 2582 RxNorm any MYACI NS JIMChioma santos, PA - [facility] 3 16:51:37 [...] Address Organization Details Last Updated DateTime 3 18180.6 8 g 17.2 kg/m2 157.48 cm 0 [...] SNOMED-CT Code Diagnosis ICD10 Code Diagnosis Note [id number] 21005_[facility] [address] [place] [phone] 03/29/2019 16:22:45 03/29/2019 17:15:55 [id number] 2099[place]roll_[facility] [address] [place] [address] 07/08/2020 08:04:25 07/08/2020 08:54:10 [id number] 20995_Khanh duponteMemo riar [address] [place] [address] 03/21/2021 08:27:01 03/21/2021 11:18:36 [id number] [facility] [address] [facility] [place] [address] 07/30/2020 08:42:17 07/30/2020 09:17:52 [id number] [facility] [address] [facility] [place] [address] 03/18/2021 09:06:47 03/18/2021 11:37:54 [id number] [address] [address] [facility] [address] 10/30/2018 19:03:07 10/30/2018 19:47:52 [id number] FABIOLA ALVARADO MD [address] [facility] [place] [address] 05/03/2022 14:44:23 05/03/2022 17:57:13 Increased frequency of urination [id number] R35.0 Health Concerns Section Related Observation LastModified by Organization Detai ls LastModified Time None Recorded Concern Status LastModified by Organization Details LastModified Time None Recorded Advance Directives Directive None Recorded Payers Encounter Date Sequence Insurance Name Policy Number Policy Herrera Covered Member ID Herrera Member ID Guarantor Name 07/08/2020 1 [facility] (MEDICARE REPLACEMENT/A DVANTAGE - HMO) [id number] Lisa Dangelo [id number] Lisa Dangelo 07/30/2020 1 [facility] (MEDICARE REPLACEMENT/A DVANTAGE - HMO) [id number] Lisa Dangelo [id number] Lisa Dangelo 03/18/2021 1 [facility] (MEDICARE REPLACEMENT/A DVANTAGE - HMO) [id number] Lisa Dangelo [id number] Lisa Dangelo 03/21/2021 1 [facility] (MEDICARE REPLACEMENT/A DVANTAGE - HMO) [id number] Lisa Dangelo [id number] Lisa Dangelo 05/03/2022 1 [facility] (MEDICARE REPLACEMENT/A DVANTAGE - HMO) [id number] Lisa Dangelo [id number] Lisa Dangelo Notes Date Note Type Note Provider Name and Address Organization Details Recorded Time 05/03/2022 text/html Urinary Complain t FemaleReported bypatient.UTI Symptoms:no pain in the flank; no fever/chills; no incontinence;urgency ;urinary frequency;abdominal pain;recurrent UTI Severity:moderate Duration:started today Modifying Factors:Cipro FABIOLA ALVARADO MD [address] [place], [address], [place] - [facility] 05/03/2022 17:48:05 OBGyn Episode No OBEpisode recorded.
== END 2024-04-28 11:59 | disposition home or self-care (01) ==
PROVIDERS: PCP Internal Medicine; Visit Provider Internal Medicine
DX: I10 Essential (primary) hypertension (principal); F41.9 Anxiety disorder, unspecified; F32.9 Major depressive disorder, single episode, unspecified; E11.9 Type 2 diabetes mellitus without complications

== ENCOUNTER → 2024-04-28 10:57 | Outpatient (BNVA) | payer MEDICARE, SELFPAY | PROVIDERS: PCP Internal Medicine; Visit Provider Internal Medicine | DX: I10 Essential (primary) hypertension (principal); F41.9 Anxiety disorder, unspecified; F32.9 Major depressive disorder, single episode, unspecified; E11.9 Type 2 diabetes mellitus without complications | CPT/HCPCS: 99212 ==

== ENCOUNTER 2024-06-30 06:58 | Outpatient (REF) | payer MEDICARE, SELFPAY ==
--- OUTSIDE RECORDS SUMMARY | 2024-06-30 07:01 | XMS_ITS | Data Portability ---
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 Plan of Treatment Reminders Order Date Submit Date Provider Last Modified By Organization Details Last Modified Time Details Appointments None recorded. Lab urinalysis , dipstick 2022 023 [email or web address] [address], [address], 17:39:55 culture, urine 2022 023 [email or web address] [facility], [address] [place] [address], [place], [address], 17:48:25 Referral None recorded. Procedures None recorded. Surgeries None recorded. Imaging None recorded. Medication Orders Cipro 500 mg tablet 2022 023 [id number], [address], [place], [id number], 17:44:32 Patient TargetsNo targets recorded. Patient InstructionsNo instructions recorded. Reason for Referral None Reported. Results Created Date Observation Date Name Description Value Unit Range Abnormal Flag Note LastModifiedBy Organization Detail LastModifiedTime 05/04/19 23 05/05/2022 URINE CULTU RE, ROUTI NE urine culture, routine FINAL REPORT Not Available [facility] ([facility]) [address] [facility], [place], [address], 05/05/2022 06:07:23 05/04/19 23 05/05/2022 URINE CULTU RE, ROUTI NE result 1 NO GROWTH Not Available [facility] ([facility]) [address] [facility], [place], [address], 05/05/2022 06:07:23 05/04/19 23 05/03/2022 urina lysis , dipst ick Unknown Analyte Normal = light yellow Not Available [facility], [place], [address], 05/03/2022 16:43:07 05/04/19 23 05/03/2022 urina lysis , dipst ick Unknown Analyte Yellow Not Available [address] [place], [address], 05/03/2022 16:43:07 05/04/19 23 05/03/2022 urina lysis , dipst ick Unknown Analyte Normal = clear Not Available [address], [place], [address], 05/03/2022 16:43:07 05/04/19 23 05/03/2022 urina lysis , dipst ick Unknown Analyte Clear Not Available [address], [place], [address], 05/03/2022 16:43:07 05/04/19 23 05/03/2022 urina lysis , dipst ick Unknown Analyte Normal = negati ve Not Available [address], [place], [address], 05/03/2022 16:43:07 05/04/19 23 05/03/2022 urina lysis , dipst ick Unknown Analyte Negati ve Not Available [address], [place], [address], 05/03/2022 16:43:07 05/04/19 23 05/03/2022 urina lysis , dipst ick Unknown Analyte Normal = Negati ve Not Available 2099aarti bueno [address], [place], [address], 05/03/2022 16:43:07 05/04/19 23 05/03/2022 urina lysis , dipst ick Unknown Analyte Negati ve Not Available [address] [place] [address], [place], [address], 05/03/2022 16:43:07 05/04/19 23 05/03/2022 urina lysis , dipst ick Unknown Analyte Normal = Negati ve Not Available [address] [place] [address], [place], [address], 05/03/2022 16:43:07 05/04/19 23 05/03/2022 urina lysis , dipst ick Unknown Analyte Trace Not Available [address] [place] [address], [place], [address], 05/03/2022 16:43:07 05/04/19 23 05/03/2022 urina lysis , dipst ick Unknown Analyte Normal = 1.010, 1.015, 1.020 Not Available [address] [place] [address], [place], [address], 05/03/2022 16:43:07 05/04/19 23 05/03/2022 urina lysis , dipst ick Unknown Analyte 1.030 Not Available [address] [place] [address], [place], [address], 05/03/2022 16:43:07 05/04/19 23 05/03/2022 urina lysis , dipst ick Unknown Analyte Normal = Negati ve Not Available aarti bueno [address], [place], [address], 05/03/2022 16:43:07 05/04/19 23 05/03/2022 urina lysis , dipst ick Unknown Analyte Negati ve Not Available aarti bueno [address], [place], [address], 05/03/2022 16:43:07 05/04/19 23 05/03/2022 urina lysis , dipst ick Unknown Analyte Normal = 6.5, 7.0, 7.5, 8.0 Not Available aarti bueno [address], [place], [address], 05/03/2022 16:43:07 05/04/19 23 05/03/2022 urina lysis , dipst ick Unknown Analyte 7.0 Not Available [address], [place], [address], 05/03/2022 16:43:07 05/04/19 23 05/03/2022 urina lysis , dipst ick Unknown Analyte Normal = Negati ve Not Available aarti bueno [address], [place], [address], 05/03/2022 16:43:07 05/04/19 23 05/03/2022 urina lysis , dipst ick Unknown Analyte 30 mg/dL Not Available aarti bueno [address], [place], [address], 05/03/2022 16:43:07 05/04/19 23 05/03/2022 urina lysis , dipst ick Unknown Analyte Normal = 0.2, 1.0 Not Available [facility] [address], [place], [address], 05/03/2022 16:43:07 05/04/19 23 05/03/2022 urina lysis , dipst ick Unknown Analyte 0.2 E.U./d L Not Available 2099aarti bueno [address], [place], [address], 05/03/2022 16:43:07 05/04/19 23 05/03/2022 urina lysis , dipst ick Unknown Analyte Normal = Negati ve Not Available [facility] [address], [place], [address], 05/03/2022 16:43:07 05/04/19 23 05/03/2022 urina lysis , dipst ick Unknown Analyte Negati ve Not Available [address] [place] [address], [place], [address], 05/03/2022 16:43:07 05/04/19 23 05/03/2022 urina lysis , dipst ick Unknown Analyte Normal = Negati ve Not Available [address] [place] [address], [place], [address], 05/03/2022 16:43:07 05/04/19 23 05/03/2022 urina lysis , dipst ick Unknown Analyte Negati ve Not Available [address] [place] [address], [place], [address], 05/03/2022 16:43:07 Result Notes None recorded. Problems Name Problem SNOMED Code Status Onset Date Resolution Date Notes Provider Name and Address Organization Details Recorded Time Diabetes mellitus 37191909 Active 2022 JIMChioma santos PA - [facility] 16:53:49 Depressive disorder 34758864 Active 2022 JIMChioma santos, [place] - [facility] 16:53:54 Hypertensive disorder 52493392 Active 2022 JIM santos PA - [facility] 3 16:54:04 Hypercholestero lemia 54454555 Active 2022 [facility] [...] Name and Address Organization Details Recorded Time 521065 Product containin g penicilli n (product) medicatio n hives severe Not available 05/03/2022 06792 8001 SNOMED any Cilin s JIM santos, [place] - [facility] 3 16:51:18 322007 clindamyc in Not available hives severe Not [...] Address Organization Details Last Updated DateTime 3 34690.6 8 g 17.2 kg/m2 157.48 cm 0 [...] SNOMED-CT Code Diagnosis ICD10 Code Diagnosis Note [id number] [facility] [address] [place] [address] 03/29/2019 16:22:45 03/29/2019 17:15:55 [id number] [address] [address] [place] [address] 07/08/2020 08:04:25 07/08/2020 08:54:10 [id number] [address] [address] [address] [place] [address] 03/21/2021 08:27:01 03/21/2021 11:18:36 [id number] [address] [address] [address] [place] [address] 07/30/2020 08:42:17 07/30/2020 09:17:52 [id number] [address] [address] [place] [address] 03/18/2021 09:06:47 03/18/2021 11:37:54 [id number] [address] [address] [place] [address] 10/30/2018 19:03:07 10/30/2018 19:47:52 [id number] FABIOLA ALVARADO MD [address] [place] [address] 05/03/2022 14:44:23 05/03/2022 17:57:13 Increased frequency of urination 402888629 R35.0 Health Concerns Section Related Observation LastModified by Organization Detai ls LastModified Time None Recorded Concern Status LastModified by Organization Details LastModified Time None Recorded Advance Directives Directive None Recorded Payers Encounter Date Sequence Insurance Name Policy Number Policy Herrera Covered Member ID Herrera Member ID Guarantor Name 07/08/2020 1 [employer] (MEDICARE REPLACEMENT/A DVANTAGE - HMO) [id number] Lisa Dangelo [id number] Lisa Dangelo 07/30/2020 1 [employer] [facility] (MEDICARE REPLACEMENT/A DVANTAGE - HMO) [id number] Lisa Dangelo [id number] Lisa Dangelo 03/18/2021 1 [employer] [facility] (MEDICARE REPLACEMENT/A DVANTAGE - HMO) [id number] Lisa Dangelo [id number] Lisa Dangelo 03/21/2021 1 [facility] [facility] (MEDICARE REPLACEMENT/A DVANTAGE - HMO) [id number] Lisa Dangelo [id number] Lisa Dangelo 05/03/2022 1 [employer] [facility] (MEDICARE REPLACEMENT/A DVANTAGE - HMO) [id number] Lisa Dangelo [id number] Lisa Dangelo Notes Date Note Type Note Provider Name and Address Organization Details Recorded Time 05/03/2022 text/html Urinary Complain t FemaleReported bypatient.UTI Symptoms:no pain in the flank; no fever/chills; no incontinence;urgency ;urinary frequency;abdominal pain;recurrent UTI Severity:moderate Duration:started today Modifying Factors:Cipro FABIOLA ALVARADO MD [address] [place], [address], [place] - [facility] 05/03/2022 17:48:05 OBGyn Episode No OBEpisode recorded.
[2024-06-30 10:33] LABS: MANUAL DIFF FLAG NO
[2024-06-30 10:49] LABS: Basophils Percent Auto 0.5 % (0-2); Hematocrit 43.3 % (37.0-47.0); Hemoglobin 14.9 g/dl (12.0-16.0); Imm Gran Abs Auto 0.02 X10*3/uL (0.00-0.03); Imm Gran Pct Auto 0.3 % (0.0-0.4); Lymphocytes Absolute Auto 2.7 X10*3/uL (1.2-4.9); Lymphocytes Percent Auto 43.6 % (20-40); Mean Corpuscular HGB Conc 34.4 g/dl (31.0-35.0); Mean Corpuscular Hemoglobin 33.7 pg (27.0-33.0); Mean Platelet Volume 11.2 fL (9.4-12.3); Monocytes Absolute Auto 0.5 X10*3/uL (0.1-1.2); Monocytes Percent Auto 8.4 % (2-11); Neutrophils Absolute Auto 2.9 x10*3/uL (2.0-8.3); Neutrophils Percent Auto 47.2 % (45-73); Platelet Count 174 X10*3/uL (160-400); Red Blood Count 4.42 X10*6/uL (4.20-5.50); Red Cell Distribution Width 11.9 % (11.0-16.0); White Blood Count 6.1 X10*3/uL (4.8-10.8)
[2024-06-30 10:52] LABS: Estimated Average Glucose 111 mg/dL; Hemoglobin A1C 141.0868 umol/L; Hemoglobin A1c % 5.5 % (<6.0); Total Hemoglobin (HGBA1C) 3870.0647 umol/L
[2024-06-30 11:08] LABS: Alanine Aminotransferase 99 U/L (0-31); Albumin Level 4.2 g/dL (3.5-5.0); Alkaline Phosphatase 93 U/L (39-117); Anion Gap 20 (12-20); Aspartate Amino Transferase 154 U/L (5-31); Bilirubin Total 0.8 mg/dL (0.0-1.0); Blood Urea Nitrogen 4 mg/dL (9-16); Calcium 9.3 mg/dL (8.4-10.2); Carbon Dioxide 29 mmol/L (22-29); Chloride 93 mmol/L (96-108); Cholesterol 149 mg/dL (<200); Estimated Glomerular Filt Rate > 60; Glucose Fasting 100 mg/dL (60-99); Potassium 3.5 mmol/L (3.3-5.1); Sodium 138 mmol/L (135-145); Total Protein 6.3 g/dL (6.5-8.0); Triglycerides 92 mg/dL (<150)
[2024-06-30 11:38] LABS: HDL Cholesterol 96 mg/dL (>40); LDL Cholesterol Calculated 35 mg/dL (<100); TSH reflex Free T4 1.46 uIU/mL (0.32-4.0)
== END 2024-06-30 06:59 | disposition home or self-care (01) ==
LOC: HO.HMGCLDS 06:58
PROVIDERS: PCP Internal Medicine; Visit Provider Internal Medicine
DX: I10 Essential (primary) hypertension (principal); F41.9 Anxiety disorder, unspecified; F32.9 Major depressive disorder, single episode, unspecified; E11.9 Type 2 diabetes mellitus without complications
CPT/HCPCS: 36415; 80053; 80061; 83036; 84443; 85025

== ENCOUNTER 2024-07-11 11:13 | Emergency (ER) | payer MEDICARE, SELFPAY ==
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
[2024-07-11 11:32] VITALS: BP 150/60; BP 150/77; PULSE 108; PULSE 127; RESP 20; TEMP 36.9; O2SAT 90; O2SAT 96; BMI 16.0
[2024-07-11 11:40] LABS: Glucose, Whole Blood 73 mg/dL (60-115)
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
[2024-07-11 13:51] LABS: MANUAL DIFF FLAG NO
[2024-07-11 13:53] LABS: Appearance Urine Clear; Color Urine Yellow; Glucose Urine UA Negative (Negative); Leukocyte Esterase Urine Negative (Negative); Nitrite Urine Negative (Negative); PH 6.5 (5.0-9.0); Specific Gravity - Urine 1.015 (1.005-1.025); UMIC TRIGGER UACC YES; Urine Blood Moderate (2+) (Negative); Urine Ketones 40 mg/dL (Negative); Urine Protein 30 (1+) mg/dL (Neg-Trace)
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
[2024-07-11 14:04] LABS: Bacteria Urine 1+ (None Seen); Hyaline Casts Urine 0-2 /LPF (0-2); WBC Urine 0-5 /HPF (0-5)
[2024-07-11 14:06] LABS: Alanine Aminotransferase 110 U/L (0-31); Alkaline Phosphatase 102 U/L (39-117); Anion Gap 24 (12-20); Aspartate Amino Transferase 135 U/L (5-31); Blood Urea Nitrogen 11 mg/dL (9-16); Calcium 9.4 mg/dL (8.4-10.2); Carbon Dioxide 20 mmol/L (22-29); Chloride 94 mmol/L (96-108); Creatinine Clr Calc Pharmacy 39.4; Estimated Glomerular Filt Rate > 60; Glucose Random 107 mg/dL (60-115); Potassium 4.4 mmol/L (3.3-5.1); Sodium 134 mmol/L (135-145); Total Protein 6.1 g/dL (6.5-8.0)
[2024-07-11 14:11] LABS: Basophils Percent Auto 0.5 % (0-2); Eosinophils Absolute Auto 0.2 X10*3/uL (0.0-0.4); Eosinophils Percent Auto 2.6 % (0-4); Hematocrit 39.1 % (37.0-47.0); Hemoglobin 13.4 g/dl (12.0-16.0); Imm Gran Abs Auto 0.03 X10*3/uL (0.00-0.03); Imm Gran Pct Auto 0.5 % (0.0-0.4); Lymphocytes Absolute Auto 0.9 X10*3/uL (1.2-4.9); Lymphocytes Percent Auto 13.9 % (20-40); Mean Corpuscular HGB Conc 34.3 g/dl (31.0-35.0); Mean Corpuscular Hemoglobin 33.8 pg (27.0-33.0); Mean Corpuscular Volume 98.5 fL (80.0-98.0); Mean Platelet Volume 10.4 fL (9.4-12.3); Monocytes Absolute Auto 0.5 X10*3/uL (0.1-1.2); Monocytes Percent Auto 8.6 % (2-11); Neutrophils Absolute Auto 4.6 x10*3/uL (2.0-8.3); Neutrophils Percent Auto 73.9 % (45-73); Platelet Count 144 X10*3/uL (160-400); Red Blood Count 3.97 X10*6/uL (4.20-5.50); White Blood Count 6.2 X10*3/uL (4.8-10.8)
[2024-07-11 14:12] LABS: Troponin-I High Sensitivity 17.6 ng/L (<3.5-17.0)
[2024-07-11 14:14] LABS: INTERNATIONAL NORM RATIO 0.9 (0.9-1.1); Prothrombin Time 10.2 SEC (10.9-12.4)
[2024-07-11 14:19] LABS: Glucose, Whole Blood 119 mg/dL (60-115)
[2024-07-11 14:52] VITALS: BP 165/84; PULSE 111; RESP 14; O2SAT 95
[2024-07-11 15:02] VITALS: RESP 18
[2024-07-11] MEDS: ondansetron HCL 4 MG/2 ML VIAL IVPUSH (15:02)
[2024-07-11] MEDS: fentaNYL citrate/PF 100 MCG/2 ML VIAL 25 MCG IVPUSH (15:02)
[2024-07-11 15:04] VITALS: BP 152/66; PULSE 108; RESP 20; TEMP 36.8; O2SAT 92
--- NOTE | 2024-07-11 15:06 | PC.NURSE ---
pt medicated for pain and nausea
--- NOTE | 2024-07-11 15:54 | PC.NURSE ---
report given to [facility] nurse dana.
[2024-07-11] MEDS: Nicotine 14 MG PATCH.TD24 TRANSDERMA (16:00)
--- NOTE | 2024-07-11 16:02 | PC.NURSE ---
nicotine patch applied to left shoulder
[2024-07-11 17:08] VITALS: BP 158/58; PULSE 106; RESP 18; TEMP 36.7; O2SAT 92
== END 2024-07-11 17:09 | disposition short-term general hospital (02) ==
PROVIDERS: Registered Nurse Emergency; Emergency Provider Emergency Medicine Emergency Medical Services; PCP Internal Medicine
DX: S12.500A Unspecified displaced fracture of sixth cervical vertebra, initial encounter for closed fracture (principal); V43.52XA Car driver injured in collision with other type car in traffic accident, initial encounter; Y93.9 Activity, unspecified; Y92.9 Unspecified place or not applicable; Y99.9 Unspecified external cause status; M54.2 Cervicalgia; M54.6 Pain in thoracic spine; J44.9 Chronic obstructive pulmonary disease, unspecified
CPT/HCPCS: 36415; 70450; 72125; 80053; 81001; 82947; 84484; 85025; 85610; 93005; 99283; 99284; 99285; J2405; J3010

== ENCOUNTER → 2024-07-11 12:53 | Outpatient (BNV) | payer MEDICARE, SELFPAY | PROVIDERS: Emergency Provider Emergency Medicine Emergency Medical Services; PCP Internal Medicine; Visit Provider Internal Medicine Cardiovascular Disease | DX: I49.1 Atrial premature depolarization (principal); I51.7 Cardiomegaly; R00.1 Bradycardia, unspecified | CPT/HCPCS: 93010 ==

== ENCOUNTER → 2024-07-11 12:54 | Outpatient (BNV) | payer MEDICARE, SELFPAY | PROVIDERS: Emergency Provider Emergency Medicine Emergency Medical Services; PCP Internal Medicine; Visit Provider Radiology Vascular & Interventional Radiology | DX: M50.323 Other cervical disc degeneration at C6-C7 level (principal); R90.82 White matter disease, unspecified | CPT/HCPCS: 70450; 72125 ==

== ENCOUNTER → 2024-08-07 23:59 | Outpatient (BNV) | payer MEDICARE, SELFPAY | PROVIDERS: PCP Internal Medicine; Visit Provider Internal Medicine | DX: I11.9 Hypertensive heart disease without heart failure (principal); E11.9 Type 2 diabetes mellitus without complications; J44.9 Chronic obstructive pulmonary disease, unspecified | CPT/HCPCS: G0180 ==

== ENCOUNTER 2024-08-14 12:32 | Emergency (ER) | payer MEDICARE, SELFPAY ==
[2024-08-14] VITALS (7 sets, daily range): BP systolic 120–160; BP diastolic 63–70; PULSE 70–104; RESP 14–20; TEMP 36.8–37.2; O2SAT 97–100; BMI 19.5
--- NOTE | 2024-08-14 | ECG_ITS ---
Test Reason : ALTERED MENTAL STATUS Blood Pressure : */* mmHG Vent. Rate : 107 BPM Atrial Rate : 107 BPM P-R Int : 142 ms QRS Dur : 76 ms QT Int : 372 ms P-R-T Axes : 71 75 16 degrees QTcB Int : 496 ms Sinus tachycardia Right atrial enlargement ST & T wave abnormality, consider lateral ischemia Abnormal ECG When compared with ECG of 11-Jul-2024 13:16, Premature atrial complexes are no longer Present Nonspecific T wave abnormality now evident in Inferior leads T wave inversion now evident in Anterolateral leads Referred By: Generic ED Physician Electronically Signed By: Ronen Varner
--- NOTE | ~2024-08-14 | XR_ITS ---
EXAMINATION: XR BILATERAL HIPS WITH AP PELVIS CLINICAL INFORMATION: unwitnessed fall COMPARISON: July 29, 2023. TECHNIQUE: AP view of the pelvis and single views of each hip were obtained. FINDINGS: Bony pelvis demonstrates no acute cortical disruption. Mild degenerative changes in the coxofemoral joints. Status post intramedullary tushar and transdermal head neck screw placement in the right femur. Osteopenia versus osteoporosis. No gross malalignment in either hip. Traumatic deformity along the lateral aspect proximal to mid diaphysis of the right femur no fully included. XR/XR hip BI w PEL1V IMPRESSION: No acute fracture.. No healing in the fracture proximal to mid diaphysis right femur. Electronically signed by: Luis Mccloud MD 08/14/2024 02:12 PM EDT
--- NOTE | ~2024-08-14 | MR_ITS ---
CLINICAL HISTORY: fall ?acute fracture C7 MR cervical spine without gadolinium Comparison: CT/SR - CT CERVICAL SPINE WO IV CON - 08/14/24 13:[address]/SR - CT CERVICAL SPINE WO IV CON - 07/11/24 13:09 EDT Findings: There is minimal retrolisthesis of C5 on C6 and mild straightening of the cervical spine. Multilevel disc desiccation present. At the C6-7 level there is widening of the anterior disc space, with increased STIR signal in the anterior disc space as well as suspected tear of the anterior longitudinal ligament at the C6 level. Findings raise concern for a hyperextension injury. There is also some increased STIR signal within the C6-7 interspinous ligament, series 7, image 6. No definite widening of the facet joints. There is however some increased STIR signal at the inferior left C6-7 facet joint. no evidence of injury of the posterior longitudinal ligament. Normal marrow signal within the cervical vertebral bodies. No abnormal marrow signal within the C6 vertebral body which demonstrates anterior wedging. Mild anterior superior endplate height loss at T1 through T4. No abnormal marrow signal within these vertebral bodies to suggest acute fracture. There is severe anterior height loss at T5 with an acute or subacute superior endplate fracture involving the anterior and middle columns. There is edema within this vertebral body. Retropulsion of the posterior wall is present measuring 2.3 mm. There is no resultant central canal narrowing. Multilevel degenerative changes. At C3-4 there is a circumferential disc bulge. Mild canal stenosis with an AP diameter of 9 mm is present. No foraminal narrowing. At C4-5 there is disc height loss and a circumferential disc bulge with uncovertebral hypertrophy. This results in moderate canal stenosis with an AP diameter of 8 mm. There is effacement of the ventral CSF along the cord. Moderate bilateral foraminal narrowing. At C5-6 there is severe disc height loss and a circumferential disc bulge. There is mild central canal narrowing with an AP diameter of 9 mm. Moderate bilateral foraminal narrowing is present. At C6-7 there is a circumferential disc bulge which results in mild central canal narrowing with an AP diameter of 9 mm. Minimal bilateral foraminal narrowing. IMPRESSION: 1. At C6-7 there are findings concerning for a 3 column hyperextension injury, with widening of the anterior disc, rupture of the anterior longitudinal ligament, increased signal within the left C6-7 facet joint and increased signal within the interspinous ligament. 2. The anterior wedging of C6 is chronic, there is no marrow edema within the C6 vertebral body. 3. Acute or subacute 2 column burst fracture of T5 with severe height loss and 2 mm of posterior retropulsion. 4. Chronic mild superior endplate compression deformities at T1 through T4. This document has been electronically signed by: Capo Granda MD on 08/14/2024 19:27:20
--- NOTE | ~2024-08-14 | XR_ITS ---
CLINICAL HISTORY: unwitnessed fall --- Additional Notes or Special Instructions: confirm hardware is in place ?new fracture 2 view right femur Comparison: None provided Findings: There is a periprosthetic spiral type fracture extending from the greater trochanter to the lateral aspect of the proximal diaphysis of the femur. Fracture is minimally displaced. There is a old healed mid shaft right femur fracture. There is a intramedullary nail with transfixing screw in the femur and the right femoral head and neck. No knee effusion. No significant arthritic change. No radiopaque foreign body. IMPRESSION: Periprosthetic right femur fracture extending from the greater trochanter to the lateral cortex of the proximal diaphysis. This document has been electronically signed by: Capo Granda MD on 08/14/2024 19:34:49
--- NOTE | ~2024-08-14 | CT_ITS ---
EXAMINATION: CT CERVICAL SPINE WITHOUT CONTRAST CLINICAL INFORMATION: Change in mental status. Found on ground COMPARISON: July 11, 2024. TECHNIQUE: Contiguous axial images through the cervical spine using 3 mm collimation with bone and soft tissue algorithm. Sagittal and coronal reformatted images acquired. DLP: 215.[address] examination was performed using dose optimization techniques as appropriate, variously including the following: *Automated exposure control *Adjustment of mA and/or kV according to patient size (this includes techniques or standardized protocols for targeted exams where dose is matched to indication/reason for exam; i.e. extremities or head) *Use of iterative reconstruction technique FINDINGS: Craniocervical junction is intact with normal alignment between the occipital condyles and the lateral masses of C1. Degenerative changes in the periodontal C1 region. Marginal osteophyte formation and endplate sclerosis subchondral cyst formation and decreased intervertebral disc height at C4-5 C5-6 and C6-7 levels. Facet joint hypertrophy at the levels from C3 to C7. Stable widening of the anterior intervertebral disc C6-7. C1 is intact. C2 is intact. C3 is intact. C4 is intact. C5 is intact. C6 demonstrates volume loss at inferior endplate.. C7 demonstrates cortical irregularity in the anterior superior endplate. No gross prevertebral compartment hematoma. Superior endplate compression deformities representing 20% volume loss at T1, T2 and T3. Calcified plaques in the carotic arteries. Bilateral apical lung scarring with calcified plaques. CT/CT cervical spine wo IV con IMPRESSION: Multilevel cervical spondylosis C3 C7 with the stable inferior endplate compression deformity at C6, cortical irregularity at anterior superior endplate of C7. Probable subacute to old fractures. Recommend further imaging evaluation with noncontrast MRI cervical spine.. Fleischner guidelines were followed. Electronically signed by: Luis Mccloud MD 08/14/2024 02:09 PM EDT
--- NOTE | ~2024-08-14 | XR_ITS ---
EXAMINATION: XR CHEST CLINICAL INFORMATION: altered COMPARISON: April 03, 2024. TECHNIQUE: Frontal view of the chest was obtained. FINDINGS: Bilateral apical lung scarring. Prominence of the interstitial markings. No consolidation pleural effusion or pneumothorax. Cardiomediastinal silhouette size is normal. Calcified plaque thoracic aorta. Osteopenia versus osteoporosis. XR/XR chest 1V IMPRESSION: No acute airspace disease. Stable chest. Electronically signed by: Luis Mccloud MD 08/14/2024 02:09 PM EDT
--- NOTE | ~2024-08-14 | CT_ITS ---
EXAMINATION: CT HEAD WITHOUT CONTRAST CLINICAL INFORMATION: Altered mental status, found on the ground COMPARISON: July 11, 2024 TECHNIQUE: Contiguous axial imaging was performed from the skull base to vertex without intravenous administration of contrast. This CT examination was performed using dose optimization techniques as appropriate, variously including the following: *Automated exposure control *Adjustment of mA and/or kV according to patient size (this includes techniques or standardized protocols for targeted exams where dose is matched to indication/reason for exam; i.e. extremities or head) *Use of iterative reconstruction technique DLP: 762 mGY*cm FINDINGS: There is no acute ischemic change. Mild patchy deep white matter hypodensities noted. There is no intracranial hemorrhage. There is no mass-effect or midline shift. There is mild generalized atrophy. Basal cisterns and ventricles are within normal limits for age/cerebral volume. Orbits are symmetrical and unremarkable. Paranasal sinuses and mastoid air cells are pneumatized. There are no bony abnormalities. CT/CT head/brain wo IV con IMPRESSION: No acute intracranial abnormality. Stable chronic white matter changes probably related to small vessel disease. Electronically signed by: Juan Ramon Shrestha MD 08/14/2024 01:53 PM EDT
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
[2024-08-14 13:16] LABS: MANUAL DIFF FLAG NO
[2024-08-14 13:20] LABS: Glucose, Whole Blood 180 mg/dL (60-115)
[2024-08-14 13:22] LABS: Basophils Percent Auto 0.2 % (0-2); Hemoglobin 11.6 g/dl (12.0-16.0); Imm Gran Abs Auto 0.03 X10*3/uL (0.00-0.03); Imm Gran Pct Auto 0.5 % (0.0-0.4); Lymphocytes Absolute Auto 0.6 X10*3/uL (1.2-4.9); Lymphocytes Percent Auto 9.9 % (20-40); Mean Corpuscular HGB Conc 33.1 g/dl (31.0-35.0); Mean Corpuscular Hemoglobin 33.1 pg (27.0-33.0); Monocytes Absolute Auto 0.4 X10*3/uL (0.1-1.2); Monocytes Percent Auto 7.5 % (2-11); Neutrophils Absolute Auto 4.7 x10*3/uL (2.0-8.3); Neutrophils Percent Auto 81.9 % (45-73); Red Cell Distribution Width 13.2 % (11.0-16.0); White Blood Count 5.8 X10*3/uL (4.8-10.8)
[2024-08-14 13:48] LABS: Platelet Count 95 X10*3/uL (160-400)
[2024-08-14 13:49] LABS: Mean Platelet Volume 10.5 fL (9.4-12.3)
[2024-08-14 13:56] LABS: Anion Gap 27 (12-20); Blood Urea Nitrogen 14 mg/dL (9-16); Calcium 9.2 mg/dL (8.4-10.2); Carbon Dioxide 17 mmol/L (22-29); Chloride 100 mmol/L (96-108); Creatinine Clr Calc Pharmacy 47.3; Estimated Glomerular Filt Rate > 60; Ethanol < 10 mg/dL; Glucose Random 202 mg/dL (60-115); Magnesium 1.5 mg/dL (1.6-2.6); Potassium 4.1 mmol/L (3.3-5.1); Sodium 140 mmol/L (135-145)
[2024-08-14 14:11] LABS: Alanine Aminotransferase 73 U/L (0-31); Albumin Level 4.2 g/dL (3.5-5.0); Alkaline Phosphatase 120 U/L (39-117); Aspartate Amino Transferase 131 U/L (5-31); Bilirubin Direct 0.4 mg/dL (0.0-0.5); Bilirubin Total 1.3 mg/dL (0.0-1.0); Total Protein 6.4 g/dL (6.5-8.0)
[2024-08-14 14:12] LABS: Troponin-I High Sensitivity 21.4 ng/L (<3.5-17.0)
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
[2024-08-14 14:28] LABS: TSH reflex Free T4 1.28 uIU/mL (0.32-4.0)
[2024-08-14 14:29] LABS: Venous Blood Gas Refer to POC result
[2024-08-14 14:30] LABS: VBG Base Excess -8.7 mmol/L; VBG HCO3 17 mmol/L (22-26); VBG pCO2 35 mmHg; VBG pH 7.28 (7.32-7.43); VBG pO2 44 mmHg
[2024-08-14 14:31] LABS: Ammonia 25 umol/L (13-55)
[2024-08-14] MEDS: Magnesium Sulfate/H2O 2 GM/50 ML PIGGYBACK IV (14:58)
[2024-08-14] MEDS: 0.9 % Sodium Chloride 1,000 ML 999 ML IV (14:58)
[2024-08-14] MEDS: Nicotine 7 MG PATCH.TD24 TRANSDERMA (14:59)
--- NOTE | 2024-08-14 15:59 | PC.NURSE ---
MRI form completed & sent to Carlos Guallpa (MRI staff) as requested. Awaiting to be taken to MRI. Patient's grandson is at bedside and assisted with MRI screening/intake form.
[2024-08-14 17:19] LABS: Troponin-I High Sensitivity 22.6 ng/L (<3.5-17.0)
--- NOTE | 2024-08-14 17:35 | PC.NURSE ---
Patient is away for MRI at this time. Visitor (sister) at bedside. Plan for CIWA assessment & initiating LR upon return.
--- NOTE | 2024-08-14 19:00 | PC.NURSE ---
Patient returned from MRI at this time. Remains in c-spine collar. Asking for food. Pending MRI results. Family at bedside.
[2024-08-14] MEDS: Lactated Ringers 1,000 ML 999 ML IV (19:14)
[2024-08-14 20:09] LABS: Influenza A PCR NEGATIVE (Negative); Influenza B PCR NEGATIVE (Negative); Resp Syncy Virus RNA Qual PCR NEGATIVE (Negative); SARS COV2 PCR INHOUSE NEGATIVE (Negative)
--- NOTE | 2024-08-14 22:31 | PC.NURSE ---
report called to varsha [facility] ED
== END 2024-08-14 22:43 | disposition short-term general hospital (02) ==
PROVIDERS: Physician Assistant Medical; Emergency Provider Emergency Medicine; PCP Internal Medicine
DX: E83.42 Hypomagnesemia (principal); I25.10 Atherosclerotic heart disease of native coronary artery without angina pectoris; R62.7 Adult failure to thrive; E88.89 Other specified metabolic disorders; D64.9 Anemia, unspecified; R00.0 Tachycardia, unspecified; M25.552 Pain in left hip; M25.551 Pain in right hip; F10.20 Alcohol dependence, uncomplicated; M79.604 Pain in right leg; M54.2 Cervicalgia; R51.9 Headache, unspecified; R11.0 Nausea; R10.2 Pelvic and perineal pain; F17.210 Nicotine dependence, cigarettes, uncomplicated; Y90.0 Blood alcohol level of less than 20 mg/100 ml; E11.9 Type 2 diabetes mellitus without complications; I10 Essential (primary) hypertension; J44.9 Chronic obstructive pulmonary disease, unspecified; J45.20 Mild intermittent asthma, uncomplicated; Z03.818 Encounter for observation for suspected exposure to other biological agents ruled out; Z91.81 History of falling; Z79.899 Other long term (current) drug therapy; Z51.81 Encounter for therapeutic drug level monitoring
CPT/HCPCS: 0241U; 36415; 70450; 71045; 72125; 72141; 73521; 73552; 80048; 80076; 80307; 82140; 82550; 82803; 82947; 83735; 84443; 84484; 85025; 93005; 96361; 96374; 99285; J3475; J7120

== ENCOUNTER → 2024-08-14 13:02 | Outpatient (BNV) | payer MEDICARE, SELFPAY | PROVIDERS: Emergency Provider Emergency Medicine; PCP Internal Medicine; Visit Provider Radiology Diagnostic Radiology | DX: S22.051A Stable burst fracture of T5-T6 vertebra, initial encounter for closed fracture (principal); M47.812 Spondylosis without myelopathy or radiculopathy, cervical region; R90.82 White matter disease, unspecified; M97.01XA Periprosthetic fracture around internal prosthetic right hip joint, initial encounter; I70.0 Atherosclerosis of aorta | CPT/HCPCS: 70450; 71045; 72125; 72141; 73521; 73552 ==

== ENCOUNTER → 2024-08-14 13:17 | Outpatient (BNV) | payer MEDICARE, SELFPAY | PROVIDERS: Emergency Provider Emergency Medicine; PCP Internal Medicine; Visit Provider Internal Medicine Cardiovascular Disease | DX: I51.7 Cardiomegaly (principal); R00.0 Tachycardia, unspecified | CPT/HCPCS: 93010 ==

== ENCOUNTER 2024-09-03 08:54 | Outpatient (AMB) | payer MEDICARE, SELFPAY ==
[2024-09-03 09:01] VITALS: BP 120/64; PULSE 99; RESP 18; TEMP 36.7; O2SAT 96; BMI 17.0
--- NOTE | 2024-09-03 09:01 | MHC.PC.OV ---
Vital Signs 09/03/24 09:01 Height 4 ft 11 in Weight 84 lb BMI 17.0 BP 120/64 Blood Pressure Location Lt brachial Position Sitting Respiration 18 Pulse 99 Pulse Source Pulse Oximeter Temp 98.0 F Temp Source Oral Pulse Oximetry (%) 96 Oxygen Delivery Method Room Air Intake Visit Reasons: HDF Intake Note: Pt is here today for Hospital follow up visit. Allergies nortriptyline Allergy (Severe, Verified 09/03/24 09:04) hives bupropion Allergy (Intermediate, Verified 09/03/24 09:04) hives buspirone (From BuSpar) Allergy (Intermediate, Verified 09/03/24 09:04) Diarrhea high anxiety cefdinir Allergy (Intermediate, Verified 09/03/24 09:04) diarrhea and yeast ingection nitrofurantoin Allergy (Intermediate, Verified 09/03/24 09:04) heartburn; N/V penicillin V Allergy (Intermediate, Verified 09/03/24 09:04) Hives Sulfa (Sulfonamide Antibiotics) Allergy (Intermediate, Verified 09/03/24 09:04) Hives duloxetine Adverse Reaction (Intermediate, Verified 09/03/24 09:04) Diarrhea prazosin Adverse Reaction (Intermediate, Verified 09/03/24 09:04) Diarrhea phenazopyridine (From Pyridium) Adverse Reaction (Mild, Verified 09/03/24 09:04) Diarrhea Myacin Allergy (Mild, Uncoded 09/03/24 09:04) Hives prazosin Adverse Reaction (Intermediate, Uncoded 09/03/24 09:04) Diarrhea Medication List - Last Reconciled 09/03/24 by Enriqueta Estrada MD albuterol sulfate 90 mcg/actuation 2 puffs inhalation Q4-6H PRN amlodipine 5 mg PO DAILY atorvastatin 40 mg PO DAILY baclofen 10 mg PO BEDTIME blood sugar diagnostic (FreeStyle Lite Strips) Test blood sugar 3 times per day, on insulin blood-glucose meter (FreeStyle Lite Meter kit) Test blood sugar 3 times per day, on insulin buspirone 5 mg PO BID buspirone 15 mg PO BID escitalopram oxalate 20 mg PO DAILY ibuprofen 800 mg PO Q8H PRN 30 days lancets (FreeStyle Lancets) Test blood sugar 3 times per day, on insulin lisinopril 20 mg PO DAILY lorazepam 1 mg PO DAILY PRN metformin 1,000 mg PO DAILY mirtazapine 30 mg PO BEDTIME nicotine 14 mg transdermal DAILY Oxygen Home Use 1 L/MIN nasal cannula to maintain O2 sat > 90%-concentrator, portable oxygen with conserving device pen needle, diabetic (Advocate Pen Needle) Use to inject insulin once a day trazodone 100 mg PO BEDTIME Trelegy Ellipta 200-62.5-25 mcg ([id number]) 1 inh inhalation DAILY NS Tobacco use date assessed: 09/03/24 Last assessed Fall Risk: 09/03/24 Dental Screening Dental Screen Date: 09/03/24 HPI HDF HPI Details Patient presents for the follow-up of hospitalization for C7 vertebral fracture after fall at home Patient is established with neurosurgeon at [facility]. she has been wearing a neck collar and has a follow-up next month. Hypertension hyperlipidemia and type 2 diabetes have been controlled on current medications. Patient has been monitoring her blood glucose with the readings between 140-160 fasting in the morning. Patient is established with psychiatry for counseling and prescriber(LANETTE). She was prescribed 30 mg of escitalopram during the hospitalization and rehab stay and would like to continue higher dose because she is feeling better. Patient has been staying with her son and has been getting OT/PT at home. COPD stable on Trelegy. [facility] Medical History (Updated 09/03/24 @ 10:04 by Enriqueta Estrada MD) Dysuria Hyponatremia Annual physical exam COPD (chronic obstructive pulmonary disease) Depression Diabetes Alopecia Tobacco abuse CAD (coronary artery disease) Colon polyp Hyperlipidemia HTN (hypertension) Diabetic eye exam Anxiety and depression Surgical History H/O colonoscopy History of appendectomy History of oophorectomy Family History Father Diabetes mellitus Mother No problems noted. Son Myocardial infarction Social History Household Members: None Housing: Condominium Do you presently have visiting nurse or other home services: No Alcohol intake: current Alcohol intake frequency: 0-2 drinks per day Alcohol type: wine Patient Tobacco Use Status: Current everyday Tobacco user Tobacco use type: Cigarette Cigarettes Per Day: 10 Years Smoked: 50 e-Cigarette/Vaping Use: Never Used Second Hand Smoke Exposure: No Advance Directives Date on File: 08/05/23 service: No Current occupational status: retired Current occupational exposures/hazards: No Cognitive needs: No Hearing needs: No Vision needs: No Questionnaire Thrive Questionnaire Date Thrive assessed: 04/03/24 AMERICA-7 AMB Questionnaire AMERICA-7 Date AMERICA - 7 assessed: 04/03/24 Source: Developed by Drs. Kendell Chaney, Mary Curtis, Jordan Brandt and colleagues, with an educational collin from [employer]. Review of Systems Const All systems reviewed & are unremarkable except as noted in HPI and below ENT Reports no additional complaints Card Reports no additional complaints Resp Reports no additional complaints GI Reports no additional complaints Physical exam (Primary Care) Vital Signs: Last Vital Signs Temp 98.0 F 09/03/24 09:01 Pulse 99 09/03/24 09:01 Resp 18 09/03/24 09:01 BP 120/64 09/03/24 09:01 Pulse Ox 96 09/03/24 09:01 Oxygen Delivery Method Room Air 09/03/24 09:01 BMI result Body Mass Index 17.0 Tobacco/Smoking Status: Tobacco use Status Tobacco use date assessed 09/03/24 09/03/24 09:14 Patient Tobacco Use Status Current everyday Tobacco 09/03/24 09:01 Tobacco use type Cigarette 09/03/24 09:01 e-Cigarette/Vaping Use Never Used 09/03/24 09:01 Thrive Assessment: Date of Thrive Assessment Date Thrive assessed 04/03/24 09/03/24 09:01 Const General: no acute distress HENMT Head: Yes normal to inspection Resp Effort & Inspection: normal respiratory effort Auscultation: clear to auscultation bilaterally Cardio Rhythm: regular rhythm Heart sounds: S1 normal heart sound present and S2 normal heart sound present Coding Level of Care Code Est Pt Level 4 (94567) Diagnoses Fracture of C7 vertebra, closed S12.600A Anxiety and depression F41.9; F32.9 Diabetes E11.9 COPD (chronic obstructive pulmonary disease) J44.9 HTN (hypertension) I10 Assessment & Plan Assessment & Plan (1) Fracture of C7 vertebra, closed: Comment: Established with [facility] neurosurgery Code(s): S12.600A - Unspecified displaced fracture of seventh cervical vertebra, initial encounter for closed fracture Category: Medical Plan: Follow-up with neurosurgeon (2) Anxiety and depression: Comment: PTSD , f/u with therapist and psychiatric PA Code(s): F41.9 - Anxiety disorder, unspecified; F32.9 - Major depressive disorder, single episode, unspecified Category: Medical Plan: Continue current medications and escitalopram will be increased to 30 mg a day. Patient will get reestablished with counseling and prescriber (3) Diabetes: Comment: Patient declined taking medications other than metformin Code(s): E11.9 - Type 2 diabetes mellitus without complications Category: Medical Plan: ADA diet discussed with the patient continue metformin and regular blood glucose monitoring. Follow-up in 2 months with a fasting labs before (4) COPD (chronic obstructive pulmonary disease): Comment: Tobacco quitting discussed with the patient. Chest CT angiogram stable pulmonary nodules no PE 06/2023 Code(s): J44.9 - Chronic obstructive pulmonary disease, unspecified Category: Medical Plan: Continue Trelegy (5) HTN (hypertension): Comment: Hydrochlorothiazide caused hyponatremia Code(s): I10 - Essential (primary) hypertension Category: Medical Plan: Continue amlodipine and Lisinopril Orders: Orders Comprehensive [place]. Panel Fast 2 Months E11.9 - Type 2 diabetes mellitus without complications, I10 - Essential (primary) hypertension Lipid Panel 2 Months E11.9 - Type 2 diabetes mellitus without complications, I10 - Essential (primary) hypertension Complete Blood Count Auto Diff 2 Months E11.9 - Type 2 diabetes mellitus without complications, I10 - Essential (primary) hypertension Hemoglobin A1c 2 Months E11.9 - Type 2 diabetes mellitus without complications, I10 - Essential (primary) hypertension Medications: New escitalopram oxalate 30 mg (3 x 10 mg) PO DAILY 90 tabs 1RF
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
== END 2024-09-03 10:01 | disposition home or self-care (01) ==
LOC: HO.HMCC 08:54
PROVIDERS: PCP Internal Medicine; Visit Provider Internal Medicine
DX: S12.600A Unspecified displaced fracture of seventh cervical vertebra, initial encounter for closed fracture (principal); E11.9 Type 2 diabetes mellitus without complications; J44.9 Chronic obstructive pulmonary disease, unspecified; F41.9 Anxiety disorder, unspecified; F32.9 Major depressive disorder, single episode, unspecified; I10 Essential (primary) hypertension

== ENCOUNTER → 2024-09-03 08:54 | Outpatient (BNVA) | payer MEDICARE, SELFPAY | PROVIDERS: PCP Internal Medicine; Visit Provider Internal Medicine | DX: S12.600D Unspecified displaced fracture of seventh cervical vertebra, subsequent encounter for fracture with routine healing (principal); F41.9 Anxiety disorder, unspecified; F32.9 Major depressive disorder, single episode, unspecified; E11.9 Type 2 diabetes mellitus without complications; J44.9 Chronic obstructive pulmonary disease, unspecified | CPT/HCPCS: 99212 ==

== ENCOUNTER 2024-11-10 07:10 | Outpatient (REF) | payer MEDICARE, SELFPAY ==
[2024-11-10 10:48] LABS: MANUAL DIFF FLAG NO
[2024-11-10 11:12] LABS: Hematocrit 40.7 % (37.0-47.0); Hemoglobin 13.7 g/dl (12.0-16.0); Imm Gran Abs Auto 0.03 X10*3/uL (0.00-0.03); Imm Gran Pct Auto 0.3 % (0.0-0.4); Lymphocytes Absolute Auto 2.1 X10*3/uL (1.2-4.9); Mean Corpuscular HGB Conc 33.7 g/dl (31.0-35.0); Mean Corpuscular Hemoglobin 30.6 pg (27.0-33.0); Mean Corpuscular Volume 91.1 fL (80.0-98.0); NRBC Abs Auto 0.000 X10*3/uL (0.0-0.012); NRBC Pct Auto 0.0 /100WBC (0.0-0.2); Platelet Count 182 X10*3/uL (160-400); Red Blood Count 4.47 X10*6/uL (4.20-5.50); White Blood Count 9.4 X10*3/uL (4.8-10.8)
[2024-11-10 11:50] LABS: Alanine Aminotransferase 9 U/L (0-31); Albumin Level 4.4 g/dL (3.5-5.0); Alkaline Phosphatase 80 U/L (39-117); Anion Gap 15 (12-20); Aspartate Amino Transferase 28 U/L (5-31); Blood Urea Nitrogen 8 mg/dL (9-16); Calcium 9.7 mg/dL (8.4-10.2); Carbon Dioxide 28 mmol/L (22-29); Chloride 98 mmol/L (96-108); Cholesterol 185 mg/dL (<200); Estimated Glomerular Filt Rate > 60; HDL Cholesterol 96 mg/dL (>40); Hemoglobin A1C 163.3696 umol/L; Potassium 3.9 mmol/L (3.3-5.1); Sodium 137 mmol/L (135-145); Total Hemoglobin (HGBA1C) 3552.7432 umol/L; Total Protein 6.3 g/dL (6.5-8.0); Triglycerides 70 mg/dL (<150)
[2024-11-10 12:13] LABS: Microalbum/Creatinine Ratio Ur 34.8 ug/mg cr (<30)
== END 2024-11-10 07:11 | disposition home or self-care (01) ==
LOC: HO.HMGCLDS 07:10
PROVIDERS: PCP Internal Medicine; Visit Provider Internal Medicine
DX: E11.9 Type 2 diabetes mellitus without complications (principal); I10 Essential (primary) hypertension
CPT/HCPCS: 36415; 80053; 80061; 82043; 82570; 83036; 85025

== ENCOUNTER 2024-11-25 09:48 | Outpatient (AMB) | payer MEDICARE, SELFPAY ==
--- NOTE | 2024-11-25 09:51 | MHC.PC.OV ---
Vital Signs 11/25/24 09:52 Height 4 ft 11 in Weight 79 lb BMI 16.0 BP 90/56 L Blood Pressure Location Rt brachial Position Sitting Respiration 20 Pulse 113 H Pulse Source Pulse Oximeter Temp 97.7 F Temp Source Oral Pulse Oximetry (%) 95 Oxygen Delivery Method Room Air Intake Visit Reasons: depression, weight loss Intake Note: Pt is here today for a sick visit. Pt c/o depression and weight loss. Allergies nortriptyline Allergy (Severe, Verified 11/25/24 09:59) hives bupropion Allergy (Intermediate, Verified 11/25/24 09:59) hives buspirone (From BuSpar) Allergy (Intermediate, Verified 11/25/24 09:59) Diarrhea high anxiety cefdinir Allergy (Intermediate, Verified 09/03/24 09:04) diarrhea and yeast ingection nitrofurantoin Allergy (Intermediate, Verified 11/25/24 09:59) heartburn; N/V penicillin V Allergy (Intermediate, Verified 11/25/24 09:59) Hives Sulfa (Sulfonamide Antibiotics) Allergy (Intermediate, Verified 11/25/24 09:59) Hives duloxetine Adverse Reaction (Intermediate, Verified 11/25/24 09:59) Diarrhea prazosin Adverse Reaction (Intermediate, Verified 11/25/24 09:59) Diarrhea phenazopyridine (From Pyridium) Adverse Reaction (Mild, Verified 11/25/24 09:59) Diarrhea Myacin Allergy (Mild, Uncoded 11/25/24 09:59) Hives prazosin Adverse Reaction (Intermediate, Uncoded 11/25/24 09:59) Diarrhea Medication List - Last Reconciled 11/25/24 by Enriqueta Estrada MD albuterol sulfate 90 mcg/actuation 2 puffs inhalation Q4-6H PRN amlodipine 5 mg PO DAILY atorvastatin 40 mg PO DAILY baclofen 10 mg PO BEDTIME blood sugar diagnostic (FreeStyle Lite Strips) Test blood sugar 3 times per day, on insulin blood-glucose meter (FreeStyle Lite Meter kit) Test blood sugar 3 times per day, on insulin buspirone 15 mg PO BID escitalopram oxalate 30 mg (3 x 10 mg) PO DAILY ibuprofen 800 mg PO Q8H PRN 30 days lancets (FreeStyle Lancets) Test blood sugar 3 times per day, on insulin lisinopril 20 mg PO DAILY metformin 1,000 mg PO DAILY mirtazapine 45 mg PO BEDTIME Oxygen Home Use 1 L/MIN nasal cannula to maintain O2 sat > 90%-concentrator, portable oxygen with conserving device pen needle, diabetic (Advocate Pen Needle) Use to inject insulin once a day trazodone 100 mg PO BEDTIME Trelegy Ellipta 200-62.5-25 mcg ([id number]) 1 inh inhalation DAILY NS Tobacco use date assessed: 11/25/24 Fall risk assessment: 1 Fall in past year Last assessed Fall Risk: 11/25/24 Dental Screening Dental Screen Date: 09/03/24 HPI depression, weight loss HPI Details Patient presents for the follow-up of hypertension hyperlipidemia type 2 diabetes COPD stable on current medications. Patient complains chronic depression despite taking medications and having weekly psychotherapy sessions. She denies suicide ideation but reports poor appetite and insomnia. Patient used to see psychiatric prescriber. [facility] Medical History (Updated 11/25/24 @ 15:41 by Enriqueta Estrada MD) Closed fracture of right hip Dysuria Hyponatremia Annual physical exam COPD (chronic obstructive pulmonary disease) Depression Diabetes Alopecia Tobacco abuse CAD (coronary artery disease) Colon polyp Hyperlipidemia HTN (hypertension) Diabetic eye exam Anxiety and depression Surgical History H/O colonoscopy History of appendectomy History of oophorectomy Family History Father Diabetes mellitus Mother No problems noted. Son Myocardial infarction Social History Household Members: None Housing: Condominium Do you presently have visiting nurse or other home services: No Alcohol intake: current Alcohol intake frequency: 0-2 drinks per day Alcohol type: wine Patient Tobacco Use Status: Current everyday Tobacco user Tobacco use type: Cigarette Cigarettes Per Day: 10 Years Smoked: 50 e-Cigarette/Vaping Use: Never Used Second Hand Smoke Exposure: No Advance Directives Date on File: 08/05/23 service: No Current occupational status: retired Current occupational exposures/hazards: No Cognitive needs: No Hearing needs: No Vision needs: No Questionnaire PHQ-9 Over the last 2 weeks, how often have you been bothered by any of the following problems? 1. Little interest or pleasure in doing things: nearly every day 2. Feeling down, depressed, or hopeless: nearly every day 3. Trouble falling or staying asleep, or sleeping too much: nearly every day 4. Feeling tired or having little energy: nearly every day 5. Poor appetite or overeating: nearly every day 6. Feeling bad about yourself - or that you are a failure or have let yourself or your family down: nearly every day 7. Trouble concentrating on things, such as reading the newspaper or watching television: nearly every day 8. Moving or speaking so slowly that other people could have noticed. Or the opposite - being so fidgety or restless that you have been moving around a lot more than usual: nearly every day 9. Thoughts that you would be better off or of hurting yourself in some way: several days Total score: 25 Depression Screening Interpretation: Positive (Continue counseling and patient will schedule an appointment with psychiatry) Depression Screening Follow-up: Existing condition, In treatment and Change in Medication Depression Screening Done: Yes Source: Developed by Drs. Kendell Chaney, Mary Curtis, Jordan Brandt and colleagues, with an educational collin from [employer]. Thrive Questionnaire Date Thrive assessed: 04/03/24 I am a: Patient What is your living situation today?: I have a steady place to live Within the past 12 months, did the food you bought not last and you didn't have the money to get more?: Never true Within the past 12 months, did you worry whether your food would run out before you got money to buy more?: Never true Do you have trouble paying for medicines?: I choose not to answer this question Do you have trouble getting transportation to medical appointments?: Yes Do you have trouble paying your heating and electricity bill?: Yes Do you have trouble taking care of your child, family member or friend?: No Do you have trouble with day-to-day activities such as bathing, preparing meals, shopping, managing finances, etc.?: No Are you currently unemployed and looking for a job?: No Are you interested in more education?: No Please select the resources that you would like help with: Food, Paying for medicine, Transportation and Utilities Currently or been in a relationship where the following occur: No concerns reported THRIVE Score: 2 AUDIT C Alcohol Use Questionnaire (AUDIT-C) 1. How often do you have a drink containing alcohol?: 4 or more times a week 2. How many drinks containing alcohol do you have on a typical day when you are drinking?: 1 or 2 3. How often do you have six or more drinks on one occasion?: Never Total Score: 4 AMERICA-7 AMB Questionnaire AMERICA-7 Date AMREICA - 7 assessed: 04/03/24 Feeling nervous, anxious, or on edge: 3 = Nearly every day Not being able to stop or control worryin = Nearly every day Worrying too much about different things: 3 = Nearly every day Trouble relaxin = Nearly every day Being so restless that it is hard to sit still: 0 = Not at all Becoming easily annoyed or irritable: 3 = Nearly every day Feeling afraid as if something awful might happen: 1 = Several days Total AMERICA-7 score (0-4 normal; 5-9 mild; 10-14 moderate; 15-21 severe): 16 Source: Developed by Drs. Kendell Chaney, Mary Curtis, Jordan Brandt and colleagues, with an educational collin from [employer]. Review of Systems Const All systems reviewed & are unremarkable except as noted in HPI and below ENT Reports no additional complaints Card Reports no additional complaints Resp Reports no additional complaints GI Reports no additional complaints Reports no additional complaints Physical exam (Primary Care) Vital Signs: Last Vital Signs Temp 97.7 F 11/25/24 09:52 Pulse 113 H 11/25/24 09:52 Resp 20 11/25/24 09:52 BP 90/56 L 11/25/24 09:52 Pulse Ox 95 11/25/24 09:52 Oxygen Delivery Method Room Air 11/25/24 09:52 BMI result Body Mass Index 16.0 Tobacco/Smoking Status: Tobacco use Status Tobacco use date assessed 11/25/24 11/25/24 10:02 Patient Tobacco Use Status Current everyday Tobacco 11/25/24 09:56 Tobacco use type Cigarette 11/25/24 09:56 e-Cigarette/Vaping Use Never Used 11/25/24 09:56 PHQ-9: PHQ-9 Score PHQ-9: Total score 11/25/24 10:02 Depression Screening Interpretation: Positive (Continue counseling and patient will schedule an appointment with psychiatry) Depression Screening Follow-up: Existing condition, In treatment and Change in Medication Thrive Assessment: Date of Thrive Assessment Date Thrive assessed 04/03/24 11/25/24 09:56 Currently or been in a relationship where the following occur: No concerns reported Const General: no acute distress HENMT Head: Yes normal to inspection Mouth: Normal oral and palatal mucosa present Neck Neck: Yes supple Resp Effort & Inspection: normal respiratory effort Auscultation: diminished lung sounds Cardio Rhythm: regular rhythm Heart sounds: S1 normal heart sound present and S2 normal heart sound present GI Inspection: Yes normal to inspection Palpation (GI): Soft to palpation Percussion: Yes normal to percussion Auscultation: normal bowel sounds Coding Level of Care Code Est Pt Level 4 (02822) Diagnoses HTN (hypertension) I10 Diabetes E11.9 Hyperlipidemia E78.5 Anxiety and depression F41.9; F32.9 COPD (chronic obstructive pulmonary disease) J44.9 Tobacco dependence F17.200 Assessment & Plan Assessment & Plan (1) HTN (hypertension): Comment: Hydrochlorothiazide caused hyponatremia Code(s): I10 - Essential (primary) hypertension Category: Medical Plan: Continue current medications (2) Diabetes: Comment: Patient declined taking medications other than metformin Code(s): E11.9 - Type 2 diabetes mellitus without complications Category: Medical Plan: A1c is 6.4, continue ADA diet and current medications (3) Hyperlipidemia: Code(s): E78.5 - Hyperlipidemia, unspecified Category: Medical Plan: Continue statin (4) Anxiety and depression: Comment: PTSD , f/u with therapist and psychiatric PA Code(s): F41.9 - Anxiety disorder, unspecified; F32.9 - Major depressive disorder, single episode, unspecified Category: Medical Plan: Mirtazapine will be increased from 30 mg to 45 patient will continue the rest of her medications and will schedule an appointment with psychiatry (5) COPD (chronic obstructive pulmonary disease): Comment: Tobacco quitting discussed with the patient. Chest CT angiogram stable pulmonary nodules no PE 06/2023 Code(s): J44.9 - Chronic obstructive pulmonary disease, unspecified Category: Medical Plan: Continue Trelegy (6) Tobacco dependence: Comment: Patient is not interested in quitting Code(s): F17.200 - Nicotine dependence, unspecified, uncomplicated Category: Medical Plan: Patient is not interested in quitting Orders: Orders Comprehensive [place]. Panel Fast 4 Months E11.9 - Type 2 diabetes mellitus without complications, E78.5 - Hyperlipidemia, unspecified, I10 - Essential (primary) hypertension Hemoglobin A1c 4 Months E11.9 - Type 2 diabetes mellitus without complications, E78.5 - Hyperlipidemia, unspecified, I10 - Essential (primary) hypertension Complete Blood Count Auto Diff 4 Months E11.9 - Type 2 diabetes mellitus without complications, E78.5 - Hyperlipidemia, unspecified, I10 - Essential (primary) hypertension Lipid Panel 4 Months E11.9 - Type 2 diabetes mellitus without complications, E78.5 - Hyperlipidemia, unspecified, I10 - Essential (primary) hypertension Microalbumin, Random (w Creat) 4 Months E11.9 - Type 2 diabetes mellitus without complications, E78.5 - Hyperlipidemia, unspecified, I10 - Essential (primary) hypertension TSH reflex Free T4 4 Months E11.9 - Type 2 diabetes mellitus without complications, E78.5 - Hyperlipidemia, unspecified, I10 - Essential (primary) hypertension Medications: New mirtazapine 45 mg PO BEDTIME 90 tabs 0RF
[2024-11-25 09:52] VITALS: BP 90/56; PULSE 113; RESP 20; TEMP 36.5; O2SAT 95; BMI 16.0
== END 2024-11-25 15:41 | disposition home or self-care (01) ==
LOC: HO.HMCC 09:49
PROVIDERS: PCP Internal Medicine; Visit Provider Internal Medicine
DX: I10 Essential (primary) hypertension (principal); E11.69 Type 2 diabetes mellitus with other specified complication; J44.9 Chronic obstructive pulmonary disease, unspecified; E78.5 Hyperlipidemia, unspecified; F41.9 Anxiety disorder, unspecified; F32.9 Major depressive disorder, single episode, unspecified; F17.200 Nicotine dependence, unspecified, uncomplicated

== ENCOUNTER → 2024-11-25 09:48 | Outpatient (BNVA) | payer MEDICARE, SELFPAY | PROVIDERS: PCP Internal Medicine; Visit Provider Internal Medicine | DX: E11.9 Type 2 diabetes mellitus without complications (principal); I10 Essential (primary) hypertension; E78.5 Hyperlipidemia, unspecified; J44.9 Chronic obstructive pulmonary disease, unspecified; F41.9 Anxiety disorder, unspecified; F32.9 Major depressive disorder, single episode, unspecified; F17.210 Nicotine dependence, cigarettes, uncomplicated; Z79.899 Other long term (current) drug therapy | CPT/HCPCS: 96127; 99212 ==

== ENCOUNTER 2025-02-09 10:42 | Outpatient (AMB) | payer MEDICARE, SELFPAY ==
[2025-02-09 10:55] VITALS: BP 106/72; PULSE 102; RESP 19; TEMP 36.7; O2SAT 95; BMI 16.3
--- NOTE | 2025-02-09 10:55 | A.OFFPC_ITS ---
Vital Signs 02/09/25 10:55 Height 4 ft 11 in Weight 80 lb 8 oz BMI 16.3 BP 106/72 Blood Pressure Location Lt brachial Position Sitting Respiration 19 Pulse 102 H Pulse Source Pulse Oximeter Temp 98.1 F Temp Source Oral Pulse Oximetry (%) 95 Oxygen Delivery Method Room Air Intake Visit Reasons: General Weakness Intake Note: Pt is here today for a follow up visit. Pt states that she is feeling weak and no energy. Allergies nortriptyline Allergy (Severe, Verified 02/09/25 11:02) hives bupropion Allergy (Intermediate, Verified 02/09/25 11:02) hives buspirone (From BuSpar) Allergy (Intermediate, Verified 02/09/25 11:02) Diarrhea high anxiety cefdinir Allergy (Intermediate, Verified 02/09/25 11:02) diarrhea and yeast ingection nitrofurantoin Allergy (Intermediate, Verified 02/09/25 11:02) heartburn; N/V penicillin V Allergy (Intermediate, Verified 02/09/25 11:02) Hives Sulfa (Sulfonamide Antibiotics) Allergy (Intermediate, Verified 02/09/25 11:02) Hives duloxetine Adverse Reaction (Intermediate, Verified 02/09/25 11:02) Diarrhea prazosin Adverse Reaction (Intermediate, Verified 02/09/25 11:02) Diarrhea phenazopyridine (From Pyridium) Adverse Reaction (Mild, Verified 02/09/25 11:02) Diarrhea Myacin Allergy (Mild, Uncoded 02/09/25 11:02) Hives prazosin Adverse Reaction (Intermediate, Uncoded 02/09/25 11:02) Diarrhea Medication List - Last Reconciled 02/09/25 by Enriqueta Estrada MD albuterol sulfate 90 mcg/actuation 2 puffs inhalation Q4-6H PRN amlodipine 5 mg PO DAILY atorvastatin 40 mg PO DAILY baclofen 10 mg PO BEDTIME blood sugar diagnostic (FreeStyle Lite Strips) Test blood sugar 3 times per day, on insulin blood-glucose meter (FreeStyle Lite Meter kit) Test blood sugar 3 times per day, on insulin buspirone 15 mg PO BID escitalopram oxalate 30 mg (3 x 10 mg) PO DAILY ibuprofen 800 mg PO Q8H PRN 30 days lancets (FreeStyle Lancets) Test blood sugar 3 times per day, on insulin lisinopril 20 mg PO DAILY metformin 1,000 mg PO DAILY mirtazapine 45 mg PO BEDTIME Oxygen Home Use 1 L/MIN nasal cannula to maintain O2 sat > 90%-concentrator, portable oxygen with conserving device pen needle, diabetic (Advocate Pen Needle) Use to inject insulin once a day trazodone 100 mg PO BEDTIME Tobacco use date assessed: 02/09/25 Fall risk assessment: 1 Fall in past year Last assessed Fall Risk: 02/09/25 Dental Screening Dental Screen Date: 09/03/24 HPI General Weakness HPI Details Pt presents for f/u DM2, HTN, chronic depression, stable on meds. [facility] Medical History Closed fracture of right hip Dysuria Hyponatremia Annual physical exam COPD (chronic obstructive pulmonary disease) Depression Diabetes Alopecia Tobacco abuse CAD (coronary artery disease) Colon polyp Hyperlipidemia HTN (hypertension) Diabetic eye exam Anxiety and depression Surgical History H/O colonoscopy History of appendectomy History of oophorectomy Family History Father Diabetes mellitus Mother No problems noted. Son Myocardial infarction Social History Household Members: None Housing: Condominium Do you presently have visiting nurse or other home services: No Alcohol intake: current Alcohol intake frequency: 0-2 drinks per day Alcohol type: wine Patient Tobacco Use Status: Current everyday Tobacco user Tobacco use type: Cigarette Cigarettes Per Day: 10 Years Smoked: 50 e-Cigarette/Vaping Use: Never Used Second Hand Smoke Exposure: No Advance Directives Date on File: 08/05/23 service: No Current occupational status: retired Current occupational exposures/hazards: No Cognitive needs: No Hearing needs: No Vision needs: No Questionnaire Thrive Questionnaire Date Thrive assessed: 11/25/24 I am a: Patient What is your living situation today?: I have a steady place to live Within the past 12 months, did the food you bought not last and you didn't have the money to get more?: Never true Within the past 12 months, did you worry whether your food would run out before you got money to buy more?: Never true Do you have trouble paying for medicines?: I choose not to answer this question Do you have trouble getting transportation to medical appointments?: Yes Do you have trouble paying your heating and electricity bill?: Yes Do you have trouble taking care of your child, family member or friend?: No Do you have trouble with day-to-day activities such as bathing, preparing meals, shopping, managing finances, etc.?: No Are you currently unemployed and looking for a job?: No Are you interested in more education?: No Currently or been in a relationship where the following occur: No concerns reported THRIVE Score: 2 AMERICA-7 AMB Questionnaire AMERICA-7 Date AMERICA - 7 assessed: 04/03/24 Source: Developed by Drs. Kendell Chaney, Mary Curtis, Jordan Brandt and colleagues, with an educational collin from [employer]. Review of Systems Const All systems reviewed & are unremarkable except as noted in HPI and below Eyes Reports no additional complaints ENT Reports no additional complaints Card Reports no additional complaints Resp Reports no additional complaints GI Reports no additional complaints Reports no additional complaints Physical exam (Primary Care) Vital Signs: Last Vital Signs Temp 98.1 F 02/09/25 10:55 Pulse 102 H 02/09/25 10:55 Resp 19 02/09/25 10:55 BP 106/72 02/09/25 10:55 Pulse Ox 95 02/09/25 10:55 Oxygen Delivery Method Room Air 02/09/25 10:55 BMI result Body Mass Index 16.3 Tobacco/Smoking Status: Tobacco use Status Tobacco use date assessed 02/09/25 02/09/25 11:07 Patient Tobacco Use Status Current everyday Tobacco 02/09/25 10:55 Tobacco use type Cigarette 02/09/25 10:55 e-Cigarette/Vaping Use Never Used 02/09/25 10:55 Thrive Assessment: Date of Thrive Assessment Date Thrive assessed 11/25/24 02/09/25 10:55 Currently or been in a relationship where the following occur: No concerns reported Const General: no acute distress HENMT Head: Yes normal to inspection Ears: TM's normal bilaterally Face and sinus: Yes normal facial exam Throat: Yes posterior oropharynx normal Eyes General: appearance normal, both eyes and all related structures Neck Neck: Yes supple Resp Effort & Inspection: normal respiratory effort Auscultation: clear to auscultation bilaterally Cardio Rhythm: regular rhythm Heart sounds: S1 normal heart sound present and S2 normal heart sound present Results AMB Hemoglobin A1c AMB Hemoglobin A1c 5.6 % Last Edit by EBER Chang on 02/09/25 11:3 7 Results Reviewed Results Reviewed: Laboratory Last Values Hgb A1c (Clinic) 5.6 % (4.0-6.0) 02/09/25 11:20 Coding Level of Care Code Est Pt Level 4 (15518) Diagnoses HTN (hypertension) I10 Diabetes E11.9 Hyperlipidemia E78.5 Assessment & Plan Assessment & Plan (1) HTN (hypertension): Comment: Hydrochlorothiazide caused hyponatremia Code(s): I10 - Essential (primary) hypertension Category: Medical Plan: cont meds (2) Diabetes: Comment: Patient declined taking medications other than metformin Code(s): E11.9 - Type 2 diabetes mellitus without complications Category: Medical Plan: A1C is 5.6, ADA diet, cont Metformin (3) Hyperlipidemia: Code(s): E78.5 - Hyperlipidemia, unspecified Category: Medical Plan: cont Atorvastatin Orders: Orders Complete Blood Count Auto Diff Today E11.9 - Type 2 diabetes mellitus without complications, E78.5 - Hyperlipidemia, unspecified, I10 - Essential (primary) hypertension Lipid Panel 6 Months E11.9 - Type 2 diabetes mellitus without complications, E78.5 - Hyperlipidemia, unspecified, I10 - Essential (primary) hypertension Microalbumin, Random (w Creat) 6 Months E11.9 - Type 2 diabetes mellitus without complications, E78.5 - Hyperlipidemia, unspecified, I10 - Essential (primary) hypertension TSH reflex Free T4 6 Months E11.9 - Type 2 diabetes mellitus without complications, E78.5 - Hyperlipidemia, unspecified, I10 - Essential (primary) hypertension AMB Hemoglobin A1c Today Z13.9 - Encounter for screening, unspecified Comprehensive Met. Panel Today E11.9 - Type 2 diabetes mellitus without complications, E78.5 - Hyperlipidemia, unspecified, I10 - Essential (primary) hypertension TSH reflex Free T4 Today E11.9 - Type 2 diabetes mellitus without complications, E78.5 - Hyperlipidemia, unspecified, I10 - Essential (primary) hypertension Comprehensive [place]. Panel Fast 6 Months E11.9 - Type 2 diabetes mellitus without complications, E78.5 - Hyperlipidemia, unspecified, I10 - Essential (primary) hypertension Complete Blood Count Auto Diff 6 Months E11.9 - Type 2 diabetes mellitus without complications, E78.5 - Hyperlipidemia, unspecified, I10 - Essential (primary) hypertension Hemoglobin A1c 6 Months E11.9 - Type 2 diabetes mellitus without complications, E78.5 - Hyperlipidemia, unspecified, I10 - Essential (primary) hypertension
== END 2025-02-09 16:23 | disposition home or self-care (01) ==
LOC: HO.HMCC 10:43
PROVIDERS: PCP Internal Medicine; Visit Provider Internal Medicine
DX: I10 Essential (primary) hypertension (principal); E11.9 Type 2 diabetes mellitus without complications; E78.5 Hyperlipidemia, unspecified; Z13.9 Encounter for screening, unspecified

== ENCOUNTER → 2025-02-09 10:42 | Outpatient (BNVA) | payer MEDICARE, SELFPAY | PROVIDERS: PCP Internal Medicine; Visit Provider Internal Medicine | DX: R53.1 Weakness (principal); E11.9 Type 2 diabetes mellitus without complications; I10 Essential (primary) hypertension; E78.5 Hyperlipidemia, unspecified; Z79.899 Other long term (current) drug therapy | CPT/HCPCS: 83036; 99212 ==